=== PATIENT | male | born 1945 | race Caucasian/White ===

== ENCOUNTER 2019-06-10 11:15 | Outpatient (RCR) | payer MEDICARE, OTHER, SELFPAY ==
--- NOTE | 2018-09-08 15:13 | PT.OIE ---
Current Diagnoses Squamous cell carcinoma of skin, unspecified (09/08/18) Stiffness of right shoulder, not elsewhere classified (09/08/18) Abnormal posture (09/08/18) Weakness (09/08/18) Past Medical History (Last Updated 07/03/18 @ 22:09 by Nneka Maria) Anxiety (Chronic) Depression (Chronic ~2017) Hearing loss (Chronic) Knee pain (Chronic) Osteoarthritis (Chronic ~2002) Seasonal allergies (Chronic ~2007) Vision disorder (Chronic) Chicken pox (Resolved) Fractures (Resolved) Measles (Resolved) Mumps (Resolved) Past Surgical History (Last Updated 07/03/18 @ 22:08 by Nneka Maria) Status post knee surgery (~2002) Provider Visit Care Team Role Provider Type Satnam Kirk MD Primary Care Provider Physician Specialty: Internal Medicine Address: [address] [place] [address], [facility] Email: Attending Provider Specialty: Address: Phone: Fax: Email: Physical Therapy Initial Evaluation PT-OP-A Visit Information Start: 09/08/18 08:13 Freq: Status: Active Protocol: Document 09/08/18 13:40 [facility] (Rec: 09/08/18 14:34 [facility] [id number]) Out-Patient Physical Therapy Visit Information Visit Information Visit Type Initial Evaluation Visit Start Time 13:45 Visit Stop Time 14:30 Total Visit Minutes 45 PT-OP-B Current Condition Start: 09/08/18 08:13 Freq: Status: Active Protocol: Document 09/08/18 13:40 [facility] (Rec: 09/08/18 14:34 [facility] [id number]) Current Condition History of Current Condition Onset Date 05/27/18 Current Complaints R shoulder restrictions History of Current Condition Pt had R shoulder fungating SCC s/p resection & reconstruction w/parascapular flap. Pt reports he has been doing infusions and is fatigued for a week after. Pt reports he was limited in activiity d/t recovery of shoulder and notes balance and leg strength. Prior Treatments and Tests armendariz therapy for blood pooling Treatment Goals Patient/Caregiver Goals Return to golfing PT-OP-C Subjective Start: 09/08/18 08:13 Freq: Status: Active Protocol: Document 09/08/18 13:40 [facility] (Rec: 09/08/18 14:34 [facility] [id number]) Patient Questionnaires Quick Dash- Upper Extremity Quick Dash UE Score 22.72 Quick Dash UE Impairment 20 to 39% Impaired (Score 20- 39) OP-PT Pain Assessment Location R shoulder Description Aching Tightness Description- Other feels funny Frequency Intermittent Radiating Location brachium Other Pain Aggravating Factors working on computer, reaching PT-OP-J Posture/Palpation/Skin Start: 09/08/18 12:00 Freq: Status: Active Protocol: Document 09/08/18 13:40 [facility] (Rec: 09/08/18 14:34 [facility] [id number]) Posture Evaluation [facility] Postural Classification System [facility] Postural Classifications Anterior/Posterior Elbow Flexion Test 0 Palpation Assessment Location R shoulder Palpation Findings Soft Tissue Tightness Palpation Details Scar tissue limitation throughout scar ant shoulder and sup shoulder & post R trunk PT-OP-K Range of Motion Start: 09/08/18 12:00 Freq: Status: Active Protocol: Document 09/08/18 13:40 [facility] (Rec: 09/08/18 14:34 [facility] [id number]) Shoulder Goniometric Range of Motion Shoulder Right Passive Flexion 147 Abduction 123 External Rotation at 90 degrees 91 Abduction Internal Rotation 27 Left Active Testing Position Sitting Flexion 168 Extension 66 Abduction 140 External Rotation at 90 degrees 88 Abduction External Rotation at 0 degrees Abduction 91 Internal Rotation 78 Internal Rotation Behind Back (text) T7 Right Active Testing Position Sitting Flexion 125 Extension 40 Abduction 91 External Rotation at 90 degrees 78 Abduction External Rotation at 0 degrees Abduction 85 Internal Rotation 71 Internal Rotation Behind Back (text) L1 PT-OP-M Strength Start: 09/08/18 08:13 Freq: Status: Active Protocol: Document 09/08/18 13:40 [facility] (Rec: 09/08/18 14:34 [facility] [id number]) Shoulder Strength Shoulder Manual Muscle Testing Left Flexion 5 Normal Extension 5 Normal Abduction (C5) 5 Normal External Rotation 4+ Good+ Internal Rotation 5 Normal Right Flexion 4- Good- Extension 4- Good- Abduction (C5) 4+ Good+ External Rotation 4+ Good+ Internal Rotation 4+ Good+ Comments Tested seated d/t balance instability PT-OP-Q Treatments Start: 09/08/18 08:13 Freq: Status: Active Protocol: Document 09/08/18 13:40 [facility] (Rec: 09/08/18 14:34 [facility] [id number]) Therapeutic Exercises Supine Exercises ER Supine Exercise Name 90/90 tbar Reps/Minutes 10 flex Supine Exercise Name tbar Reps/Minutes 15 Standing Exercises ext Standing Exercise Name tbar Reps/Minutes 10 PT-OP-T Assessment and Plan Start: 09/08/18 08:13 Freq: Status: Active Protocol: Document 09/08/18 13:40 [facility] (Rec: 09/08/18 14:34 [facility] [id number]) Physical Therapy Assessment Rehab Potential Rehabilitation Potential Good Evaluation Complexity Number of Personal Factors/Comorbidities 3 or More Number of Body Systems Impaired 4 or More Clinical Presentation at Evaluation Evolving Impairments Impairments Activity Tolerance Balance Functional Activities Functional Mobility Gait Pain Posture ROM Soft Tissue Mobility Strength Goals ROM Senior Care Goal (LTG) Pt will have normal AROM in R Shoulder to allow typical activities LTG Duration 11/08/18 weakness Short Term Goal (STG) Pt will be indep with HEP. STG Duration 10/08/18 Senior Care Goal (LTG) Pt will be able to score 5/5 w /UE strength & 3/5 for EFT to allow inc activity tolerance LTG Duration 11/08/18 activity Short Term Goal (STG) Pt will be able to do ADLs that require reaching: watering, dishes, etc without pain. STG Duration 10/08/18 Atomizer Assembler Goal (LTG) Pt will be able to golf without any issues. LTG Duration 11/08/18 Assessment Summary Assessment Pt presents s/p R shoudler fungating SCC s/p resection & reconstruction w/parascapular flap causing limitations in ROM & strength of his shoulder . he would like inc his activity and strength and has noted dec overall dec inbalance and strength. He was encouraged to talk to MD about further referall for this. He would benefit from PT at this time to work on his shoulder functional ability, scar mobility, ROM & strength. Physical Therapy Plan Frequency and Duration Frequency of Treatment 1-2x/week Duration of Treatment 2 monhts Plan of Care Start Date 09/08/18 Plan of Care End Date 11/08/18 Therapeutic Interventions Therapeutic Interventions Aquatic Therapy Home Exercise Program Joint Mobilizations Manual Therapy Neuromuscular Re-education Patient/Caregiver Education Self-Care/Home Management Soft Tissue Mobilization Taping Therapeutic Activities Therapeutic Exercises Modalities Cold Pack/Ice Massage Hot Packs Next Visit Focus/Plan Next Note Type Treatment Note Next Visit Plan Work on progression of shoulder ROM & strength, scar tissue mobility
--- NOTE | 2018-09-08 15:13 | PT.OPPOC ---
Current Diagnoses Squamous cell carcinoma of skin, unspecified (09/08/18) Stiffness of right shoulder, not elsewhere classified (09/08/18) Abnormal posture (09/08/18) Weakness (09/08/18) Provider Visit Care Team Role Provider Type Satnam Kirk MD Primary Care Provider Physician Specialty: Internal Medicine Address: [address] [place] [address], [id number] Email: Attending Provider Specialty: Address: Phone: Fax: Email: Plan Of Care PT-OP-T Assessment and Plan Start: 09/08/18 08:13 Freq: Status: Active Protocol: Document 09/08/18 13:40 [facility] (Rec: 09/08/18 14:34 [facility] [id number]) Physical Therapy Assessment Rehab Potential Rehabilitation Potential Good Evaluation Complexity Number of Personal Factors/Comorbidities 3 or More Number of Body Systems Impaired 4 or More Clinical Presentation at Evaluation Evolving Impairments Impairments Activity Tolerance Balance Functional Activities Functional Mobility Gait Pain Posture ROM Soft Tissue Mobility Strength Goals ROM Hand Cigar Maker Goal (LTG) Pt will have normal AROM in R Shoulder to allow typical activities LTG Duration 11/08/18 weakness Short Term Goal (STG) Pt will be indep with HEP. STG Duration 10/08/18 Hand Cigar Maker Goal (LTG) Pt will be able to score 5/5 w /UE strength & 3/5 for EFT to allow inc activity tolerance LTG Duration 11/08/18 activity Short Term Goal (STG) Pt will be able to do ADLs that require reaching: watering, dishes, etc without pain. STG Duration 10/08/18 Hand Cigar Maker Goal (LTG) Pt will be able to golf without any issues. LTG Duration 11/08/18 Assessment Summary Assessment Pt presents s/p R shoudler fungating SCC s/p resection & reconstruction w/parascapular flap causing limitations in ROM & strength of his shoulder . he would like inc his activity and strength and has noted dec overall dec inbalance and strength. He was encouraged to talk to about further referall for this. He would benefit from PT at this time to work on his shoulder functional ability, scar mobility, ROM & strength. Physical Therapy Plan Frequency and Duration Frequency of Treatment 1-2x/week Duration of Treatment 2 monhts Plan of Care Start Date 09/08/18 Plan of Care End Date 11/08/18 Therapeutic Interventions Therapeutic Interventions Aquatic Therapy Home Exercise Program Joint Mobilizations Manual Therapy Neuromuscular Re-education Patient/Caregiver Education Self-Care/Home Management Soft Tissue Mobilization Taping Therapeutic Activities Therapeutic Exercises Modalities Cold Pack/Ice Massage Hot Packs Next Visit Focus/Plan Next Note Type Treatment Note Next Visit Plan Work on progression of shoulder ROM & strength, scar tissue mobility Plan of Care Dates Plan of Care Start Date 09/08/18 Plan of Care End Date 11/08/18 Please Sign and Return: I have reviewed this Plan of Care and certify that the skilled therapy services above are required to meet the patient?s needs. Physician Signature Date Printed Name and Credentials Clinical Instructor Signature Printed Name and Credentials
--- NOTE | 2018-09-10 14:29 | PT.OTN ---
Current Diagnoses Squamous cell carcinoma of skin, unspecified (09/10/18) Stiffness of right shoulder, not elsewhere classified (09/10/18) Abnormal posture (09/10/18) Weakness (09/10/18) Physical Therapy Treatment Note PT-OP-A Visit Information Start: 09/08/18 08:13 Freq: Status: Active Protocol: Document 09/10/18 13:47 [facility] (Rec: 09/10/18 14:29 [facility] [id number]) Out-Patient Physical Therapy Visit Information Visit Information Visit Type Treatment Note Visit Start Time 13:47 Visit Stop Time 15:12 Total Visit Minutes 40 Visit Number 2 Number of COMMUNITY HEALTH REPRESENTATIVE Visits 0 PT-OP-B Current Condition Start: 09/08/18 08:13 Freq: Status: Active Protocol: Document 09/08/18 13:40 [facility] (Rec: 09/08/18 14:34 [facility] [id number]) Current Condition History of Current Condition Onset Date 05/27/18 Current Complaints R shoulder restrictions History of Current Condition Pt had R shoulder fungating SCC s/p resection & reconstruction w/parascapular flap. Pt reports he has been doing infusions and is fatigued for a week after. Pt reports he was limited in activiity d/t recovery of shoulder and notes balance and leg strength. Prior Treatments and Tests armendariz therapy for blood pooling Treatment Goals Patient/Caregiver Goals Return to golfing PT-OP-C Subjective Start: 09/08/18 08:13 Freq: Status: Active Protocol: Document 09/10/18 13:47 [facility] (Rec: 09/10/18 14:29 [facility] [id number]) OP-PT Subjective Patient Comments Patient Comments Pt reports a little soreness with the exercises. PT-OP-J Posture/Palpation/Skin Start: 09/08/18 12:00 Freq: Status: Active Protocol: Document 09/08/18 13:40 [facility] (Rec: 09/08/18 14:34 [facility] [id number]) Posture Evaluation [facility] Postural Classification System [facility] Postural Classifications Anterior/Posterior Elbow Flexion Test 0 Palpation Assessment Location R shoulder Palpation Findings Soft Tissue Tightness Palpation Details Scar tissue limitation throughout scar ant shoulder and sup shoulder & post R trunk PT-OP-K Range of Motion Start: 09/08/18 12:00 Freq: Status: Active Protocol: Document 09/08/18 13:40 [facility] (Rec: 09/08/18 14:34 [facility] [id number]) Shoulder Goniometric Range of Motion Shoulder Right Passive Flexion 147 Abduction 123 External Rotation at 90 degrees 91 Abduction Internal Rotation 27 Left Active Testing Position Sitting Flexion 168 Extension 66 Abduction 140 External Rotation at 90 degrees 88 Abduction External Rotation at 0 degrees Abduction 91 Internal Rotation 78 Internal Rotation Behind Back (text) T7 Right Active Testing Position Sitting Flexion 125 Extension 40 Abduction 91 External Rotation at 90 degrees 78 Abduction External Rotation at 0 degrees Abduction 85 Internal Rotation 71 Internal Rotation Behind Back (text) L1 PT-OP-M Strength Start: 09/08/18 08:13 Freq: Status: Active Protocol: Document 09/08/18 13:40 [facility] (Rec: 09/08/18 14:34 [facility] [id number]) Shoulder Strength Shoulder Manual Muscle Testing Left Flexion 5 Normal Extension 5 Normal Abduction (C5) 5 Normal External Rotation 4+ Good+ Internal Rotation 5 Normal Right Flexion 4- Good- Extension 4- Good- Abduction (C5) 4+ Good+ External Rotation 4+ Good+ Internal Rotation 4+ Good+ Comments Tested seated d/t balance instability PT-OP-Q Treatments Start: 09/08/18 08:13 Freq: Status: Active Protocol: Document 09/10/18 13:47 [facility] (Rec: 09/10/18 14:29 [facility] [id number]) Cardio Equipment Upper Body Ergometer (UBE) Duration (Minutes) 6 Seat Position 15 Height 4.5 Other fwd/back Therapeutic Exercises Supine Exercises ER Supine Exercise Name 90/90 tbar Reps/Minutes 20 flex Supine Exercise Name tbar Reps/Minutes 15 Standing Exercises ER Standing Exercise Name B ER Side bilateral Equipment Used lvl 1 Reps/Minutes 10x2 row Standing Exercise Name row Side bilateral Reps/Minutes 2x10 abd Standing Exercise Name tbar Reps/Minutes 12 IR Standing Exercise Name tbar Reps/Minutes 12 ext Standing Exercise Name tbar Reps/Minutes 10 Manual Therapy Treatment Soft Tissue Mobilization scar tissue Body Location ant & post Mobilization Type Myofascial Release Intensity/Depth Superficial Comments MFR & plunger PT-OP-T Assessment and Plan Start: 09/08/18 08:13 Freq: Status: Active Protocol: Document 09/10/18 13:47 [facility] (Rec: 09/10/18 14:29 [facility] [id number]) Physical Therapy Assessment Goals ROM Production Cook Goal (LTG) Pt will have normal AROM in R Shoulder to allow typical activities LTG Duration 11/08/18 weakness Short Term Goal (STG) Pt will be indep with HEP. STG Duration 10/08/18 Production Cook Goal (LTG) Pt will be able to score 5/5 w /UE strength & 3/5 for EFT to allow inc activity tolerance LTG Duration 11/08/18 activity Short Term Goal (STG) Pt will be able to do ADLs that require reaching: watering, dishes, etc without pain. STG Duration 10/08/18 Mcfp Goal (LTG) Pt will be able to golf without any issues. LTG Duration 11/08/18 Assessment Summary Assessment Pt was able to perform HEP with min cueing and is improving in ROM already with 2 days spent with working on it. Able to tolerate start of strength training. Physical Therapy Plan Frequency and Duration Frequency of Treatment 1-2x/week Duration of Treatment 2 monhts Plan of Care Start Date 09/08/18 Plan of Care End Date 11/08/18 Next Visit Focus/Plan Next Note Type Treatment Note Next Visit Plan advance strengthening
--- NOTE | 2018-09-15 17:32 | PT.OTN ---
Current Diagnoses Squamous cell carcinoma of skin, unspecified (09/15/18) Stiffness of right shoulder, not elsewhere classified (09/15/18) Abnormal posture (09/15/18) Weakness (09/15/18) Physical Therapy Treatment Note PT-OP-A Visit Information Start: 09/08/18 08:13 Freq: Status: Active Protocol: Document 09/15/18 16:51 [facility] (Rec: 09/15/18 17:32 [facility] [id number]) Out-Patient Physical Therapy Visit Information Visit Information Visit Type Treatment Note Visit Start Time 16:48 Visit Stop Time 17:28 Total Visit Minutes 40 Visit Number 06/01 Number of CAREER TRANSITION SPECIALIST Visits 0 PT-OP-B Current Condition Start: 09/08/18 08:13 Freq: Status: Active Protocol: Document 09/08/18 13:40 [facility] (Rec: 09/08/18 14:34 [facility] [id number]) Current Condition History of Current Condition Onset Date 05/27/18 Current Complaints R shoulder restrictions History of Current Condition Pt had R shoulder fungating SCC s/p resection & reconstruction w/parascapular flap. Pt reports he has been doing infusions and is fatigued for a week after. Pt reports he was limited in activiity d/t recovery of shoulder and notes balance and leg strength. Prior Treatments and Tests armendariz therapy for blood pooling Treatment Goals Patient/Caregiver Goals Return to golfing PT-OP-C Subjective Start: 09/08/18 08:13 Freq: Status: Active Protocol: Document 09/15/18 16:51 [facility] (Rec: 09/15/18 17:32 [facility] [id number]) OP-PT Subjective Patient Comments Patient Comments Pt reports some mm soreness with exercises. PT-OP-J Posture/Palpation/Skin Start: 09/08/18 12:00 Freq: Status: Active Protocol: Document 09/08/18 13:40 [facility] (Rec: 09/08/18 14:34 [facility] [id number]) Posture Evaluation [facility] Postural Classification System [facility] Postural Classifications Anterior/Posterior Elbow Flexion Test 0 Palpation Assessment Location R shoulder Palpation Findings Soft Tissue Tightness Palpation Details Scar tissue limitation throughout scar ant shoulder and sup shoulder & post R trunk PT-OP-K Range of Motion Start: 09/08/18 12:00 Freq: Status: Active Protocol: Document 09/08/18 13:40 [facility] (Rec: 09/08/18 14:34 [facility] [id number]) Shoulder Goniometric Range of Motion Shoulder Right Passive Flexion 147 Abduction 123 External Rotation at 90 degrees 91 Abduction Internal Rotation 27 Left Active Testing Position Sitting Flexion 168 Extension 66 Abduction 140 External Rotation at 90 degrees 88 Abduction External Rotation at 0 degrees Abduction 91 Internal Rotation 78 Internal Rotation Behind Back (text) T7 Right Active Testing Position Sitting Flexion 125 Extension 40 Abduction 91 External Rotation at 90 degrees 78 Abduction External Rotation at 0 degrees Abduction 85 Internal Rotation 71 Internal Rotation Behind Back (text) L1 PT-OP-M Strength Start: 09/08/18 08:13 Freq: Status: Active Protocol: Document 09/08/18 13:40 [facility] (Rec: 09/08/18 14:34 [facility] [id number]) Shoulder Strength Shoulder Manual Muscle Testing Left Flexion 5 Normal Extension 5 Normal Abduction (C5) 5 Normal External Rotation 4+ Good+ Internal Rotation 5 Normal Right Flexion 4- Good- Extension 4- Good- Abduction (C5) 4+ Good+ External Rotation 4+ Good+ Internal Rotation 4+ Good+ Comments Tested seated d/t balance instability PT-OP-Q Treatments Start: 09/08/18 08:13 Freq: Status: Active Protocol: Document 09/15/18 16:51 [facility] (Rec: 09/15/18 17:32 [facility] [id number]) Cardio Equipment Upper Body Ergometer (UBE) Duration (Minutes) 6 Seat Position 15 Height 4.5 Other fwd/back Therapeutic Exercises Standing Exercises rotation Standing Exercise Name IR Side right Equipment Used L1 Reps/Minutes 2x10 ER Standing Exercise Name B ER Side bilateral Equipment Used lvl 1 Reps/Minutes 10x2 row Standing Exercise Name row Side bilateral Equipment Used L2 Reps/Minutes 2x10 abd Standing Exercise Name tbar Reps/Minutes 12 IR Standing Exercise Name towel Reps/Minutes 12 ext Standing Exercise Name resisted Side bilateral Equipment Used L1 Reps/Minutes 2x10 Manual Therapy Treatment Soft Tissue Mobilization scar tissue Body Location ant & post Mobilization Type Myofascial Release Intensity/Depth Superficial Comments MFR & plunger Joint Mobilizations GH Joint R Direction inf & distraction PT-OP-T Assessment and Plan Start: 09/08/18 08:13 Freq: Status: Active Protocol: Document 09/15/18 16:51 [facility] (Rec: 09/15/18 17:32 [facility] [id number]) Physical Therapy Assessment Goals ROM Chcf Goal (LTG) Pt will have normal AROM in R Shoulder to allow typical activities LTG Duration 11/08/18 weakness Short Term Goal (STG) Pt will be indep with HEP. STG Duration 10/08/18 Chcf Goal (LTG) Pt will be able to score 5/5 w /UE strength & 3/5 for EFT to allow inc activity tolerance LTG Duration 11/08/18 activity Short Term Goal (STG) Pt will be able to do ADLs that require reaching: watering, dishes, etc without pain. STG Duration 10/08/18 Orthotic Practitioner Goal (LTG) Pt will be able to golf without any issues. LTG Duration 11/08/18 Assessment Summary Assessment Pt requied only min cueing w/ HEP exercises. He does have mild LOB with transitions between activities. Exercises improving. Physical Therapy Plan Frequency and Duration Frequency of Treatment 1-2x/week Duration of Treatment 2 monhts Plan of Care Start Date 09/08/18 Plan of Care End Date 11/08/18 Next Visit Focus/Plan Next Note Type Treatment Note Next Visit Plan advance strengthening as tolerated
--- NOTE | 2018-09-18 11:16 | PT.OTN ---
Current Diagnoses Squamous cell carcinoma of skin, unspecified (09/18/18) Stiffness of right shoulder, not elsewhere classified (09/18/18) Abnormal posture (09/18/18) Weakness (09/18/18) Physical Therapy Treatment Note PT-OP-A Visit Information Start: 09/08/18 08:13 Freq: Status: Active Protocol: Document 09/18/18 10:37 [facility] (Rec: 09/18/18 11:15 [facility] [id number]) Out-Patient Physical Therapy Visit Information Visit Information Visit Type Treatment Note Visit Start Time 10:35 Visit Stop Time 11:15 Total Visit Minutes 40 Visit Number 4 Number of SALES LEDGER CLERK Visits 0 PT-OP-B Current Condition Start: 09/08/18 08:13 Freq: Status: Active Protocol: Document 09/08/18 13:40 [facility] (Rec: 09/08/18 14:34 [facility] [id number]) Current Condition History of Current Condition Onset Date 05/27/18 Current Complaints R shoulder restrictions History of Current Condition Pt had R shoulder fungating SCC s/p resection & reconstruction w/parascapular flap. Pt reports he has been doing infusions and is fatigued for a week after. Pt reports he was limited in activiity d/t recovery of shoulder and notes balance and leg strength. Prior Treatments and Tests armendariz therapy for blood pooling Treatment Goals Patient/Caregiver Goals Return to golfing PT-OP-C Subjective Start: 09/08/18 08:13 Freq: Status: Active Protocol: Document 09/18/18 10:37 [facility] (Rec: 09/18/18 11:15 [facility] [id number]) OP-PT Subjective Patient Comments Patient Comments Pt reports his CAT scan showed good results. will write a referal for balance PT soon. Reports he golfed and did okay with it. Some pain in shoulder. PT-OP-J Posture/Palpation/Skin Start: 09/08/18 12:00 Freq: Status: Active Protocol: Document 09/08/18 13:40 [facility] (Rec: 09/08/18 14:34 [facility] [id number]) Posture Evaluation Kelsey Postural Classification System Kelsey Postural Classifications Anterior/Posterior Elbow Flexion Test 0 Palpation Assessment Location R shoulder Palpation Findings Soft Tissue Tightness Palpation Details Scar tissue limitation throughout scar ant shoulder and sup shoulder & post R trunk PT-OP-K Range of Motion Start: 09/08/18 12:00 Freq: Status: Active Protocol: Document 09/08/18 13:40 [facility] (Rec: 09/08/18 14:34 [facility] [id number]) Shoulder Goniometric Range of Motion Shoulder Right Passive Flexion 147 Abduction 123 External Rotation at 90 degrees 91 Abduction Internal Rotation 27 Left Active Testing Position Sitting Flexion 168 Extension 66 Abduction 140 External Rotation at 90 degrees 88 Abduction External Rotation at 0 degrees Abduction 91 Internal Rotation 78 Internal Rotation Behind Back (text) T7 Right Active Testing Position Sitting Flexion 125 Extension 40 Abduction 91 External Rotation at 90 degrees 78 Abduction External Rotation at 0 degrees Abduction 85 Internal Rotation 71 Internal Rotation Behind Back (text) L1 PT-OP-M Strength Start: 09/08/18 08:13 Freq: Status: Active Protocol: Document 09/08/18 13:40 [facility] (Rec: 09/08/18 14:34 [facility] [id number]) Shoulder Strength Shoulder Manual Muscle Testing Left Flexion 5 Normal Extension 5 Normal Abduction (C5) 5 Normal External Rotation 4+ Good+ Internal Rotation 5 Normal Right Flexion 4- Good- Extension 4- Good- Abduction (C5) 4+ Good+ External Rotation 4+ Good+ Internal Rotation 4+ Good+ Comments Tested seated d/t balance instability PT-OP-Q Treatments Start: 09/08/18 08:13 Freq: Status: Active Protocol: Document 09/18/18 10:37 [facility] (Rec: 09/18/18 11:15 [facility] [id number]) Cardio Equipment Upper Body Ergometer (UBE) Duration (Minutes) 6 Seat Position 15 Height 5.5 Other fwd/back Therapeutic Exercises Sitting Exercises pully Sitting Exercise Name flex, abd, IR behind back Reps/Minutes 15 ea Standing Exercises flex Standing Exercise Name w/ Habd retract Side bilateral Equipment Used L1 Reps/Minutes 15 rotation Standing Exercise Name IR Side right Equipment Used L2 Reps/Minutes 2x10 ER Standing Exercise Name B ER Side bilateral Equipment Used lvl 2 Reps/Minutes 10x2 row Standing Exercise Name row Side bilateral Equipment Used L3 Reps/Minutes 2x10 abd Standing Exercise Name resisted Side right Equipment Used L1 Reps/Minutes 12 ext Standing Exercise Name resisted Side bilateral Equipment Used L3 Reps/Minutes 2x10 Manual Therapy Treatment Soft Tissue Mobilization Teres Body Location major & minor Mobilization Type Rolling Strumming scar tissue Body Location post Mobilization Type Myofascial Release Rolling Intensity/Depth Moderate PT-OP-R Modalities Start: 09/18/18 11:15 Freq: Status: Active Protocol: Document 09/18/18 10:37 [facility] (Rec: 09/18/18 11:16 [facility] [id number]) Hot Pack/Cold Pack Treatment Hot Pack Location post shoulder Patient Position Sidelying Treatment Duration (minutes) 15 PT-OP-T Assessment and Plan Start: 09/08/18 08:13 Freq: Status: Active Protocol: Document 09/18/18 10:37 [facility] (Rec: 09/18/18 11:15 [facility] [id number]) Physical Therapy Assessment Goals ROM Sheet Metal Supervisor Goal (LTG) Pt will have normal AROM in R Shoulder to allow typical activities LTG Duration 11/08/18 weakness Short Term Goal (STG) Pt will be indep with HEP. STG Duration 10/08/18 Residential Goal (LTG) Pt will be able to score 5/5 w /UE strength & 3/5 for EFT to allow inc activity tolerance LTG Duration 11/08/18 activity Short Term Goal (STG) Pt will be able to do ADLs that require reaching: watering, dishes, etc without pain. STG Duration 10/08/18 Residential Goal (LTG) Pt will be able to golf without any issues. LTG Duration 11/08/18 Assessment Summary Assessment Pt able to tolerate inc resistance today without any inc in pain. Cueing required for form & posture. Physical Therapy Plan Frequency and Duration Frequency of Treatment 1-2x/week Duration of Treatment 2 monhts Plan of Care Start Date 09/08/18 Plan of Care End Date 11/08/18 Therapeutic Interventions Therapeutic Interventions Aquatic Therapy Home Exercise Program Joint Mobilizations Manual Therapy Neuromuscular Re-education Patient/Caregiver Education Self-Care/Home Management Soft Tissue Mobilization Taping Therapeutic Activities Therapeutic Exercises Modalities Cold Pack/Ice Massage Hot Packs Next Visit Focus/Plan Next Note Type Treatment Note Next Visit Plan advance strengthening as tolerated
--- NOTE | 2018-09-23 17:47 | PT.OTN ---
Current Diagnoses Squamous cell carcinoma of skin, unspecified (09/23/18) Stiffness of right shoulder, not elsewhere classified (09/23/18) Abnormal posture (09/23/18) Weakness (09/23/18) Physical Therapy Treatment Note PT-OP-A Visit Information Start: 09/08/18 08:13 Freq: Status: Active Protocol: Document 09/23/18 16:51 [facility] (Rec: 09/23/18 17:47 [facility] [id number]) Out-Patient Physical Therapy Visit Information Visit Information Visit Type Treatment Note Visit Start Time 16:50 Visit Stop Time 17:30 Total Visit Minutes 40 Visit Number 08/01 Number of MINT WAFER DEPOSITOR Visits 0 PT-OP-B Current Condition Start: 09/08/18 08:13 Freq: Status: Active Protocol: Document 09/08/18 13:40 [facility] (Rec: 09/08/18 14:34 [facility] [id number]) Current Condition History of Current Condition Onset Date 05/27/18 Current Complaints R shoulder restrictions History of Current Condition Pt had R shoulder fungating SCC s/p resection & reconstruction w/parascapular flap. Pt reports he has been doing infusions and is fatigued for a week after. Pt reports he was limited in activiity d/t recovery of shoulder and notes balance and leg strength. Prior Treatments and Tests armendariz therapy for blood pooling Treatment Goals Patient/Caregiver Goals Return to golfing PT-OP-C Subjective Start: 09/08/18 08:13 Freq: Status: Active Protocol: Document 09/23/18 16:51 [facility] (Rec: 09/23/18 17:47 [facility] [id number]) OP-PT Subjective Patient Comments Patient Comments Pt reports he laid on his back and worked on his sink for a long time without a lot of shoulder. PT-OP-J Posture/Palpation/Skin Start: 09/08/18 12:00 Freq: Status: Active Protocol: Document 09/08/18 13:40 [facility] (Rec: 09/08/18 14:34 [facility] [id number]) Posture Evaluation Kelsey Postural Classification System Kelsey Postural Classifications Anterior/Posterior Elbow Flexion Test 0 Palpation Assessment Location R shoulder Palpation Findings Soft Tissue Tightness Palpation Details Scar tissue limitation throughout scar ant shoulder and sup shoulder & post R trunk PT-OP-K Range of Motion Start: 09/08/18 12:00 Freq: Status: Active Protocol: Document 09/08/18 13:40 [facility] (Rec: 09/08/18 14:34 [facility] [id number]) Shoulder Goniometric Range of Motion Shoulder Right Passive Flexion 147 Abduction 123 External Rotation at 90 degrees 91 Abduction Internal Rotation 27 Left Active Testing Position Sitting Flexion 168 Extension 66 Abduction 140 External Rotation at 90 degrees 88 Abduction External Rotation at 0 degrees Abduction 91 Internal Rotation 78 Internal Rotation Behind Back (text) T7 Right Active Testing Position Sitting Flexion 125 Extension 40 Abduction 91 External Rotation at 90 degrees 78 Abduction External Rotation at 0 degrees Abduction 85 Internal Rotation 71 Internal Rotation Behind Back (text) L1 PT-OP-M Strength Start: 09/08/18 08:13 Freq: Status: Active Protocol: Document 09/08/18 13:40 [facility] (Rec: 09/08/18 14:34 [facility] [id number]) Shoulder Strength Shoulder Manual Muscle Testing Left Flexion 5 Normal Extension 5 Normal Abduction (C5) 5 Normal External Rotation 4+ Good+ Internal Rotation 5 Normal Right Flexion 4- Good- Extension 4- Good- Abduction (C5) 4+ Good+ External Rotation 4+ Good+ Internal Rotation 4+ Good+ Comments Tested seated d/t balance instability PT-OP-Q Treatments Start: 09/08/18 08:13 Freq: Status: Active Protocol: Document 09/23/18 16:51 [facility] (Rec: 09/23/18 17:47 [facility] [id number]) Cardio Equipment Upper Body Ergometer (UBE) Duration (Minutes) 6 Seat Position 15 Height 5.5 Other fwd/back Gym Equipment Cable Column (Body Solid) Lat Pull Down Resistance 2,3 Reps/Time 2x15 Therapeutic Exercises Prone Exercises 90/90 ER Side bilateral Reps/Minutes 2x10 ext Side bilateral Equipment Used 2# Reps/Minutes 2x10 scaption Side bilateral Reps/Minutes 2x10 Habd Side bilateral Equipment Used 2# Reps/Minutes 2x10 Sitting Exercises pully Sitting Exercise Name flex, abd, IR behind back Reps/Minutes 15 ea Manual Therapy Treatment Soft Tissue Mobilization scar tissue Body Location post & ant Mobilization Type Myofascial Release Rolling Intensity/Depth Moderate PT-OP-R Modalities Start: 09/18/18 11:15 Freq: Status: Active Protocol: Document 09/23/18 16:51 [facility] (Rec: 09/23/18 17:47 [facility] [id number]) Hot Pack/Cold Pack Treatment Hot Pack Location post shoulder Patient Position Sidelying Treatment Duration (minutes) 15 PT-OP-T Assessment and Plan Start: 09/08/18 08:13 Freq: Status: Active Protocol: Document 09/23/18 16:51 [facility] (Rec: 09/23/18 17:47 [facility] [id number]) Physical Therapy Assessment Goals ROM Functional Tester Typewriters Goal (LTG) Pt will have normal AROM in R Shoulder to allow typical activities LTG Duration 11/08/18 weakness Short Term Goal (STG) Pt will be indep with HEP. STG Duration 10/08/18 Functional Tester Typewriters Goal (LTG) Pt will be able to score 5/5 w /UE strength & 3/5 for EFT to allow inc activity tolerance LTG Duration 11/08/18 activity Short Term Goal (STG) Pt will be able to do ADLs that require reaching: watering, dishes, etc without pain. STG Duration 10/08/18 Functional Tester Typewriters Goal (LTG) Pt will be able to golf without any issues. LTG Duration 11/08/18 Assessment Summary Assessment Pt cont to tolerate inc resistance and improve with his ROM and scar tissue mobility. He is improving with functional gains and ability to do ADLs Physical Therapy Plan Frequency and Duration Frequency of Treatment 1-2x/week Duration of Treatment 2 monhts Plan of Care Start Date 09/08/18 Plan of Care End Date 11/08/18 Next Visit Focus/Plan Next Note Type Treatment Note Next Visit Plan advance strengthening as tolerated
--- NOTE | 2018-09-29 18:09 | PT.OTN ---
Current Diagnoses Squamous cell carcinoma of skin, unspecified (09/29/18) Stiffness of right shoulder, not elsewhere classified (09/29/18) Abnormal posture (09/29/18) Weakness (09/29/18) Physical Therapy Treatment Note PT-OP-A Visit Information Start: 09/08/18 08:13 Freq: Status: Active Protocol: Document 09/29/18 17:48 [facility] (Rec: 09/29/18 18:08 [facility] [id number]) Out-Patient Physical Therapy Visit Information Visit Information Visit Type Treatment Note Visit Start Time 16:50 Visit Stop Time 17:47 Total Visit Minutes 57 Visit Number 09/01 Number of MANAGER OPERATIONS RESEARCH Visits 0 PT-OP-B Current Condition Start: 09/08/18 08:13 Freq: Status: Active Protocol: Document 09/08/18 13:40 [facility] (Rec: 09/08/18 14:34 [facility] [id number]) Current Condition History of Current Condition Onset Date 05/27/18 Current Complaints R shoulder restrictions History of Current Condition Pt had R shoulder fungating SCC s/p resection & reconstruction w/parascapular flap. Pt reports he has been doing infusions and is fatigued for a week after. Pt reports he was limited in activiity d/t recovery of shoulder and notes balance and leg strength. Prior Treatments and Tests armendariz therapy for blood pooling Treatment Goals Patient/Caregiver Goals Return to golfing PT-OP-C Subjective Start: 09/08/18 08:13 Freq: Status: Active Protocol: Document 09/29/18 17:48 [facility] (Rec: 09/29/18 18:08 [facility] [id number]) OP-PT Subjective Patient Comments Patient Comments Pt reports he was able to golf without problems, although he did feel fatigued afterward. PT-OP-J Posture/Palpation/Skin Start: 09/08/18 12:00 Freq: Status: Active Protocol: Document 09/08/18 13:40 [facility] (Rec: 09/08/18 14:34 [facility] [id number]) Posture Evaluation Kelsey Postural Classification System Kelsey Postural Classifications Anterior/Posterior Elbow Flexion Test 0 Palpation Assessment Location R shoulder Palpation Findings Soft Tissue Tightness Palpation Details Scar tissue limitation throughout scar ant shoulder and sup shoulder & post R trunk PT-OP-K Range of Motion Start: 09/08/18 12:00 Freq: Status: Active Protocol: Document 09/08/18 13:40 [facility] (Rec: 09/08/18 14:34 [facility] [id number]) Shoulder Goniometric Range of Motion Shoulder Right Passive Flexion 147 Abduction 123 External Rotation at 90 degrees 91 Abduction Internal Rotation 27 Left Active Testing Position Sitting Flexion 168 Extension 66 Abduction 140 External Rotation at 90 degrees 88 Abduction External Rotation at 0 degrees Abduction 91 Internal Rotation 78 Internal Rotation Behind Back (text) T7 Right Active Testing Position Sitting Flexion 125 Extension 40 Abduction 91 External Rotation at 90 degrees 78 Abduction External Rotation at 0 degrees Abduction 85 Internal Rotation 71 Internal Rotation Behind Back (text) L1 PT-OP-M Strength Start: 09/08/18 08:13 Freq: Status: Active Protocol: Document 09/08/18 13:40 [facility] (Rec: 09/08/18 14:34 [facility] [id number]) Shoulder Strength Shoulder Manual Muscle Testing Left Flexion 5 Normal Extension 5 Normal Abduction (C5) 5 Normal External Rotation 4+ Good+ Internal Rotation 5 Normal Right Flexion 4- Good- Extension 4- Good- Abduction (C5) 4+ Good+ External Rotation 4+ Good+ Internal Rotation 4+ Good+ Comments Tested seated d/t balance instability PT-OP-Q Treatments Start: 09/08/18 08:13 Freq: Status: Active Protocol: Document 09/29/18 17:48 [facility] (Rec: 09/29/18 18:08 [facility] [email or web address]) Cardio Equipment Upper Body Ergometer (UBE) Duration (Minutes) 6 Seat Position 15 Height 6.5 Other fwd/back Therapeutic Exercises Prone Exercises 90/90 ER Side right Reps/Minutes 3x20 ext Side right Equipment Used 3# Reps/Minutes 2x20 scaption Side right Equipment Used 1# Reps/Minutes 2x20 Sidelying Exercises ER Side right Equipment Used 3# Reps/Minutes 2x10 Standing Exercises ER Standing Exercise Name R ER doorway stretch Side right Comments added to HEP Manual Therapy Treatment Soft Tissue Mobilization Pectorals Body Location major & minor Mobilization Type Myofascial Release Rolling Intensity/Depth Moderate Body Position Sitting scar tissue Body Location sup & ant Mobilization Type Myofascial Release Rolling Intensity/Depth Moderate PT-OP-R Modalities Start: 09/18/18 11:15 Freq: Status: Active Protocol: Document 09/29/18 17:48 [facility] (Rec: 09/29/18 18:08 [facility] [id number]) Hot Pack/Cold Pack Treatment Hot Pack Location ant & post shoulder Patient Position Sidelying Treatment Duration (minutes) 15 PT-OP-T Assessment and Plan Start: 09/08/18 08:13 Freq: Status: Active Protocol: Document 09/29/18 17:48 [facility] (Rec: 09/29/18 18:08 [facility] [id number]) Physical Therapy Assessment Goals ROM [employer] Business Analyst Goal (LTG) Pt will have normal AROM in R Shoulder to allow typical activities LTG Duration 11/08/18 weakness Short Term Goal (STG) Pt will be indep with HEP. STG Duration 10/08/18 [employer] Business Analyst Goal (LTG) Pt will be able to score 5/5 w /UE strength & 3/5 for EFT to allow inc activity tolerance LTG Duration 11/08/18 activity Short Term Goal (STG) Pt will be able to do ADLs that require reaching: watering, dishes, etc without pain. STG Duration 10/08/18 [employer] Business Analyst Goal (LTG) Pt will be able to golf without any issues. LTG Duration 11/08/18 Assessment Summary Assessment Pt's compliance with HEP continues to inc ROM and strength, allowing for ability to perform more functional and recreational activties. Pt was able to tolerate inc weight and repetitions with ther ex today. Physical Therapy Plan Frequency and Duration Frequency of Treatment 1-2x/week Duration of Treatment 2 monhts Plan of Care Start Date 09/08/18 Plan of Care End Date 11/08/18 Next Visit Focus/Plan Next Note Type Treatment Note Next Visit Plan assess PROM into flex, abd. joint mobs to inc ROM if necessary. Standing exercises.
--- NOTE | 2018-10-01 18:56 | PT.OTRE ---
Current Diagnoses Squamous cell carcinoma of skin, unspecified (10/01/18) Stiffness of right shoulder, not elsewhere classified (10/01/18) Abnormal posture (10/01/18) Weakness (10/01/18) Past Medical History (Last Updated 07/03/18 @ 22:09 by Nneka Maria) Anxiety (Chronic) Depression (Chronic ~2017) Hearing loss (Chronic) Knee pain (Chronic) Osteoarthritis (Chronic ~2002) Seasonal allergies (Chronic ~2007) Vision disorder (Chronic) Chicken pox (Resolved) Fractures (Resolved) Measles (Resolved) Mumps (Resolved) Surgical History (Last Updated 07/03/18 @ 22:08 by Nneka Maria) Status post knee surgery (~2002) Provider Visit Care Team Role Provider Type Satnam Kirk MD Primary Care Provider Physician Specialty: Internal Medicine Address: [address] [place] [address] Email: Attending Provider Specialty: Address: Phone: Fax: Email: Physical Therapy Re-Evaluation PT-OP-A Visit Information Start: 09/08/18 08:13 Freq: Status: Active Protocol: Document 10/01/18 16:45 AR (Rec: 10/01/18 18:34 AR [email or web address]) Out-Patient Physical Therapy Visit Information Visit Information Visit Type Initial Evaluation Visit Note balance evaluation Visit Start Time 16:45 Visit Stop Time 17:55 Total Visit Minutes 70 Evaluation Information Evaluation Date 10/01/18 PT-OP-B Current Condition Start: 09/08/18 08:13 Freq: Status: Active Protocol: Document 10/01/18 16:45 AR (Rec: 10/01/18 18:34 AR [email or web address]) Current Condition History of Current Condition Onset Date 09/22/2017 Current Complaints imbalance with walking and ADLs History of Current Condition Pt noticed decline in balance about a year ago and believed it was mostly d/t pain in his L knee. Since cancer dx in March, pt has noticed a further decline in balance d/t weakness and fatigue from spending so much time in the hospital and cancer treatments . Prior Treatments and Tests none Treatment Goals Patient/Caregiver Goals Be able to walk independently w/o imbalance (at home, grocery store, golf course). Prior Functional Status Baseline Function- ADL's Independent Baseline Function- Mobility Independent Baseline Function- Gait Pt notes he used walk quite a bit before balance declined. Personal Factors Other Personal Factors That May Effect cancer treatment, fatigue Therapy/Recovery PT-OP-C Subjective Start: 09/08/18 08:13 Freq: Status: Active Protocol: Document 10/01/18 16:45 AR (Rec: 10/01/18 18:34 AR [email or web address]) OP-PT Subjective Patient Comments Patient Comments Pt notes that he seems to lose balance due to fatigue. He holds onto the shopping cart at the grocery store and always carries a golf club as a safety net for stability. He denies any falls. Patient Questionnaires ABC- Activity Specific Balance Confidence Scale ABC Score 72% ABC Functional Impairment 60 to <80% Impaired (Score 21- 40) PT-OP-D Balance Start: 09/08/18 08:13 Freq: Status: Active Protocol: Document 10/01/18 16:45 AR (Rec: 10/01/18 18:34 AR [email or web address]) Veras Balance Assessment Evaluation Sitting to Standing Ability Independent w/out Hands Unsupported Stance Safely- 2 minutes Sitting Unsupported, Feet on Floor Safely- 2 minutes Standing to Sitting Ability Assist, Control w/Hands Transfer Ability Safely, Hand Use Unsupported Stance- Eyes Closed Supervision, 10 seconds Unsupported Stance- Eyes Open Assist to attain, 15 secs Reaching Forward Standing Supervision Needed Pick- Up Object From Floor Supervision Look Behind Shoulder - Standing Supervision w/Turning Turning 360 Degrees Supervision/Verbal Cues Unsupported Stance, Alternating Feet on 4 Steps w/Supervision Stair Unsupported Tandem Stance Small Step- 30 seconds Unilateral Leg Stance Unable,assist to not fall Total Score Veras Total Score (out of 56 points) 32 [place]as Impairment Rating 40 to 59% Impaired (Score 23- 33) PT-OP-E Functional Tests Start: 09/08/18 08:13 Freq: Status: Active Protocol: Document 10/01/18 16:45 AR (Rec: 10/01/18 18:34 AR [email or web address]) Functional Tests Dynamic Gait Index (DGI) Score 9 DGI Impairment Rating 60 to <80% Impaired (Score 5-9 ) PT-OP-J Posture/Palpation/Skin Start: 09/08/18 12:00 Freq: Status: Active Protocol: Document 09/08/18 13:40 [facility] (Rec: 09/08/18 14:34 [facility] [id number]) Posture Evaluation [facility] Postural Classification System [facility] Postural Classifications Anterior/Posterior Elbow Flexion Test 0 Palpation Assessment Location R shoulder Palpation Findings Soft Tissue Tightness Palpation Details Scar tissue limitation throughout scar ant shoulder and sup shoulder & post R trunk PT-OP-K Range of Motion Start: 09/08/18 12:00 Freq: Status: Active Protocol: Document 09/08/18 13:40 [facility] (Rec: 09/08/18 14:34 [facility] [id number]) Shoulder Goniometric Range of Motion Shoulder Measured in Degrees Right Passive Flexion 147 Abduction 123 External Rotation at 90 degrees 91 Abduction Internal Rotation 27 Left Active Testing Position Sitting Flexion 168 Extension 66 Abduction 140 External Rotation at 90 degrees 88 Abduction External Rotation at 0 degrees Abduction 91 Internal Rotation 78 Internal Rotation Behind Back (text) T7 Right Active Testing Position Sitting Flexion 125 Extension 40 Abduction 91 External Rotation at 90 degrees 78 Abduction External Rotation at 0 degrees Abduction 85 Internal Rotation 71 Internal Rotation Behind Back (text) L1 PT-OP-M Strength Start: 09/08/18 08:13 Freq: Status: Active Protocol: Document 10/01/18 16:45 [facility] (Rec: 10/01/18 17:33 [facility] [id number]) Hip Strength Hip Manual Muscle Testing Right Flexion (L2) 4- Good- Extension (S1) 3 Fair Abduction 3+ Fair+ External Rotation 4- Good- Internal Rotation 4- Good- Left Flexion (L2) 4- Good- Extension (S1) 3 Fair Abduction 3+ Fair+ External Rotation 3+ Fair+ Internal Rotation 4- Good- Knee Strength Knee Manual Muscle Testing Right Flexion (S2) 4- Good- Extension (L3) 4+ Good+ Left Flexion (S2) 4- Good- Extension (L3) 5 Normal Ankle/Foot Strength Ankle and Foot Manual Muscle Testing Right Dorsiflexion (L4) 4+ Good+ Plantarflexion (S1) 3+ Fair+ Left Dorsiflexion (L4) 4 Good Plantarflexion (S1) 3+ Fair+ Comments seated tested for PF B PT-OP-Q Treatments Start: 09/08/18 08:13 Freq: Status: Active Protocol: Document 10/01/18 16:45 AR (Rec: 10/01/18 18:34 AR [email or web address]) Cardio Equipment Upper Body Ergometer (UBE) Duration (Minutes) 6 Seat Position 15 Height 6.5 Other fwd/back PT-OP-R Modalities Start: 09/18/18 11:15 Freq: Status: Active Protocol: Document 10/01/18 16:45 AR (Rec: 10/01/18 18:34 AR [email or web address]) Hot Pack/Cold Pack Treatment Hot Pack Location ant & post shoulder Patient Position Sidelying Treatment Duration (minutes) 15 PT-OP-T Assessment and Plan Start: 09/08/18 08:13 Freq: Status: Active Protocol: Document 10/01/18 16:45 AR (Rec: 10/01/18 18:34 AR [email or web address]) Physical Therapy Assessment Goals Gait Short Term Goal (STG) Pt will be able to amb with horizontal head turns w/o loss of balance for 50 feet. STG Duration 11/16/2018 [employer] Operator Goal (LTG) Pt will be able to amb in grocery store w/o use of shopping cart for support. LTG Duration 12/02/2018 Balance Short Term Goal (STG) Pt will be able to turn and look over R and L shoulders without loss of balance, use of external support or supervision. STG Duration 11/01/2018 [employer] Operator Goal (LTG) Pt will inc Veras Balance score to 45/56 in order to dec fall risk and be able to maintain balance on uneven surfaces of golf course w/o use of club. LTG Duration 12/02/2018 weakness Short Term Goal (STG) Pt will be indep with HEP. STG Duration 10/08/18 [employer] Machine Operator Goal (LTG) Pt will be able to score 5/5 w /UE strength & 3/5 for EFT to allow inc activity tolerance LTG Duration 11/08/18 activity Short Term Goal (STG) Pt will be able to do ADLs that require reaching: watering, dishes, etc without pain. STG Duration 10/08/18 [employer] Feeding Machine Operator Goal (LTG) Pt will be able to golf without any issues. LTG Duration 11/08/18 Assessment Summary Assessment Pt is high fall risk and becomes more unstable when fatigued. Training on strengthing vestibular system should improve balance, as pt had LOB with horizontal head turns. Pt may also benefit from dual task gait and balance training to help strengthen automaticity of tasks. Physical Therapy Plan Frequency and Duration Frequency of Treatment 1-2x/week Duration of Treatment 2 months Plan of Care Start Date 10/01/18 Plan of Care End Date 12/02/18 Therapeutic Interventions Therapeutic Interventions Balance Training Gait Training Home Exercise Program Joint Mobilizations Manual Therapy Neuromuscular Re-education Patient/Caregiver Education Self-Care/Home Management Soft Tissue Mobilization Taping Therapeutic Activities Therapeutic Exercises Modalities Cold Pack/Ice Massage Hot Packs Next Visit Focus/Plan Next Note Type Treatment Note Next Visit Plan test mCTSIB and reactive balance (push & release). integrate reactive balance treatments for fall prevention . Dual task gait and balance training.
--- NOTE | 2018-10-06 18:58 | PT.OTN ---
Current Diagnoses Squamous cell carcinoma of skin, unspecified (10/06/18) Stiffness of right shoulder, not elsewhere classified (10/06/18) Abnormal posture (10/06/18) Weakness (10/06/18) Physical Therapy Treatment Note PT-OP-A Visit Information Start: 09/08/18 08:13 Freq: Status: Active Protocol: Document 10/06/18 17:48 AR (Rec: 10/06/18 18:07 AR [email or web address]) Out-Patient Physical Therapy Visit Information Visit Information Visit Type Treatment Note Visit Note 8 Visit Start Time 16:45 Visit Stop Time 17:45 Total Visit Minutes 60 Visit Number 2/ Number of MANAGER VIDEO GAMES Visits 0 PT-OP-B Current Condition Start: 09/08/18 08:13 Freq: Status: Active Protocol: Document 10/01/18 16:45 AR (Rec: 10/01/18 18:34 AR [email or web address]) Current Condition History of Current Condition Onset Date 09/22/2017 Current Complaints imbalance with walking and ADLs History of Current Condition Pt noticed decline in balance about a year ago and believed it was mostly d/t pain in his L knee. Since cancer dx in March, pt has noticed a further decline in balance d/t weakness and fatigue from spending so much time in the hospital and cancer treatments . Prior Treatments and Tests none Treatment Goals Patient/Caregiver Goals Be able to walk independently w/o imbalance (at home, grocery store, golf course). Prior Functional Status Baseline Function- ADL's Independent Baseline Function- Mobility Independent Baseline Function- Gait Pt notes he used walk quite a bit before balance declined. Personal Factors Other Personal Factors That May Effect cancer treatment, fatigue Therapy/Recovery PT-OP-C Subjective Start: 09/08/18 08:13 Freq: Status: Active Protocol: Document 10/06/18 17:48 AR (Rec: 10/06/18 18:07 AR [email or web address]) OP-PT Subjective Patient Comments Patient Comments Pt reports feeling very fatigued today. He is seeing MD in [place] tomorrow and plans on mentioning his scab to them. He also reports that his scar is feeling more a part of him and less strange feeling. PT-OP-D Balance Start: 09/08/18 08:13 Freq: Status: Active Protocol: Document 10/01/18 16:45 AR (Rec: 10/01/18 18:34 AR [email or web address]) Veras Balance Assessment Evaluation Sitting to Standing Ability Independent w/out Hands Unsupported Stance Safely- 2 minutes Sitting Unsupported, Feet on Floor Safely- 2 minutes Standing to Sitting Ability Assist, Control w/Hands Transfer Ability Safely, Hand Use Unsupported Stance- Eyes Closed Supervision, 10 seconds Unsupported Stance- Eyes Open Assist to attain, 15 secs Reaching Forward Standing Supervision Needed Pick- Up Object From Floor Supervision Look Behind Shoulder - Standing Supervision w/Turning Turning 360 Degrees Supervision/Verbal Cues Unsupported Stance, Alternating Feet on 4 Steps w/Supervision Stair Unsupported Tandem Stance Small Step- 30 seconds Unilateral Leg Stance Unable,assist to not fall Total Score Veras Total Score (out of 56 points) 32 [place] Impairment Rating 40 to 59% Impaired (Score 23- 33) PT-OP-E Functional Tests Start: 09/08/18 08:13 Freq: Status: Active Protocol: Document 10/01/18 16:45 AR (Rec: 10/01/18 18:34 AR [email or web address]) Functional Tests Dynamic Gait Index (DGI) Score 9 DGI Impairment Rating 60 to <80% Impaired (Score 5-9 ) PT-OP-J Posture/Palpation/Skin Start: 09/08/18 12:00 Freq: Status: Active Protocol: Document 09/08/18 13:40 [facility] (Rec: 09/08/18 14:34 [facility] [id number]) Posture Evaluation [facility] Postural Classification System [facility] Postural Classifications Anterior/Posterior Elbow Flexion Test 0 Palpation Assessment Location R shoulder Palpation Findings Soft Tissue Tightness Palpation Details Scar tissue limitation throughout scar ant shoulder and sup shoulder & post R trunk PT-OP-K Range of Motion Start: 09/08/18 12:00 Freq: Status: Active Protocol: Document 09/08/18 13:40 [facility] (Rec: 09/08/18 14:34 [facility] [id number]) Shoulder Goniometric Range of Motion Shoulder Right Passive Flexion 147 Abduction 123 External Rotation at 90 degrees 91 Abduction Internal Rotation 27 Left Active Testing Position Sitting Flexion 168 Extension 66 Abduction 140 External Rotation at 90 degrees 88 Abduction External Rotation at 0 degrees Abduction 91 Internal Rotation 78 Internal Rotation Behind Back (text) T7 Right Active Testing Position Sitting Flexion 125 Extension 40 Abduction 91 External Rotation at 90 degrees 78 Abduction External Rotation at 0 degrees Abduction 85 Internal Rotation 71 Internal Rotation Behind Back (text) L1 PT-OP-M Strength Start: 09/08/18 08:13 Freq: Status: Active Protocol: Document 10/01/18 16:45 [facility] (Rec: 10/01/18 17:33 [facility] [id number]) Hip Strength Hip Manual Muscle Testing Right Flexion (L2) 4- Good- Extension (S1) 3 Fair Abduction 3+ Fair+ External Rotation 4- Good- Internal Rotation 4- Good- Left Flexion (L2) 4- Good- Extension (S1) 3 Fair Abduction 3+ Fair+ External Rotation 3+ Fair+ Internal Rotation 4- Good- Knee Strength Knee Manual Muscle Testing Right Flexion (S2) 4- Good- Extension (L3) 4+ Good+ Left Flexion (S2) 4- Good- Extension (L3) 5 Normal Ankle/Foot Strength Ankle and Foot Manual Muscle Testing Right Dorsiflexion (L4) 4+ Good+ Plantarflexion (S1) 3+ Fair+ Left Dorsiflexion (L4) 4 Good Plantarflexion (S1) 3+ Fair+ Comments seated tested for PF B PT-OP-Q Treatments Start: 09/08/18 08:13 Freq: Status: Active Protocol: Document 10/06/18 17:48 AR (Rec: 10/06/18 18:07 AR [email or web address]) Therapeutic Exercises Prone Exercises ext Side right Equipment Used 2# Reps/Minutes 2x10 scaption Side right Equipment Used 1# Reps/Minutes 2x10 Habd Side right Equipment Used 2# Reps/Minutes 2x10 Manual Therapy Treatment Soft Tissue Mobilization scar tissue Body Location posterior Mobilization Type Myofascial Release Rolling Intensity/Depth Moderate Body Position Sidelying Neuro Re-Education Treatment Balance Activities Shuttle Board Details WBOS, NBOS, stagger stance Surface blue clips Reps/Duration 3x30 sec Comments Pt cued on upright posture. Pt grabbed for support multiple times. Head turns during stagger stance fairly challenging for pt SLS Details SLS Surface level Equipment // bars Reps/Duration 4x each side, 10 sec holds Comments pt unable to maintain balance c/o support of at least one finger at // bars. Pt cued on upright posture and contralateral hip drop Hurdles Details step overs Surface level Equipment 6 hurdles Reps/Duration 6 Comments step to. CGA. Pt balance improved during 3rd trial, but declined as pt fatigued. Pt was unable to clear L foot over kim c/o circumduction PT-OP-R Modalities Start: 09/18/18 11:15 Freq: Status: Active Protocol: Document 10/01/18 16:45 AR (Rec: 10/01/18 18:34 AR [email or web address]) Hot Pack/Cold Pack Treatment Hot Pack Location ant & post shoulder Patient Position Sidelying Treatment Duration (minutes) 15 PT-OP-T Assessment and Plan Start: 09/08/18 08:13 Freq: Status: Active Protocol: Document 10/06/18 17:48 AR (Rec: 10/06/18 18:07 AR [email or web address]) Physical Therapy Assessment Goals Gait Short Term Goal (STG) Pt will be able to amb with horizontal head turns w/o loss of balance for 50 feet. STG Duration 11/16/2018 Restaurant Associate Goal (LTG) Pt will be able to amb in grocery store w/o use of shopping cart for support. LTG Duration 12/02/2018 Balance Short Term Goal (STG) Pt will be able to turn and look over R and L shoulders without loss of balance, use of external support or supervision. STG Duration 11/01/2018 Restaurant Associate Goal (LTG) Pt will inc Veras Balance score to 45/56 in order to dec fall risk and be able to maintain balance on uneven surfaces of golf course w/o use of club. LTG Duration 12/02/2018 ROM Correction Goal (LTG) Pt will have normal AROM in R Shoulder to allow typical activities LTG Duration 11/08/18 weakness Short Term Goal (STG) Pt will be indep with HEP. STG Duration 10/08/18 Correction Goal (LTG) Pt will be able to score 5/5 w /UE strength & 3/5 for EFT to allow inc activity tolerance LTG Duration 11/08/18 activity Short Term Goal (STG) Pt will be able to do ADLs that require reaching: watering, dishes, etc without pain. STG Duration 10/08/18 Restaurant Associate Goal (LTG) Pt will be able to golf without any issues. LTG Duration 11/08/18 Assessment Summary Assessment Pt fatigue continues to affect balance and decline in stability was noted during kim exercise. Session was split between balance and shoulder treatment today, d/t fatigue. Pt balance did improve with repetitions, until fatigue set in. Physical Therapy Plan Frequency and Duration Frequency of Treatment 1-2x/week Duration of Treatment 2 months Plan of Care Start Date 10/01/18 Plan of Care End Date 12/02/18 Next Visit Focus/Plan Next Note Type Treatment Note Next Visit Plan work on reactive balance during shuttle board, seated balance on ball c head turns
--- NOTE | 2018-10-08 17:43 | PT.OTN ---
Current Diagnoses Squamous cell carcinoma of skin, unspecified (10/08/18) Stiffness of right shoulder, not elsewhere classified (10/08/18) Abnormal posture (10/08/18) Weakness (10/08/18) Physical Therapy Treatment Note PT-OP-A Visit Information Start: 09/08/18 08:13 Freq: Status: Active Protocol: Document 10/08/18 16:33 AR (Rec: 10/08/18 16:47 AR [email or web address]) Out-Patient Physical Therapy Visit Information Visit Information Visit Type Treatment Note Visit Note 9 Visit Start Time 15:15 Visit Stop Time 16:10 Total Visit Minutes 55 Visit Number 06/01 PT-OP-B Current Condition Start: 09/08/18 08:13 Freq: Status: Active Protocol: Document 10/01/18 16:45 AR (Rec: 10/01/18 18:34 AR [email or web address]) Current Condition History of Current Condition Onset Date 09/22/2017 Current Complaints imbalance with walking and ADLs History of Current Condition Pt noticed decline in balance about a year ago and believed it was mostly d/t pain in his L knee. Since cancer dx in March, pt has noticed a further decline in balance d/t weakness and fatigue from spending so much time in the hospital and cancer treatments . Prior Treatments and Tests none Treatment Goals Patient/Caregiver Goals Be able to walk independently w/o imbalance (at home, grocery store, golf course). Prior Functional Status Baseline Function- ADL's Independent Baseline Function- Mobility Independent Baseline Function- Gait Pt notes he used walk quite a bit before balance declined. Personal Factors Other Personal Factors That May Effect cancer treatment, fatigue Therapy/Recovery PT-OP-C Subjective Start: 09/08/18 08:13 Freq: Status: Active Protocol: Document 10/08/18 16:33 AR (Rec: 10/08/18 16:47 AR [email or web address]) OP-PT Subjective Patient Comments Patient Comments Pt reports he was fatigued after trip into [place] for cancer treatments yesterday. His plastic surgeon is happy with the mobility of his scar. Pt reports his balance is better when he is moving, rather than standing still. He also noted that he tends to wear out the lateral side of all his shoes. PT-OP-D Balance Start: 09/08/18 08:13 Freq: Status: Active Protocol: Document 10/01/18 16:45 AR (Rec: 10/01/18 18:34 AR [email or web address]) Veras Balance Assessment Evaluation Sitting to Standing Ability Independent w/out Hands Unsupported Stance Safely- 2 minutes Sitting Unsupported, Feet on Floor Safely- 2 minutes Standing to Sitting Ability Assist, Control w/Hands Transfer Ability Safely, Hand Use Unsupported Stance- Eyes Closed Supervision, 10 seconds Unsupported Stance- Eyes Open Assist to attain, 15 secs Reaching Forward Standing Supervision Needed Pick- Up Object From Floor Supervision Look Behind Shoulder - Standing Supervision w/Turning Turning 360 Degrees Supervision/Verbal Cues Unsupported Stance, Alternating Feet on 4 Steps w/Supervision Stair Unsupported Tandem Stance Small Step- 30 seconds Unilateral Leg Stance Unable,assist to not fall Total Score Veras Total Score (out of 56 points) 32 [place]as Impairment Rating 40 to 59% Impaired (Score 23- 33) PT-OP-E Functional Tests Start: 09/08/18 08:13 Freq: Status: Active Protocol: Document 10/01/18 16:45 AR (Rec: 10/01/18 18:34 AR [email or web address]) Functional Tests Dynamic Gait Index (DGI) Score 9 DGI Impairment Rating 60 to <80% Impaired (Score 5-9 ) PT-OP-J Posture/Palpation/Skin Start: 09/08/18 12:00 Freq: Status: Active Protocol: Document 09/08/18 13:40 [facility] (Rec: 09/08/18 14:34 [facility] [id number]) Posture Evaluation Kelsey Postural Classification System Kelsey Postural Classifications Anterior/Posterior Elbow Flexion Test 0 Palpation Assessment Location R shoulder Palpation Findings Soft Tissue Tightness Palpation Details Scar tissue limitation throughout scar ant shoulder and sup shoulder & post R trunk PT-OP-K Range of Motion Start: 09/08/18 12:00 Freq: Status: Active Protocol: Document 09/08/18 13:40 [facility] (Rec: 09/08/18 14:34 [facility] [id number]) Shoulder Goniometric Range of Motion Shoulder Right Passive Flexion 147 Abduction 123 External Rotation at 90 degrees 91 Abduction Internal Rotation 27 Left Active Testing Position Sitting Flexion 168 Extension 66 Abduction 140 External Rotation at 90 degrees 88 Abduction External Rotation at 0 degrees Abduction 91 Internal Rotation 78 Internal Rotation Behind Back (text) T7 Right Active Testing Position Sitting Flexion 125 Extension 40 Abduction 91 External Rotation at 90 degrees 78 Abduction External Rotation at 0 degrees Abduction 85 Internal Rotation 71 Internal Rotation Behind Back (text) L1 PT-OP-M Strength Start: 09/08/18 08:13 Freq: Status: Active Protocol: Document 10/01/18 16:45 [facility] (Rec: 10/01/18 17:33 [facility] [id number]) Hip Strength Hip Manual Muscle Testing Right Flexion (L2) 4- Good- Extension (S1) 3 Fair Abduction 3+ Fair+ External Rotation 4- Good- Internal Rotation 4- Good- Left Flexion (L2) 4- Good- Extension (S1) 3 Fair Abduction 3+ Fair+ External Rotation 3+ Fair+ Internal Rotation 4- Good- Knee Strength Knee Manual Muscle Testing Right Flexion (S2) 4- Good- Extension (L3) 4+ Good+ Left Flexion (S2) 4- Good- Extension (L3) 5 Normal Ankle/Foot Strength Ankle and Foot Manual Muscle Testing Right Dorsiflexion (L4) 4+ Good+ Plantarflexion (S1) 3+ Fair+ Left Dorsiflexion (L4) 4 Good Plantarflexion (S1) 3+ Fair+ Comments seated tested for PF B PT-OP-Q Treatments Start: 09/08/18 08:13 Freq: Status: Active Protocol: Document 10/08/18 16:33 AR (Rec: 10/08/18 16:47 AR [email or web address]) Therapeutic Exercises Prone Exercises 90/90 ER Side right Resistance none Reps/Minutes 15 ext Side right Equipment Used 3# Reps/Minutes 2x10 scaption Side right Equipment Used 1# Reps/Minutes 2x10 Habd Side right Equipment Used 3# Reps/Minutes 2x10 Manual Therapy Treatment Soft Tissue Mobilization UT Body Location upper traps, lev scap Mobilization Type Rolling Sustained Pressure Intensity/Depth Moderate Body Position Supine scar tissue Body Location upper posterior, ant & sup Mobilization Type Myofascial Release Rolling Intensity/Depth Moderate Body Position Sitting Neuro Re-Education Treatment Balance Activities foam pad Details WBOS, BLE Surface abernathy foam pad Reps/Duration 2 min Comments EC, head turns. pt was very challenged by EC. Seated on tball Details seated c head turns, eyes closed Surface red ball Reps/Duration 20 head turns, EC [id number] Comments not very challenging for pt. was able to maintain balance but did bounce as a compensatory strategy Shuttle Board Details WBOS, stagger stance Surface blue clips Reps/Duration 3x30 sec Comments EO, EC, head turns, reactive balance. Pt cued on upright posture. Pt maintained balance w WBOS w/o grabbing for bars 30+ sec. Reactive balance not challenging. EC very challenging for pt PT-OP-R Modalities Start: 09/18/18 11:15 Freq: Status: Active Protocol: Document 10/08/18 16:33 AR (Rec: 10/08/18 17:00 AR [email or web address]) Hot Pack/Cold Pack Treatment Hot Pack Patient Position Sidelying Treatment Duration (minutes) 15 PT-OP-T Assessment and Plan Start: 09/08/18 08:13 Freq: Status: Active Protocol: Document 10/08/18 16:33 AR (Rec: 10/08/18 16:47 AR [email or web address]) Physical Therapy Assessment Goals Gait Short Term Goal (STG) Pt will be able to amb with horizontal head turns w/o loss of balance for 50 feet. STG Duration 11/16/2018 [employer] Goal (LTG) Pt will be able to amb in grocery store w/o use of shopping cart for support. LTG Duration 12/02/2018 Balance Short Term Goal (STG) Pt will be able to turn and look over R and L shoulders without loss of balance, use of external support or supervision. STG Duration 11/01/2018 Mcc Goal (LTG) Pt will inc Veras Balance score to 45/56 in order to dec fall risk and be able to maintain balance on uneven surfaces of golf course w/o use of club. LTG Duration 12/02/2018 ROM [employer] Goal (LTG) Pt will have normal AROM in R Shoulder to allow typical activities LTG Duration 11/08/18 weakness Short Term Goal (STG) Pt will be indep with HEP. STG Duration 10/08/18 Strategic [employer] Associate Goal (LTG) Pt will be able to score 5/5 w /UE strength & 3/5 for EFT to allow inc activity tolerance LTG Duration 11/08/18 activity Short Term Goal (STG) Pt will be able to do ADLs that require reaching: watering, dishes, etc without pain. STG Duration 10/08/18 Mcc Goal (LTG) Pt will be able to golf without any issues. LTG Duration 11/08/18 Assessment Summary Assessment Pt balance has improved since last visit but static stance with eyes closed on an compliant surface is still challenging. Pt is overly reliant on visual system to maintain balance and future treatment to focus on challenging vestibular and proprieceptive systems. Furture treatment without shoes to inc propriceptive input. Physical Therapy Plan Frequency and Duration Frequency of Treatment 1-2x/week Duration of Treatment 2 months Plan of Care Start Date 10/01/18 Plan of Care End Date 12/02/18 Next Visit Focus/Plan Next Note Type Treatment Note Next Visit Plan balance training with shoes off. dynamic balance training
--- NOTE | 2018-10-14 17:06 | PT.OTN ---
Current Diagnoses Squamous cell carcinoma of skin, unspecified (10/14/18) Stiffness of right shoulder, not elsewhere classified (10/14/18) Abnormal posture (10/14/18) Weakness (10/14/18) Physical Therapy Treatment Note PT-OP-A Visit Information Start: 09/08/18 08:13 Freq: Status: Active Protocol: Document 10/14/18 16:17 AR (Rec: 10/14/18 16:32 AR [email or web address]) Out-Patient Physical Therapy Visit Information Visit Information Visit Type Treatment Note Visit Start Time 13:45 Visit Stop Time 14:45 Total Visit Minutes 60 Visit Number 4/ Number of [employer] Visits 0 PT-OP-B Current Condition Start: 09/08/18 08:13 Freq: Status: Active Protocol: Document 10/01/18 16:45 AR (Rec: 10/01/18 18:34 AR [email or web address]) Current Condition History of Current Condition Onset Date 09/22/2017 Current Complaints imbalance with walking and ADLs History of Current Condition Pt noticed decline in balance about a year ago and believed it was mostly d/t pain in his L knee. Since cancer dx in March, pt has noticed a further decline in balance d/t weakness and fatigue from spending so much time in the hospital and cancer treatments . Prior Treatments and Tests none Treatment Goals Patient/Caregiver Goals Be able to walk independently w/o imbalance (at home, grocery store, golf course). Prior Functional Status Baseline Function- ADL's Independent Baseline Function- Mobility Independent Baseline Function- Gait Pt notes he used walk quite a bit before balance declined. Personal Factors Other Personal Factors That May Effect cancer treatment, fatigue Therapy/Recovery PT-OP-C Subjective Start: 09/08/18 08:13 Freq: Status: Active Protocol: Document 10/14/18 16:17 AR (Rec: 10/14/18 16:32 AR [email or web address]) OP-PT Subjective Patient Comments Patient Comments Pt reports he slept a lot last night and felt very well rested. He feels that his energy level and fatigue strongly impact his balance. He noted his balance seems to be better with ADLs. PT-OP-D Balance Start: 09/08/18 08:13 Freq: Status: Active Protocol: Document 10/01/18 16:45 AR (Rec: 10/01/18 18:34 AR [email or web address]) Veras Balance Assessment Evaluation Sitting to Standing Ability Independent w/out Hands Unsupported Stance Safely- 2 minutes Sitting Unsupported, Feet on Floor Safely- 2 minutes Standing to Sitting Ability Assist, Control w/Hands Transfer Ability Safely, Hand Use Unsupported Stance- Eyes Closed Supervision, 10 seconds Unsupported Stance- Eyes Open Assist to attain, 15 secs Reaching Forward Standing Supervision Needed Pick- Up Object From Floor Supervision Look Behind Shoulder - Standing Supervision w/Turning Turning 360 Degrees Supervision/Verbal Cues Unsupported Stance, Alternating Feet on 4 Steps w/Supervision Stair Unsupported Tandem Stance Small Step- 30 seconds Unilateral Leg Stance Unable,assist to not fall Total Score Veras Total Score (out of 56 points) 32 [place] Impairment Rating 40 to 59% Impaired (Score 23- 33) PT-OP-E Functional Tests Start: 09/08/18 08:13 Freq: Status: Active Protocol: Document 10/01/18 16:45 AR (Rec: 10/01/18 18:34 AR [email or web address]) Functional Tests Dynamic Gait Index (DGI) Score 9 DGI Impairment Rating 60 to <80% Impaired (Score 5-9 ) PT-OP-J Posture/Palpation/Skin Start: 09/08/18 12:00 Freq: Status: Active Protocol: Document 09/08/18 13:40 [facility] (Rec: 09/08/18 14:34 [facility] [id number]) Posture Evaluation [facility] Postural Classification System Kelsey Postural Classifications Anterior/Posterior Elbow Flexion Test 0 Palpation Assessment Location R shoulder Palpation Findings Soft Tissue Tightness Palpation Details Scar tissue limitation throughout scar ant shoulder and sup shoulder & post R trunk PT-OP-K Range of Motion Start: 09/08/18 12:00 Freq: Status: Active Protocol: Document 09/08/18 13:40 [facility] (Rec: 09/08/18 14:34 [facility] [id number]) Shoulder Goniometric Range of Motion Shoulder Right Passive Flexion 147 Abduction 123 External Rotation at 90 degrees 91 Abduction Internal Rotation 27 Left Active Testing Position Sitting Flexion 168 Extension 66 Abduction 140 External Rotation at 90 degrees 88 Abduction External Rotation at 0 degrees Abduction 91 Internal Rotation 78 Internal Rotation Behind Back (text) T7 Right Active Testing Position Sitting Flexion 125 Extension 40 Abduction 91 External Rotation at 90 degrees 78 Abduction External Rotation at 0 degrees Abduction 85 Internal Rotation 71 Internal Rotation Behind Back (text) L1 PT-OP-M Strength Start: 09/08/18 08:13 Freq: Status: Active Protocol: Document 10/01/18 16:45 [facility] (Rec: 10/01/18 17:33 [facility] [id number]) Hip Strength Hip Manual Muscle Testing Right Flexion (L2) 4- Good- Extension (S1) 3 Fair Abduction 3+ Fair+ External Rotation 4- Good- Internal Rotation 4- Good- Left Flexion (L2) 4- Good- Extension (S1) 3 Fair Abduction 3+ Fair+ External Rotation 3+ Fair+ Internal Rotation 4- Good- Knee Strength Knee Manual Muscle Testing Right Flexion (S2) 4- Good- Extension (L3) 4+ Good+ Left Flexion (S2) 4- Good- Extension (L3) 5 Normal Ankle/Foot Strength Ankle and Foot Manual Muscle Testing Right Dorsiflexion (L4) 4+ Good+ Plantarflexion (S1) 3+ Fair+ Left Dorsiflexion (L4) 4 Good Plantarflexion (S1) 3+ Fair+ Comments seated tested for PF B PT-OP-Q Treatments Start: 09/08/18 08:13 Freq: Status: Active Protocol: Document 10/14/18 16:17 AR (Rec: 10/14/18 16:32 AR [email or web address]) Therapeutic Exercises Prone Exercises 90/90 ER Side right Resistance 1# Reps/Minutes 15 ext Side right Equipment Used 3# Reps/Minutes 2x10 scaption Side right Equipment Used none Reps/Minutes 2x10 Habd Side right Equipment Used 3# Reps/Minutes 2x10 Gait Training Gait Activity Golf walking Description walking on uneven surface Device Used gait belt Level of Assistance CGA Surface compliant, 2 large blue pads Distance/Duration 70 feet Treatment Focus avoid loss of balance Comments walk to waste picker golf ball from chair. head turns added. pt's balance most challenged during turning Walking c Head Turns Description vertical and horizontal Device Used gait belt Level of Assistance CGA Surface level Distance/Duration 330 feet Treatment Focus avoid loss of balance Comments pt cued which direction to look (R,L,up, down) during amb . only one manjor LOB that required pt to grab for railing Manual Therapy Treatment Soft Tissue Mobilization scar tissue Body Location posterior Mobilization Type Myofascial Release Rolling Intensity/Depth Moderate Body Position Sidelying PT-OP-R Modalities Start: 09/18/18 11:15 Freq: Status: Active Protocol: Document 10/14/18 16:17 AR (Rec: 10/14/18 16:33 AR [email or web address]) Hot Pack/Cold Pack Treatment Hot Pack Location ant & post shoulder Patient Position Sidelying Treatment Duration (minutes) 15 PT-OP-T Assessment and Plan Start: 09/08/18 08:13 Freq: Status: Active Protocol: Document 10/14/18 16:17 AR (Rec: 10/14/18 16:32 AR [email or web address]) Physical Therapy Assessment Goals Gait Short Term Goal (STG) Pt will be able to amb with horizontal head turns w/o loss of balance for 50 feet. STG Duration 11/16/2018 [employer] Goal (LTG) Pt will be able to amb in grocery store w/o use of shopping cart for support. LTG Duration 12/02/2018 Balance Short Term Goal (STG) Pt will be able to turn and look over R and L shoulders without loss of balance, use of external support or supervision. STG Duration 11/01/2018 [employer] Goal (LTG) Pt will inc Veras Balance score to 45/56 in order to dec fall risk and be able to maintain balance on uneven surfaces of golf course w/o use of club. LTG Duration 12/02/2018 ROM [employer] Goal (LTG) Pt will have normal AROM in R Shoulder to allow typical activities LTG Duration 11/08/18 weakness Short Term Goal (STG) Pt will be indep with HEP. STG Duration 10/08/18 [employer] Goal (LTG) Pt will be able to score 5/5 w /UE strength & 3/5 for EFT to allow inc activity tolerance LTG Duration 11/08/18 activity Short Term Goal (STG) Pt will be able to do ADLs that require reaching: watering, dishes, etc without pain. STG Duration 10/08/18 Snf Goal (LTG) Pt will be able to golf without any issues. LTG Duration 11/08/18 Assessment Summary Assessment Pt's balance is strongly affected by his fatigue level and pt was able to tolerate more balance and gait training today. Gait with head turns has improved but pt still lost balance when attempting to follow external commands for head turns. Future tx to focus on dual task gait and balance training to help increase automaticity of activities. Physical Therapy Plan Frequency and Duration Frequency of Treatment 1-2x/week Duration of Treatment 2 months Plan of Care Start Date 10/01/18 Plan of Care End Date 12/02/18 Next Visit Focus/Plan Next Note Type Treatment Note Next Visit Plan incorporate dual task balance and gait trng
--- NOTE | 2018-10-16 17:57 | PT.OTN ---
Current Diagnoses Squamous cell carcinoma of skin, unspecified (10/16/18) Stiffness of right shoulder, not elsewhere classified (10/16/18) Abnormal posture (10/16/18) Weakness (10/16/18) Physical Therapy Treatment Note PT-OP-A Visit Information Start: 09/08/18 08:13 Freq: Status: Active Protocol: Document 10/16/18 14:44 AR (Rec: 10/16/18 15:13 AR [id number]) Out-Patient Physical Therapy Visit Information Visit Information Visit Type Treatment Note Visit Start Time 13:45 Visit Stop Time 14:40 Total Visit Minutes 55 Visit Number 5/ Number of HIGH HEEL BUILDER Visits 0 PT-OP-B Current Condition Start: 09/08/18 08:13 Freq: Status: Active Protocol: Document 10/01/18 16:45 AR (Rec: 10/01/18 18:34 AR [id number]) Current Condition History of Current Condition Onset Date 09/22/2017 Current Complaints imbalance with walking and ADLs History of Current Condition Pt noticed decline in balance about a year ago and believed it was mostly d/t pain in his L knee. Since cancer dx in March, pt has noticed a further decline in balance d/t weakness and fatigue from spending so much time in the hospital and cancer treatments . Prior Treatments and Tests none Treatment Goals Patient/Caregiver Goals Be able to walk independently w/o imbalance (at home, grocery store, golf course). Prior Functional Status Baseline Function- ADL's Independent Baseline Function- Mobility Independent Baseline Function- Gait Pt notes he used walk quite a bit before balance declined. Personal Factors Other Personal Factors That May Effect cancer treatment, fatigue Therapy/Recovery PT-OP-C Subjective Start: 09/08/18 08:13 Freq: Status: Active Protocol: Document 10/16/18 14:44 AR (Rec: 10/16/18 15:13 AR [id number]) OP-PT Subjective Patient Comments Patient Comments Pt went golfing 9 holes yesterday and felt very fatigued and sore in his legs. He noticed that his balance was challenged during standing and swinging. He also reported a stinging and skin stetching sensation below his shoulder after golfing. PT-OP-D Balance Start: 09/08/18 08:13 Freq: Status: Active Protocol: Document 10/01/18 16:45 AR (Rec: 10/01/18 18:34 AR [email or web address]) Veras Balance Assessment Evaluation Sitting to Standing Ability Independent w/out Hands Unsupported Stance Safely- 2 minutes Sitting Unsupported, Feet on Floor Safely- 2 minutes Standing to Sitting Ability Assist, Control w/Hands Transfer Ability Safely, Hand Use Unsupported Stance- Eyes Closed Supervision, 10 seconds Unsupported Stance- Eyes Open Assist to attain, 15 secs Reaching Forward Standing Supervision Needed Pick- Up Object From Floor Supervision Look Behind Shoulder - Standing Supervision w/Turning Turning 360 Degrees Supervision/Verbal Cues Unsupported Stance, Alternating Feet on 4 Steps w/Supervision Stair Unsupported Tandem Stance Small Step- 30 seconds Unilateral Leg Stance Unable,assist to not fall Total Score Veras Total Score (out of 56 points) 32 Veras Impairment Rating 40 to 59% Impaired (Score 23- 33) PT-OP-E Functional Tests Start: 09/08/18 08:13 Freq: Status: Active Protocol: Document 10/01/18 16:45 AR (Rec: 10/01/18 18:34 AR [email or web address]) Functional Tests Dynamic Gait Index (DGI) Score 9 DGI Impairment Rating 60 to <80% Impaired (Score 5-9 ) PT-OP-J Posture/Palpation/Skin Start: 09/08/18 12:00 Freq: Status: Active Protocol: Document 09/08/18 13:40 [facility] (Rec: 09/08/18 14:34 [facility] [id number]) Posture Evaluation Kelsey Postural Classification System Kelsey Postural Classifications Anterior/Posterior Elbow Flexion Test 0 Palpation Assessment Location R shoulder Palpation Findings Soft Tissue Tightness Palpation Details Scar tissue limitation throughout scar ant shoulder and sup shoulder & post R trunk PT-OP-K Range of Motion Start: 09/08/18 12:00 Freq: Status: Active Protocol: Document 09/08/18 13:40 [facility] (Rec: 09/08/18 14:34 [facility] [id number]) Shoulder Goniometric Range of Motion Shoulder Right Passive Flexion 147 Abduction 123 External Rotation at 90 degrees 91 Abduction Internal Rotation 27 Left Active Testing Position Sitting Flexion 168 Extension 66 Abduction 140 External Rotation at 90 degrees 88 Abduction External Rotation at 0 degrees Abduction 91 Internal Rotation 78 Internal Rotation Behind Back (text) T7 Right Active Testing Position Sitting Flexion 125 Extension 40 Abduction 91 External Rotation at 90 degrees 78 Abduction External Rotation at 0 degrees Abduction 85 Internal Rotation 71 Internal Rotation Behind Back (text) L1 PT-OP-M Strength Start: 09/08/18 08:13 Freq: Status: Active Protocol: Document 10/01/18 16:45 LR (Rec: 10/01/18 17:33 [facility] [id number]) Hip Strength Hip Manual Muscle Testing Right Flexion (L2) 4- Good- Extension (S1) 3 Fair Abduction 3+ Fair+ External Rotation 4- Good- Internal Rotation 4- Good- Left Flexion (L2) 4- Good- Extension (S1) 3 Fair Abduction 3+ Fair+ External Rotation 3+ Fair+ Internal Rotation 4- Good- Knee Strength Knee Manual Muscle Testing Right Flexion (S2) 4- Good- Extension (L3) 4+ Good+ Left Flexion (S2) 4- Good- Extension (L3) 5 Normal Ankle/Foot Strength Ankle and Foot Manual Muscle Testing Right Dorsiflexion (L4) 4+ Good+ Plantarflexion (S1) 3+ Fair+ Left Dorsiflexion (L4) 4 Good Plantarflexion (S1) 3+ Fair+ Comments seated tested for PF B PT-OP-Q Treatments Start: 09/08/18 08:13 Freq: Status: Active Protocol: Document 10/16/18 14:44 AR (Rec: 10/16/18 15:13 AR [id number]) Therapeutic Exercises Prone Exercises 90/90 ER Side right Resistance 2# Reps/Minutes 15 ext Side right Equipment Used 15 Reps/Minutes 2x10 scaption Side right Equipment Used 1# Reps/Minutes 15 Comments about to correct posture after one correction Habd Side right Equipment Used 3# Reps/Minutes 15 Standing Exercises Lat stretch Standing Exercise Name lat stretch Side right Reps/Minutes 3x30 sec holds Comments replicated skin stretch felt during golf swing Gait Training Gait Activity Dual task Description naming states and colors during amb Level of Assistance CGA Surface level Distance/Duration 330 feet Treatment Focus automaticity Comments gait deviations still present but unchanged by dual task. cognitive tasks were not slowed during amb Manual Therapy Treatment Soft Tissue Mobilization scar tissue Body Location posterior Mobilization Type Cross-Friction Myofascial Release Rolling Intensity/Depth Moderate Body Position Sidelying Neuro Re-Education Treatment Balance Activities golf swings Details practice swings on unstable surface & twists w/o pole on stable surface Surface red mat, folded in half Equipment pole Reps/Duration 3x20 Comments cueing for pelvic rotation and follow through. PT-OP-R Modalities Start: 09/18/18 11:15 Freq: Status: Active Protocol: Document 10/16/18 14:44 AR (Rec: 10/16/18 15:13 AR [id number]) Hot Pack/Cold Pack Treatment Hot Pack Location ant & post shoulder Patient Position Sidelying Treatment Duration (minutes) 10 Comments shortened d/t patient needing to leave early PT-OP-T Assessment and Plan Start: 09/08/18 08:13 Freq: Status: Active Protocol: Document 10/16/18 14:44 AR (Rec: 10/16/18 15:13 AR [id number]) Physical Therapy Assessment Goals Gait Short Term Goal (STG) Pt will be able to amb with horizontal head turns w/o loss of balance for 50 feet. STG Duration 11/16/2018 Mcc Goal (LTG) Pt will be able to amb in grocery store w/o use of shopping cart for support. LTG Duration 12/02/2018 Balance Short Term Goal (STG) Pt will be able to turn and look over R and L shoulders without loss of balance, use of external support or supervision. STG Duration 11/01/2018 Mcc Goal (LTG) Pt will inc Veras Balance score to 45/56 in order to dec fall risk and be able to maintain balance on uneven surfaces of golf course w/o use of club. LTG Duration 12/02/2018 ROM Mcc Goal (LTG) Pt will have normal AROM in R Shoulder to allow typical activities LTG Duration 11/08/18 weakness Short Term Goal (STG) Pt will be indep with HEP. STG Duration 10/08/18 Workers Compensation Claims Analyst Goal (LTG) Pt will be able to score 5/5 w /UE strength & 3/5 for EFT to allow inc activity tolerance LTG Duration 11/08/18 activity Short Term Goal (STG) Pt will be able to do ADLs that require reaching: watering, dishes, etc without pain. STG Duration 10/08/18 Workers Compensation Claims Analyst Goal (LTG) Pt will be able to golf without any issues. LTG Duration 11/08/18 Assessment Summary Assessment Neither gait nor cognition were dec during dual task training. Pt still presents with more difficulties in static balance tasks. Pt lacks trunk rotation during golf swing d/t fear of instability and loss of balance. Scar mobility is progressing well with manual therapy. Restrictions were noted at inferior aspect of posterior scar and could be contributing to stinging skin stretch sensation during golf swing. These areas were addressed manually and with latissimus dorsi stretch today. Physical Therapy Plan Frequency and Duration Frequency of Treatment 1-2x/week Duration of Treatment 2 months Plan of Care Start Date 10/01/18 Plan of Care End Date 12/02/18 Next Visit Focus/Plan Next Note Type Treatment Note Next Visit Plan dual task with static balance. progress golf swing
--- NOTE | 2018-10-20 18:58 | PT.OTN ---
Current Diagnoses Squamous cell carcinoma of skin, unspecified (10/20/18) Stiffness of right shoulder, not elsewhere classified (10/20/18) Abnormal posture (10/20/18) Weakness (10/20/18) Physical Therapy Treatment Note PT-OP-A Visit Information Start: 09/08/18 08:13 Freq: Status: Active Protocol: Document 10/20/18 17:35 AR (Rec: 10/20/18 17:57 AR [email or web address]) Out-Patient Physical Therapy Visit Information Visit Information Visit Type Treatment Note Visit Start Time 15:20 Visit Stop Time 16:15 Total Visit Minutes 55 Visit Number 09/01 Number of SOLID WASTE TECHNICIAN Visits 0 PT-OP-B Current Condition Start: 09/08/18 08:13 Freq: Status: Active Protocol: Document 10/01/18 16:45 AR (Rec: 10/01/18 18:34 AR [id number]) Current Condition History of Current Condition Onset Date 09/22/2017 Current Complaints imbalance with walking and ADLs History of Current Condition Pt noticed decline in balance about a year ago and believed it was mostly d/t pain in his L knee. Since cancer dx in March, pt has noticed a further decline in balance d/t weakness and fatigue from spending so much time in the hospital and cancer treatments . Prior Treatments and Tests none Treatment Goals Patient/Caregiver Goals Be able to walk independently w/o imbalance (at home, grocery store, golf course). Prior Functional Status Baseline Function- ADL's Independent Baseline Function- Mobility Independent Baseline Function- Gait Pt notes he used walk quite a bit before balance declined. Personal Factors Other Personal Factors That May Effect cancer treatment, fatigue Therapy/Recovery PT-OP-C Subjective Start: 09/08/18 08:13 Freq: Status: Active Protocol: Document 10/20/18 17:35 AR (Rec: 10/20/18 17:57 AR [email or web address]) OP-PT Subjective Patient Comments Patient Comments Pt reports feeling fatigued today. He mentioned a sharp pinch in his shoulder when he rolls over in bed and a catch when moving his arm into abduction. Pt reports that he feels he has improved in his balance and realizes it may take time to get back to baseline. PT-OP-D Balance Start: 09/08/18 08:13 Freq: Status: Active Protocol: Document 10/01/18 16:45 AR (Rec: 10/01/18 18:34 AR [email or web address]) Veras Balance Assessment Evaluation Sitting to Standing Ability Independent w/out Hands Unsupported Stance Safely- 2 minutes Sitting Unsupported, Feet on Floor Safely- 2 minutes Standing to Sitting Ability Assist, Control w/Hands Transfer Ability Safely, Hand Use Unsupported Stance- Eyes Closed Supervision, 10 seconds Unsupported Stance- Eyes Open Assist to attain, 15 secs Reaching Forward Standing Supervision Needed Pick- Up Object From Floor Supervision Look Behind Shoulder - Standing Supervision w/Turning Turning 360 Degrees Supervision/Verbal Cues Unsupported Stance, Alternating Feet on 4 Steps w/Supervision Stair Unsupported Tandem Stance Small Step- 30 seconds Unilateral Leg Stance Unable,assist to not fall Total Score Veras Total Score (out of 56 points) 32 Veras Impairment Rating 40 to 59% Impaired (Score 23- 33) PT-OP-E Functional Tests Start: 09/08/18 08:13 Freq: Status: Active Protocol: Document 10/01/18 16:45 AR (Rec: 10/01/18 18:34 AR [id number]) Functional Tests Dynamic Gait Index (DGI) Score 9 DGI Impairment Rating 60 to <80% Impaired (Score 5-9 ) PT-OP-J Posture/Palpation/Skin Start: 09/08/18 12:00 Freq: Status: Active Protocol: Document 09/08/18 13:40 [facility] (Rec: 09/08/18 14:34 [facility] [id number]) Posture Evaluation Kelsey Postural Classification System Kelsey Postural Classifications Anterior/Posterior Elbow Flexion Test 0 Palpation Assessment Location R shoulder Palpation Findings Soft Tissue Tightness Palpation Details Scar tissue limitation throughout scar ant shoulder and sup shoulder & post R trunk PT-OP-K Range of Motion Start: 09/08/18 12:00 Freq: Status: Active Protocol: Document 09/08/18 13:40 [facility] (Rec: 09/08/18 14:34 [facility] [id number]) Shoulder Goniometric Range of Motion Shoulder Right Passive Flexion 147 Abduction 123 External Rotation at 90 degrees 91 Abduction Internal Rotation 27 Left Active Testing Position Sitting Flexion 168 Extension 66 Abduction 140 External Rotation at 90 degrees 88 Abduction External Rotation at 0 degrees Abduction 91 Internal Rotation 78 Internal Rotation Behind Back (text) T7 Right Active Testing Position Sitting Flexion 125 Extension 40 Abduction 91 External Rotation at 90 degrees 78 Abduction External Rotation at 0 degrees Abduction 85 Internal Rotation 71 Internal Rotation Behind Back (text) L1 PT-OP-M Strength Start: 09/08/18 08:13 Freq: Status: Active Protocol: Document 10/01/18 16:45 LR (Rec: 10/01/18 17:33 LR [id number]) Hip Strength Hip Manual Muscle Testing Right Flexion (L2) 4- Good- Extension (S1) 3 Fair Abduction 3+ Fair+ External Rotation 4- Good- Internal Rotation 4- Good- Left Flexion (L2) 4- Good- Extension (S1) 3 Fair Abduction 3+ Fair+ External Rotation 3+ Fair+ Internal Rotation 4- Good- Knee Strength Knee Manual Muscle Testing Right Flexion (S2) 4- Good- Extension (L3) 4+ Good+ Left Flexion (S2) 4- Good- Extension (L3) 5 Normal Ankle/Foot Strength Ankle and Foot Manual Muscle Testing Right Dorsiflexion (L4) 4+ Good+ Plantarflexion (S1) 3+ Fair+ Left Dorsiflexion (L4) 4 Good Plantarflexion (S1) 3+ Fair+ Comments seated tested for PF B PT-OP-Q Treatments Start: 09/08/18 08:13 Freq: Status: Active Protocol: Document 10/20/18 17:35 AR (Rec: 10/20/18 17:57 AR [email or web address]) Therapeutic Exercises Standing Exercises trunk rotation Standing Exercise Name trunk rotation in standing Resistance none Equipment Used level ground Reps/Minutes 2x20 reps Comments to mimic gold swing Pec stretch Standing Exercise Name pec stretch, 90/90 Side right Reps/Minutes 2x30 sec holds Comments added to HEP Lat stretch Standing Exercise Name lat stretch Side right Reps/Minutes 3x30 sec holds Comments added to HEP Manual Therapy Treatment Soft Tissue Mobilization Pectorals Body Location pectorals Mobilization Type Myofascial Release Strumming Intensity/Depth Moderate Body Position Supine Teres Body Location teres Mobilization Type Myofascial Release Strumming Intensity/Depth Moderate Body Position Prone Comments prone in semi-sleeper stretch position Joint Mobilizations AC Joint AC Direction distraction Grade III Body Position Supine Comments painful arc noted at end range prior to mobilization GH Joint GH Direction inferior Grade III Body Position Supine Comments catch sensation less strong after mobilization Neuro Re-Education Treatment Balance Activities Tiffany Disc Details R LE on tiffany disc Equipment yellow tiffany disc Reps/Duration 2 min Comments pt needed to hold on to railing for stability. was able to maintain balance w/o holding on for 10 seconds red mat Details double leg static stance on red mat folded in half Surface red mat Reps/Duration 4 min Comments head turns, trunk rotation SLS Details SLS to mimic golf swing through Surface level ground Reps/Duration 5 reps Comments pt unable to maintain balance with R heel lifted PT-OP-R Modalities Start: 09/18/18 11:15 Freq: Status: Active Protocol: Document 10/20/18 17:35 AR (Rec: 10/20/18 17:57 AR [id number]) Hot Pack/Cold Pack Treatment Hot Pack Location ant & post shoulder Patient Position Sidelying Treatment Duration (minutes) 15 PT-OP-T Assessment and Plan Start: 09/08/18 08:13 Freq: Status: Active Protocol: Document 10/20/18 17:35 AR (Rec: 10/20/18 17:57 AR [email or web address]) Physical Therapy Assessment Goals Gait Short Term Goal (STG) Pt will be able to amb with horizontal head turns w/o loss of balance for 50 feet. STG Duration 11/16/2018 General Maintenance Technician Goal (LTG) Pt will be able to amb in grocery store w/o use of shopping cart for support. LTG Duration 12/02/2018 Balance Short Term Goal (STG) Pt will be able to turn and look over R and L shoulders without loss of balance, use of external support or supervision. STG Duration 11/01/2018 General Maintenance Technician Goal (LTG) Pt will inc Veras Balance score to 45/56 in order to dec fall risk and be able to maintain balance on uneven surfaces of golf course w/o use of club. LTG Duration 12/02/2018 ROM General Maintenance Technician Goal (LTG) Pt will have normal AROM in R Shoulder to allow typical activities LTG Duration 11/08/18 weakness Short Term Goal (STG) Pt will be indep with HEP. STG Duration 10/08/18 General Maintenance Technician Goal (LTG) Pt will be able to score 5/5 w /UE strength & 3/5 for EFT to allow inc activity tolerance LTG Duration 11/08/18 activity Short Term Goal (STG) Pt will be able to do ADLs that require reaching: watering, dishes, etc without pain. STG Duration 10/08/18 General Maintenance Technician Goal (LTG) Pt will be able to golf without any issues. LTG Duration 11/08/18 Assessment Summary Assessment Pt's trunk rotation has improved significantly since last session and pt was able to maintain balance on level surface with rotations. Pt still has difficulty maintaining balance on one leg and toes of R foot for golf swing through. Pt responded well to manual therapy and reported dec pain with abd after joint mobs. Pectoral restrictions may also contribute to pain with should movements and pt was instructed on adding a pec stretch to HEP. Physical Therapy Plan Frequency and Duration Frequency of Treatment 1-2x/week Duration of Treatment 2 months Plan of Care Start Date 10/01/18 Plan of Care End Date 12/02/18 Next Visit Focus/Plan Next Note Type Treatment Note Next Visit Plan progress SLS/golf swing through stance, dual task with static balance
--- NOTE | 2018-10-22 18:45 | PT.OTN ---
Current Diagnoses Squamous cell carcinoma of skin, unspecified (10/22/18) Stiffness of right shoulder, not elsewhere classified (10/22/18) Abnormal posture (10/22/18) Weakness (10/22/18) Physical Therapy Treatment Note PT-OP-A Visit Information Start: 09/08/18 08:13 Freq: Status: Active Protocol: Document 10/22/18 17:38 AR (Rec: 10/22/18 17:50 AR [email or web address]) Out-Patient Physical Therapy Visit Information Visit Information Visit Type Treatment Note Visit Start Time 15:19 Visit Stop Time 16:15 Total Visit Minutes 56 Visit Number 7 Number of [employer] Visits 0 PT-OP-B Current Condition Start: 09/08/18 08:13 Freq: Status: Active Protocol: Document 10/01/18 16:45 AR (Rec: 10/01/18 18:34 AR [email or web address]) Current Condition History of Current Condition Onset Date 09/22/2017 Current Complaints imbalance with walking and ADLs History of Current Condition Pt noticed decline in balance about a year ago and believed it was mostly d/t pain in his L knee. Since cancer dx in March, pt has noticed a further decline in balance d/t weakness and fatigue from spending so much time in the hospital and cancer treatments . Prior Treatments and Tests none Treatment Goals Patient/Caregiver Goals Be able to walk independently w/o imbalance (at home, grocery store, golf course). Prior Functional Status Baseline Function- ADL's Independent Baseline Function- Mobility Independent Baseline Function- Gait Pt notes he used walk quite a bit before balance declined. Personal Factors Other Personal Factors That May Effect cancer treatment, fatigue Therapy/Recovery PT-OP-C Subjective Start: 09/08/18 08:13 Freq: Status: Active Protocol: Document 10/22/18 17:38 AR (Rec: 10/22/18 17:50 AR [email or web address]) OP-PT Subjective Patient Comments Patient Comments Pt reports his balance seems to be getting better and that his shoulder is feeling great. He only notices pain in the shoulder when he lays directly on it. Pt feels there is still plenty we can improve upon in therapy in terms of balance and he noted soreness in lateral calf/peroneal area during balance exercises. PT-OP-D Balance Start: 09/08/18 08:13 Freq: Status: Active Protocol: Document 10/01/18 16:45 AR (Rec: 10/01/18 18:34 AR [email or web address]) Veras Balance Assessment Evaluation Sitting to Standing Ability Independent w/out Hands Unsupported Stance Safely- 2 minutes Sitting Unsupported, Feet on Floor Safely- 2 minutes Standing to Sitting Ability Assist, Control w/Hands Transfer Ability Safely, Hand Use Unsupported Stance- Eyes Closed Supervision, 10 seconds Unsupported Stance- Eyes Open Assist to attain, 15 secs Reaching Forward Standing Supervision Needed Pick- Up Object From Floor Supervision Look Behind Shoulder - Standing Supervision w/Turning Turning 360 Degrees Supervision/Verbal Cues Unsupported Stance, Alternating Feet on 4 Steps w/Supervision Stair Unsupported Tandem Stance Small Step- 30 seconds Unilateral Leg Stance Unable,assist to not fall Total Score Veras Total Score (out of 56 points) 32 Veras Impairment Rating 40 to 59% Impaired (Score 23- 33) PT-OP-E Functional Tests Start: 09/08/18 08:13 Freq: Status: Active Protocol: Document 10/01/18 16:45 AR (Rec: 10/01/18 18:34 AR [email or web address]) Functional Tests Dynamic Gait Index (DGI) Score 9 DGI Impairment Rating 60 to <80% Impaired (Score 5-9 ) PT-OP-J Posture/Palpation/Skin Start: 09/08/18 12:00 Freq: Status: Active Protocol: Document 09/08/18 13:40 [facility] (Rec: 09/08/18 14:34 [facility] [id number]) Posture Evaluation Kelsey Postural Classification System Kelsey Postural Classifications Anterior/Posterior Elbow Flexion Test 0 Palpation Assessment Location R shoulder Palpation Findings Soft Tissue Tightness Palpation Details Scar tissue limitation throughout scar ant shoulder and sup shoulder & post R trunk PT-OP-K Range of Motion Start: 09/08/18 12:00 Freq: Status: Active Protocol: Document 09/08/18 13:40 [facility] (Rec: 09/08/18 14:34 [facility] [id number]) Shoulder Goniometric Range of Motion Shoulder Right Passive Flexion 147 Abduction 123 External Rotation at 90 degrees 91 Abduction Internal Rotation 27 Left Active Testing Position Sitting Flexion 168 Extension 66 Abduction 140 External Rotation at 90 degrees 88 Abduction External Rotation at 0 degrees Abduction 91 Internal Rotation 78 Internal Rotation Behind Back (text) T7 Right Active Testing Position Sitting Flexion 125 Extension 40 Abduction 91 External Rotation at 90 degrees 78 Abduction External Rotation at 0 degrees Abduction 85 Internal Rotation 71 Internal Rotation Behind Back (text) L1 PT-OP-M Strength Start: 09/08/18 08:13 Freq: Status: Active Protocol: Document 10/01/18 16:45 [facility] (Rec: 10/01/18 17:33 [facility] [id number]) Hip Strength Hip Manual Muscle Testing Right Flexion (L2) 4- Good- Extension (S1) 3 Fair Abduction 3+ Fair+ External Rotation 4- Good- Internal Rotation 4- Good- Left Flexion (L2) 4- Good- Extension (S1) 3 Fair Abduction 3+ Fair+ External Rotation 3+ Fair+ Internal Rotation 4- Good- Knee Strength Knee Manual Muscle Testing Right Flexion (S2) 4- Good- Extension (L3) 4+ Good+ Left Flexion (S2) 4- Good- Extension (L3) 5 Normal Ankle/Foot Strength Ankle and Foot Manual Muscle Testing Right Dorsiflexion (L4) 4+ Good+ Plantarflexion (S1) 3+ Fair+ Left Dorsiflexion (L4) 4 Good Plantarflexion (S1) 3+ Fair+ Comments seated tested for PF B PT-OP-Q Treatments Start: 09/08/18 08:13 Freq: Status: Active Protocol: Document 10/22/18 17:38 AR (Rec: 10/22/18 17:50 AR [email or web address]) Therapeutic Exercises Sidelying Exercises Clamshells Sidelying Exercise Name clamshells Side left Resistance none Reps/Minutes 2x15 reps Standing Exercises marches Standing Exercise Name marches Side bilateral Equipment Used railing Reps/Minutes 20 each side Comments cueing for hip flex and DF hurdles Standing Exercise Name fwd & lateral walking Side bilateral Equipment Used 6 hurdles Reps/Minutes 2 reps each direction Comments lateral stepping very challenging Manual Therapy Treatment Soft Tissue Mobilization scar tissue Body Location posterior & superior Mobilization Type Cross-Friction Myofascial Release Rolling Intensity/Depth Moderate Body Position Sidelying Neuro Re-Education Treatment Balance Activities Shuttle Board Details WBOS, stagger stance Surface blue clips Reps/Duration 3x30 sec Comments EO, EC, head turns. Pt cued on upright posture. Pt maintained balance w WBOS, EO w/o grabbing for bars 1 min. PT-OP-R Modalities Start: 09/18/18 11:15 Freq: Status: Active Protocol: Document 10/22/18 17:38 AR (Rec: 10/22/18 17:50 AR [email or web address]) Hot Pack/Cold Pack Treatment Hot Pack Location ant & post shoulder Patient Position Sidelying Treatment Duration (minutes) 15 PT-OP-T Assessment and Plan Start: 09/08/18 08:13 Freq: Status: Active Protocol: Document 10/22/18 17:38 AR (Rec: 10/22/18 17:50 AR [email or web address]) Physical Therapy Assessment Goals Gait Short Term Goal (STG) Pt will be able to amb with horizontal head turns w/o loss of balance for 50 feet. STG Duration 11/16/2018 [facility] Goal (LTG) Pt will be able to amb in grocery store w/o use of shopping cart for support. LTG Duration 12/02/2018 Balance Short Term Goal (STG) Pt will be able to turn and look over R and L shoulders without loss of balance, use of external support or supervision. STG Duration 11/01/2018 [facility] Goal (LTG) Pt will inc Veras Balance score to 45/56 in order to dec fall risk and be able to maintain balance on uneven surfaces of golf course w/o use of club. LTG Duration 12/02/2018 ROM [facility] Goal (LTG) Pt will have normal AROM in R Shoulder to allow typical activities LTG Duration 11/08/18 weakness Short Term Goal (STG) Pt will be indep with HEP. STG Duration 10/08/18 [facility] Goal (LTG) Pt will be able to score 5/5 w /UE strength & 3/5 for EFT to allow inc activity tolerance LTG Duration 11/08/18 activity Short Term Goal (STG) Pt will be able to do ADLs that require reaching: watering, dishes, etc without pain. 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 LTG Duration 11/08/18 Assessment Summary Assessment Pt's balance on unstable surfaces has improved but pt is stil challenged by EC and head turns. [place] was noted during gait and challenging static balance activities so L hip strengthening was added to HEP . Physical Therapy Plan Frequency and Duration Frequency of Treatment 1-2x/week Duration of Treatment 2 months Plan of Care Start Date 10/01/18 Plan of Care End Date 12/02/18 Next Visit Focus/Plan Next Note Type Treatment Note Next Visit Plan progress eyes closed balance activities. add functional LE strengthening (squats, step ups) to address weakness
--- NOTE | 2018-10-27 18:50 | PT.OTN ---
Current Diagnoses Squamous cell carcinoma of skin, unspecified (10/27/18) Stiffness of right shoulder, not elsewhere classified (10/27/18) Abnormal posture (10/27/18) Weakness (10/27/18) Physical Therapy Treatment Note PT-OP-A Visit Information Start: 09/08/18 08:13 Freq: Status: Active Protocol: Document 10/27/18 17:35 AR (Rec: 10/27/18 17:55 AR [email or web address]) Out-Patient Physical Therapy Visit Information Visit Information Visit Type Treatment Note Visit Start Time 15:20 Visit Stop Time 16:15 Total Visit Minutes 55 Visit Number 8/ Number of OIL [employer]URNER Visits 0 PT-OP-B Current Condition Start: 09/08/18 08:13 Freq: Status: Active Protocol: Document 10/01/18 16:45 AR (Rec: 10/01/18 18:34 AR [email or web address]) Current Condition History of Current Condition Onset Date 09/22/2017 Current Complaints imbalance with walking and ADLs History of Current Condition Pt noticed decline in balance about a year ago and believed it was mostly d/t pain in his L knee. Since cancer dx in March, pt has noticed a further decline in balance d/t weakness and fatigue from spending so much time in the hospital and cancer treatments . Prior Treatments and Tests none Treatment Goals Patient/Caregiver Goals Be able to walk independently w/o imbalance (at home, grocery store, golf course). Prior Functional Status Baseline Function- ADL's Independent Baseline Function- Mobility Independent Baseline Function- Gait Pt notes he used walk quite a bit before balance declined. Personal Factors Other Personal Factors That May Effect cancer treatment, fatigue Therapy/Recovery PT-OP-C Subjective Start: 09/08/18 08:13 Freq: Status: Active Protocol: Document 10/27/18 17:35 AR (Rec: 10/27/18 17:55 AR [email or web address]) OP-PT Subjective Patient Comments Patient Comments Pt reports his shoulder is doing well and he only feels tighness when he is reaching to [facility]. He believes therapy is helping him, but would like to do more balance work and incoporate it into his home exercise program. He reports being compliant with HEP thus far (shoulder exercises and clamshells). PT-OP-D Balance Start: 09/08/18 08:13 Freq: Status: Active Protocol: Document 10/01/18 16:45 AR (Rec: 10/01/18 18:34 AR [email or web address]) Veras Balance Assessment Evaluation Sitting to Standing Ability Independent w/out Hands Unsupported Stance Safely- 2 minutes Sitting Unsupported, Feet on Floor Safely- 2 minutes Standing to Sitting Ability Assist, Control w/Hands Transfer Ability Safely, Hand Use Unsupported Stance- Eyes Closed Supervision, 10 seconds Unsupported Stance- Eyes Open Assist to attain, 15 secs Reaching Forward Standing Supervision Needed Pick- Up Object From Floor Supervision Look Behind Shoulder - Standing Supervision w/Turning Turning 360 Degrees Supervision/Verbal Cues Unsupported Stance, Alternating Feet on 4 Steps w/Supervision Stair Unsupported Tandem Stance Small Step- 30 seconds Unilateral Leg Stance Unable,assist to not fall Total Score Veras Total Score (out of 56 points) 32 [place]as Impairment Rating 40 to 59% Impaired (Score 23- 33) PT-OP-E Functional Tests Start: 09/08/18 08:13 Freq: Status: Active Protocol: Document 10/01/18 16:45 AR (Rec: 10/01/18 18:34 AR [email or web address]) Functional Tests Dynamic Gait Index (DGI) Score 9 DGI Impairment Rating 60 to <80% Impaired (Score 5-9 ) PT-OP-J Posture/Palpation/Skin Start: 09/08/18 12:00 Freq: Status: Active Protocol: Document 09/08/18 13:40 [facility] (Rec: 09/08/18 14:34 [facility] [id number]) Posture Evaluation Kelsey Postural Classification System Kelsey Postural Classifications Anterior/Posterior Elbow Flexion Test 0 Palpation Assessment Location R shoulder Palpation Findings Soft Tissue Tightness Palpation Details Scar tissue limitation throughout scar ant shoulder and sup shoulder & post R trunk PT-OP-K Range of Motion Start: 09/08/18 12:00 Freq: Status: Active Protocol: Document 09/08/18 13:40 [facility] (Rec: 09/08/18 14:34 [facility] [id number]) Shoulder Goniometric Range of Motion Shoulder Right Passive Flexion 147 Abduction 123 External Rotation at 90 degrees 91 Abduction Internal Rotation 27 Left Active Testing Position Sitting Flexion 168 Extension 66 Abduction 140 External Rotation at 90 degrees 88 Abduction External Rotation at 0 degrees Abduction 91 Internal Rotation 78 Internal Rotation Behind Back (text) T7 Right Active Testing Position Sitting Flexion 125 Extension 40 Abduction 91 External Rotation at 90 degrees 78 Abduction External Rotation at 0 degrees Abduction 85 Internal Rotation 71 Internal Rotation Behind Back (text) L1 PT-OP-M Strength Start: 09/08/18 08:13 Freq: Status: Active Protocol: Document 10/01/18 16:45 [facility] (Rec: 10/01/18 17:33 [facility] [id number]) Hip Strength Hip Manual Muscle Testing Right Flexion (L2) 4- Good- Extension (S1) 3 Fair Abduction 3+ Fair+ External Rotation 4- Good- Internal Rotation 4- Good- Left Flexion (L2) 4- Good- Extension (S1) 3 Fair Abduction 3+ Fair+ External Rotation 3+ Fair+ Internal Rotation 4- Good- Knee Strength Knee Manual Muscle Testing Right Flexion (S2) 4- Good- Extension (L3) 4+ Good+ Left Flexion (S2) 4- Good- Extension (L3) 5 Normal Ankle/Foot Strength Ankle and Foot Manual Muscle Testing Right Dorsiflexion (L4) 4+ Good+ Plantarflexion (S1) 3+ Fair+ Left Dorsiflexion (L4) 4 Good Plantarflexion (S1) 3+ Fair+ Comments seated tested for PF B PT-OP-Q Treatments Start: 09/08/18 08:13 Freq: Status: Active Protocol: Document 10/27/18 17:35 AR (Rec: 10/27/18 17:55 AR [email or web address]) Therapeutic Exercises Sitting Exercises ankle eversion Sitting Exercise Name ankle eversion Side left Resistance level 2 Equipment Used theraband Reps/Minutes 2x15 reps Comments pt unable to perform with proper form d/t dec ROM Standing Exercises Pec stretch Standing Exercise Name pec stretch, 90/90 Side right Reps/Minutes 2x30 sec holds Comments added to HEP Therapeutic Activity Therapeutic Activity Sit to stand Name STS Reps/Minutes 30 reps Comments elevated table. added to HEP ( pt educated to do exercise w chair or on bed) Steps Name step ups & downs (fwd and bkwd ) Reps/Minutes 6 inch step, railing Comments 3x10 reps. pt lost balance multiple times but was able to regain w railing Gait Training Gait Activity SPC Description amb w SPC Device Used SPC Level of Assistance Indep Surface level Distance/Duration 75 feet Treatment Focus correct pattern and use of AD Comments pt encouraged to use on his upcoming cruise, as he will be walking long distances Neuro Re-Education Treatment Balance Activities tandem stance Details tandem stance Surface level Equipment counter/table Reps/Duration 3x30 sec Comments added to HEP. pt told to use counter top at home for balance Shuttle Board Details WBOS, NBOS, stagger stance Surface blue clips Reps/Duration 3x30 sec Comments EO, EC, head turns. Pt cued on upright posture. pt reported exercise was less challenging today PT-OP-R Modalities Start: 09/18/18 11:15 Freq: Status: Active Protocol: Document 10/27/18 17:35 AR (Rec: 10/27/18 17:55 AR [email or web address]) Hot Pack/Cold Pack Treatment Hot Pack Location ant & post shoulder Patient Position Sidelying Treatment Duration (minutes) 15 PT-OP-T Assessment and Plan Start: 09/08/18 08:13 Freq: Status: Active Protocol: Document 10/27/18 17:35 AR (Rec: 10/27/18 17:55 AR [email or web address]) Physical Therapy Assessment Goals Gait Short Term Goal (STG) Pt will be able to amb with horizontal head turns w/o loss of balance for 50 feet. STG Duration 11/16/2018 Strategic Partnership Specialist Goal (LTG) Pt will be able to amb in grocery store w/o use of shopping cart for support. LTG Duration 12/02/2018 Balance Short Term Goal (STG) Pt will be able to turn and look over R and L shoulders without loss of balance, use of external support or supervision. STG Duration 11/01/2018 Retirement Goal (LTG) Pt will inc Veras Balance score to 45/56 in order to dec fall risk and be able to maintain balance on uneven surfaces of golf course w/o use of club. LTG Duration 12/02/2018 ROM Retirement Goal (LTG) Pt will have normal AROM in R Shoulder to allow typical activities LTG Duration 11/08/18 weakness Short Term Goal (STG) Pt will be indep with HEP. STG Duration 10/08/18 Strategic Partnership Specialist Goal (LTG) Pt will be able to score 5/5 w /UE strength & 3/5 for EFT to allow inc activity tolerance LTG Duration 11/08/18 activity Short Term Goal (STG) Pt will be able to do ADLs that require reaching: watering, dishes, etc without pain. STG Duration 10/08/18 [employer] Partnership Specialist Goal (LTG) Pt will be able to golf without any issues. LTG Duration 11/08/18 Assessment Summary Assessment Functional strength training was used to address LE weakness that may be impacting balance. Pt had significant difficulty keeping balance during step ups. Pt was encouraged to walk up and down stairs at home at least once per day when he is not feeling too fatigued d/t infusions. Balance exercises were added to HEP and pt was instructed to perform them only when he did not feel too fatigued and in a safe environment. Physical Therapy Plan Frequency and Duration Frequency of Treatment 1-2x/week Duration of Treatment 2 months Plan of Care Start Date 10/01/18 Plan of Care End Date 12/02/18 Next Visit Focus/Plan Next Note Type Treatment Note Next Visit Plan review SPC gait. progress standing hip strengthening and balance exercises. cont to practice stairs/step ups
--- NOTE | 2018-10-29 17:25 | PT.OTN ---
Current Diagnoses Squamous cell carcinoma of skin, unspecified (10/29/18) Stiffness of right shoulder, not elsewhere classified (10/29/18) Abnormal posture (10/29/18) Weakness (10/29/18) Physical Therapy Treatment Note PT-OP-A Visit Information Start: 09/08/18 08:13 Freq: Status: Active Protocol: Document 10/29/18 15:23 [facility] (Rec: 10/29/18 17:25 [facility] [id number]) Out-Patient Physical Therapy Visit Information Visit Information Visit Type Treatment Note Visit Start Time 15:17 Visit Stop Time 15:11 Total Visit Minutes 54 Visit Number 9/ Number of MATTRESS WEAVER Visits 0 PT-OP-B Current Condition Start: 09/08/18 08:13 Freq: Status: Active Protocol: Document 10/01/18 16:45 [facility] (Rec: 10/01/18 18:34 [facility] [email or web address]) Current Condition History of Current Condition Onset Date 09/22/2017 Current Complaints imbalance with walking and ADLs History of Current Condition Pt noticed decline in balance about a year ago and believed it was mostly d/t pain in his L knee. Since cancer dx in March, pt has noticed a further decline in balance d/t weakness and fatigue from spending so much time in the hospital and cancer treatments . Prior Treatments and Tests none Treatment Goals Patient/Caregiver Goals Be able to walk independently w/o imbalance (at home, grocery store, golf course). Prior Functional Status Baseline Function- ADL's Independent Baseline Function- Mobility Independent Baseline Function- Gait Pt notes he used walk quite a bit before balance declined. Personal Factors Other Personal Factors That May Effect cancer treatment, fatigue Therapy/Recovery PT-OP-C Subjective Start: 09/08/18 08:13 Freq: Status: Active Protocol: Document 10/29/18 15:23 [facility] (Rec: 10/29/18 17:25 [facility] [id number]) OP-PT Subjective Patient Comments Patient Comments Pt reports fatigue from his infusion PT-OP-D Balance Start: 09/08/18 08:13 Freq: Status: Active Protocol: Document 10/01/18 16:45 [facility] (Rec: 10/01/18 18:34 AR [email or web address]) [place] Balance Assessment Evaluation Sitting to Standing Ability Independent w/out Hands Unsupported Stance Safely- 2 minutes Sitting Unsupported, Feet on Floor Safely- 2 minutes Standing to Sitting Ability Assist, Control w/Hands Transfer Ability Safely, Hand Use Unsupported Stance- Eyes Closed Supervision, 10 seconds Unsupported Stance- Eyes Open Assist to attain, 15 secs Reaching Forward Standing Supervision Needed Pick- Up Object From Floor Supervision Look Behind Shoulder - Standing Supervision w/Turning Turning 360 Degrees Supervision/Verbal Cues Unsupported Stance, Alternating Feet on 4 Steps w/Supervision Stair Unsupported Tandem Stance Small Step- 30 seconds Unilateral Leg Stance Unable,assist to not fall Total Score Veras Total Score (out of 56 points) 32 [place] Impairment Rating 40 to 59% Impaired (Score 23- 33) PT-OP-E Functional Tests Start: 09/08/18 08:13 Freq: Status: Active Protocol: Document 10/01/18 16:45 [facility] (Rec: 10/01/18 18:34 AR [email or web address]) Functional Tests Dynamic Gait Index (DGI) Score 9 DGI Impairment Rating 60 to <80% Impaired (Score 5-9 ) PT-OP-J Posture/Palpation/Skin Start: 09/08/18 12:00 Freq: Status: Active Protocol: Document 09/08/18 13:40 [facility] (Rec: 09/08/18 14:34 [facility] [id number]) Posture Evaluation Kelsey Postural Classification System Kelsey Postural Classifications Anterior/Posterior Elbow Flexion Test 0 Palpation Assessment Location R shoulder Palpation Findings Soft Tissue Tightness Palpation Details Scar tissue limitation throughout scar ant shoulder and sup shoulder & post R trunk PT-OP-K Range of Motion Start: 09/08/18 12:00 Freq: Status: Active Protocol: Document 09/08/18 13:40 [facility] (Rec: 09/08/18 14:34 [facility] [id number]) Shoulder Goniometric Range of Motion Shoulder Right Passive Flexion 147 Abduction 123 External Rotation at 90 degrees 91 Abduction Internal Rotation 27 Left Active Testing Position Sitting Flexion 168 Extension 66 Abduction 140 External Rotation at 90 degrees 88 Abduction External Rotation at 0 degrees Abduction 91 Internal Rotation 78 Internal Rotation Behind Back (text) T7 Right Active Testing Position Sitting Flexion 125 Extension 40 Abduction 91 External Rotation at 90 degrees 78 Abduction External Rotation at 0 degrees Abduction 85 Internal Rotation 71 Internal Rotation Behind Back (text) L1 PT-OP-M Strength Start: 09/08/18 08:13 Freq: Status: Active Protocol: Document 10/01/18 16:45 [facility] (Rec: 10/01/18 17:33 [facility] [id number]) Hip Strength Hip Manual Muscle Testing Right Flexion (L2) 4- Good- Extension (S1) 3 Fair Abduction 3+ Fair+ External Rotation 4- Good- Internal Rotation 4- Good- Left Flexion (L2) 4- Good- Extension (S1) 3 Fair Abduction 3+ Fair+ External Rotation 3+ Fair+ Internal Rotation 4- Good- Knee Strength Knee Manual Muscle Testing Right Flexion (S2) 4- Good- Extension (L3) 4+ Good+ Left Flexion (S2) 4- Good- Extension (L3) 5 Normal Ankle/Foot Strength Ankle and Foot Manual Muscle Testing Right Dorsiflexion (L4) 4+ Good+ Plantarflexion (S1) 3+ Fair+ Left Dorsiflexion (L4) 4 Good Plantarflexion (S1) 3+ Fair+ Comments seated tested for PF B PT-OP-Q Treatments Start: 09/08/18 08:13 Freq: Status: Active Protocol: Document 10/29/18 15:23 [facility] (Rec: 10/29/18 17:25 [facility] [id number]) Gym Equipment Shuttle Balance red clips Details fwd & side:WBOS; fwd:nbos blue clips Details fwd:WBOS &NBOS Comments w/head turns Therapeutic Exercises Supine Exercises bridge Supine Exercise Name w/arms in air Side bilateral Reps/Minutes 15 flex Supine Exercise Name isometric hip flex Side bilateral Reps/Minutes 30 sec ea Comments individually Sidelying Exercises abd Sidelying Exercise Name hip Side bilateral Reps/Minutes 20 Clamshells Sidelying Exercise Name clamshells Side bilateral Resistance none Reps/Minutes 2x15 reps Neuro Re-Education Treatment Balance Activities step ups Details without rail 5 in step SLS Details toe taps onto stairs Hurdles Details over reciprocally Reps/Duration 8 laps no rail PT-OP-R Modalities Start: 09/18/18 11:15 Freq: Status: Active Protocol: Document 10/29/18 15:23 [facility] (Rec: 10/29/18 17:25 [facility] [id number]) Hot Pack/Cold Pack Treatment Hot Pack Location ant & post shoulder Patient Position Sidelying Treatment Duration (minutes) 15 PT-OP-T Assessment and Plan Start: 09/08/18 08:13 Freq: Status: Active Protocol: Document 10/29/18 15:23 [facility] (Rec: 10/29/18 17:25 [facility] [id number]) Physical Therapy Assessment Goals Gait Short Term Goal (STG) Pt will be able to amb with horizontal head turns w/o loss of balance for 50 feet. STG Duration 11/16/2018 Neon Sign Mechanic Goal (LTG) Pt will be able to amb in grocery store w/o use of shopping cart for support. LTG Duration 12/02/2018 Balance Short Term Goal (STG) Pt will be able to turn and look over R and L shoulders without loss of balance, use of external support or supervision. STG Duration 11/01/2018 Custodial Goal (LTG) Pt will inc [place] Balance score to 45/56 in order to dec fall risk and be able to maintain balance on uneven surfaces of golf course w/o use of club. LTG Duration 12/02/2018 ROM Neon Sign Mechanic Goal (LTG) Pt will have normal AROM in R Shoulder to allow typical activities LTG Duration 11/08/18 weakness Short Term Goal (STG) Pt will be indep with HEP. STG Duration 10/08/18 Custodial Goal (LTG) Pt will be able to score 5/5 w /UE strength & 3/5 for EFT to allow inc activity tolerance LTG Duration 11/08/18 activity Short Term Goal (STG) Pt will be able to do ADLs that require reaching: watering, dishes, etc without pain. STG Duration 10/08/18 Neon Sign Mechanic Goal (LTG) Pt will be able to golf without any issues. LTG Duration 11/08/18 Assessment Summary Assessment Pt improved with tolerance to balance exercises and was able to do red clips instead of blue clips. He did exercises with cueing for maintaining neutral positioning during exercises. Physical Therapy Plan Frequency and Duration Frequency of Treatment 1-2x/week Duration of Treatment 2 months Plan of Care Start Date 10/01/18 Plan of Care End Date 12/02/18 Next Visit Focus/Plan Next Note Type Treatment Note Next Visit Plan Advance balance activties and standing hip strengthening
--- NOTE | 2018-11-10 18:09 | PT.OTN ---
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 Since cancer dx in March, pt has noticed a further decline in balance d/t weakness and fatigue from spending so much time in the hospital and cancer treatments . Prior Treatments and Tests none Treatment Goals Patient/Caregiver Goals Be able to walk independently w/o imbalance (at home, grocery store, golf course). Prior Functional Status Baseline Function- ADL's Independent Baseline Function- Mobility Independent Baseline Function- Gait Pt notes he used walk quite a bit before balance declined. Personal Factors Other Personal Factors That May Effect cancer treatment, fatigue Therapy/Recovery PT-OP-C Subjective Start: 09/08/18 08:13 Freq: Status: Active Protocol: Document 11/10/18 15:15 [facility] (Rec: 11/10/18 16:44 [facility] [email or web address]) OP-PT Subjective Patient Comments Patient Comments Pt was fatigued from walking a lot during his cruise. He forgot to bring his cane but did not have any falls on his trip. His shoulder is feeling great and he is able to complete all ADLs without pain . PT-OP-D Balance Start: 09/08/18 08:13 Freq: Status: Active Protocol: Document 10/01/18 16:45 [facility] (Rec: 10/01/18 18:34 AR [email or web address]) [place] Balance Assessment Evaluation Sitting to Standing Ability Independent w/out Hands Unsupported Stance Safely- 2 minutes Sitting Unsupported, Feet on Floor Safely- 2 minutes Standing to Sitting Ability Assist, Control w/Hands Transfer Ability Safely, Hand Use Unsupported Stance- Eyes Closed Supervision, 10 seconds Unsupported Stance- Eyes Open Assist to attain, 15 secs Reaching Forward Standing Supervision Needed Pick- Up Object From Floor Supervision Look Behind Shoulder - Standing Supervision w/Turning Turning 360 Degrees Supervision/Verbal Cues Unsupported Stance, Alternating Feet on 4 Steps w/Supervision Stair Unsupported Tandem Stance Small Step- 30 seconds Unilateral Leg Stance Unable,assist to not fall Total Score Veras Total Score (out of 56 points) 32 [place] Impairment Rating 40 to 59% Impaired (Score 23- 33) PT-OP-E Functional Tests Start: 09/08/18 08:13 Freq: Status: Active Protocol: Document 10/01/18 16:45 [facility] (Rec: 10/01/18 18:34 AR [email or web address]) Functional Tests Dynamic Gait Index (DGI) Score 9 DGI Impairment Rating 60 to <80% Impaired (Score 5-9 ) PT-OP-J Posture/Palpation/Skin Start: 09/08/18 12:00 Freq: Status: Active Protocol: Document 11/10/18 15:15 [facility] (Rec: 11/10/18 15:30 [facility] [id number]) Posture Evaluation [facility] Postural Classification System Elbow Flexion Test 2 PT-OP-K Range of Motion Start: 09/08/18 12:00 Freq: Status: Active Protocol: Document 09/08/18 13:40 [facility] (Rec: 09/08/18 14:34 [facility] [id number]) Shoulder Goniometric Range of Motion Shoulder Right Passive Flexion 147 Abduction 123 External Rotation at 90 degrees 91 Abduction Internal Rotation 27 Left Active Testing Position Sitting Flexion 168 Extension 66 Abduction 140 External Rotation at 90 degrees 88 Abduction External Rotation at 0 degrees Abduction 91 Internal Rotation 78 Internal Rotation Behind Back (text) T7 Right Active Testing Position Sitting Flexion 125 Extension 40 Abduction 91 External Rotation at 90 degrees 78 Abduction External Rotation at 0 degrees Abduction 85 Internal Rotation 71 Internal Rotation Behind Back (text) L1 PT-OP-M Strength Start: 09/08/18 08:13 Freq: Status: Active Protocol: Document 11/10/18 15:15 [facility] (Rec: 11/10/18 15:29 [facility] [id number]) Shoulder Strength Shoulder Manual Muscle Testing Right Flexion 5 Normal Extension 5 Normal Abduction (C5) 5 Normal External Rotation 5 Normal Internal Rotation 5 Normal PT-OP-Q Treatments Start: 09/08/18 08:13 Freq: Status: Active Protocol: Document 11/10/18 15:15 [facility] (Rec: 11/10/18 16:44 AR [email or web address]) Therapeutic Exercises Standing Exercises hip ext Standing Exercise Name hip ext Side bilateral Reps/Minutes 2x10 reps Comments cueing for pelvic stability hip abd Standing Exercise Name hip abd Side bilateral Reps/Minutes 2x10 reps Comments cueing for pelvic stability Manual Therapy Treatment Soft Tissue Mobilization scar tissue Body Location anterior scar Mobilization Type Cross-Friction Myofascial Release Intensity/Depth Moderate Body Position Supine Neuro Re-Education Treatment Balance Activities tandem stance Details tandem stance, EC Surface level Equipment railing Reps/Duration 4x30 sec Comments pt able to maintain balance w EO for 30+ sec. pt grabbed for railing with EC after about 10 sec Shuttle Board Details WBOS, NBOS, stagger stance Surface blue clips Reps/Duration 3x30 sec Comments EO, EC, looking over shoulder Pt cued on upright posture. mroe challenged by looking over L shoulder PT-OP-R Modalities Start: 09/18/18 11:15 Freq: Status: Active Protocol: Document 11/10/18 15:15 [facility] (Rec: 11/10/18 16:44 AR [email or web address]) Hot Pack/Cold Pack Treatment Hot Pack Location ant & post shoulder Patient Position Sidelying Treatment Duration (minutes) 15 PT-OP-T Assessment and Plan Start: 09/08/18 08:13 Freq: Status: Active Protocol: Document 11/10/18 15:15 [facility] (Rec: 11/10/18 16:44 AR [email or web address]) Physical Therapy Assessment Goals Gait Short Term Goal (STG) Pt will be able to amb with horizontal head turns w/o loss of balance for 50 feet. 11/10/18 - goal met, but pt still requires SBA. STG Duration 11/16/2018 Aba Therapist Goal (LTG) Pt will be able to amb in grocery store w/o use of shopping cart for support. 11/10/18- progressing. able to maintain balance w/o cart short periods of time LTG Duration 12/02/2018 Balance Short Term Goal (STG) Pt will be able to turn and look over R and L shoulders without loss of balance, use of external support or supervision. 11/10/18- progressing, min LOB with turn L STG Duration 11/01/2018 Prison Goal (LTG) Pt will inc Veras Balance score to 45/56 in order to dec fall risk and be able to maintain balance on uneven surfaces of golf course w/o use of club. 11/10/18 - did not test today LTG Duration 12/02/2018 ROM Prison Goal (LTG) Pt will have normal AROM in R Shoulder to allow typical activities. 11/10/18 - not measured, but pt reports no limitations in ADLs LTG Duration 11/08/18 weakness Short Term Goal (STG) Pt will be indep with HEP. STG Duration goal met Prison Goal (LTG) Pt will be able to score 5/5 w /UE strength & 3/5 for EFT to allow inc activity tolerance 11/10/18 - progressin. 5/5 MMTs , 2/5 EFT LTG Duration 11/08/18 activity Short Term Goal (STG) Pt will be able to do ADLs that require reaching: watering, dishes, etc without pain. 11/10/18 - no pain, but challenges balance STG Duration goal met Aba Therapist Goal (LTG) Pt will be able to golf without any issues. 11/10/18 - not tested today LTG Duration 11/08/18 Assessment Summary Assessment Pt has progressed with all goals regarding his shoulder but his balance is still limited. Pt's LE weakness most likely contributes to balance impairments and treatment incoporated standing LE strengthening exercises today. Pt's fatigue also seems to strongly effect balance, but pt was able to tolerate balance training today even with inc fatigue. Physical Therapy Plan Frequency and Duration Frequency of Treatment 1-2x/week Duration of Treatment 2 months Plan of Care Start Date 10/01/18 Plan of Care End Date 12/02/18 Next Visit Focus/Plan Next Note Type Treatment Note Next Visit Plan advance balance training. progress dual task gait training. progress standing hip and LE exercises
--- NOTE | 2018-11-12 17:17 | PT.OTN ---
Current Diagnoses Squamous cell carcinoma of skin, unspecified (11/12/18) Stiffness of right shoulder, not elsewhere classified (11/12/18) Abnormal posture (11/12/18) Weakness (11/12/18) Physical Therapy Treatment Note PT-OP-A Visit Information Start: 09/08/18 08:13 Freq: Status: Active Protocol: Document 11/12/18 16:51 AR (Rec: 11/12/18 17:14 AR [id number]) Out-Patient Physical Therapy Visit Information Visit Information Visit Type Treatment Note Visit Start Time 15:18 Visit Stop Time 16:15 Total Visit Minutes 57 Visit Number 04/03 Number of [employer] CONSULTANT Visits 0 PT-OP-B Current Condition Start: 09/08/18 08:13 Freq: Status: Active Protocol: Document 10/01/18 16:45 AR (Rec: 10/01/18 18:34 AR [email or web address]) Current Condition History of Current Condition Onset Date 09/22/2017 Current Complaints imbalance with walking and ADLs History of Current Condition Pt noticed decline in balance about a year ago and believed it was mostly d/t pain in his L knee. Since cancer dx in March, pt has noticed a further decline in balance d/t weakness and fatigue from spending so much time in the hospital and cancer treatments . Prior Treatments and Tests none Treatment Goals Patient/Caregiver Goals Be able to walk independently w/o imbalance (at home, grocery store, golf course). Prior Functional Status Baseline Function- ADL's Independent Baseline Function- Mobility Independent Baseline Function- Gait Pt notes he used walk quite a bit before balance declined. Personal Factors Other Personal Factors That May Effect cancer treatment, fatigue Therapy/Recovery PT-OP-C Subjective Start: 09/08/18 08:13 Freq: Status: Active Protocol: Document 11/12/18 16:51 AR (Rec: 11/12/18 17:14 AR [id number]) OP-PT Subjective Patient Comments Patient Comments Pt was fatigued today from walking around town this morning. He reports that his shoulder has been tight recently, mostly when he sleeps on it all night. PT-OP-D Balance Start: 09/08/18 08:13 Freq: Status: Active Protocol: Document 10/01/18 16:45 AR (Rec: 10/01/18 18:34 AR [email or web address]) Veras Balance Assessment Evaluation Sitting to Standing Ability Independent w/out Hands Unsupported Stance Safely- 2 minutes Sitting Unsupported, Feet on Floor Safely- 2 minutes Standing to Sitting Ability Assist, Control w/Hands Transfer Ability Safely, Hand Use Unsupported Stance- Eyes Closed Supervision, 10 seconds Unsupported Stance- Eyes Open Assist to attain, 15 secs Reaching Forward Standing Supervision Needed Pick- Up Object From Floor Supervision Look Behind Shoulder - Standing Supervision w/Turning Turning 360 Degrees Supervision/Verbal Cues Unsupported Stance, Alternating Feet on 4 Steps w/Supervision Stair Unsupported Tandem Stance Small Step- 30 seconds Unilateral Leg Stance Unable,assist to not fall Total Score Veras Total Score (out of 56 points) 32 Veras Impairment Rating 40 to 59% Impaired (Score 23- 33) PT-OP-E Functional Tests Start: 09/08/18 08:13 Freq: Status: Active Protocol: Document 10/01/18 16:45 AR (Rec: 10/01/18 18:34 AR [email or web address]) Functional Tests Dynamic Gait Index (DGI) Score 9 DGI Impairment Rating 60 to <80% Impaired (Score 5-9 ) PT-OP-J Posture/Palpation/Skin Start: 09/08/18 12:00 Freq: Status: Active Protocol: Document 11/10/18 15:15 [facility] (Rec: 11/10/18 15:30 [facility] [id number]) Posture Evaluation Kelsey Postural Classification System Elbow Flexion Test 2 PT-OP-K Range of Motion Start: 09/08/18 12:00 Freq: Status: Active Protocol: Document 09/08/18 13:40 LR (Rec: 09/08/18 14:34 [facility] [id number]) Shoulder Goniometric Range of Motion Shoulder Right Passive Flexion 147 Abduction 123 External Rotation at 90 degrees 91 Abduction Internal Rotation 27 Left Active Testing Position Sitting Flexion 168 Extension 66 Abduction 140 External Rotation at 90 degrees 88 Abduction External Rotation at 0 degrees Abduction 91 Internal Rotation 78 Internal Rotation Behind Back (text) T7 Right Active Testing Position Sitting Flexion 125 Extension 40 Abduction 91 External Rotation at 90 degrees 78 Abduction External Rotation at 0 degrees Abduction 85 Internal Rotation 71 Internal Rotation Behind Back (text) L1 PT-OP-M Strength Start: 09/08/18 08:13 Freq: Status: Active Protocol: Document 11/10/18 15:15 [facility] (Rec: 11/10/18 15:29 LR [id number]) Shoulder Strength Shoulder Manual Muscle Testing Right Flexion 5 Normal Extension 5 Normal Abduction (C5) 5 Normal External Rotation 5 Normal Internal Rotation 5 Normal PT-OP-Q Treatments Start: 09/08/18 08:13 Freq: Status: Active Protocol: Document 11/12/18 16:51 AR (Rec: 11/12/18 17:14 AR [id number]) Therapeutic Exercises Sidelying Exercises abd Sidelying Exercise Name hip Side left Reps/Minutes 20 reps Comments pt had difficulty maintaining neutral hip Clamshells Sidelying Exercise Name clamshells Side left Resistance none Reps/Minutes 15 reps Comments reviewed from HEP, added sidelying hip abd Gait Training Gait Activity Dual task Description counting backward by 3s, naming words beginning w L-O Device Used none Level of Assistance CGA Surface level Distance/Duration [id number] Treatment Focus automaticity of amb, eccentric control of L foot Comments pt rests on lateral side of foot in stance and walks with L foot inverted. heavy cueing for heel strike and more neutral positioning when WB on L Manual Therapy Treatment Soft Tissue Mobilization Latissimus Dorsi Body Location R latissimus dorsi Mobilization Type Rolling Strumming Intensity/Depth Moderate Body Position Sidelying scar tissue Body Location posterior scar Mobilization Type Cross-Friction Myofascial Release Intensity/Depth Moderate Body Position Sidelying Neuro Re-Education Treatment Balance Activities red mat Details static stance Surface red mat, doubled up Reps/Duration 4 min golf swings Details standing on mat, trunk rotation Surface red mat, doubled up Reps/Duration 20 swings Comments pt lost balance 2-3 times but was able to regain with stepping strategy. was able to acheive upper trunk rotation PT-OP-R Modalities Start: 09/18/18 11:15 Freq: Status: Active Protocol: Document 11/12/18 16:51 AR (Rec: 11/12/18 17:14 AR [id number]) Hot Pack/Cold Pack Treatment Hot Pack Location ant & post shoulder Patient Position Sidelying Treatment Duration (minutes) 15 PT-OP-T Assessment and Plan Start: 09/08/18 08:13 Freq: Status: Active Protocol: Document 11/12/18 16:51 AR (Rec: 11/12/18 17:14 AR [id number]) Physical Therapy Assessment Goals Gait Short Term Goal (STG) Pt will be able to amb with horizontal head turns w/o loss of balance for 50 feet. 11/10/18 - goal met, but pt still requires SBA. STG Duration 11/16/2018 Longterm Goal (LTG) Pt will be able to amb in grocery store w/o use of shopping cart for support. 11/10/18- progressing. able to maintain balance w/o cart short periods of time LTG Duration 12/02/2018 Balance Short Term Goal (STG) Pt will be able to turn and look over R and L shoulders without loss of balance, use of external support or supervision. 11/10/18- progressing, min LOB with turn L STG Duration 11/01/2018 Longterm Goal (LTG) Pt will inc Veras Balance score to 45/56 in order to dec fall risk and be able to maintain balance on uneven surfaces of golf course w/o use of club. 11/10/18 - did not test today LTG Duration 12/02/2018 ROM Longterm Goal (LTG) Pt will have normal AROM in R Shoulder to allow typical activities. 11/10/18 - not measured, but pt reports no limitations in ADLs LTG Duration 11/08/18 weakness Short Term Goal (STG) Pt will be indep with HEP. STG Duration goal met Longterm Goal (LTG) Pt will be able to score 5/5 w /UE strength & 3/5 for EFT to allow inc activity tolerance 11/10/18 - progressin. 5/5 MMTs , 2/5 EFT LTG Duration 11/08/18 activity Short Term Goal (STG) Pt will be able to do ADLs that require reaching: watering, dishes, etc without pain. 11/10/18 - no pain, but challenges balance STG Duration goal met Longterm Goal (LTG) Pt will be able to golf without any issues. 11/10/18 - not tested today LTG Duration 11/08/18 Assessment Summary Assessment Pt was able to demonstrate more trunk and shoulder motion with golf swing today w/o major LOB. Pt still presents with compensated L trendeleberg gait and glut med strengthening was progressed to target this. Physical Therapy Plan Frequency and Duration Frequency of Treatment 1-2x/week Duration of Treatment 2 months Plan of Care Start Date 10/01/18 Plan of Care End Date 12/02/18 Next Visit Focus/Plan Next Note Type Treatment Note Next Visit Plan wt acceptance, gait in mirror. inc standing hip strengthening (resistance band , reps). STS form
--- NOTE | 2018-11-17 19:03 | PT.OTN ---
Current Diagnoses Squamous cell carcinoma of skin, unspecified (11/17/18) Stiffness of right shoulder, not elsewhere classified (11/17/18) Abnormal posture (11/17/18) Weakness (11/17/18) Physical Therapy Treatment Note PT-OP-A Visit Information Start: 09/08/18 08:13 Freq: Status: Active Protocol: Document 11/17/18 17:57 AR (Rec: 11/17/18 18:10 AR [email or web address]) Out-Patient Physical Therapy Visit Information Visit Information Visit Type Treatment Note Visit Start Time 15:18 Visit Stop Time 16:15 Total Visit Minutes 57 Visit Number 2/ Number of ENTERTAINER OR VARIETY ARTIST Visits 0 PT-OP-B Current Condition Start: 09/08/18 08:13 Freq: Status: Active Protocol: Document 10/01/18 16:45 AR (Rec: 10/01/18 18:34 AR [email or web address]) Current Condition History of Current Condition Onset Date 09/22/2017 Current Complaints imbalance with walking and ADLs History of Current Condition Pt noticed decline in balance about a year ago and believed it was mostly d/t pain in his L knee. Since cancer dx in March, pt has noticed a further decline in balance d/t weakness and fatigue from spending so much time in the hospital and cancer treatments . Prior Treatments and Tests none Treatment Goals Patient/Caregiver Goals Be able to walk independently w/o imbalance (at home, grocery store, golf course). Prior Functional Status Baseline Function- ADL's Independent Baseline Function- Mobility Independent Baseline Function- Gait Pt notes he used walk quite a bit before balance declined. Personal Factors Other Personal Factors That May Effect cancer treatment, fatigue Therapy/Recovery PT-OP-C Subjective Start: 09/08/18 08:13 Freq: Status: Active Protocol: Document 11/17/18 17:57 AR (Rec: 11/17/18 18:10 AR [email or web address]) OP-PT Subjective Patient Comments Patient Comments Pt was sore from walking a lot over the weekend. He went to a concert and had to park about 1 mile away from the venue. PT-OP-D Balance Start: 09/08/18 08:13 Freq: Status: Active Protocol: Document 10/01/18 16:45 AR (Rec: 10/01/18 18:34 AR [email or web address]) Veras Balance Assessment Evaluation Sitting to Standing Ability Independent w/out Hands Unsupported Stance Safely- 2 minutes Sitting Unsupported, Feet on Floor Safely- 2 minutes Standing to Sitting Ability Assist, Control w/Hands Transfer Ability Safely, Hand Use Unsupported Stance- Eyes Closed Supervision, 10 seconds Unsupported Stance- Eyes Open Assist to attain, 15 secs Reaching Forward Standing Supervision Needed Pick- Up Object From Floor Supervision Look Behind Shoulder - Standing Supervision w/Turning Turning 360 Degrees Supervision/Verbal Cues Unsupported Stance, Alternating Feet on 4 Steps w/Supervision Stair Unsupported Tandem Stance Small Step- 30 seconds Unilateral Leg Stance Unable,assist to not fall Total Score Veras Total Score (out of 56 points) 32 [place] Impairment Rating 40 to 59% Impaired (Score 23- 33) PT-OP-E Functional Tests Start: 09/08/18 08:13 Freq: Status: Active Protocol: Document 10/01/18 16:45 AR (Rec: 10/01/18 18:34 AR [email or web address]) Functional Tests Dynamic Gait Index (DGI) Score 9 DGI Impairment Rating 60 to <80% Impaired (Score 5-9 ) PT-OP-J Posture/Palpation/Skin Start: 09/08/18 12:00 Freq: Status: Active Protocol: Document 11/10/18 15:15 [facility] (Rec: 11/10/18 15:30 [facility] [id number]) Posture Evaluation Kelsey Postural Classification System Elbow Flexion Test 2 PT-OP-K Range of Motion Start: 09/08/18 12:00 Freq: Status: Active Protocol: Document 09/08/18 13:40 LR (Rec: 09/08/18 14:34 [facility] [id number]) Shoulder Goniometric Range of Motion Shoulder Right Passive Flexion 147 Abduction 123 External Rotation at 90 degrees 91 Abduction Internal Rotation 27 Left Active Testing Position Sitting Flexion 168 Extension 66 Abduction 140 External Rotation at 90 degrees 88 Abduction External Rotation at 0 degrees Abduction 91 Internal Rotation 78 Internal Rotation Behind Back (text) T7 Right Active Testing Position Sitting Flexion 125 Extension 40 Abduction 91 External Rotation at 90 degrees 78 Abduction External Rotation at 0 degrees Abduction 85 Internal Rotation 71 Internal Rotation Behind Back (text) L1 PT-OP-M Strength Start: 09/08/18 08:13 Freq: Status: Active Protocol: Document 11/10/18 15:15 [facility] (Rec: 11/10/18 15:29 [facility] [id number]) Shoulder Strength Shoulder Manual Muscle Testing Right Flexion 5 Normal Extension 5 Normal Abduction (C5) 5 Normal External Rotation 5 Normal Internal Rotation 5 Normal PT-OP-Q Treatments Start: 09/08/18 08:13 Freq: Status: Active Protocol: Document 11/17/18 17:57 AR (Rec: 11/17/18 18:10 AR [email or web address]) Therapeutic Exercises Supine Exercises bridge Supine Exercise Name bridge Side bilateral Reps/Minutes 15 Comments added to HEP. cueing for glute activation Standing Exercises TKE Standing Exercise Name for glute activation Side right Resistance L1 Equipment Used theraband Reps/Minutes 5 reps Comments pt unable to perform correctly , exercises stopped hip flex Standing Exercise Name hip flex Side bilateral Resistance 2# Equipment Used ankle weights Reps/Minutes 2x10 reps Comments cueing for upright posture hip ext Standing Exercise Name hip ext Side bilateral Resistance 2# Equipment Used ankle weights Reps/Minutes 2x10 reps Comments cueing for pelvic stability hip abd Standing Exercise Name hip abd Side bilateral Resistance 2# Equipment Used ankle weights Reps/Minutes 2x10 reps Comments cueing for pelvic stability Therapeutic Activity Therapeutic Activity weight acceptance Name wt acceptance Reps/Minutes 8 min Comments cueing for pelvic stability without rotation or lateral movements. Manual Therapy Treatment Joint Mobilizations GH Joint GH Direction inferior Grade III Body Position Supine Comments pt reported no pain and inc ROM after mobilization PT-OP-R Modalities Start: 09/18/18 11:15 Freq: Status: Active Protocol: Document 11/17/18 17:57 AR (Rec: 11/17/18 18:10 AR [email or web address]) Hot Pack/Cold Pack Treatment Hot Pack Location ant & post shoulder Patient Position Sidelying Treatment Duration (minutes) 15 PT-OP-T Assessment and Plan Start: 09/08/18 08:13 Freq: Status: Active Protocol: Document 11/17/18 17:57 AR (Rec: 11/17/18 18:10 AR [email or web address]) Physical Therapy Assessment Goals Gait Short Term Goal (STG) Pt will be able to amb with horizontal head turns w/o loss of balance for 50 feet. 11/10/18 - goal met, but pt still requires SBA. STG Duration 11/16/2018 Dairy Nutrition Specialist Goal (LTG) Pt will be able to amb in grocery store w/o use of shopping cart for support. 11/10/18- progressing. able to maintain balance w/o cart short periods of time LTG Duration 12/02/2018 Balance Short Term Goal (STG) Pt will be able to turn and look over R and L shoulders without loss of balance, use of external support or supervision. 11/10/18- progressing, min LOB with turn L STG Duration 11/01/2018 Dairy Nutrition Specialist Goal (LTG) Pt will inc Veras Balance score to 45/56 in order to dec fall risk and be able to maintain balance on uneven surfaces of golf course w/o use of club. 11/10/18 - did not test today LTG Duration 12/02/2018 ROM [facility] Goal (LTG) Pt will have normal AROM in R Shoulder to allow typical activities. 11/10/18 - not measured, but pt reports no limitations in ADLs LTG Duration 11/08/18 weakness Short Term Goal (STG) Pt will be indep with HEP. STG Duration goal met Dairy Nutrition Specialist Goal (LTG) Pt will be able to score 5/5 w /UE strength & 3/5 for EFT to allow inc activity tolerance 11/10/18 - progressin. 5/5 MMTs , 2/5 EFT LTG Duration 11/08/18 activity Short Term Goal (STG) Pt will be able to do ADLs that require reaching: watering, dishes, etc without pain. 11/10/18 - no pain, but challenges balance STG Duration goal met [facility] Goal (LTG) Pt will be able to golf without any issues. 11/10/18 - not tested today LTG Duration 11/08/18 Assessment Summary Assessment Pt presents with dec LE strength which may be impacting balance. Treatment today focused on LE strength training to help improve balance. Pt also has dec stability in single leg stance , so weight acceptance was used to help improve stability necessary for gait. Physical Therapy Plan Frequency and Duration Frequency of Treatment 1-2x/week Duration of Treatment 2 months Plan of Care Start Date 10/01/18 Plan of Care End Date 12/02/18 Next Visit Focus/Plan Next Note Type Treatment Note Next Visit Plan gait in mirror. inc standing hip strengthening (inc ankle weights). add marching with ankle weights. STS form. cont balance on unstable surfaces [ End ]
--- NOTE | 2018-11-19 18:38 | PT.OTN ---
Current Diagnoses Squamous cell carcinoma of skin, unspecified (11/19/18) Stiffness of right shoulder, not elsewhere classified (11/19/18) Abnormal posture (11/19/18) Weakness (11/19/18) Physical Therapy Treatment Note PT-OP-A Visit Information Start: 09/08/18 08:13 Freq: Status: Active Protocol: Document 11/19/18 16:59 AR (Rec: 11/19/18 17:15 AR [id number]) Out-Patient Physical Therapy Visit Information Visit Information Visit Type Treatment Note Visit Start Time 15:22 Visit Stop Time 16:15 Total Visit Minutes 53 Visit Number 3/ Number of ADMINISTRATIVE DIRECTOR Visits 0 PT-OP-B Current Condition Start: 09/08/18 08:13 Freq: Status: Active Protocol: Document 10/01/18 16:45 AR (Rec: 10/01/18 18:34 AR [id number]) Current Condition History of Current Condition Onset Date 09/22/2017 Current Complaints imbalance with walking and ADLs History of Current Condition Pt noticed decline in balance about a year ago and believed it was mostly d/t pain in his L knee. Since cancer dx in March, pt has noticed a further decline in balance d/t weakness and fatigue from spending so much time in the hospital and cancer treatments . Prior Treatments and Tests none Treatment Goals Patient/Caregiver Goals Be able to walk independently w/o imbalance (at home, grocery store, golf course). Prior Functional Status Baseline Function- ADL's Independent Baseline Function- Mobility Independent Baseline Function- Gait Pt notes he used walk quite a bit before balance declined. Personal Factors Other Personal Factors That May Effect cancer treatment, fatigue Therapy/Recovery PT-OP-C Subjective Start: 09/08/18 08:13 Freq: Status: Active Protocol: Document 11/19/18 16:59 AR (Rec: 11/19/18 17:15 AR [id number]) OP-PT Subjective Patient Comments Patient Comments Pt was fatigued after infusion yesterday. His shoulder still feels tight toward the end ranges, but mobilizations last visit helped. PT-OP-D Balance Start: 09/08/18 08:13 Freq: Status: Active Protocol: Document 10/01/18 16:45 AR (Rec: 10/01/18 18:34 AR [id number]) Veras Balance Assessment Evaluation Sitting to Standing Ability Independent w/out Hands Unsupported Stance Safely- 2 minutes Sitting Unsupported, Feet on Floor Safely- 2 minutes Standing to Sitting Ability Assist, Control w/Hands Transfer Ability Safely, Hand Use Unsupported Stance- Eyes Closed Supervision, 10 seconds Unsupported Stance- Eyes Open Assist to attain, 15 secs Reaching Forward Standing Supervision Needed Pick- Up Object From Floor Supervision Look Behind Shoulder - Standing Supervision w/Turning Turning 360 Degrees Supervision/Verbal Cues Unsupported Stance, Alternating Feet on 4 Steps w/Supervision Stair Unsupported Tandem Stance Small Step- 30 seconds Unilateral Leg Stance Unable,assist to not fall Total Score Veras Total Score (out of 56 points) 32 Veras Impairment Rating 40 to 59% Impaired (Score 23- 33) PT-OP-E Functional Tests Start: 09/08/18 08:13 Freq: Status: Active Protocol: Document 10/01/18 16:45 AR (Rec: 10/01/18 18:34 AR [id number]) Functional Tests Dynamic Gait Index (DGI) Score 9 DGI Impairment Rating 60 to <80% Impaired (Score 5-9 ) PT-OP-J Posture/Palpation/Skin Start: 09/08/18 12:00 Freq: Status: Active Protocol: Document 11/10/18 15:15 [facility] (Rec: 11/10/18 15:30 [facility] [id number]) Posture Evaluation [facility] Postural Classification System Elbow Flexion Test 2 PT-OP-K Range of Motion Start: 09/08/18 12:00 Freq: Status: Active Protocol: Document 09/08/18 13:40 LR (Rec: 09/08/18 14:34 [facility] [id number]) Shoulder Goniometric Range of Motion Shoulder Right Passive Flexion 147 Abduction 123 External Rotation at 90 degrees 91 Abduction Internal Rotation 27 Left Active Testing Position Sitting Flexion 168 Extension 66 Abduction 140 External Rotation at 90 degrees 88 Abduction External Rotation at 0 degrees Abduction 91 Internal Rotation 78 Internal Rotation Behind Back (text) T7 Right Active Testing Position Sitting Flexion 125 Extension 40 Abduction 91 External Rotation at 90 degrees 78 Abduction External Rotation at 0 degrees Abduction 85 Internal Rotation 71 Internal Rotation Behind Back (text) L1 PT-OP-M Strength Start: 09/08/18 08:13 Freq: Status: Active Protocol: Document 11/10/18 15:15 [facility] (Rec: 11/10/18 15:29 [facility] [id number]) Shoulder Strength Shoulder Manual Muscle Testing Right Flexion 5 Normal Extension 5 Normal Abduction (C5) 5 Normal External Rotation 5 Normal Internal Rotation 5 Normal PT-OP-Q Treatments Start: 09/08/18 08:13 Freq: Status: Active Protocol: Document 11/19/18 16:59 AR (Rec: 11/19/18 17:15 AR [id number]) Therapeutic Exercises Standing Exercises hip ext Standing Exercise Name hip ext Side bilateral Resistance 3# Equipment Used ankle weights Reps/Minutes 15 reps Comments cueing for pelvic stability hip abd Standing Exercise Name hip abd Side bilateral Resistance 3# Equipment Used ankle weights Reps/Minutes 15 reps Comments cueing for pelvic stability marches Standing Exercise Name standing marches Side bilateral Resistance 3# Equipment Used ankle weights Reps/Minutes 15 reps Gait Training Gait Activity Gait in front of mirror Description at mirror Device Used none Level of Assistance SBA Surface level Distance/Duration 6x10ft Treatment Focus dec trendelenberg gait Comments pt has become more aware of pelvic instability. was able to correct slightly Manual Therapy Treatment Soft Tissue Mobilization Pectorals Body Location pectorals Mobilization Type Myofascial Release,Strumming Intensity/Depth Moderate Body Position Supine Joint Mobilizations GH Joint GH Direction inferior Grade III Body Position Supine Comments pt reported no pain and inc ROM after mobilization Neuro Re-Education Treatment Balance Activities static stance Details level & towel under lateral aspect of L foot Surface towel & level Equipment balloon volley Reps/Duration 7 min Comments pt was very challenged by towel aligning foot into neutral position. pt required heavy guarding by PT and chair behind him stagger stance Details stagger stance Surface on blue therapads Equipment railing Reps/Duration 6 min Comments pt cued to bring L foot into neutral position. pt cont to roll into eversion PT-OP-R Modalities Start: 09/18/18 11:15 Freq: Status: Active Protocol: Document 11/19/18 16:59 AR (Rec: 11/19/18 17:15 AR [id number]) Hot Pack/Cold Pack Treatment Hot Pack Location ant & post shoulder Patient Position Sidelying Treatment Duration (minutes) 15 PT-OP-T Assessment and Plan Start: 09/08/18 08:13 Freq: Status: Active Protocol: Document 11/19/18 16:59 AR (Rec: 11/19/18 17:15 AR [id number]) Physical Therapy Assessment Goals Gait Short Term Goal (STG) Pt will be able to amb with horizontal head turns w/o loss of balance for 50 feet. 11/10/18 - goal met, but pt still requires SBA. STG Duration 11/16/2018 Customer Liaison Goal (LTG) Pt will be able to amb in grocery store w/o use of shopping cart for support. 11/10/18- progressing. able to maintain balance w/o cart short periods of time LTG Duration 12/02/2018 Balance Short Term Goal (STG) Pt will be able to turn and look over R and L shoulders without loss of balance, use of external support or supervision. 11/10/18- progressing, min LOB with turn L STG Duration 11/01/2018 Customer Liaison Goal (LTG) Pt will inc Veras Balance score to 45/56 in order to dec fall risk and be able to maintain balance on uneven surfaces of golf course w/o use of club. 11/10/18 - did not test today LTG Duration 12/02/2018 ROM Retirement Goal (LTG) Pt will have normal AROM in R Shoulder to allow typical activities. 11/10/18 - not measured, but pt reports no limitations in ADLs LTG Duration 11/08/18 weakness Short Term Goal (STG) Pt will be indep with HEP. STG Duration goal met Customer Liaison Goal (LTG) Pt will be able to score 5/5 w /UE strength & 3/5 for EFT to allow inc activity tolerance 11/10/18 - progressin. 5/5 MMTs , 2/5 EFT LTG Duration 11/08/18 activity Short Term Goal (STG) Pt will be able to do ADLs that require reaching: watering, dishes, etc without pain. 11/10/18 - no pain, but challenges balance STG Duration goal met Retirement Goal (LTG) Pt will be able to golf without any issues. 11/10/18 - not tested today LTG Duration 11/08/18 Assessment Summary Assessment Pt's pelvic stability has improved but pt still presents with inc lateral trunk lean and trendelenberg gait. Pt's LE weakness seems to contribute to gait abnormalities as well as poor balance. Pt had a lot of difficulty maintaining static stance, kathy with foot posture correction. Physical Therapy Plan Frequency and Duration Frequency of Treatment 1-2x/week Duration of Treatment 2 months Plan of Care Start Date 10/01/18 Plan of Care End Date 12/02/18 Next Visit Focus/Plan Next Note Type Treatment Note Next Visit Plan cont gait in mirror. static balance with UE movements. STS form
--- NOTE | 2018-12-03 16:43 | PT.OTN ---
Current Diagnoses Squamous cell carcinoma of skin, unspecified (12/03/18) Stiffness of right shoulder, not elsewhere classified (12/03/18) Abnormal posture (12/03/18) Weakness (12/03/18) Physical Therapy Treatment Note PT-OP-A Visit Information Start: 09/08/18 08:13 Freq: Status: Active Protocol: Document 12/03/18 10:30 AR (Rec: 12/03/18 12:16 AR [id number]) Out-Patient Physical Therapy Visit Information Visit Information Visit Type Treatment Note Visit Start Time 10:30 Visit Stop Time 11:30 Total Visit Minutes 60 Visit Number 4/ Number of OFFICE ASSISTANT Visits 0 PT-OP-B Current Condition Start: 09/08/18 08:13 Freq: Status: Active Protocol: Document 10/01/18 16:45 AR (Rec: 10/01/18 18:34 AR [email or web address]) Current Condition History of Current Condition Onset Date 09/22/2017 Current Complaints imbalance with walking and ADLs History of Current Condition Pt noticed decline in balance about a year ago and believed it was mostly d/t pain in his L knee. Since cancer dx in March, pt has noticed a further decline in balance d/t weakness and fatigue from spending so much time in the hospital and cancer treatments . Prior Treatments and Tests none Treatment Goals Patient/Caregiver Goals Be able to walk independently w/o imbalance (at home, grocery store, golf course). Prior Functional Status Baseline Function- ADL's Independent Baseline Function- Mobility Independent Baseline Function- Gait Pt notes he used walk quite a bit before balance declined. Personal Factors Other Personal Factors That May Effect cancer treatment, fatigue Therapy/Recovery PT-OP-C Subjective Start: 09/08/18 08:13 Freq: Status: Active Protocol: Document 12/03/18 10:30 AR (Rec: 12/03/18 12:16 AR [id number]) OP-PT Subjective Patient Comments Patient Comments Pt feels well today. He has noticed improvements in balance. He did feel shoulder pain with golf swing recently, near inferior portion of scar . PT-OP-D Balance Start: 09/08/18 08:13 Freq: Status: Active Protocol: Document 12/03/18 10:30 AR (Rec: 12/03/18 16:28 AR [id number]) Balance Tests Veras Balance Test Veras Balance Test Score 49/56 Veras Impairment Rating 1 to 19% Impaired (Score 45-55 ) PT-OP-E Functional Tests Start: 09/08/18 08:13 Freq: Status: Active Protocol: Document 10/01/18 16:45 AR (Rec: 10/01/18 18:34 AR [email or web address]) Functional Tests Dynamic Gait Index (DGI) Score 9 DGI Impairment Rating 60 to <80% Impaired (Score 5-9 ) PT-OP-J Posture/Palpation/Skin Start: 09/08/18 12:00 Freq: Status: Active Protocol: Document 11/10/18 15:15 LR (Rec: 11/10/18 15:30 [facility] [id number]) Posture Evaluation [facility] Postural Classification System Elbow Flexion Test 2 PT-OP-K Range of Motion Start: 09/08/18 12:00 Freq: Status: Active Protocol: Document 09/08/18 13:40 [facility] (Rec: 09/08/18 14:34 [facility] [id number]) Shoulder Goniometric Range of Motion Shoulder Right Passive Flexion 147 Abduction 123 External Rotation at 90 degrees 91 Abduction Internal Rotation 27 Left Active Testing Position Sitting Flexion 168 Extension 66 Abduction 140 External Rotation at 90 degrees 88 Abduction External Rotation at 0 degrees Abduction 91 Internal Rotation 78 Internal Rotation Behind Back (text) T7 Right Active Testing Position Sitting Flexion 125 Extension 40 Abduction 91 External Rotation at 90 degrees 78 Abduction External Rotation at 0 degrees Abduction 85 Internal Rotation 71 Internal Rotation Behind Back (text) L1 PT-OP-M Strength Start: 09/08/18 08:13 Freq: Status: Active Protocol: Document 11/10/18 15:15 LR (Rec: 11/10/18 15:29 LR [id number]) Shoulder Strength Shoulder Manual Muscle Testing Right Flexion 5 Normal Extension 5 Normal Abduction (C5) 5 Normal External Rotation 5 Normal Internal Rotation 5 Normal PT-OP-Q Treatments Start: 09/08/18 08:13 Freq: Status: Active Protocol: Document 12/03/18 10:30 AR (Rec: 12/03/18 12:16 AR [id number]) Therapeutic Exercises Sitting Exercises shoulder AROM Sitting Exercise Name shoulder AROM assessed Comments WNL, equal to LUE. pt reported feeling tight anteriorly with IR Manual Therapy Treatment Soft Tissue Mobilization scar tissue Body Location inf Mobilization Type Cross-Friction,Myofascial Release Body Position Sitting Joint Mobilizations ribs Joint rib 10 Direction PA Grade III Body Position Sitting Comments pt reported sharp pain in scar as well as along rib 10. sharp pain gone after mobilizations Neuro Re-Education Treatment Balance Activities walking w head turns Details horizontal head turns Surface level Equipment gait belt Reps/Duration 2x50 feet Veras Details Veras balance test to assess fall risk PT-OP-R Modalities Start: 09/18/18 11:15 Freq: Status: Active Protocol: Document 12/03/18 10:30 AR (Rec: 12/03/18 12:17 AR [id number]) Hot Pack/Cold Pack Treatment Hot Pack Location ant & post shoulder, inf scar Patient Position Sidelying Treatment Duration (minutes) 15 Comments lumbar and cervical hot pack used PT-OP-T Assessment and Plan Start: 09/08/18 08:13 Freq: Status: Active Protocol: Document 12/03/18 10:30 AR (Rec: 12/03/18 12:16 AR [id number]) Physical Therapy Assessment Goals Gait Short Term Goal (STG) Pt will be able to amb with horizontal head turns w/o loss of balance for 50 feet. 11/10/18 - goal met, but pt still requires SBA. 12/03/18- goal met, but pt still requires SBA. STG Duration 01/02/2019 Corporate Intern Goal (LTG) Pt will be able to amb in grocery store w/o use of shopping cart for support. 11/10/18- progressing. able to maintain balance w/o cart short periods of time. 12/03/18- pt has been able to walk longer distances w/o holding on. walking ~1 mi on cruise ship w/o support and no LOB LTG Duration goal met Balance Short Term Goal (STG) Pt will be able to turn and look over R and L shoulders without loss of balance, use of external support or supervision. 11/10/18- progressing, min LOB with turn L 12/03/18- progressing, min LOB with turn L. was able to perform with no LOB after few repetitions STG Duration 01/02/2019 Assisted Goal (LTG) Pt will inc Veras Balance score to 45/56 in order to dec fall risk and be able to maintain balance on uneven surfaces of golf course w/o use of club. 11/10/18 - did not test today 12/03/18- goal met. 49/56 LTG Duration goal met ROM Corporate Intern Goal (LTG) Pt will have normal AROM in R Shoulder to allow typical activities. 11/10/18 - not measured, but pt reports no limitations in ADLs 12/03/18- goal met. ROM equal to L shoulder. tight feeling in anterior shoulder with IR LTG Duration goal met weakness Short Term Goal (STG) Pt will be indep with HEP. STG Duration goal met Corporate Intern Goal (LTG) Pt will be able to score 5/5 w /UE strength & 3/5 for EFT to allow inc activity tolerance 11/10/18 - progressin. 5/5 MMTs , 2/5 EFT 12/03/18- not tested today LTG Duration 02/01/2019 activity Short Term Goal (STG) Pt will be able to do ADLs that require reaching: watering, dishes, etc without pain. 11/10/18 - no pain, but challenges balance STG Duration goal met Corporate Intern Goal (LTG) Pt will be able to golf without any issues. 11/10/18 - not tested today 12/03/18- minimal shoulder pain with larger swings. no balance problems with golfing LTG Duration 02/01/2019 Assessment Summary Assessment Pt's balance has improved and his Veras score indicates he is no longer at high risk for falls (49/56). Pt has been able to perform ADLs and most activities with minimal shoulder pain and loss of balance. Pt's L knee was bothering him today and seemed to be contributing to imbalance. Pt was encouraged to seek a referral for it. Pt still had difficulty with single leg stance. Physical Therapy Plan Frequency and Duration Frequency of Treatment 1-2x/week Duration of Treatment 2 months Plan of Care Start Date 12/03/18 Plan of Care End Date 02/02/19 Therapeutic Interventions Therapeutic Interventions Aquatic Therapy,Balance Training,Coordination Training ,Gait Training,Home Exercise Program,Joint Mobilizations, Manual Therapy,Neuromuscular Re-education,Patient/Caregiver Education,Self-Care/Home Management,Soft Tissue Mobilization,Taping, Therapeutic Activities, Therapeutic Exercises Modalities Cold Pack/Ice Massage,Hot Packs Next Visit Focus/Plan Next Note Type Treatment Note Next Visit Plan cont gait in mirror. static balance with UE movements. STS form. kim step over. golf swings. step ups/tap
--- NOTE | 2018-12-03 18:27 | PT.OTN ---
Current Diagnoses Squamous cell carcinoma of skin, unspecified (12/03/18) Stiffness of right shoulder, not elsewhere classified (12/03/18) Abnormal posture (12/03/18) Weakness (12/03/18) Physical Therapy Treatment Note PT-OP-A Visit Information Start: 09/08/18 08:13 Freq: Status: Active Protocol: Document 12/03/18 10:30 AR (Rec: 12/03/18 12:16 AR [id number]) Out-Patient Physical Therapy Visit Information Visit Information Visit Type Treatment Note Visit Start Time 10:30 Visit Stop Time 11:30 Total Visit Minutes 60 Visit Number 4/ Number of SPORTS ANCHOR Visits 0 PT-OP-B Current Condition Start: 09/08/18 08:13 Freq: Status: Active Protocol: Document 10/01/18 16:45 AR (Rec: 10/01/18 18:34 AR [id number]) Current Condition History of Current Condition Onset Date 09/22/2017 Current Complaints imbalance with walking and ADLs History of Current Condition Pt noticed decline in balance about a year ago and believed it was mostly d/t pain in his L knee. Since cancer dx in March, pt has noticed a further decline in balance d/t weakness and fatigue from spending so much time in the hospital and cancer treatments . Prior Treatments and Tests none Treatment Goals Patient/Caregiver Goals Be able to walk independently w/o imbalance (at home, grocery store, golf course). Prior Functional Status Baseline Function- ADL's Independent Baseline Function- Mobility Independent Baseline Function- Gait Pt notes he used walk quite a bit before balance declined. Personal Factors Other Personal Factors That May Effect cancer treatment, fatigue Therapy/Recovery PT-OP-C Subjective Start: 09/08/18 08:13 Freq: Status: Active Protocol: Document 12/03/18 10:30 AR (Rec: 12/03/18 12:16 AR [id number]) OP-PT Subjective Patient Comments Patient Comments Pt feels well today. He has noticed improvements in balance. He did feel shoulder pain with golf swing recently, near inferior portion of scar . PT-OP-D Balance Start: 09/08/18 08:13 Freq: Status: Active Protocol: Document 12/03/18 10:30 AR (Rec: 12/03/18 16:28 AR [id number]) Balance Tests Veras Balance Test Veras Balance Test Score 49/56 Veras Impairment Rating 1 to 19% Impaired (Score 45-55 ) PT-OP-E Functional Tests Start: 09/08/18 08:13 Freq: Status: Active Protocol: Document 10/01/18 16:45 AR (Rec: 10/01/18 18:34 AR [id number]) Functional Tests Dynamic Gait Index (DGI) Score 9 DGI Impairment Rating 60 to <80% Impaired (Score 5-9 ) PT-OP-J Posture/Palpation/Skin Start: 09/08/18 12:00 Freq: Status: Active Protocol: Document 11/10/18 15:15 LR (Rec: 11/10/18 15:30 [facility] [id number]) Posture Evaluation [facility] Postural Classification System Elbow Flexion Test 2 PT-OP-K Range of Motion Start: 09/08/18 12:00 Freq: Status: Active Protocol: Document 09/08/18 13:40 [facility] (Rec: 09/08/18 14:34 [facility] [id number]) Shoulder Goniometric Range of Motion Shoulder Right Passive Flexion 147 Abduction 123 External Rotation at 90 degrees 91 Abduction Internal Rotation 27 Left Active Testing Position Sitting Flexion 168 Extension 66 Abduction 140 External Rotation at 90 degrees 88 Abduction External Rotation at 0 degrees Abduction 91 Internal Rotation 78 Internal Rotation Behind Back (text) T7 Right Active Testing Position Sitting Flexion 125 Extension 40 Abduction 91 External Rotation at 90 degrees 78 Abduction External Rotation at 0 degrees Abduction 85 Internal Rotation 71 Internal Rotation Behind Back (text) L1 PT-OP-M Strength Start: 09/08/18 08:13 Freq: Status: Active Protocol: Document 11/10/18 15:15 LR (Rec: 11/10/18 15:29 LR [id number]) Shoulder Strength Shoulder Manual Muscle Testing Right Flexion 5 Normal Extension 5 Normal Abduction (C5) 5 Normal External Rotation 5 Normal Internal Rotation 5 Normal PT-OP-Q Treatments Start: 09/08/18 08:13 Freq: Status: Active Protocol: Document 12/03/18 10:30 AR (Rec: 12/03/18 12:16 AR [id number]) Therapeutic Exercises Sitting Exercises shoulder AROM Sitting Exercise Name shoulder AROM assessed Comments WNL, equal to LUE. pt reported feeling tight anteriorly with IR Manual Therapy Treatment Soft Tissue Mobilization scar tissue Body Location inf Mobilization Type Cross-Friction,Myofascial Release Body Position Sitting Joint Mobilizations ribs Joint rib 10 Direction PA Grade III Body Position Sitting Comments pt reported sharp pain in scar as well as along rib 10. sharp pain gone after mobilizations Neuro Re-Education Treatment Balance Activities walking w head turns Details horizontal head turns Surface level Equipment gait belt Reps/Duration 2x50 feet Veras Details Veras balance test to assess fall risk PT-OP-R Modalities Start: 09/18/18 11:15 Freq: Status: Active Protocol: Document 12/03/18 10:30 AR (Rec: 12/03/18 12:17 AR [id number]) Hot Pack/Cold Pack Treatment Hot Pack Location ant & post shoulder, inf scar Patient Position Sidelying Treatment Duration (minutes) 15 Comments lumbar and cervical hot pack used PT-OP-T Assessment and Plan Start: 09/08/18 08:13 Freq: Status: Active Protocol: Document 12/03/18 10:30 AR (Rec: 12/03/18 12:16 AR [id number]) Physical Therapy Assessment Goals Gait Short Term Goal (STG) Pt will be able to amb with horizontal head turns w/o loss of balance for 50 feet. 11/10/18 - goal met, but pt still requires SBA. 12/03/18- goal met, but pt still requires SBA. STG Duration 01/02/2019 Reactor Service Operator Goal (LTG) Pt will be able to amb in grocery store w/o use of shopping cart for support. 11/10/18- progressing. able to maintain balance w/o cart short periods of time. 12/03/18- pt has been able to walk longer distances w/o holding on. walking ~1 mi on cruise ship w/o support and no LOB LTG Duration goal met Balance Short Term Goal (STG) Pt will be able to turn and look over R and L shoulders without loss of balance, use of external support or supervision. 11/10/18- progressing, min LOB with turn L 12/03/18- progressing, min LOB with turn L. was able to perform with no LOB after few repetitions STG Duration 01/02/2019 Group Home Goal (LTG) Pt will inc Veras Balance score to 45/56 in order to dec fall risk and be able to maintain balance on uneven surfaces of golf course w/o use of club. 11/10/18 - did not test today 12/03/18- goal met. 49/56 LTG Duration goal met ROM Reactor Service Operator Goal (LTG) Pt will have normal AROM in R Shoulder to allow typical activities. 11/10/18 - not measured, but pt reports no limitations in ADLs 12/03/18- goal met. ROM equal to L shoulder. tight feeling in anterior shoulder with IR LTG Duration goal met weakness Short Term Goal (STG) Pt will be indep with HEP. STG Duration goal met Reactor Service Operator Goal (LTG) Pt will be able to score 5/5 w /UE strength & 3/5 for EFT to allow inc activity tolerance 11/10/18 - progressin. 5/5 MMTs , 2/5 EFT 12/03/18- not tested today LTG Duration 02/01/2019 activity Short Term Goal (STG) Pt will be able to do ADLs that require reaching: watering, dishes, etc without pain. 11/10/18 - no pain, but challenges balance STG Duration goal met Reactor Service Operator Goal (LTG) Pt will be able to golf without any issues. 11/10/18 - not tested today 12/03/18- minimal shoulder pain with larger swings. no balance problems with golfing LTG Duration 02/01/2019 Assessment Summary Assessment Pt's balance has improved and his Veras score indicates he is no longer at high risk for falls (49/56). Pt has been able to perform ADLs and most activities with minimal shoulder pain and loss of balance. Pt's L knee was bothering him today and seemed to be contributing to imbalance. Pt was encouraged to seek a referral for it. Pt still had difficulty with single leg stance. Physical Therapy Plan Frequency and Duration Frequency of Treatment 1-2x/week Duration of Treatment 2 months Plan of Care Start Date 12/03/18 Plan of Care End Date 02/02/19 Therapeutic Interventions Therapeutic Interventions Aquatic Therapy,Balance Training,Coordination Training ,Gait Training,Home Exercise Program,Joint Mobilizations, Manual Therapy,Neuromuscular Re-education,Patient/Caregiver Education,Self-Care/Home Management,Soft Tissue Mobilization,Taping, Therapeutic Activities, Therapeutic Exercises Modalities Cold Pack/Ice Massage,Hot Packs Next Visit Focus/Plan Next Note Type Treatment Note Next Visit Plan cont gait in mirror. static balance with UE movements. STS form. kim step over. golf swings. step ups/tap
--- NOTE | 2018-12-15 18:48 | PT.OTN ---
Current Diagnoses Squamous cell carcinoma of skin, unspecified (12/15/18) Stiffness of right shoulder, not elsewhere classified (12/15/18) Abnormal posture (12/15/18) Weakness (12/15/18) Physical Therapy Treatment Note PT-OP-A Visit Information Start: 09/08/18 08:13 Freq: Status: Active Protocol: Document 12/15/18 18:21 [facility] (Rec: 12/15/18 18:48 [facility] [id number]) Out-Patient Physical Therapy Visit Information Visit Information Visit Type Treatment Note Visit Start Time 17:35 Visit Stop Time 18:27 Total Visit Minutes 53 Visit Number 2/ Number of WHEELCHAIR VAN DRIVER Visits 0 PT-OP-B Current Condition Start: 09/08/18 08:13 Freq: Status: Active Protocol: Document 10/01/18 16:45 AR (Rec: 10/01/18 18:34 AR [id number]) Current Condition History of Current Condition Onset Date 09/22/2017 Current Complaints imbalance with walking and ADLs History of Current Condition Pt noticed decline in balance about a year ago and believed it was mostly d/t pain in his L knee. Since cancer dx in March, pt has noticed a further decline in balance d/t weakness and fatigue from spending so much time in the hospital and cancer treatments . Prior Treatments and Tests none Treatment Goals Patient/Caregiver Goals Be able to walk independently w/o imbalance (at home, grocery store, golf course). Prior Functional Status Baseline Function- ADL's Independent Baseline Function- Mobility Independent Baseline Function- Gait Pt notes he used walk quite a bit before balance declined. 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 Reports he noticed a pull in his post scar at the beginning of golfing last time. PT-OP-D Balance Start: 09/08/18 08:13 Freq: Status: Active Protocol: Document 12/03/18 10:30 AR (Rec: 12/03/18 16:28 AR [id number]) Balance Tests Veras Balance Test Veras Balance Test Score 49/56 Veras Impairment Rating 1 to 19% Impaired (Score 45-55 ) PT-OP-E Functional Tests Start: 09/08/18 08:13 Freq: Status: Active Protocol: Document 10/01/18 16:45 AR (Rec: 10/01/18 18:34 AR [email or web address]) Functional Tests Dynamic Gait Index (DGI) Score 9 DGI Impairment Rating 60 to <80% Impaired (Score 5-9 ) PT-OP-J Posture/Palpation/Skin Start: 09/08/18 12:00 Freq: Status: Active Protocol: Document 11/10/18 15:15 [facility] (Rec: 11/10/18 15:30 [facility] [id number]) Posture Evaluation [facility] Postural Classification System Elbow Flexion Test 2 PT-OP-K Range of Motion Start: 09/08/18 12:00 Freq: Status: Active Protocol: Document 09/08/18 13:40 LR (Rec: 09/08/18 14:34 [facility] [id number]) Shoulder Goniometric Range of Motion Shoulder Right Passive Flexion 147 Abduction 123 External Rotation at 90 degrees 91 Abduction Internal Rotation 27 Left Active Testing Position Sitting Flexion 168 Extension 66 Abduction 140 External Rotation at 90 degrees 88 Abduction External Rotation at 0 degrees Abduction 91 Internal Rotation 78 Internal Rotation Behind Back (text) T7 Right Active Testing Position Sitting Flexion 125 Extension 40 Abduction 91 External Rotation at 90 degrees 78 Abduction External Rotation at 0 degrees Abduction 85 Internal Rotation 71 Internal Rotation Behind Back (text) L1 PT-OP-M Strength Start: 09/08/18 08:13 Freq: Status: Active Protocol: Document 11/10/18 15:15 [facility] (Rec: 11/10/18 15:29 [facility] [id number]) Shoulder Strength Shoulder Manual Muscle Testing Right Flexion 5 Normal Extension 5 Normal Abduction (C5) 5 Normal External Rotation 5 Normal Internal Rotation 5 Normal PT-OP-Q Treatments Start: 09/08/18 08:13 Freq: Status: Active Protocol: Document 12/15/18 18:21 [facility] (Rec: 12/15/18 18:48 [facility] [id number]) Gym Equipment Shuttle Balance red clips Comments fwd: WBOS, NBOS & staggered stance; side: WBOS w/1 hand hold Neuro Re-Education Treatment Balance Activities static stance Details NBOS on blue dynadisc stagger stance Details stagger stance Surface on blue therapads Equipment railing Comments while hitting balloon step ups Details onto bosu & balancing on bosu Reps/Duration 5 ea then 2 min PT-OP-R Modalities Start: 09/18/18 11:15 Freq: Status: Active Protocol: Document 12/15/18 18:21 [facility] (Rec: 12/15/18 18:48 [facility] [email or web address]) Hot Pack/Cold Pack Treatment Hot Pack Location ant & post shoulder, inf scar Patient Position Sidelying Treatment Duration (minutes) 15 Comments lumbar hot pack used PT-OP-T Assessment and Plan Start: 09/08/18 08:13 Freq: Status: Active Protocol: Document 12/15/18 18:21 [facility] (Rec: 12/15/18 18:48 [facility] [id number]) Physical Therapy Assessment Goals Gait Short Term Goal (STG) Pt will be able to amb with horizontal head turns w/o loss of balance for 50 feet. 11/10/18 - goal met, but pt still requires SBA. 12/03/18- goal met, but pt still requires SBA. STG Duration 01/02/2019 Custodial Goal (LTG) Pt will be able to amb in grocery store w/o use of shopping cart for support. 11/10/18- progressing. able to maintain balance w/o cart short periods of time. 12/03/18- pt has been able to walk longer distances w/o holding on. walking ~1 mi on cruise ship w/o support and no LOB LTG Duration goal met Balance Short Term Goal (STG) Pt will be able to turn and look over R and L shoulders without loss of balance, use of external support or supervision. 11/10/18- progressing, min LOB with turn L 12/03/18- progressing, min LOB with turn L. was able to perform with no LOB after few repetitions STG Duration 01/02/2019 Custodial Goal (LTG) Pt will inc Veras Balance score to 45/56 in order to dec fall risk and be able to maintain balance on uneven surfaces of golf course w/o use of club. 11/10/18 - did not test today 12/03/18- goal met. 49/56 LTG Duration goal met ROM Powerhouse Electrician Apprentice Goal (LTG) Pt will have normal AROM in R Shoulder to allow typical activities. 11/10/18 - not measured, but pt reports no limitations in ADLs 12/03/18- goal met. ROM equal to L shoulder. tight feeling in anterior shoulder with IR LTG Duration goal met weakness Short Term Goal (STG) Pt will be indep with HEP. STG Duration goal met Custodial Goal (LTG) Pt will be able to score 5/5 w /UE strength & 3/5 for EFT to allow inc activity tolerance 11/10/18 - progressin. 5/5 MMTs , 2/5 EFT 12/03/18- not tested today LTG Duration 02/01/2019 activity Short Term Goal (STG) Pt will be able to do ADLs that require reaching: watering, dishes, etc without pain. 11/10/18 - no pain, but challenges balance STG Duration goal met Custodial Goal (LTG) Pt will be able to golf without any issues. 11/10/18 - not tested today 12/03/18- minimal shoulder pain with larger swings. no balance problems with golfing LTG Duration 02/01/2019 Assessment Summary Assessment Pt cont to improve with ability to do balance tasks with inc difficulty. He was able to hit balloon while standing on tpads today, but did give him an inc challenge. Pt did have some fascial restrictions at inf pole of scar. Physical Therapy Plan Frequency and Duration Frequency of Treatment 1-2x/week Duration of Treatment 2 months Plan of Care Start Date 12/03/18 Plan of Care End Date 02/02/19 Next Visit Focus/Plan Next Note Type Treatment Note Next Visit Plan cont to work on standing balance and LE strength
--- NOTE | 2018-12-17 16:49 | PT.OTN ---
Current Diagnoses Squamous cell carcinoma of skin, unspecified (12/17/18) Stiffness of right shoulder, not elsewhere classified (12/17/18) Abnormal posture (12/17/18) Weakness (12/17/18) Physical Therapy Treatment Note PT-OP-A Visit Information Start: 09/08/18 08:13 Freq: Status: Active Protocol: Document 12/17/18 16:10 [facility] (Rec: 12/17/18 16:47 [facility] [id number]) Out-Patient Physical Therapy Visit Information Visit Information Visit Type Treatment Note Visit Start Time 16:03 Visit Stop Time 16:59 Total Visit Minutes 54 Visit Number 3/ Number of COMMERCIAL PRODUCER Visits 0 PT-OP-B Current Condition Start: 09/08/18 08:13 Freq: Status: Active Protocol: Document 10/01/18 16:45 AR (Rec: 10/01/18 18:34 AR [email or web address]) Current Condition History of Current Condition Onset Date 09/22/2017 Current Complaints imbalance with walking and ADLs History of Current Condition Pt noticed decline in balance about a year ago and believed it was mostly d/t pain in his L knee. Since cancer dx in March, pt has noticed a further decline in balance d/t weakness and fatigue from spending so much time in the hospital and cancer treatments . Prior Treatments and Tests none Treatment Goals Patient/Caregiver Goals Be able to walk independently w/o imbalance (at home, grocery store, golf course). Prior Functional Status Baseline Function- ADL's Independent Baseline Function- Mobility Independent Baseline Function- Gait Pt notes he used walk quite a bit before balance declined. Personal Factors Other Personal Factors That May Effect cancer treatment, fatigue Therapy/Recovery PT-OP-C Subjective Start: 09/08/18 08:13 Freq: Status: Active Protocol: Document 12/17/18 16:10 [facility] (Rec: 12/17/18 16:47 [facility] [id number]) OP-PT Subjective Patient Comments Patient Comments Pt reports he just finished golfing PT-OP-D Balance Start: 09/08/18 08:13 Freq: Status: Active Protocol: Document 12/03/18 10:30 AR (Rec: 12/03/18 16:28 AR [id number]) Balance Tests Veras Balance Test Veras Balance Test Score 49/56 Veras Impairment Rating 1 to 19% Impaired (Score 45-55 ) PT-OP-E Functional Tests Start: 09/08/18 08:13 Freq: Status: Active Protocol: Document 10/01/18 16:45 AR (Rec: 10/01/18 18:34 AR [email or web address]) Functional Tests Dynamic Gait Index (DGI) Score 9 DGI Impairment Rating 60 to <80% Impaired (Score 5-9 ) PT-OP-J Posture/Palpation/Skin Start: 09/08/18 12:00 Freq: Status: Active Protocol: Document 11/10/18 15:15 LR (Rec: 11/10/18 15:30 [facility] [id number]) Posture Evaluation [facility] Postural Classification System Elbow Flexion Test 2 PT-OP-K Range of Motion Start: 09/08/18 12:00 Freq: Status: Active Protocol: Document 09/08/18 13:40 LR (Rec: 09/08/18 14:34 [facility] [id number]) Shoulder Goniometric Range of Motion Shoulder Right Passive Flexion 147 Abduction 123 External Rotation at 90 degrees 91 Abduction Internal Rotation 27 Left Active Testing Position Sitting Flexion 168 Extension 66 Abduction 140 External Rotation at 90 degrees 88 Abduction External Rotation at 0 degrees Abduction 91 Internal Rotation 78 Internal Rotation Behind Back (text) T7 Right Active Testing Position Sitting Flexion 125 Extension 40 Abduction 91 External Rotation at 90 degrees 78 Abduction External Rotation at 0 degrees Abduction 85 Internal Rotation 71 Internal Rotation Behind Back (text) L1 PT-OP-M Strength Start: 09/08/18 08:13 Freq: Status: Active Protocol: Document 11/10/18 15:15 [facility] (Rec: 11/10/18 15:29 [facility] [id number]) Shoulder Strength Shoulder Manual Muscle Testing Right Flexion 5 Normal Extension 5 Normal Abduction (C5) 5 Normal External Rotation 5 Normal Internal Rotation 5 Normal PT-OP-Q Treatments Start: 09/08/18 08:13 Freq: Status: Active Protocol: Document 12/17/18 16:10 LR (Rec: 12/17/18 16:47 [facility] [id number]) Gym Equipment Shuttle Recovery Bilateral Squats Resistance 100# Shuttle Recovery Platform Unstable Reps/Time 3x10 Shuttle Balance red clips Comments fwd: WBOS, NBOS & staggered stance; side: WBOS w/1 hand hold Therapeutic Exercises Standing Exercises hip abd Standing Exercise Name sidestepping Side bilateral Resistance yellow Reps/Minutes 2x20ft flex Standing Exercise Name fwd/back walking Side bilateral Resistance yellow Reps/Minutes 2x20ft Manual Therapy Treatment Soft Tissue Mobilization scar tissue Body Location sup Mobilization Type Cross-Friction,Myofascial Release Body Position Sidelying Neuro Re-Education Treatment Balance Activities step ups Details onto bosu & balancing on bosu Reps/Duration 5 ea PT-OP-R Modalities Start: 09/18/18 11:15 Freq: Status: Active Protocol: Document 12/17/18 16:10 [facility] (Rec: 12/17/18 16:47 [facility] [id number]) Hot Pack/Cold Pack Treatment Hot Pack Location ant & post shoulder, inf scar Patient Position Sidelying Treatment Duration (minutes) 15 Comments lumbar hot pack used PT-OP-T Assessment and Plan Start: 09/08/18 08:13 Freq: Status: Active Protocol: Document 12/17/18 16:10 [facility] (Rec: 12/17/18 16:47 [facility] [id number]) Physical Therapy Assessment Goals Gait Short Term Goal (STG) Pt will be able to amb with horizontal head turns w/o loss of balance for 50 feet. 11/10/18 - goal met, but pt still requires SBA. 12/03/18- goal met, but pt still requires SBA. STG Duration 01/02/2019 Longterm Goal (LTG) Pt will be able to amb in grocery store w/o use of shopping cart for support. 11/10/18- progressing. able to maintain balance w/o cart short periods of time. 12/03/18- pt has been able to walk longer distances w/o holding on. walking ~1 mi on cruise ship w/o support and no LOB LTG Duration goal met Balance Short Term Goal (STG) Pt will be able to turn and look over R and L shoulders without loss of balance, use of external support or supervision. 11/10/18- progressing, min LOB with turn L 12/03/18- progressing, min LOB with turn L. was able to perform with no LOB after few repetitions STG Duration 01/02/2019 Longterm Goal (LTG) Pt will inc Veras Balance score to 45/56 in order to dec fall risk and be able to maintain balance on uneven surfaces of golf course w/o use of club. 11/10/18 - did not test today 12/03/18- goal met. 49/56 LTG Duration goal met ROM Casting Sorter Goal (LTG) Pt will have normal AROM in R Shoulder to allow typical activities. 11/10/18 - not measured, but pt reports no limitations in ADLs 12/03/18- goal met. ROM equal to L shoulder. tight feeling in anterior shoulder with IR LTG Duration goal met weakness Short Term Goal (STG) Pt will be indep with HEP. STG Duration goal met Longterm Goal (LTG) Pt will be able to score 5/5 w /UE strength & 3/5 for EFT to allow inc activity tolerance 11/10/18 - progressin. 5/5 MMTs , 2/5 EFT 12/03/18- not tested today LTG Duration 02/01/2019 activity Short Term Goal (STG) Pt will be able to do ADLs that require reaching: watering, dishes, etc without pain. 11/10/18 - no pain, but challenges balance STG Duration goal met Casting Sorter Goal (LTG) Pt will be able to golf without any issues. 11/10/18 - not tested today 12/03/18- minimal shoulder pain with larger swings. no balance problems with golfing LTG Duration 02/01/2019 Assessment Summary Assessment Pt did better with balance board today. He was challeneged by LE strengthening exercises with dec endurance with side stepping and fwd/back stepping . Physical Therapy Plan Frequency and Duration Frequency of Treatment 1-2x/week Duration of Treatment 2 months Plan of Care Start Date 12/03/18 Plan of Care End Date 02/02/19 Next Visit Focus/Plan Next Note Type Treatment Note Next Visit Plan cont to work on standing balance and LE strength
--- NOTE | 2018-12-22 16:53 | PT.OTN ---
Current Diagnoses Squamous cell carcinoma of skin, unspecified (12/17/18) Stiffness of right shoulder, not elsewhere classified (12/17/18) Abnormal posture (12/17/18) Weakness (12/17/18) Physical Therapy Treatment Note PT-OP-A Visit Information Start: 09/08/18 08:13 Freq: Status: Active Protocol: Document 12/22/18 16:00 [facility] (Rec: 12/22/18 16:53 [facility] [id number]) Out-Patient Physical Therapy Visit Information Visit Information Visit Type Treatment Note Visit Start Time 16:03 Visit Stop Time 16:58 Total Visit Minutes 53 Visit Number 4/ Number of NEWS COPY EDITOR Visits 0 PT-OP-B Current Condition Start: 09/08/18 08:13 Freq: Status: Active Protocol: Document 10/01/18 16:45 AR (Rec: 10/01/18 18:34 AR [id number]) Current Condition History of Current Condition Onset Date 09/22/2017 Current Complaints imbalance with walking and ADLs History of Current Condition Pt noticed decline in balance about a year ago and believed it was mostly d/t pain in his L knee. Since cancer dx in March, pt has noticed a further decline in balance d/t weakness and fatigue from spending so much time in the hospital and cancer treatments . Prior Treatments and Tests none Treatment Goals Patient/Caregiver Goals Be able to walk independently w/o imbalance (at home, grocery store, golf course). Prior Functional Status Baseline Function- ADL's Independent Baseline Function- Mobility Independent Baseline Function- Gait Pt notes he used walk quite a bit before balance declined. Personal Factors Other Personal Factors That May Effect cancer treatment, fatigue Therapy/Recovery PT-OP-C Subjective Start: 09/08/18 08:13 Freq: Status: Active Protocol: Document 12/22/18 16:00 [facility] (Rec: 12/22/18 16:53 [facility] [id number]) OP-PT Subjective Patient Comments Patient Comments Pt reports being a little fatigued today PT-OP-D Balance Start: 09/08/18 08:13 Freq: Status: Active Protocol: Document 12/03/18 10:30 AR (Rec: 12/03/18 16:28 AR [id number]) Balance Tests Veras Balance Test Veras Balance Test Score 49/56 Veras Impairment Rating 1 to 19% Impaired (Score 45-55 ) PT-OP-E Functional Tests Start: 09/08/18 08:13 Freq: Status: Active Protocol: Document 10/01/18 16:45 AR (Rec: 10/01/18 18:34 AR [id number]) Functional Tests Dynamic Gait Index (DGI) Score 9 DGI Impairment Rating 60 to <80% Impaired (Score 5-9 ) PT-OP-J Posture/Palpation/Skin Start: 09/08/18 12:00 Freq: Status: Active Protocol: Document 11/10/18 15:15 LR (Rec: 11/10/18 15:30 [facility] [id number]) Posture Evaluation [facility] Postural Classification System Elbow Flexion Test 2 PT-OP-K Range of Motion Start: 09/08/18 12:00 Freq: Status: Active Protocol: Document 09/08/18 13:40 LR (Rec: 09/08/18 14:34 [facility] [id number]) Shoulder Goniometric Range of Motion Shoulder Right Passive Flexion 147 Abduction 123 External Rotation at 90 degrees 91 Abduction Internal Rotation 27 Left Active Testing Position Sitting Flexion 168 Extension 66 Abduction 140 External Rotation at 90 degrees 88 Abduction External Rotation at 0 degrees Abduction 91 Internal Rotation 78 Internal Rotation Behind Back (text) T7 Right Active Testing Position Sitting Flexion 125 Extension 40 Abduction 91 External Rotation at 90 degrees 78 Abduction External Rotation at 0 degrees Abduction 85 Internal Rotation 71 Internal Rotation Behind Back (text) L1 PT-OP-M Strength Start: 09/08/18 08:13 Freq: Status: Active Protocol: Document 11/10/18 15:15 [facility] (Rec: 11/10/18 15:29 [facility] [id number]) Shoulder Strength Shoulder Manual Muscle Testing Right Flexion 5 Normal Extension 5 Normal Abduction (C5) 5 Normal External Rotation 5 Normal Internal Rotation 5 Normal PT-OP-Q Treatments Start: 09/08/18 08:13 Freq: Status: Active Protocol: Document 12/22/18 16:00 LR (Rec: 12/22/18 16:53 [facility] [id number]) Gym Equipment Shuttle Balance red clips Comments fwd: WBOS, NBOS & staggered stance; side: WBOS w/1 hand hold then staggered stance B Therapeutic Ball seated Exercise Details marches & kicks Ball Size/Color silver Body Position seated Reps/Duration 15 ea B Therapeutic Exercises Standing Exercises hip abd Standing Exercise Name sidestepping Side bilateral Resistance yellow Reps/Minutes 20ft Manual Therapy Treatment Soft Tissue Mobilization scar tissue Body Location sup Mobilization Type Cross-Friction,Myofascial Release Body Position Sidelying Neuro Re-Education Treatment Balance Activities static stance Details NBOS, WBOS & staggered stance B while bouncing a ball step ups Details onto bosu & balancing on bosu Reps/Duration 8 ea PT-OP-R Modalities Start: 09/18/18 11:15 Freq: Status: Active Protocol: Document 12/22/18 16:00 [facility] (Rec: 12/22/18 16:53 [facility] [id number]) Hot Pack/Cold Pack Treatment Hot Pack Location ant & post shoulder, inf scar Patient Position Sidelying Treatment Duration (minutes) 15 Comments lumbar hot pack used PT-OP-T Assessment and Plan Start: 09/08/18 08:13 Freq: Status: Active Protocol: Document 12/22/18 16:00 [facility] (Rec: 12/22/18 16:53 [facility] [id number]) Physical Therapy Assessment Goals Gait Short Term Goal (STG) Pt will be able to amb with horizontal head turns w/o loss of balance for 50 feet. 11/10/18 - goal met, but pt still requires SBA. 12/03/18- goal met, but pt still requires SBA. STG Duration 01/02/2019 Delphi Developer Goal (LTG) Pt will be able to amb in grocery store w/o use of shopping cart for support. 11/10/18- progressing. able to maintain balance w/o cart short periods of time. 12/03/18- pt has been able to walk longer distances w/o holding on. walking ~1 mi on cruise ship w/o support and no LOB LTG Duration goal met Balance Short Term Goal (STG) Pt will be able to turn and look over R and L shoulders without loss of balance, use of external support or supervision. 11/10/18- progressing, min LOB with turn L 12/03/18- progressing, min LOB with turn L. was able to perform with no LOB after few repetitions STG Duration 01/02/2019 Delphi Developer Goal (LTG) Pt will inc Veras Balance score to 45/56 in order to dec fall risk and be able to maintain balance on uneven surfaces of golf course w/o use of club. 11/10/18 - did not test today 12/03/18- goal met. 49/56 LTG Duration goal met ROM Delphi Developer Goal (LTG) Pt will have normal AROM in R Shoulder to allow typical activities. 11/10/18 - not measured, but pt reports no limitations in ADLs 12/03/18- goal met. ROM equal to L shoulder. tight feeling in anterior shoulder with IR LTG Duration goal met weakness Short Term Goal (STG) Pt will be indep with HEP. STG Duration goal met Delphi Developer Goal (LTG) Pt will be able to score 5/5 w /UE strength & 3/5 for EFT to allow inc activity tolerance 11/10/18 - progressin. 5/5 MMTs , 2/5 EFT 12/03/18- not tested today LTG Duration 02/01/2019 activity Short Term Goal (STG) Pt will be able to do ADLs that require reaching: watering, dishes, etc without pain. 11/10/18 - no pain, but challenges balance STG Duration goal met Shelter Goal (LTG) Pt will be able to golf without any issues. 11/10/18 - not tested today 12/03/18- minimal shoulder pain with larger swings. no balance problems with golfing LTG Duration 02/01/2019 Assessment Summary Assessment Pt fatigued with exercises today but did demonstrated improved ability in standing to maintain balance with doing outside activities and with ability to side step against resistance. Physical Therapy Plan Frequency and Duration Frequency of Treatment 1-2x/week Duration of Treatment 2 months Plan of Care Start Date 12/03/18 Plan of Care End Date 02/02/19 Next Visit Focus/Plan Next Note Type Treatment Note Next Visit Plan cont to work on standing balance and LE strength
--- NOTE | 2018-12-24 16:44 | PT.OTN ---
Current Diagnoses Squamous cell carcinoma of skin, unspecified (12/24/18) Stiffness of right shoulder, not elsewhere classified (12/24/18) Abnormal posture (12/24/18) Weakness (12/24/18) Physical Therapy Treatment Note PT-OP-A Visit Information Start: 09/08/18 08:13 Freq: Status: Active Protocol: Document 12/24/18 16:02 [facility] (Rec: 12/24/18 16:44 [facility] [id number]) Out-Patient Physical Therapy Visit Information Visit Information Visit Type Treatment Note Visit Start Time 16:05 Visit Stop Time 16:58 Total Visit Minutes 53 Visit Number 08/01 Number of SPINNING FRAME FIXER Visits 0 PT-OP-B Current Condition Start: 09/08/18 08:13 Freq: Status: Active Protocol: Document 10/01/18 16:45 AR (Rec: 10/01/18 18:34 AR [id number]) Current Condition History of Current Condition Onset Date 09/22/2017 Current Complaints imbalance with walking and ADLs History of Current Condition Pt noticed decline in balance about a year ago and believed it was mostly d/t pain in his L knee. Since cancer dx in March, pt has noticed a further decline in balance d/t weakness and fatigue from spending so much time in the hospital and cancer treatments . Prior Treatments and Tests none Treatment Goals Patient/Caregiver Goals Be able to walk independently w/o imbalance (at home, grocery store, golf course). Prior Functional Status Baseline Function- ADL's Independent Baseline Function- Mobility Independent Baseline Function- Gait Pt notes he used walk quite a bit before balance declined. Personal Factors Other Personal Factors That May Effect cancer treatment, fatigue Therapy/Recovery PT-OP-C Subjective Start: 09/08/18 08:13 Freq: Status: Active Protocol: Document 12/24/18 16:02 [facility] (Rec: 12/24/18 16:44 [facility] [id number]) OP-PT Subjective Patient Comments Patient Comments Pt reports he is tried from all the stairs he climbed yesterday and golfing today. PT-OP-D Balance Start: 09/08/18 08:13 Freq: Status: Active Protocol: Document 12/03/18 10:30 AR (Rec: 12/03/18 16:28 AR [id number]) Balance Tests Veras Balance Test Veras Balance Test Score 49/56 Veras Impairment Rating 1 to 19% Impaired (Score 45-55 ) PT-OP-E Functional Tests Start: 09/08/18 08:13 Freq: Status: Active Protocol: Document 10/01/18 16:45 AR (Rec: 10/01/18 18:34 AR [id number]) Functional Tests Dynamic Gait Index (DGI) Score 9 DGI Impairment Rating 60 to <80% Impaired (Score 5-9 ) PT-OP-J Posture/Palpation/Skin Start: 09/08/18 12:00 Freq: Status: Active Protocol: Document 11/10/18 15:15 [facility] (Rec: 11/10/18 15:30 [facility] [id number]) Posture Evaluation [facility] Postural Classification System Elbow Flexion Test 2 PT-OP-K Range of Motion Start: 09/08/18 12:00 Freq: Status: Active Protocol: Document 09/08/18 13:40 LR (Rec: 09/08/18 14:34 [facility] [id number]) Shoulder Goniometric Range of Motion Shoulder Right Passive Flexion 147 Abduction 123 External Rotation at 90 degrees 91 Abduction Internal Rotation 27 Left Active Testing Position Sitting Flexion 168 Extension 66 Abduction 140 External Rotation at 90 degrees 88 Abduction External Rotation at 0 degrees Abduction 91 Internal Rotation 78 Internal Rotation Behind Back (text) T7 Right Active Testing Position Sitting Flexion 125 Extension 40 Abduction 91 External Rotation at 90 degrees 78 Abduction External Rotation at 0 degrees Abduction 85 Internal Rotation 71 Internal Rotation Behind Back (text) L1 PT-OP-M Strength Start: 09/08/18 08:13 Freq: Status: Active Protocol: Document 11/10/18 15:15 [facility] (Rec: 11/10/18 15:29 [facility] [id number]) Shoulder Strength Shoulder Manual Muscle Testing Right Flexion 5 Normal Extension 5 Normal Abduction (C5) 5 Normal External Rotation 5 Normal Internal Rotation 5 Normal PT-OP-Q Treatments Start: 09/08/18 08:13 Freq: Status: Active Protocol: Document 12/24/18 16:02 [facility] (Rec: 12/24/18 16:44 [facility] [id number]) Gym Equipment Shuttle Recovery Bilateral Squats Resistance 100# Shuttle Recovery Platform Unstable Reps/Time 2x15 Shuttle Balance red clips Comments fwd: WBOS, NBOS & staggered stance; side: WBOS Therapeutic Ball seated Exercise Details marches & kicks Ball Size/Color silver Body Position seated Reps/Duration 30ea B Manual Therapy Treatment Soft Tissue Mobilization scar tissue Body Location sup Mobilization Type Cross-Friction,Myofascial Release Body Position Sidelying PT-OP-R Modalities Start: 09/18/18 11:15 Freq: Status: Active Protocol: Document 12/24/18 16:02 [facility] (Rec: 12/24/18 16:44 [facility] [id number]) Hot Pack/Cold Pack Treatment Hot Pack Location ant & post shoulder, inf scar Patient Position Sidelying Treatment Duration (minutes) 15 Comments lumbar hot pack used PT-OP-T Assessment and Plan Start: 09/08/18 08:13 Freq: Status: Active Protocol: Document 12/24/18 16:02 [facility] (Rec: 12/24/18 16:44 [facility] [id number]) Physical Therapy Assessment Goals Gait Short Term Goal (STG) Pt will be able to amb with horizontal head turns w/o loss of balance for 50 feet. 11/10/18 - goal met, but pt still requires SBA. 12/03/18- goal met, but pt still requires SBA. STG Duration 01/02/2019 Padding Machine Operator Goal (LTG) Pt will be able to amb in grocery store w/o use of shopping cart for support. 11/10/18- progressing. able to maintain balance w/o cart short periods of time. 12/03/18- pt has been able to walk longer distances w/o holding on. walking ~1 mi on cruise ship w/o support and no LOB LTG Duration goal met Balance Short Term Goal (STG) Pt will be able to turn and look over R and L shoulders without loss of balance, use of external support or supervision. 11/10/18- progressing, min LOB with turn L 12/03/18- progressing, min LOB with turn L. was able to perform with no LOB after few repetitions STG Duration 01/02/2019 Padding Machine Operator Goal (LTG) Pt will inc Veras Balance score to 45/56 in order to dec fall risk and be able to maintain balance on uneven surfaces of golf course w/o use of club. 11/10/18 - did not test today 12/03/18- goal met. 49/56 LTG Duration goal met ROM Senior Care Goal (LTG) Pt will have normal AROM in R Shoulder to allow typical activities. 11/10/18 - not measured, but pt reports no limitations in ADLs 12/03/18- goal met. ROM equal to L shoulder. tight feeling in anterior shoulder with IR LTG Duration goal met weakness Short Term Goal (STG) Pt will be indep with HEP. STG Duration goal met Padding Machine Operator Goal (LTG) Pt will be able to score 5/5 w /UE strength & 3/5 for EFT to allow inc activity tolerance 11/10/18 - progressin. 5/5 MMTs , 2/5 EFT 12/03/18- not tested today LTG Duration 02/01/2019 activity Short Term Goal (STG) Pt will be able to do ADLs that require reaching: watering, dishes, etc without pain. 11/10/18 - no pain, but challenges balance STG Duration goal met Padding Machine Operator Goal (LTG) Pt will be able to golf without any issues. 11/10/18 - not tested today 12/03/18- minimal shoulder pain with larger swings. no balance problems with golfing LTG Duration 02/01/2019 Assessment Summary Assessment Despite pt fatigue, pt did well with balance board and used less UE suppor ttoday. He was able to tolerate inc reps with exercises today. Physical Therapy Plan Frequency and Duration Frequency of Treatment 1-2x/week Duration of Treatment 2 months Plan of Care Start Date 12/03/18 Plan of Care End Date 02/02/19 Next Visit Focus/Plan Next Note Type Treatment Note Next Visit Plan cont to work on standing balance and LE strength
--- NOTE | 2018-12-31 14:51 | PT.OTN ---
Current Diagnoses Squamous cell carcinoma of skin, unspecified (12/31/18) Stiffness of right shoulder, not elsewhere classified (12/31/18) Abnormal posture (12/31/18) Weakness (12/31/18) Physical Therapy Treatment Note PT-OP-A Visit Information Start: 09/08/18 08:13 Freq: Status: Active Protocol: Document 12/31/18 14:02 [facility] (Rec: 12/31/18 14:50 [facility] [id number]) Out-Patient Physical Therapy Visit Information Visit Information Visit Type Treatment Note Visit Start Time 13:50 Visit Stop Time 14:45 Total Visit Minutes 55 Visit Number 09/01 Number of FOXING CLOSER Visits 0 PT-OP-B Current Condition Start: 09/08/18 08:13 Freq: Status: Active Protocol: Document 10/01/18 16:45 AR (Rec: 10/01/18 18:34 AR [id number]) Current Condition History of Current Condition Onset Date 09/22/2017 Current Complaints imbalance with walking and ADLs History of Current Condition Pt noticed decline in balance about a year ago and believed it was mostly d/t pain in his L knee. Since cancer dx in March, pt has noticed a further decline in balance d/t weakness and fatigue from spending so much time in the hospital and cancer treatments . Prior Treatments and Tests none Treatment Goals Patient/Caregiver Goals Be able to walk independently w/o imbalance (at home, grocery store, golf course). Prior Functional Status Baseline Function- ADL's Independent Baseline Function- Mobility Independent Baseline Function- Gait Pt notes he used walk quite a bit before balance declined. Personal Factors Other Personal Factors That May Effect cancer treatment, fatigue Therapy/Recovery PT-OP-C Subjective Start: 09/08/18 08:13 Freq: Status: Active Protocol: Document 12/31/18 14:02 [facility] (Rec: 12/31/18 14:50 [facility] [id number]) OP-PT Subjective Patient Comments Patient Comments Pt reports being fatigued after infusion yesterday PT-OP-D Balance Start: 09/08/18 08:13 Freq: Status: Active Protocol: Document 12/03/18 10:30 AR (Rec: 12/03/18 16:28 AR [id number]) Balance Tests Veras Balance Test Veras Balance Test Score 49/56 Veras Impairment Rating 1 to 19% Impaired (Score 45-55 ) PT-OP-E Functional Tests Start: 09/08/18 08:13 Freq: Status: Active Protocol: Document 10/01/18 16:45 AR (Rec: 10/01/18 18:34 AR [id number]) Functional Tests Dynamic Gait Index (DGI) Score 9 DGI Impairment Rating 60 to <80% Impaired (Score 5-9 ) PT-OP-J Posture/Palpation/Skin Start: 09/08/18 12:00 Freq: Status: Active Protocol: Document 11/10/18 15:15 [facility] (Rec: 11/10/18 15:30 [facility] [id number]) Posture Evaluation [facility] Postural Classification System Elbow Flexion Test 2 PT-OP-K Range of Motion Start: 09/08/18 12:00 Freq: Status: Active Protocol: Document 09/08/18 13:40 [facility] (Rec: 09/08/18 14:34 [facility] [id number]) Shoulder Goniometric Range of Motion Shoulder Right Passive Flexion 147 Abduction 123 External Rotation at 90 degrees 91 Abduction Internal Rotation 27 Left Active Testing Position Sitting Flexion 168 Extension 66 Abduction 140 External Rotation at 90 degrees 88 Abduction External Rotation at 0 degrees Abduction 91 Internal Rotation 78 Internal Rotation Behind Back (text) T7 Right Active Testing Position Sitting Flexion 125 Extension 40 Abduction 91 External Rotation at 90 degrees 78 Abduction External Rotation at 0 degrees Abduction 85 Internal Rotation 71 Internal Rotation Behind Back (text) L1 PT-OP-M Strength Start: 09/08/18 08:13 Freq: Status: Active Protocol: Document 11/10/18 15:15 [facility] (Rec: 11/10/18 15:29 [facility] [id number]) Shoulder Strength Shoulder Manual Muscle Testing Right Flexion 5 Normal Extension 5 Normal Abduction (C5) 5 Normal External Rotation 5 Normal Internal Rotation 5 Normal PT-OP-Q Treatments Start: 09/08/18 08:13 Freq: Status: Active Protocol: Document 12/31/18 14:02 [facility] (Rec: 12/31/18 14:50 [facility] [id number]) Gym Equipment Shuttle Balance red clips Comments fwd: WBOS, NBOS & staggered stance; side: WBOS & NBOS Therapeutic Ball seated Exercise Details marches & kicks Ball Size/Color silver Body Position seated Reps/Duration 30ea B Therapeutic Exercises Standing Exercises hip flex Standing Exercise Name fwd resisted walked Side bilateral Equipment Used red Reps/Minutes 20ftx2 hip ext Standing Exercise Name backwards resisted walking Side bilateral Equipment Used red Reps/Minutes 20ft x2 hip abd Standing Exercise Name sidestepping Side bilateral Resistance red Reps/Minutes 20ftx2 Manual Therapy Treatment Soft Tissue Mobilization scar tissue Body Location sup Mobilization Type Cross-Friction,Myofascial Release Body Position Sidelying Comments w/reaching fwd Neuro Re-Education Treatment Balance Activities walking w head turns Details vertical, hortizontal & diagonal Reps/Duration 4x50ft PT-OP-R Modalities Start: 09/18/18 11:15 Freq: Status: Active Protocol: Document 12/31/18 14:02 [facility] (Rec: 12/31/18 14:50 [facility] [id number]) Hot Pack/Cold Pack Treatment Hot Pack Location ant & post shoulder, inf scar Patient Position Sidelying Treatment Duration (minutes) 15 Comments lumbar hot pack used PT-OP-T Assessment and Plan Start: 09/08/18 08:13 Freq: Status: Active Protocol: Document 12/31/18 14:02 [facility] (Rec: 12/31/18 14:50 [facility] [id number]) Physical Therapy Assessment Goals Gait Short Term Goal (STG) Pt will be able to amb with horizontal head turns w/o loss of balance for 50 feet. 11/10/18 - goal met, but pt still requires SBA. 12/03/18- goal met, but pt still requires SBA. STG Duration 01/02/2019 Usp Goal (LTG) Pt will be able to amb in grocery store w/o use of shopping cart for support. 11/10/18- progressing. able to maintain balance w/o cart short periods of time. 12/03/18- pt has been able to walk longer distances w/o holding on. walking ~1 mi on cruise ship w/o support and no LOB LTG Duration goal met Balance Short Term Goal (STG) Pt will be able to turn and look over R and L shoulders without loss of balance, use of external support or supervision. 11/10/18- progressing, min LOB with turn L 12/03/18- progressing, min LOB with turn L. was able to perform with no LOB after few repetitions STG Duration 01/02/2019 Sugar Refiner Goal (LTG) Pt will inc Veras Balance score to 45/56 in order to dec fall risk and be able to maintain balance on uneven surfaces of golf course w/o use of club. 11/10/18 - did not test today 12/03/18- goal met. 49/56 LTG Duration goal met ROM Sugar Refiner Goal (LTG) Pt will have normal AROM in R Shoulder to allow typical activities. 11/10/18 - not measured, but pt reports no limitations in ADLs 12/03/18- goal met. ROM equal to L shoulder. tight feeling in anterior shoulder with IR LTG Duration goal met weakness Short Term Goal (STG) Pt will be indep with HEP. STG Duration goal met Sugar Refiner Goal (LTG) Pt will be able to score 5/5 w /UE strength & 3/5 for EFT to allow inc activity tolerance 11/10/18 - progressin. 5/5 MMTs , 2/5 EFT 12/03/18- not tested today LTG Duration 02/01/2019 activity Short Term Goal (STG) Pt will be able to do ADLs that require reaching: watering, dishes, etc without pain. 11/10/18 - no pain, but challenges balance STG Duration goal met Sugar Refiner Goal (LTG) Pt will be able to golf without any issues. 11/10/18 - not tested today 12/03/18- minimal shoulder pain with larger swings. no balance problems with golfing LTG Duration 02/01/2019 Assessment Summary Assessment Pt cont to improve with balance with min deviations with head turns in hallway. He is improving with unstable surfaces and with strengthening tolerance of hips. Physical Therapy Plan Frequency and Duration Frequency of Treatment 1-2x/week Duration of Treatment 2 months Plan of Care Start Date 12/03/18 Plan of Care End Date 02/02/19 Next Visit Focus/Plan Next Note Type Treatment Note Next Visit Plan cont to work on standing balance and LE strength
--- NOTE | 2019-01-05 15:38 | PT.OTN ---
Current Diagnoses Squamous cell carcinoma of skin, unspecified (01/05/19) Stiffness of right shoulder, not elsewhere classified (01/05/19) Abnormal posture (01/05/19) Weakness (01/05/19) Physical Therapy Treatment Note PT-OP-A Visit Information Start: 09/08/18 08:13 Freq: Status: Active Protocol: Document 01/05/19 14:35 [facility] (Rec: 01/05/19 15:04 [facility] [id number]) Out-Patient Physical Therapy Visit Information Visit Information Visit Start Time 13:00 Visit Stop Time 13:47 Total Visit Minutes 47 Visit Number 10/01 Number of ADMINISTRATION PROFESSIONAL Visits 0 PT-OP-B Current Condition Start: 09/08/18 08:13 Freq: Status: Active Protocol: Document 10/01/18 16:45 AR (Rec: 10/01/18 18:34 AR [id number]) Current Condition History of Current Condition Onset Date 09/22/2017 Current Complaints imbalance with walking and ADLs History of Current Condition Pt noticed decline in balance about a year ago and believed it was mostly d/t pain in his L knee. Since cancer dx in March, pt has noticed a further decline in balance d/t weakness and fatigue from spending so much time in the hospital and cancer treatments . Prior Treatments and Tests none Treatment Goals Patient/Caregiver Goals Be able to walk independently w/o imbalance (at home, grocery store, golf course). Prior Functional Status Baseline Function- ADL's Independent Baseline Function- Mobility Independent Baseline Function- Gait Pt notes he used walk quite a bit before balance declined. Personal Factors Other Personal Factors That May Effect cancer treatment, fatigue Therapy/Recovery PT-OP-C Subjective Start: 09/08/18 08:13 Freq: Status: Active Protocol: Document 01/05/19 14:35 [facility] (Rec: 01/05/19 15:04 [facility] [id number]) OP-PT Subjective Patient Comments Patient Comments Pt reports that he feels he has more energy today and was able to participate in session PT-OP-D Balance Start: 09/08/18 08:13 Freq: Status: Active Protocol: Document 12/03/18 10:30 AR (Rec: 12/03/18 16:28 AR [id number]) Balance Tests Veras Balance Test Veras Balance Test Score 49/56 Veras Impairment Rating 1 to 19% Impaired (Score 45-55 ) PT-OP-E Functional Tests Start: 09/08/18 08:13 Freq: Status: Active Protocol: Document 10/01/18 16:45 AR (Rec: 10/01/18 18:34 AR [id number]) Functional Tests Dynamic Gait Index (DGI) Score 9 DGI Impairment Rating 60 to <80% Impaired (Score 5-9 ) PT-OP-J Posture/Palpation/Skin Start: 09/08/18 12:00 Freq: Status: Active Protocol: Document 11/10/18 15:15 LR (Rec: 11/10/18 15:30 [facility] [id number]) Posture Evaluation [facility] Postural Classification System Elbow Flexion Test 2 PT-OP-K Range of Motion Start: 09/08/18 12:00 Freq: Status: Active Protocol: Document 09/08/18 13:40 LR (Rec: 09/08/18 14:34 [facility] [id number]) Shoulder Goniometric Range of Motion Shoulder Right Passive Flexion 147 Abduction 123 External Rotation at 90 degrees 91 Abduction Internal Rotation 27 Left Active Testing Position Sitting Flexion 168 Extension 66 Abduction 140 External Rotation at 90 degrees 88 Abduction External Rotation at 0 degrees Abduction 91 Internal Rotation 78 Internal Rotation Behind Back (text) T7 Right Active Testing Position Sitting Flexion 125 Extension 40 Abduction 91 External Rotation at 90 degrees 78 Abduction External Rotation at 0 degrees Abduction 85 Internal Rotation 71 Internal Rotation Behind Back (text) L1 PT-OP-M Strength Start: 09/08/18 08:13 Freq: Status: Active Protocol: Document 11/10/18 15:15 [facility] (Rec: 11/10/18 15:29 [facility] [id number]) Shoulder Strength Shoulder Manual Muscle Testing Right Flexion 5 Normal Extension 5 Normal Abduction (C5) 5 Normal External Rotation 5 Normal Internal Rotation 5 Normal PT-OP-Q Treatments Start: 09/08/18 08:13 Freq: Status: Active Protocol: Document 01/05/19 14:35 [facility] (Rec: 01/05/19 15:04 [facility] [id number]) Therapeutic Exercises Supine Exercises bridge Supine Exercise Name Bridging Reps/Minutes 15 reps Comments verbal cues for breathing to avoid valsalva during exercise flex Supine Exercise Name isometric knee and hip flexion against hand Side bilateral Resistance isometric against hand Reps/Minutes 4X15 second holds each side Sidelying Exercises abd Sidelying Exercise Name straight leg abduction Side bilateral Reps/Minutes 10 reps Comments TC and VC for proper hip alignment Standing Exercises Pec stretch Standing Exercise Name 90/90 ER & elbows straight at sides Side bilateral Equipment Used wall corner Reps/Minutes [id number] holds Lat stretch Side bilateral Equipment Used wall corner Reps/Minutes 2x30 second holds ER Standing Exercise Name resisted shoulder ER Side bilateral Resistance blue theraband Reps/Minutes 2x15 Comments pt cued to keep elbows in towards body row Standing Exercise Name resisted rows Side bilateral Resistance blue theraband Equipment Used doorway Reps/Minutes 2x15 Comments pt cued to keep elbows tucked into side and to focus on squeezing scapulas Neuro Re-Education Treatment Balance Activities stagger stance Details Stagger stance Surface blue foam pads Reps/Duration 2X on each side for max time Comments stagger stance on blue foam pads for compliant surface. 2 trials performed on each leg position. Pt able to maintain balance for approx 30 seconds to 1 minutes on each side. step ups Details step ups onto bosu ball Surface bosu ball Reps/Duration 10 reps each side Comments pt intructed to use only one hand as needed to steady self tandem stance Reps/Duration 2XMax time can maintain balance Comments 2 trials on each side for max time. Pt was able to hold position for a max time of approx 1 minute of each side. Seated on tball Details Marches and knee ext Surface t ball Reps/Duration 15 each side Comments pt instructed to only use one hand as need to steady self Self-Care/Home Management Treatment Education Other Education edu re: exercises to cont and exercises to stop. PT-OP-R Modalities Start: 09/18/18 11:15 Freq: Status: Active Protocol: Document 12/31/18 14:02 [facility] (Rec: 12/31/18 14:50 [facility] [id number]) Hot Pack/Cold Pack Treatment Hot Pack Location ant & post shoulder, inf scar Patient Position Sidelying Treatment Duration (minutes) 15 Comments lumbar hot pack used PT-OP-T Assessment and Plan Start: 09/08/18 08:13 Freq: Status: Active Protocol: Document 01/05/19 14:35 [facility] (Rec: 01/05/19 15:04 [facility] [id number]) Physical Therapy Assessment Assessment Summary Assessment Pt continues to demonstrate improved balance with increased ability to maintain balance in tandem stand and compliant surfaces and improved strength. Pt did well with adjustments to home program to give him a couple stretcehs & strengthening exercises for shoulder and 3 strengthening exercises for LEs. Physical Therapy Plan Frequency and Duration Frequency of Treatment 1-2x/week Duration of Treatment 2 months Plan of Care Start Date 12/03/18 Plan of Care End Date 02/02/19 Therapeutic Interventions Therapeutic Interventions Aquatic Therapy,Balance Training,Gait Training,Home Exercise Program,Manual Therapy,Neuromuscular Re- education,Soft Tissue Mobilization,Therapeutic Activities,Therapeutic Exercises Modalities Cold Pack/Ice Massage,Hot Packs Next Visit Focus/Plan Next Note Type Treatment Note Next Visit Plan Continue to work on standing balance and LE strength
--- NOTE | 2019-01-19 18:33 | PT.OTN ---
Current Diagnoses Squamous cell carcinoma of skin, unspecified (01/19/19) Stiffness of right shoulder, not elsewhere classified (01/19/19) Abnormal posture (01/19/19) Weakness (01/19/19) Physical Therapy Treatment Note PT-OP-A Visit Information Start: 09/08/18 08:13 Freq: Status: Active Protocol: Document 01/19/19 13:46 MT (Rec: 01/19/19 14:46 MT [id number]) Out-Patient Physical Therapy Visit Information Visit Information Visit Type Treatment Note Visit Start Time 13:46 Visit Stop Time 14:30 Total Visit Minutes 44 Visit Number 11/01 Number of [employer] Visits 0 PT-OP-B Current Condition Start: 09/08/18 08:13 Freq: Status: Active Protocol: Document 10/01/18 16:45 AR (Rec: 10/01/18 18:34 AR [email or web address]) Current Condition History of Current Condition Onset Date 09/22/2017 Current Complaints imbalance with walking and ADLs History of Current Condition Pt noticed decline in balance about a year ago and believed it was mostly d/t pain in his L knee. Since cancer dx in March, pt has noticed a further decline in balance d/t weakness and fatigue from spending so much time in the hospital and cancer treatments . Prior Treatments and Tests none Treatment Goals Patient/Caregiver Goals Be able to walk independently w/o imbalance (at home, grocery store, golf course). Prior Functional Status Baseline Function- ADL's Independent Baseline Function- Mobility Independent Baseline Function- Gait Pt notes he used walk quite a bit before balance declined. Personal Factors Other Personal Factors That May Effect cancer treatment, fatigue Therapy/Recovery PT-OP-C Subjective Start: 09/08/18 08:13 Freq: Status: Active Protocol: Document 01/19/19 13:46 MT (Rec: 01/19/19 14:46 MT [id number]) OP-PT Subjective Patient Comments Patient Comments Pt reported that he has been compliant with his HEP. He reported that he has felt generally tired today. He gets his stitches out of his neck/shoulder region today PT-OP-D Balance Start: 09/08/18 08:13 Freq: Status: Active Protocol: Document 12/03/18 10:30 AR (Rec: 12/03/18 16:28 AR [id number]) Balance Tests Veras Balance Test Veras Balance Test Score 49/56 Veras Impairment Rating 1 to 19% Impaired (Score 45-55 ) PT-OP-E Functional Tests Start: 09/08/18 08:13 Freq: Status: Active Protocol: Document 10/01/18 16:45 AR (Rec: 10/01/18 18:34 AR [email or web address]) Functional Tests Dynamic Gait Index (DGI) Score 9 DGI Impairment Rating 60 to <80% Impaired (Score 5-9 ) PT-OP-J Posture/Palpation/Skin Start: 09/08/18 12:00 Freq: Status: Active Protocol: Document 11/10/18 15:15 [facility] (Rec: 11/10/18 15:30 [facility] [id number]) Posture Evaluation [facility] Postural Classification System Elbow Flexion Test 2 PT-OP-K Range of Motion Start: 09/08/18 12:00 Freq: Status: Active Protocol: Document 09/08/18 13:40 [facility] (Rec: 09/08/18 14:34 [facility] [id number]) Shoulder Goniometric Range of Motion Shoulder Right Passive Flexion 147 Abduction 123 External Rotation at 90 degrees 91 Abduction Internal Rotation 27 Left Active Testing Position Sitting Flexion 168 Extension 66 Abduction 140 External Rotation at 90 degrees 88 Abduction External Rotation at 0 degrees Abduction 91 Internal Rotation 78 Internal Rotation Behind Back (text) T7 Right Active Testing Position Sitting Flexion 125 Extension 40 Abduction 91 External Rotation at 90 degrees 78 Abduction External Rotation at 0 degrees Abduction 85 Internal Rotation 71 Internal Rotation Behind Back (text) L1 PT-OP-M Strength Start: 09/08/18 08:13 Freq: Status: Active Protocol: Document 11/10/18 15:15 LR (Rec: 11/10/18 15:29 LR [id number]) Shoulder Strength Shoulder Manual Muscle Testing Right Flexion 5 Normal Extension 5 Normal Abduction (C5) 5 Normal External Rotation 5 Normal Internal Rotation 5 Normal PT-OP-Q Treatments Start: 09/08/18 08:13 Freq: Status: Active Protocol: Document 01/19/19 13:46 MT (Rec: 01/19/19 14:46 MT [id number]) Gym Equipment Shuttle Balance red clips Details fwd/bck, WBOS Reps/Duration 10 weight shifts + 1 minute of attempting to balance Comments pt was more challenged with this activity than he had been in the past Therapeutic Ball seated Exercise Details yayos Ball Size/Color silver Body Position seated Reps/Duration 30ea B Therapeutic Exercises Standing Exercises squats Standing Exercise Name stand<>sit Side bilateral Reps/Minutes 10 Comments sitting in chair with VC for leading w/ hips + maintaining upright posture hip ext Standing Exercise Name standing hip ext Side bilateral Resistance L1 Reps/Minutes 15 Comments VC to avoid trunk lean hip abd Standing Exercise Name sidestepping Side bilateral Resistance L1 Reps/Minutes 20ftx2 abd Standing Exercise Name standing hip abd Side bilateral Resistance L1 Reps/Minutes 15 Comments VC for avoiding trunk lean Neuro Re-Education Treatment Balance Activities step ups Details step ups onto bosu ball Surface bosu ball Reps/Duration 10 reps each side Comments pt intructed to use only one hand as needed to steady self tandem stance Reps/Duration 4XMax time can maintain balance Comments 2 trials on each side for max time. Pt was able to hold position for a max time of approx 20-30 seconds on each side. Pt exhibited higher difficulty with this task than previous sessions. PT-OP-R Modalities Start: 09/18/18 11:15 Freq: Status: Active Protocol: Document 12/31/18 14:02 [facility] (Rec: 12/31/18 14:50 [facility] [id number]) Hot Pack/Cold Pack Treatment Hot Pack Location ant & post shoulder, inf scar Patient Position Sidelying Treatment Duration (minutes) 15 Comments lumbar hot pack used PT-OP-T Assessment and Plan Start: 09/08/18 08:13 Freq: Status: Active Protocol: Document 01/19/19 13:46 MT (Rec: 01/19/19 14:46 MT [id number]) Physical Therapy Assessment Goals Gait Short Term Goal (STG) Pt will be able to amb with horizontal head turns w/o loss of balance for 50 feet. 11/10/18 - goal met, but pt still requires SBA. 12/03/18- goal met, but pt still requires SBA. STG Duration 01/02/2019 Digital Commentator Goal (LTG) Pt will be able to amb in grocery store w/o use of shopping cart for support. 11/10/18- progressing. able to maintain balance w/o cart short periods of time. 12/03/18- pt has been able to walk longer distances w/o holding on. walking ~1 mi [place] cruise [place] w/o support and no LOB LTG Duration goal met Balance Short Term Goal (STG) Pt will be able to turn and look over R and L shoulders without loss of balance, use of external support or supervision. 11/10/18- progressing, min LOB with turn L 12/03/18- progressing, min LOB with turn L. was able to perform with no LOB after few repetitions STG Duration 01/02/2019 Senior Living Goal (LTG) Pt will inc Veras Balance score to 45/56 in order to dec fall risk and be able to maintain balance on uneven surfaces of golf course w/o use of club. 11/10/18 - did not test today 12/03/18- goal met. 49/56 LTG Duration goal met ROM Senior Living Goal (LTG) Pt will have normal AROM in R Shoulder to allow typical activities. 11/10/18 - not measured, but pt reports no limitations in ADLs 12/03/18- goal met. ROM equal to L shoulder. tight feeling in anterior shoulder with IR LTG Duration goal met weakness Short Term Goal (STG) Pt will be indep with HEP. STG Duration goal met Senior Living Goal (LTG) Pt will be able to score 5/5 w /UE strength & 3/5 for EFT to allow inc activity tolerance 11/10/18 - progressin. 5/5 MMTs , 2/5 EFT 12/03/18- not tested today LTG Duration 02/01/2019 activity Short Term Goal (STG) Pt will be able to do ADLs that require reaching: watering, dishes, etc without pain. 11/10/18 - no pain, but challenges balance STG Duration goal met Digital Commentator Goal (LTG) Pt will be able to golf without any issues. 11/10/18 - not tested today 12/03/18- minimal shoulder pain with larger swings. no balance problems with golfing LTG Duration 02/01/2019 Assessment Summary Assessment Pt demonstrated increased challenge with the same balance activities. He attribiutes it to not having PT last week. He had mnore difficulty with maintaining balance and fatigued more easily from standing and balance activities. Physical Therapy Plan Next Visit Focus/Plan Next Note Type Treatment Note Next Visit Plan Continue to work on standing balance and LE strength
--- NOTE | 2019-01-26 19:16 | PT.OTN ---
Current Diagnoses Squamous cell carcinoma of skin, unspecified (01/26/19) Stiffness of right shoulder, not elsewhere classified (01/26/19) Abnormal posture (01/26/19) Weakness (01/26/19) Physical Therapy Treatment Note PT-OP-A Visit Information Start: 09/08/18 08:13 Freq: Status: Active Protocol: Document 01/26/19 13:48 MT (Rec: 01/26/19 15:29 MT [id number]) Out-Patient Physical Therapy Visit Information Visit Information Visit Type Treatment Note Visit Start Time 13:48 Visit Stop Time 14:45 Total Visit Minutes 57 Visit Number 12/02 Number of PROGRAM PARAPROFESSIONAL Visits 0 PT-OP-B Current Condition Start: 09/08/18 08:13 Freq: Status: Active Protocol: Document 10/01/18 16:45 AR (Rec: 10/01/18 18:34 AR [id number]) Current Condition History of Current Condition Onset Date 09/22/2017 Current Complaints imbalance with walking and ADLs History of Current Condition Pt noticed decline in balance about a year ago and believed it was mostly d/t pain in his L knee. Since cancer dx in March, pt has noticed a further decline in balance d/t weakness and fatigue from spending so much time in the hospital and cancer treatments . Prior Treatments and Tests none Treatment Goals Patient/Caregiver Goals Be able to walk independently w/o imbalance (at home, grocery store, golf course). Prior Functional Status Baseline Function- ADL's Independent Baseline Function- Mobility Independent Baseline Function- Gait Pt notes he used walk quite a bit before balance declined. Personal Factors Other Personal Factors That May Effect cancer treatment, fatigue Therapy/Recovery PT-OP-C Subjective Start: 09/08/18 08:13 Freq: Status: Active Protocol: Document 01/26/19 13:48 MT (Rec: 01/26/19 15:29 MT [id number]) OP-PT Subjective Patient Comments Patient Comments Pt reported that he had an insfusion on saturday of last week which has made him feel extremely tired and he has not been able to do much activity or his exercises since then. PT-OP-D Balance Start: 09/08/18 08:13 Freq: Status: Active Protocol: Document 12/03/18 10:30 AR (Rec: 12/03/18 16:28 AR [id number]) Balance Tests Veras Balance Test Veras Balance Test Score 49/56 Veras Impairment Rating 1 to 19% Impaired (Score 45-55 ) PT-OP-E Functional Tests Start: 09/08/18 08:13 Freq: Status: Active Protocol: Document 10/01/18 16:45 AR (Rec: 10/01/18 18:34 AR [email or web address]) Functional Tests Dynamic Gait Index (DGI) Score 9 DGI Impairment Rating 60 to <80% Impaired (Score 5-9 ) PT-OP-J Posture/Palpation/Skin Start: 09/08/18 12:00 Freq: Status: Active Protocol: Document 11/10/18 15:15 [facility] (Rec: 11/10/18 15:30 [facility] [id number]) Posture Evaluation Kelsey Postural Classification System Elbow Flexion Test 2 PT-OP-K Range of Motion Start: 09/08/18 12:00 Freq: Status: Active Protocol: Document 09/08/18 13:40 LRH (Rec: 09/08/18 14:34 LR [id number]) Shoulder Goniometric Range of Motion Shoulder Right Passive Flexion 147 Abduction 123 External Rotation at 90 degrees 91 Abduction Internal Rotation 27 Left Active Testing Position Sitting Flexion 168 Extension 66 Abduction 140 External Rotation at 90 degrees 88 Abduction External Rotation at 0 degrees Abduction 91 Internal Rotation 78 Internal Rotation Behind Back (text) T7 Right Active Testing Position Sitting Flexion 125 Extension 40 Abduction 91 External Rotation at 90 degrees 78 Abduction External Rotation at 0 degrees Abduction 85 Internal Rotation 71 Internal Rotation Behind Back (text) L1 PT-OP-M Strength Start: 09/08/18 08:13 Freq: Status: Active Protocol: Document 11/10/18 15:15 LR (Rec: 11/10/18 15:29 LR [id number]) Shoulder Strength Shoulder Manual Muscle Testing Right Flexion 5 Normal Extension 5 Normal Abduction (C5) 5 Normal External Rotation 5 Normal Internal Rotation 5 Normal PT-OP-Q Treatments Start: 09/08/18 08:13 Freq: Status: Active Protocol: Document 01/26/19 13:48 MT (Rec: 01/26/19 15:29 MT [id number]) Gym Equipment Shuttle Balance red clips Details fwd/bck, WBOS Reps/Duration 10 weight shifts + 1 minute of attempting to balance Comments pt was unsteady in the beginning, but was able to acclimate and increase his stability. He demonstrated decreased ability to tilt the balance board using ankle strategy. Therapeutic Exercises Standing Exercises tibialis anterior Standing Exercise Name TA and calf stretch Side left Reps/Minutes [id number] Comments added to HEP to stretch calf and TA TKE Standing Exercise Name TKE Side bilateral Resistance L2 Reps/Minutes 15 each leg hip ext Standing Exercise Name standing hip ext Side bilateral Resistance L1 Reps/Minutes 15 Comments VC to avoid trunk lean hip abd Standing Exercise Name sidestepping with squat Side bilateral Resistance L1 Reps/Minutes 20ftx2 per side Comments squat began to aggravte pt's knees, so was only done for 1 length of 20 ft abd Standing Exercise Name standing hip abd Side bilateral Resistance L1 Reps/Minutes 15 Comments VC for avoiding trunk lean Neuro Re-Education Treatment Balance Activities static stance Details static balance Surface blue side bosu Reps/Duration 3 min total Comments pt required frequent use of HR step ups Details step ups onto bosu ball Surface bosu ball Reps/Duration 20 reps each side Comments pt instructed to use only one hand as needed to steady self. He performed better when cued to push through stepping leg before lifting other leg in order to decrease reliance on UE to pull self up PT-OP-R Modalities Start: 09/18/18 11:15 Freq: Status: Active Protocol: Document 01/26/19 13:48 MT (Rec: 01/26/19 15:30 MT [id number]) Hot Pack/Cold Pack Treatment Hot Pack Location ant & post shoulder, inf scar Patient Position Sidelying Treatment Duration (minutes) 15 Comments lumbar hot pack used PT-OP-T Assessment and Plan Start: 09/08/18 08:13 Freq: Status: Active Protocol: Document 01/26/19 13:48 MT (Rec: 01/26/19 15:29 MT [id number]) Physical Therapy Assessment Goals Gait Short Term Goal (STG) Pt will be able to amb with horizontal head turns w/o loss of balance for 50 feet. 11/10/18 - goal met, but pt still requires SBA. 12/03/18- goal met, but pt still requires SBA. STG Duration 01/02/2019 Correctional Medicine Physician Goal (LTG) Pt will be able to amb in grocery store w/o use of shopping cart for support. 11/10/18- progressing. able to maintain balance w/o cart short periods of time. 12/03/18- pt has been able to walk longer distances w/o holding on. walking ~1 mi on cruise [place] w/o support and no LOB LTG Duration goal met Balance Short Term Goal (STG) Pt will be able to turn and look over R and L shoulders without loss of balance, use of external support or supervision. 11/10/18- progressing, min LOB with turn L 12/03/18- progressing, min LOB with turn L. was able to perform with no LOB after few repetitions STG Duration 01/02/2019 Correctional Medicine Physician Goal (LTG) Pt will inc Veras Balance score to 45/56 in order to dec fall risk and be able to maintain balance on uneven surfaces of golf course w/o use of club. 11/10/18 - did not test today 12/03/18- goal met. 49/56 LTG Duration goal met ROM Correctional Medicine Physician Goal (LTG) Pt will have normal AROM in R Shoulder to allow typical activities. 11/10/18 - not measured, but pt reports no limitations in ADLs 12/03/18- goal met. ROM equal to L shoulder. tight feeling in anterior shoulder with IR LTG Duration goal met weakness Short Term Goal (STG) Pt will be indep with HEP. STG Duration goal met Correctional Medicine Physician Goal (LTG) Pt will be able to score 5/5 w /UE strength & 3/5 for EFT to allow inc activity tolerance 11/10/18 - progressin. 5/5 MMTs , 2/5 EFT 12/03/18- not tested today LTG Duration 02/01/2019 activity Short Term Goal (STG) Pt will be able to do ADLs that require reaching: watering, dishes, etc without pain. 11/10/18 - no pain, but challenges balance STG Duration goal met Correctional Medicine Physician Goal (LTG) Pt will be able to golf without any issues. 11/10/18 - not tested today 12/03/18- minimal shoulder pain with larger swings. no balance problems with golfing LTG Duration 02/01/2019 Assessment Summary Assessment Pt demonstrated decreased balance with balance activities initially, but was able to quickly acclimate. During balance activities and exercises he demonstrated decreased use of ankle strategy and decreased ankle mobility. He attributed it to pain in his left TA, so he was given stretches for his TA and calf. during step up activity, pt demonstrated decreased push through and required cueing. Once he was able to push off of his leg, he was able to maintain better balance on the bosu ball Physical Therapy Plan Frequency and Duration Frequency of Treatment 1-2x/week Duration of Treatment 2 months Plan of Care Start Date 12/03/18 Plan of Care End Date 02/02/19 Next Visit Focus/Plan Next Note Type Progress Note Next Visit Plan continue working on standing balance, ankle strength and mobility and incorporating chago hernandez with balance quad strengthening for push off
--- NOTE | 2019-02-02 18:58 | PT.OTN ---
Current Diagnoses Squamous cell carcinoma of skin, unspecified (02/02/19) Stiffness of right shoulder, not elsewhere classified (02/02/19) Abnormal posture (02/02/19) Weakness (02/02/19) Physical Therapy Treatment Note PT-OP-A Visit Information Start: 09/08/18 08:13 Freq: Status: Active Protocol: Document 02/02/19 14:35 MT (Rec: 02/02/19 16:32 MT [email or web address]) Out-Patient Physical Therapy Visit Information Visit Information Visit Type Progress Note Visit Note 29 total visits Visit Start Time 14:35 Visit Stop Time 15:30 Total Visit Minutes 55 Visit Number 04/03 Number of WATCH ADJUSTER Visits 0 PT-OP-B Current Condition Start: 09/08/18 08:13 Freq: Status: Active Protocol: Document 10/01/18 16:45 AR (Rec: 10/01/18 18:34 AR [email or web address]) Current Condition History of Current Condition Onset Date 09/22/2017 Current Complaints imbalance with walking and ADLs History of Current Condition Pt noticed decline in balance about a year ago and believed it was mostly d/t pain in his L knee. Since cancer dx in March, pt has noticed a further decline in balance d/t weakness and fatigue from spending so much time in the hospital and cancer treatments . Prior Treatments and Tests none Treatment Goals Patient/Caregiver Goals Be able to walk independently w/o imbalance (at home, grocery store, golf course). Prior Functional Status Baseline Function- ADL's Independent Baseline Function- Mobility Independent Baseline Function- Gait Pt notes he used walk quite a bit before balance declined. Personal Factors Other Personal Factors That May Effect cancer treatment, fatigue Therapy/Recovery PT-OP-C Subjective Start: 09/08/18 08:13 Freq: Status: Active Protocol: Document 02/02/19 14:35 MT (Rec: 02/02/19 16:32 MT [email or web address]) OP-PT Subjective Patient Comments Patient Comments Pt reported that he was able to play golf over the weekend. He felt stiff and a little off balacne for the beginning holes and the 18th hole, but said the other holes were fine . He asked to get a list of 3 -4 exercises that he can do before moving in the morning to help him decrease his morning stiffness. PT-OP-D Balance Start: 09/08/18 08:13 Freq: Status: Active Protocol: Document 12/03/18 10:30 AR (Rec: 12/03/18 16:28 AR [id number]) Balance Tests Veras Balance Test Veras Balance Test Score 49/56 Veras Impairment Rating 1 to 19% Impaired (Score 45-55 ) PT-OP-E Functional Tests Start: 09/08/18 08:13 Freq: Status: Active Protocol: Document 02/02/19 14:35 MT (Rec: 02/02/19 16:32 MT [email or web address]) Functional Tests Dynamic Gait Index (DGI) Score 17/24 DGI Impairment Rating 20 to <40% Impaired (Score 15- 19) PT-OP-J Posture/Palpation/Skin Start: 09/08/18 12:00 Freq: Status: Active Protocol: Document 11/10/18 15:15 LRH (Rec: 11/10/18 15:30 LR [id number]) Posture Evaluation Kelsey Postural Classification System Elbow Flexion Test 2 PT-OP-K Range of Motion Start: 09/08/18 12:00 Freq: Status: Active Protocol: Document 09/08/18 13:40 LRH (Rec: 09/08/18 14:34 LR [id number]) Shoulder Goniometric Range of Motion Shoulder Right Passive Flexion 147 Abduction 123 External Rotation at 90 degrees 91 Abduction Internal Rotation 27 Left Active Testing Position Sitting Flexion 168 Extension 66 Abduction 140 External Rotation at 90 degrees 88 Abduction External Rotation at 0 degrees Abduction 91 Internal Rotation 78 Internal Rotation Behind Back (text) T7 Right Active Testing Position Sitting Flexion 125 Extension 40 Abduction 91 External Rotation at 90 degrees 78 Abduction External Rotation at 0 degrees Abduction 85 Internal Rotation 71 Internal Rotation Behind Back (text) L1 PT-OP-M Strength Start: 09/08/18 08:13 Freq: Status: Active Protocol: Document 11/10/18 15:15 LRH (Rec: 11/10/18 15:29 LR [id number]) Shoulder Strength Shoulder Manual Muscle Testing Right Flexion 5 Normal Extension 5 Normal Abduction (C5) 5 Normal External Rotation 5 Normal Internal Rotation 5 Normal PT-OP-Q Treatments Start: 09/08/18 08:13 Freq: Status: Active Protocol: Document 02/02/19 14:35 MT (Rec: 02/02/19 16:32 MT [email or web address]) Gym Equipment Shuttle Balance red clips Details fwd/bck, side/side, WBOS Reps/Duration 10 weight shifts + 2 minute of attempting to balance Comments Pt struggles to have adequate ankle PF to tilt board forward . Pt highly challenged with balance in side to side direction and required 2 finger handhold. Therapeutic Exercises Sitting Exercises Ankle strength Sitting Exercise Name seated PF heel raises Side bilateral Reps/Minutes 20 Standing Exercises ankle strength Standing Exercise Name standing heel raises Side bilateral Comments attempted, but was too difficult for pt Neuro Re-Education Treatment Balance Activities DGI Details dual tasking with gait and navigating obstacles Surface firm Equipment cones, boxes Reps/Duration 20ft each situation rocker board Details ankle PF and DF on rocker board Comments pt struggled with ROM with PF Self-Care/Home Management Treatment Education Patient Education Home Exercise Program Other Education pt educated in exercises to incoprporate in morning before getting out of bed to reduce stiffness. Pt educated in ankle pumps, seated heel raises, and seated knee extension PT-OP-R Modalities Start: 09/18/18 11:15 Freq: Status: Active Protocol: Document 02/02/19 14:35 MT (Rec: 02/02/19 16:32 MT [email or web address]) Hot Pack/Cold Pack Treatment Hot Pack Location ant & post shoulder, inf scar Patient Position Sidelying Treatment Duration (minutes) 15 Comments lumbar hot pack used PT-OP-T Assessment and Plan Start: 09/08/18 08:13 Freq: Status: Active Protocol: Document 02/02/19 14:35 MT (Rec: 02/02/19 16:32 MT [email or web address]) Physical Therapy Assessment Rehab Potential Rehabilitation Potential Good Impairments Impairments Activity Tolerance,Balance, Coordination,Functional Activities,Functional Mobility ,Gait,Pain,Posture,ROM, Strength Goals Gait Short Term Goal (STG) Pt will be able to amb with horizontal head turns w/o loss of balance for 50 feet. 11/10/18 - goal met, but pt still requires SBA. 12/03/18- goal met, but pt still requires SBA. 02/02/19 - goal met, but pt requires SBA STG Duration 03/04/2019 Balance Short Term Goal (STG) Pt will be able to turn and look over R and L shoulders without loss of balance, use of external support or supervision. 11/10/18- progressing, min LOB with turn L 12/03/18- progressing, min LOB with turn L. was able to perform with no LOB after few repetitions 02/02/19 - pt demonstrated LOB during turn to the right on first try. Remaining of the 3 attempts in each direction were performed without LOB STG Duration 03/04/2019 Half-Way Goal (LTG) Pt will increase his DGI score to 20/24 in order to improve his balance and safety during gait and decrease risk of falls. LTG Duration 04/04/19 weakness Short Term Goal (STG) Pt will be indep with HEP. STG Duration goal met Reamer Hand Goal (LTG) Pt will be able to score 5/5 w /UE strength & 3/5 for EFT to allow inc activity tolerance 11/10/18 - progressin. 5/5 MMTs , 2/5 EFT 12/03/18- not tested today 02/02/19 - pt scored a 1/5 LTG Duration 04/04/2019 activity Reamer Hand Goal (LTG) Pt will be able to golf without any issues. 11/10/18 - not tested today 12/03/18- minimal shoulder pain with larger swings. no balance problems with golfing 02/02/19 - pt reports that there is minimal problems with balance during the first hole when he is stiff and the last hole when he is fatigued. LTG Duration 04/04/2019 Progress Towards Goals Progress Towards Goals Progressing Toward Goals Assessment Summary Assessment Assessed pt's goals and progress towards them. Performed DGI on pt to assess pt's dynamic balance with gait . Pt has made progress towards his goals. He continues to require skilled PT to improve his dynamic balance as evidenced by the DGI. Pt presents with severe weakness in his ankle plantarflexors and was given strengthening exercises to incorporate into his HEp that will help to strengthen his PF . Physical Therapy Plan Frequency and Duration Frequency of Treatment 1-2x/week Duration of Treatment 2 months Plan of Care Start Date 02/02/19 Plan of Care End Date 04/04/19 Therapeutic Interventions Therapeutic Interventions Aquatic Therapy,Balance Training,Coordination Training ,Gait Training,Home Exercise Program,Joint Mobilizations, Manual Therapy,Neuromuscular Re-education,Patient/Caregiver Education,Self-Care/Home Management,Sensory Integration ,Soft Tissue Mobilization, Taping,Therapeutic Activities, Therapeutic Exercises Modalities Cold Pack/Ice Massage,Electric Stimulation,Hot Packs, Ultrasound Next Visit Focus/Plan Next Note Type Treatment Note Next Visit Plan continue to work on dynamic balance, work on ankle mobility and plantar flexor strengthening, quad and glut strengthening.
--- NOTE | 2019-02-02 19:01 | PT.OPPOC ---
Current Diagnoses Squamous cell carcinoma of skin, unspecified (02/02/19) Stiffness of right shoulder, not elsewhere classified (02/02/19) Abnormal posture (02/02/19) Weakness (02/02/19) Visit Care Team Role Provider Type Satnam Kirk MD Primary Care Provider Physician Specialty: Internal Medicine Address: [address] [place] [address], [id number] Email: [email or web address] Attending Provider Specialty: Address: Phone: Fax: Email: Plan Of Care PT-OP-T Assessment and Plan Start: 09/08/18 08:13 Freq: Status: Active Protocol: Document 02/02/19 14:35 MT (Rec: 02/02/19 16:32 MT [email or web address]) Physical Therapy Assessment Rehab Potential Rehabilitation Potential Good Impairments Impairments Activity Tolerance,Balance, Coordination,Functional Activities,Functional Mobility ,Gait,Pain,Posture,ROM, Strength Goals Gait Short Term Goal (STG) Pt will be able to amb with horizontal head turns w/o loss of balance for 50 feet. 11/10/18 - goal met, but pt still requires SBA. 12/03/18- goal met, but pt still requires SBA. 02/02/19 - goal met, but pt requires SBA STG Duration 03/04/2019 Balance Short Term Goal (STG) Pt will be able to turn and look over R and L shoulders without loss of balance, use of external support or supervision. 11/10/18- progressing, min LOB with turn L 12/03/18- progressing, min LOB with turn L. was able to perform with no LOB after few repetitions 02/02/19 - pt demonstrated LOB during turn to the right on first try. Remaining of the 3 attempts in each direction were performed without LOB STG Duration 03/04/2019 Platform Worker Goal (LTG) Pt will increase his DGI score to 20/24 in order to improve his balance and safety during gait and decrease risk of falls. LTG Duration 04/04/19 weakness Short Term Goal (STG) Pt will be indep with HEP. STG Duration goal met Correction Goal (LTG) Pt will be able to score 5/5 w /UE strength & 3/5 for EFT to allow inc activity tolerance 11/10/18 - progressin. 5/5 MMTs , 2/5 EFT 12/03/18- not tested today 02/02/19 - pt scored a 1/5 LTG Duration 04/04/2019 activity Platform Worker Goal (LTG) Pt will be able to golf without any issues. 11/10/18 - not tested today 12/03/18- minimal shoulder pain with larger swings. no balance problems with golfing 02/02/19 - pt reports that there is minimal problems with balance during the first hole when he is stiff and the last hole when he is fatigued. LTG Duration 04/04/2019 Progress Towards Goals Progress Towards Goals Progressing Toward Goals Assessment Summary Assessment Assessed pt's goals and progress towards them. Performed DGI on pt to assess pt's dynamic balance with gait . Pt has made progress towards his goals. He continues to require skilled PT to improve his dynamic balance as evidenced by the DGI. Pt presents with severe weakness in his ankle plantarflexors and was given strengthening exercises to incorporate into his HEp that will help to strengthen his PF . Physical Therapy Plan Frequency and Duration Frequency of Treatment 1-2x/week Duration of Treatment 2 months Plan of Care Start Date 02/02/19 Plan of Care End Date 04/04/19 Therapeutic Interventions Therapeutic Interventions Aquatic Therapy,Balance Training,Coordination Training ,Gait Training,Home Exercise Program,Joint Mobilizations, Manual Therapy,Neuromuscular Re-education,Patient/Caregiver Education,Self-Care/Home Management,Sensory Integration ,Soft Tissue Mobilization, Taping,Therapeutic Activities, Therapeutic Exercises Modalities Cold Pack/Ice Massage,Electric Stimulation,Hot Packs, Ultrasound Next Visit Focus/Plan Next Note Type Treatment Note Next Visit Plan continue to work on dynamic balance, work on ankle mobility and plantar flexor strengthening, quad and glut strengthening. Plan of Care Dates Plan of Care Start Date 02/02/19 Plan of Care End Date 04/04/19
--- NOTE | 2019-02-11 18:51 | PT.OTN ---
Current Diagnoses Squamous cell carcinoma of skin, unspecified (02/11/19) Stiffness of right shoulder, not elsewhere classified (02/11/19) Abnormal posture (02/11/19) Weakness (02/11/19) Physical Therapy Treatment Note PT-OP-A Visit Information Start: 09/08/18 08:13 Freq: Status: Active Protocol: Document 02/11/19 13:03 MT (Rec: 02/11/19 15:40 MT [id number]) Out-Patient Physical Therapy Visit Information Visit Information Visit Type Treatment Note Visit Start Time 13:03 Visit Stop Time 13:42 Total Visit Minutes 39 Visit Number 2/ Number of FOUNDRY PROCESS ENGINEER Visits 0 PT-OP-B Current Condition Start: 09/08/18 08:13 Freq: Status: Active Protocol: Document 10/01/18 16:45 AR (Rec: 10/01/18 18:34 AR [email or web address]) Current Condition History of Current Condition Onset Date 09/22/2017 Current Complaints imbalance with walking and ADLs History of Current Condition Pt noticed decline in balance about a year ago and believed it was mostly d/t pain in his L knee. Since cancer dx in March, pt has noticed a further decline in balance d/t weakness and fatigue from spending so much time in the hospital and cancer treatments . Prior Treatments and Tests none Treatment Goals Patient/Caregiver Goals Be able to walk independently w/o imbalance (at home, grocery store, golf course). Prior Functional Status Baseline Function- ADL's Independent Baseline Function- Mobility Independent Baseline Function- Gait Pt notes he used walk quite a bit before balance declined. Personal Factors Other Personal Factors That May Effect cancer treatment, fatigue Therapy/Recovery PT-OP-C Subjective Start: 09/08/18 08:13 Freq: Status: Active Protocol: Document 02/11/19 13:03 MT (Rec: 02/11/19 15:40 MT [id number]) OP-PT Subjective Patient Comments Patient Comments Pt reported that he had infusion on Saturday and was very exhausted from that. He has been doing the exercises in bed to increase mobility in his joints in the morning and those have been helping a lot . PT-OP-D Balance Start: 09/08/18 08:13 Freq: Status: Active Protocol: Document 12/03/18 10:30 AR (Rec: 12/03/18 16:28 AR [id number]) Balance Tests Veras Balance Test Veras Balance Test Score 49/56 Veras Impairment Rating 1 to 19% Impaired (Score 45-55 ) PT-OP-E Functional Tests Start: 09/08/18 08:13 Freq: Status: Active Protocol: Document 02/02/19 14:35 MT (Rec: 02/02/19 16:32 MT [email or web address]) Functional Tests Dynamic Gait Index (DGI) Score 17/24 DGI Impairment Rating 20 to <40% Impaired (Score 15- 19) PT-OP-J Posture/Palpation/Skin Start: 09/08/18 12:00 Freq: Status: Active Protocol: Document 11/10/18 15:15 LR (Rec: 11/10/18 15:30 [facility] [id number]) Posture Evaluation [facility] Postural Classification System Elbow Flexion Test 2 PT-OP-K Range of Motion Start: 09/08/18 12:00 Freq: Status: Active Protocol: Document 09/08/18 13:40 [facility] (Rec: 09/08/18 14:34 [facility] [id number]) Shoulder Goniometric Range of Motion Shoulder Right Passive Flexion 147 Abduction 123 External Rotation at 90 degrees 91 Abduction Internal Rotation 27 Left Active Testing Position Sitting Flexion 168 Extension 66 Abduction 140 External Rotation at 90 degrees 88 Abduction External Rotation at 0 degrees Abduction 91 Internal Rotation 78 Internal Rotation Behind Back (text) T7 Right Active Testing Position Sitting Flexion 125 Extension 40 Abduction 91 External Rotation at 90 degrees 78 Abduction External Rotation at 0 degrees Abduction 85 Internal Rotation 71 Internal Rotation Behind Back (text) L1 PT-OP-M Strength Start: 09/08/18 08:13 Freq: Status: Active Protocol: Document 11/10/18 15:15 LR (Rec: 11/10/18 15:29 [facility] [id number]) Shoulder Strength Shoulder Manual Muscle Testing Right Flexion 5 Normal Extension 5 Normal Abduction (C5) 5 Normal External Rotation 5 Normal Internal Rotation 5 Normal PT-OP-Q Treatments Start: 09/08/18 08:13 Freq: Status: Active Protocol: Document 02/11/19 13:03 MT (Rec: 02/11/19 15:40 MT [id number]) Gym Equipment Shuttle Balance red clips Details fwd/bck, side/side, WBOS Reps/Duration 10 weight shifts + 2 minute of attempting to balance Comments Pt struggles to have adequate ankle PF to tilt board forward . Pt challenged with balance in side to side direction and required 2 finger handhold. Therapeutic Ball seated Exercise Details marches and kicks Ball Size/Color silver Body Position Sitting Reps/Duration 15 each leg Therapeutic Exercises Sitting Exercises JAZMYNE Sitting Exercise Name single leg JAZMYNE PF Side bilateral Equipment Used JAZMYNE Reps/Minutes 20 each side and direction Ankle strength Sitting Exercise Name seated PF heel raises Side bilateral Reps/Minutes 20 Neuro Re-Education Treatment Balance Activities tandem stance Details tandem stance Surface firm Reps/Duration 1 minute holds each PT-OP-R Modalities Start: 09/18/18 11:15 Freq: Status: Active Protocol: Document 02/02/19 14:35 MT (Rec: 02/02/19 16:32 MT [email or web address]) Hot Pack/Cold Pack Treatment Hot Pack Location ant & post shoulder, inf scar Patient Position Sidelying Treatment Duration (minutes) 15 Comments lumbar hot pack used PT-OP-T Assessment and Plan Start: 09/08/18 08:13 Freq: Status: Active Protocol: Document 02/11/19 13:03 MT (Rec: 02/11/19 15:40 MT [id number]) Physical Therapy Assessment Goals Gait Short Term Goal (STG) Pt will be able to amb with horizontal head turns w/o loss of balance for 50 feet. 11/10/18 - goal met, but pt still requires SBA. 12/03/18- goal met, but pt still requires SBA. 02/02/19 - goal met, but pt requires SBA STG Duration 03/04/2019 Balance Short Term Goal (STG) Pt will be able to turn and look over R and L shoulders without loss of balance, use of external support or supervision. 11/10/18- progressing, min LOB with turn L 12/03/18- progressing, min LOB with turn L. was able to perform with no LOB after few repetitions 02/02/19 - pt demonstrated LOB during turn to the right on first try. Remaining of the 3 attempts in each direction were performed without LOB STG Duration 03/04/2019 Parachute Harness Rigger Goal (LTG) Pt will increase his DGI score to 20/24 in order to improve his balance and safety during gait and decrease risk of falls. LTG Duration 04/04/19 weakness Short Term Goal (STG) Pt will be indep with HEP. STG Duration goal met Parachute Harness Rigger Goal (LTG) Pt will be able to score 5/5 w /UE strength & 3/5 for EFT to allow inc activity tolerance 11/10/18 - progressin. 5/5 MMTs , 2/5 EFT 12/03/18- not tested today 02/02/19 - pt scored a 1/5 LTG Duration 04/04/2019 activity Residential Goal (LTG) Pt will be able to golf without any issues. 11/10/18 - not tested today 12/03/18- minimal shoulder pain with larger swings. no balance problems with golfing 02/02/19 - pt reports that there is minimal problems with balance during the first hole when he is stiff and the last hole when he is fatigued. LTG Duration 04/04/2019 Assessment Summary Assessment Pt was tired today after his infusion this week, so exercises were performed primarily in sitting position and with frequent breaks for pt. Pt continues to have severe weakness for PF, whihc affects his balance and balance strategies. He was able to balance with much less LOB events on the balance board with NBOS. He continues to be challenged by side/side balance and tandem stance. Physical Therapy Plan Frequency and Duration Frequency of Treatment 1-2x/week Duration of Treatment 2 months Plan of Care Start Date 02/02/19 Plan of Care End Date 04/04/19 Next Visit Focus/Plan Next Note Type Treatment Note Next Visit Plan continue to work on dynamic balance, work on ankle mobility and plantar flexor strengthening, quad and glut strengthening.
--- NOTE | 2019-02-17 18:07 | PT.OTN ---
Current Diagnoses Squamous cell carcinoma of skin, unspecified (02/17/19) Stiffness of right shoulder, not elsewhere classified (02/17/19) Abnormal posture (02/17/19) Weakness (02/17/19) Physical Therapy Treatment Note PT-OP-A Visit Information Start: 09/08/18 08:13 Freq: Status: Active Protocol: Document 02/17/19 13:45 MT (Rec: 02/17/19 17:41 MT [email or web address]) Out-Patient Physical Therapy Visit Information Visit Information Visit Type Treatment Note Visit Start Time 13:45 Visit Stop Time 14:25 Total Visit Minutes 40 Visit Number 3/ Number of INDUSTRIAL SAFETY AND HEALTH SPECIALIST Visits 0 PT-OP-B Current Condition Start: 09/08/18 08:13 Freq: Status: Active Protocol: Document 10/01/18 16:45 AR (Rec: 10/01/18 18:34 AR [email or web address]) Current Condition History of Current Condition Onset Date 09/22/2017 Current Complaints imbalance with walking and ADLs History of Current Condition Pt noticed decline in balance about a year ago and believed it was mostly d/t pain in his L knee. Since cancer dx in March, pt has noticed a further decline in balance d/t weakness and fatigue from spending so much time in the hospital and cancer treatments . Prior Treatments and Tests none Treatment Goals Patient/Caregiver Goals Be able to walk independently w/o imbalance (at home, grocery store, golf course). Prior Functional Status Baseline Function- ADL's Independent Baseline Function- Mobility Independent Baseline Function- Gait Pt notes he used walk quite a bit before balance declined. Personal Factors Other Personal Factors That May Effect cancer treatment, fatigue Therapy/Recovery PT-OP-C Subjective Start: 09/08/18 08:13 Freq: Status: Active Protocol: Document 02/17/19 13:45 MT (Rec: 02/17/19 17:41 MT [email or web address]) OP-PT Subjective Patient Comments Patient Comments Pt reported that he feels much less tired today than he did last week. He has been working on tryign to do his ankle motions and exercises whenever he thinks about it. PT-OP-D Balance Start: 09/08/18 08:13 Freq: Status: Active Protocol: Document 12/03/18 10:30 AR (Rec: 12/03/18 16:28 AR [id number]) Balance Tests Veras Balance Test Veras Balance Test Score 49/56 Veras Impairment Rating 1 to 19% Impaired (Score 45-55 ) PT-OP-E Functional Tests Start: 09/08/18 08:13 Freq: Status: Active Protocol: Document 02/02/19 14:35 MT (Rec: 02/02/19 16:32 MT [email or web address]) Functional Tests Dynamic Gait Index (DGI) Score 17/24 DGI Impairment Rating 20 to <40% Impaired (Score 15- 19) PT-OP-J Posture/Palpation/Skin Start: 09/08/18 12:00 Freq: Status: Active Protocol: Document 11/10/18 15:15 LR (Rec: 11/10/18 15:30 [facility] [id number]) Posture Evaluation [facility] Postural Classification System Elbow Flexion Test 2 PT-OP-K Range of Motion Start: 09/08/18 12:00 Freq: Status: Active Protocol: Document 09/08/18 13:40 [facility] (Rec: 09/08/18 14:34 [facility] [id number]) Shoulder Goniometric Range of Motion Shoulder Right Passive Flexion 147 Abduction 123 External Rotation at 90 degrees 91 Abduction Internal Rotation 27 Left Active Testing Position Sitting Flexion 168 Extension 66 Abduction 140 External Rotation at 90 degrees 88 Abduction External Rotation at 0 degrees Abduction 91 Internal Rotation 78 Internal Rotation Behind Back (text) T7 Right Active Testing Position Sitting Flexion 125 Extension 40 Abduction 91 External Rotation at 90 degrees 78 Abduction External Rotation at 0 degrees Abduction 85 Internal Rotation 71 Internal Rotation Behind Back (text) L1 PT-OP-M Strength Start: 09/08/18 08:13 Freq: Status: Active Protocol: Document 11/10/18 15:15 LR (Rec: 11/10/18 15:29 [facility] [id number]) Shoulder Strength Shoulder Manual Muscle Testing Right Flexion 5 Normal Extension 5 Normal Abduction (C5) 5 Normal External Rotation 5 Normal Internal Rotation 5 Normal PT-OP-Q Treatments Start: 09/08/18 08:13 Freq: Status: Active Protocol: Document 02/17/19 13:45 MT (Rec: 02/17/19 17:41 MT [email or web address]) Gym Equipment Shuttle Balance red clips Details fwd/bck, side/side, WBOS Reps/Duration 10 weight shifts + 2 minute of attempting to balance Comments Pt struggles to have adequate ankle PF to tilt board forward . Pt challenged with balance in side to side direction and required 2 finger handhold. Therapeutic Ball seated Exercise Details marches and kicks Ball Size/Color silver Body Position Sitting Reps/Duration 15 each leg Therapeutic Exercises Sitting Exercises JAZMYNE Sitting Exercise Name single leg JAZMYNE PF Side bilateral Equipment Used JAZMYNE Reps/Minutes 20 each side and direction Ankle strength Sitting Exercise Name seated PF heel raises Side bilateral Reps/Minutes 20 Standing Exercises ankle strength Standing Exercise Name standing heel raises Side bilateral Comments pt able to lift a little, but still too difficult Neuro Re-Education Treatment Balance Activities stagger stance Surface blue and black therapad step ups Surface bosu Reps/Duration 10 per side tandem stance Details tandem stance Surface firm Reps/Duration 1 minute holds each PT-OP-R Modalities Start: 09/18/18 11:15 Freq: Status: Active Protocol: Document 02/02/19 14:35 MT (Rec: 02/02/19 16:32 MT [email or web address]) Hot Pack/Cold Pack Treatment Hot Pack Location ant & post shoulder, inf scar Patient Position Sidelying Treatment Duration (minutes) 15 Comments lumbar hot pack used PT-OP-T Assessment and Plan Start: 09/08/18 08:13 Freq: Status: Active Protocol: Document 02/17/19 13:45 MT (Rec: 02/17/19 17:41 MT [email or web address]) Physical Therapy Assessment Goals Gait Short Term Goal (STG) Pt will be able to amb with horizontal head turns w/o loss of balance for 50 feet. 11/10/18 - goal met, but pt still requires SBA. 12/03/18- goal met, but pt still requires SBA. 02/02/19 - goal met, but pt requires SBA STG Duration 03/04/2019 Balance Short Term Goal (STG) Pt will be able to turn and look over R and L shoulders without loss of balance, use of external support or supervision. 11/10/18- progressing, min LOB with turn L 12/03/18- progressing, min LOB with turn L. was able to perform with no LOB after few repetitions 02/02/19 - pt demonstrated LOB during turn to the right on first try. Remaining of the 3 attempts in each direction were performed without LOB STG Duration 03/04/2019 Motor Rebuilder Goal (LTG) Pt will increase his DGI score to 20/24 in order to improve his balance and safety during gait and decrease risk of falls. LTG Duration 04/04/19 weakness Short Term Goal (STG) Pt will be indep with HEP. STG Duration goal met Motor Rebuilder Goal (LTG) Pt will be able to score 5/5 w /UE strength & 3/5 for EFT to allow inc activity tolerance 11/10/18 - progressin. 5/5 MMTs , 2/5 EFT 12/03/18- not tested today 02/02/19 - pt scored a 1/5 LTG Duration 04/04/2019 activity Motor Rebuilder Goal (LTG) Pt will be able to golf without any issues. 11/10/18 - not tested today 12/03/18- minimal shoulder pain with larger swings. no balance problems with golfing 02/02/19 - pt reports that there is minimal problems with balance during the first hole when he is stiff and the last hole when he is fatigued. LTG Duration 04/04/2019 Assessment Summary Assessment Pt was able to tolerate more standing today. He was able to perform balance activities with emphasis on NBOS with less LOB events and more self- correction of postural deviations with standing balance. Pt is improving with his ability to perform PF strengthening exercises. Physical Therapy Plan Frequency and Duration Frequency of Treatment 1-2x/week Duration of Treatment 2 months Plan of Care Start Date 02/02/19 Plan of Care End Date 04/04/19 Next Visit Focus/Plan Next Note Type Treatment Note Next Visit Plan continue to work on dynamic balance, work on ankle mobility and plantar flexor strengthening, quad and glut strengthening.
--- NOTE | 2019-02-26 14:39 | PT.OTN ---
Current Diagnoses Squamous cell carcinoma of skin, unspecified (02/26/19) Stiffness of right shoulder, not elsewhere classified (02/26/19) Abnormal posture (02/26/19) Weakness (02/26/19) Physical Therapy Treatment Note PT-OP-A Visit Information Start: 09/08/18 08:13 Freq: Status: Active Protocol: Document 02/26/19 13:47 [facility] (Rec: 02/26/19 14:39 [facility] [id number]) Out-Patient Physical Therapy Visit Information Visit Information Visit Type Treatment Note Visit Start Time 13:47 Visit Stop Time 14:40 Total Visit Minutes 53 Visit Number 4 Number of POT BUILDER Visits 0 PT-OP-B Current Condition Start: 09/08/18 08:13 Freq: Status: Active Protocol: Document 10/01/18 16:45 AR (Rec: 10/01/18 18:34 AR [email or web address]) Current Condition History of Current Condition Onset Date 09/22/2017 Current Complaints imbalance with walking and ADLs History of Current Condition Pt noticed decline in balance about a year ago and believed it was mostly d/t pain in his L knee. Since cancer dx in March, pt has noticed a further decline in balance d/t weakness and fatigue from spending so much time in the hospital and cancer treatments . Prior Treatments and Tests none Treatment Goals Patient/Caregiver Goals Be able to walk independently w/o imbalance (at home, grocery store, golf course). Prior Functional Status Baseline Function- ADL's Independent Baseline Function- Mobility Independent Baseline Function- Gait Pt notes he used walk quite a bit before balance declined. Personal Factors Other Personal Factors That May Effect cancer treatment, fatigue Therapy/Recovery PT-OP-C Subjective Start: 09/08/18 08:13 Freq: Status: Active Protocol: Document 02/26/19 13:47 [facility] (Rec: 02/26/19 14:39 [facility] [id number]) OP-PT Subjective Patient Comments Patient Comments Pt report sshouldres feel stiff from not doing much. PT-OP-D Balance Start: 09/08/18 08:13 Freq: Status: Active Protocol: Document 12/03/18 10:30 AR (Rec: 12/03/18 16:28 AR [id number]) Balance Tests Veras Balance Test Veras Balance Test Score 49/56 Veras Impairment Rating 1 to 19% Impaired (Score 45-55 ) PT-OP-E Functional Tests Start: 09/08/18 08:13 Freq: Status: Active Protocol: Document 02/02/19 14:35 MT (Rec: 02/02/19 16:32 MT [email or web address]) Functional Tests Dynamic Gait Index (DGI) Score DGI Impairment Rating 20 to <40% Impaired (Score 15- 19) PT-OP-J Posture/Palpation/Skin Start: 09/08/18 12:00 Freq: Status: Active Protocol: Document 11/10/18 15:15 [facility] (Rec: 11/10/18 15:30 [facility] [id number]) Posture Evaluation [facility] Postural Classification System Elbow Flexion Test 2 PT-OP-K Range of Motion Start: 09/08/18 12:00 Freq: Status: Active Protocol: Document 09/08/18 13:40 [facility] (Rec: 09/08/18 14:34 [facility] [id number]) Shoulder Goniometric Range of Motion Shoulder Right Passive Flexion 147 Abduction 123 External Rotation at 90 degrees 91 Abduction Internal Rotation 27 Left Active Testing Position Sitting Flexion 168 Extension 66 Abduction 140 External Rotation at 90 degrees 88 Abduction External Rotation at 0 degrees Abduction 91 Internal Rotation 78 Internal Rotation Behind Back (text) T7 Right Active Testing Position Sitting Flexion 125 Extension 40 Abduction 91 External Rotation at 90 degrees 78 Abduction External Rotation at 0 degrees Abduction 85 Internal Rotation 71 Internal Rotation Behind Back (text) L1 PT-OP-M Strength Start: 09/08/18 08:13 Freq: Status: Active Protocol: Document 11/10/18 15:15 [facility] (Rec: 11/10/18 15:29 [facility] [id number]) Shoulder Strength Shoulder Manual Muscle Testing Right Flexion 5 Normal Extension 5 Normal Abduction (C5) 5 Normal External Rotation 5 Normal Internal Rotation 5 Normal PT-OP-Q Treatments Start: 09/08/18 08:13 Freq: Status: Active Protocol: Document 02/26/19 13:47 [facility] (Rec: 02/26/19 14:39 [facility] [id number]) Therapeutic Exercises Sitting Exercises JAZMYNE Sitting Exercise Name B leg JAZMYNE PF Side bilateral Equipment Used JAZMYNE Reps/Minutes 20 each side and direction Ankle strength Sitting Exercise Name PF & DF Side bilateral Reps/Minutes 30 ea Standing Exercises sit<>stand Reps/Minutes 6 ankle strength Standing Exercise Name JAZMYNE PF Side bilateral Equipment Used rail Reps/Minutes 20 TKE Side bilateral Equipment Used L2 Reps/Minutes 30 Neuro Re-Education Treatment Balance Activities rocker board Details ankle PF and DF on rocker board Comments pt struggled with ROM with PF walking w head turns Details vertical, hortizontal & diagonal Reps/Duration 4x50ft static stance Comments 1. blue tpads staggered stance with head turns 2. NBOS with EC PT-OP-R Modalities Start: 09/18/18 11:15 Freq: Status: Active Protocol: Document 02/26/19 13:47 [facility] (Rec: 02/26/19 14:39 [facility] [id number]) Hot Pack/Cold Pack Treatment Hot Pack Location ant & post shoulder, inf scar Patient Position Sidelying Treatment Duration (minutes) 15 Comments lumbar hot pack used PT-OP-T Assessment and Plan Start: 09/08/18 08:13 Freq: Status: Active Protocol: Document 02/26/19 13:47 [facility] (Rec: 02/26/19 14:39 [facility] [id number]) Physical Therapy Assessment Goals Gait Short Term Goal (STG) Pt will be able to amb with horizontal head turns w/o loss of balance for 50 feet. 11/10/18 - goal met, but pt still requires SBA. 12/03/18- goal met, but pt still requires SBA. 02/02/19 - goal met, but pt requires SBA STG Duration 03/04/2019 Balance Short Term Goal (STG) Pt will be able to turn and look over R and L shoulders without loss of balance, use of external support or supervision. 11/10/18- progressing, min LOB with turn L 12/03/18- progressing, min LOB with turn L. was able to perform with no LOB after few repetitions 02/02/19 - pt demonstrated LOB during turn to the right on first try. Remaining of the 3 attempts in each direction were performed without LOB STG Duration 03/04/2019 Residential Goal (LTG) Pt will increase his DGI score to 20/24 in order to improve his balance and safety during gait and decrease risk of falls. LTG Duration 04/04/19 weakness Short Term Goal (STG) Pt will be indep with HEP. STG Duration goal met Brass Sorter Goal (LTG) Pt will be able to score 5/5 w /UE strength & 3/5 for EFT to allow inc activity tolerance 11/10/18 - progressin. 5/5 MMTs , 2/5 EFT 12/03/18- not tested today 02/02/19 - pt scored a 1/5 LTG Duration 04/04/2019 activity Residential Goal (LTG) Pt will be able to golf without any issues. 11/10/18 - not tested today 12/03/18- minimal shoulder pain with larger swings. no balance problems with golfing 02/02/19 - pt reports that there is minimal problems with balance during the first hole when he is stiff and the last hole when he is fatigued. LTG Duration 04/04/2019 Assessment Summary Assessment Pt did better today with PF in seated position but still had difficulty in standing. He did well with balance tasks today and was encouraged by his performance. Physical Therapy Plan Frequency and Duration Frequency of Treatment 1-2x/week Duration of Treatment 2 months Plan of Care Start Date 02/02/19 Plan of Care End Date 04/04/19 Next Visit Focus/Plan Next Note Type Treatment Note Next Visit Plan continue to work on dynamic balance, work on ankle mobility and plantar flexor strengthening, quad and glut strengthening.
--- NOTE | 2019-03-02 18:33 | PT.OTN ---
Current Diagnoses Squamous cell carcinoma of skin, unspecified (03/02/19) Stiffness of right shoulder, not elsewhere classified (03/02/19) Abnormal posture (03/02/19) Weakness (03/02/19) Physical Therapy Treatment Note PT-OP-A Visit Information Start: 09/08/18 08:13 Freq: Status: Active Protocol: Document 03/02/19 14:33 MT (Rec: 03/02/19 16:01 MT [id number]) Out-Patient Physical Therapy Visit Information Visit Information Visit Type Treatment Note Visit Start Time 14:33 Visit Stop Time 15:30 Total Visit Minutes 57 Visit Number 5/ Number of ENGRAVER PICTURE Visits 0 PT-OP-B Current Condition Start: 09/08/18 08:13 Freq: Status: Active Protocol: Document 10/01/18 16:45 AR (Rec: 10/01/18 18:34 AR [id number]) Current Condition History of Current Condition Onset Date 09/22/2017 Current Complaints imbalance with walking and ADLs History of Current Condition Pt noticed decline in balance about a year ago and believed it was mostly d/t pain in his L knee. Since cancer dx in March, pt has noticed a further decline in balance d/t weakness and fatigue from spending so much time in the hospital and cancer treatments . Prior Treatments and Tests none Treatment Goals Patient/Caregiver Goals Be able to walk independently w/o imbalance (at home, grocery store, golf course). Prior Functional Status Baseline Function- ADL's Independent Baseline Function- Mobility Independent Baseline Function- Gait Pt notes he used walk quite a bit before balance declined. Personal Factors Other Personal Factors That May Effect cancer treatment, fatigue Therapy/Recovery PT-OP-C Subjective Start: 09/08/18 08:13 Freq: Status: Active Protocol: Document 03/02/19 14:33 MT (Rec: 03/02/19 16:01 MT [id number]) OP-PT Subjective Patient Comments Patient Comments Pt remarked that his shoulder was stiff today after having to drive to [place] and back. He remarked that the exercises for the morning routine help to reduce his general stiffness in the morning PT-OP-D Balance Start: 09/08/18 08:13 Freq: Status: Active Protocol: Document 12/03/18 10:30 AR (Rec: 12/03/18 16:28 AR [id number]) Balance Tests Veras Balance Test Veras Balance Test Score 49/56 Veras Impairment Rating 1 to 19% Impaired (Score 45-55 ) PT-OP-E Functional Tests Start: 09/08/18 08:13 Freq: Status: Active Protocol: Document 02/02/19 14:35 MT (Rec: 02/02/19 16:32 MT [email or web address]) Functional Tests Dynamic Gait Index (DGI) Score 17/24 DGI Impairment Rating 20 to <40% Impaired (Score 15- 19) PT-OP-J Posture/Palpation/Skin Start: 09/08/18 12:00 Freq: Status: Active Protocol: Document 11/10/18 15:15 [facility] (Rec: 11/10/18 15:30 [facility] [id number]) Posture Evaluation [facility] Postural Classification System Elbow Flexion Test 2 PT-OP-K Range of Motion Start: 09/08/18 12:00 Freq: Status: Active Protocol: Document 09/08/18 13:40 [facility] (Rec: 09/08/18 14:34 [facility] [id number]) Shoulder Goniometric Range of Motion Shoulder Right Passive Flexion 147 Abduction 123 External Rotation at 90 degrees 91 Abduction Internal Rotation 27 Left Active Testing Position Sitting Flexion 168 Extension 66 Abduction 140 External Rotation at 90 degrees 88 Abduction External Rotation at 0 degrees Abduction 91 Internal Rotation 78 Internal Rotation Behind Back (text) T7 Right Active Testing Position Sitting Flexion 125 Extension 40 Abduction 91 External Rotation at 90 degrees 78 Abduction External Rotation at 0 degrees Abduction 85 Internal Rotation 71 Internal Rotation Behind Back (text) L1 PT-OP-M Strength Start: 09/08/18 08:13 Freq: Status: Active Protocol: Document 11/10/18 15:15 LR (Rec: 11/10/18 15:29 [facility] [id number]) Shoulder Strength Shoulder Manual Muscle Testing Right Flexion 5 Normal Extension 5 Normal Abduction (C5) 5 Normal External Rotation 5 Normal Internal Rotation 5 Normal PT-OP-Q Treatments Start: 09/08/18 08:13 Freq: Status: Active Protocol: Document 03/02/19 14:33 MT (Rec: 03/02/19 16:01 MT [id number]) Gym Equipment Shuttle Balance red clips Details fwd/bck, side/side, WBOS Reps/Duration 10 weight shifts + 2 minute of attempting to balance Comments Pt struggles to have adequate ankle PF to tilt board forward . Pt challenged with balance in side to side direction and required 2 finger handhold. Therapeutic Exercises Sitting Exercises JAZMYNE Sitting Exercise Name B leg JAZMYNE PF Side bilateral Equipment Used JAZMYNE Reps/Minutes 20 each side and direction Ankle strength Sitting Exercise Name seated PF heel raises Side bilateral Reps/Minutes 20 Standing Exercises Pec stretch Standing Exercise Name doorway stretch Lat stretch Standing Exercise Name doorway Manual Therapy Treatment Joint Mobilizations ankle Joint calcaneal distraction Body Position II Neuro Re-Education Treatment Balance Activities stagger stance Surface yellow dynadisc and black therapad PT-OP-R Modalities Start: 09/18/18 11:15 Freq: Status: Active Protocol: Document 03/02/19 14:33 MT (Rec: 03/02/19 18:18 MT [id number]) Hot Pack/Cold Pack Treatment Hot Pack Location ant & post shoulder, inf scar Patient Position Sidelying Treatment Duration (minutes) 15 Comments lumbar hot pack used PT-OP-T Assessment and Plan Start: 09/08/18 08:13 Freq: Status: Active Protocol: Document 03/02/19 14:33 MT (Rec: 03/02/19 16:01 MT [id number]) Physical Therapy Assessment Goals Gait Short Term Goal (STG) Pt will be able to amb with horizontal head turns w/o loss of balance for 50 feet. 11/10/18 - goal met, but pt still requires SBA. 12/03/18- goal met, but pt still requires SBA. 02/02/19 - goal met, but pt requires SBA STG Duration 03/04/2019 Balance Short Term Goal (STG) Pt will be able to turn and look over R and L shoulders without loss of balance, use of external support or supervision. 11/10/18- progressing, min LOB with turn L 12/03/18- progressing, min LOB with turn L. was able to perform with no LOB after few repetitions 02/02/19 - pt demonstrated LOB during turn to the right on first try. Remaining of the 3 attempts in each direction were performed without LOB STG Duration 03/04/2019 Skilled Nursing Goal (LTG) Pt will increase his DGI score to 20/24 in order to improve his balance and safety during gait and decrease risk of falls. LTG Duration 04/04/19 weakness Short Term Goal (STG) Pt will be indep with HEP. STG Duration goal met Concierge Receptionist Goal (LTG) Pt will be able to score 5/5 w /UE strength & 3/5 for EFT to allow inc activity tolerance 11/10/18 - progressin. 5/5 MMTs , 2/5 EFT 12/03/18- not tested today 02/02/19 - pt scored a 1/5 LTG Duration 04/04/2019 activity Skilled Nursing Goal (LTG) Pt will be able to golf without any issues. 11/10/18 - not tested today 12/03/18- minimal shoulder pain with larger swings. no balance problems with golfing 02/02/19 - pt reports that there is minimal problems with balance during the first hole when he is stiff and the last hole when he is fatigued. LTG Duration 04/04/2019 Assessment Summary Assessment Pt continues to have difficulty with strength and ROM of B ankles for PF, which prevents him from using ankle strategy during balance exercises on uneven surfaces. Pt had increased AROM of ankle PF following calcaneal distraction of R ankle. Reviewed shoulder stretches for pt due to complaints of shoulder tightness Physical Therapy Plan Frequency and Duration Frequency of Treatment 1-2x/week Duration of Treatment 2 months Plan of Care Start Date 02/02/19 Plan of Care End Date 04/04/19 Next Visit Focus/Plan Next Note Type Treatment Note Next Visit Plan joint mobs on B ankles, assess [id number] to last session, continue to work on dynamic balance, work on ankle mobility and plantar flexor strengthening, quad and glut strengthening.
--- NOTE | 2019-03-09 18:41 | PT.OTN ---
Current Diagnoses Squamous cell carcinoma of skin, unspecified (03/09/19) Stiffness of right shoulder, not elsewhere classified (03/09/19) Abnormal posture (03/09/19) Weakness (03/09/19) Physical Therapy Treatment Note PT-OP-A Visit Information Start: 09/08/18 08:13 Freq: Status: Active Protocol: Document 03/09/19 14:37 MT (Rec: 03/09/19 15:43 MT [id number]) Out-Patient Physical Therapy Visit Information Visit Information Visit Type Treatment Note Visit Start Time 14:37 Visit Stop Time 15:15 Total Visit Minutes 53 Visit Number 09/01 Number of ECONOMIC DEVELOPMENT MANAGER Visits 0 PT-OP-B Current Condition Start: 09/08/18 08:13 Freq: Status: Active Protocol: Document 10/01/18 16:45 AR (Rec: 10/01/18 18:34 AR [id number]) Current Condition History of Current Condition Onset Date 09/22/2017 Current Complaints imbalance with walking and ADLs History of Current Condition Pt noticed decline in balance about a year ago and believed it was mostly d/t pain in his L knee. Since cancer dx in March, pt has noticed a further decline in balance d/t weakness and fatigue from spending so much time in the hospital and cancer treatments . Prior Treatments and Tests none Treatment Goals Patient/Caregiver Goals Be able to walk independently w/o imbalance (at home, grocery store, golf course). Prior Functional Status Baseline Function- ADL's Independent Baseline Function- Mobility Independent Baseline Function- Gait Pt notes he used walk quite a bit before balance declined. Personal Factors Other Personal Factors That May Effect cancer treatment, fatigue Therapy/Recovery PT-OP-C Subjective Start: 09/08/18 08:13 Freq: Status: Active Protocol: Document 03/09/19 14:37 MT (Rec: 03/09/19 15:43 MT [id number]) OP-PT Subjective Patient Comments Patient Comments Pt reported that he is just getting over his fatigue from the last infusion session 6 days ago. He reports that his R foot felt good for up to 3 days following the joint mobilizations from last session. PT-OP-D Balance Start: 09/08/18 08:13 Freq: Status: Active Protocol: Document 12/03/18 10:30 AR (Rec: 12/03/18 16:28 AR [id number]) Balance Tests Veras Balance Test Veras Balance Test Score 49/56 Veras Impairment Rating 1 to 19% Impaired (Score 45-55 ) PT-OP-E Functional Tests Start: 09/08/18 08:13 Freq: Status: Active Protocol: Document 02/02/19 14:35 MT (Rec: 02/02/19 16:32 MT [email or web address]) Functional Tests Dynamic Gait Index (DGI) Score 17/24 DGI Impairment Rating 20 to <40% Impaired (Score 15- 19) PT-OP-J Posture/Palpation/Skin Start: 09/08/18 12:00 Freq: Status: Active Protocol: Document 11/10/18 15:15 [facility] (Rec: 11/10/18 15:30 [facility] [id number]) Posture Evaluation [facility] Postural Classification System Elbow Flexion Test 2 PT-OP-K Range of Motion Start: 09/08/18 12:00 Freq: Status: Active Protocol: Document 09/08/18 13:40 [facility] (Rec: 09/08/18 14:34 [facility] [id number]) Shoulder Goniometric Range of Motion Shoulder Right Passive Flexion 147 Abduction 123 External Rotation at 90 degrees 91 Abduction Internal Rotation 27 Left Active Testing Position Sitting Flexion 168 Extension 66 Abduction 140 External Rotation at 90 degrees 88 Abduction External Rotation at 0 degrees Abduction 91 Internal Rotation 78 Internal Rotation Behind Back (text) T7 Right Active Testing Position Sitting Flexion 125 Extension 40 Abduction 91 External Rotation at 90 degrees 78 Abduction External Rotation at 0 degrees Abduction 85 Internal Rotation 71 Internal Rotation Behind Back (text) L1 PT-OP-M Strength Start: 09/08/18 08:13 Freq: Status: Active Protocol: Document 11/10/18 15:15 LR (Rec: 11/10/18 15:29 [facility] [id number]) Shoulder Strength Shoulder Manual Muscle Testing Right Flexion 5 Normal Extension 5 Normal Abduction (C5) 5 Normal External Rotation 5 Normal Internal Rotation 5 Normal PT-OP-Q Treatments Start: 09/08/18 08:13 Freq: Status: Active Protocol: Document 03/09/19 14:37 MT (Rec: 03/09/19 15:43 MT [id number]) Gym Equipment Shuttle Balance red clips Details fwd/bck, side/side, WBOS Reps/Duration 10 weight shifts + 2 minute of attempting to balance Comments Pt struggles to have adequate ankle PF to tilt board forward . Pt challenged with balance in side to side direction and required 2 finger handhold. Therapeutic Exercises Sitting Exercises JAZMYNE Sitting Exercise Name B leg JAZMYNE PF Side bilateral Equipment Used JAZMYNE Reps/Minutes 20 each side and direction Ankle strength Sitting Exercise Name seated PF heel raises Side bilateral Reps/Minutes 20 Manual Therapy Treatment Joint Mobilizations ankle Joint B calcaneal distraction and anterior roll Grade II Body Position Supine Neuro Re-Education Treatment Balance Activities stagger stance Surface yellow and blue dynadisc step ups Details on bosu Surface blue Reps/Duration 15 each side PT-OP-R Modalities Start: 09/18/18 11:15 Freq: Status: Active Protocol: Document 03/09/19 14:37 MT (Rec: 03/09/19 15:43 MT [id number]) Hot Pack/Cold Pack Treatment Hot Pack Location ant & post shoulder, inf scar Patient Position Sidelying Treatment Duration (minutes) 15 Comments lumbar hot pack used PT-OP-T Assessment and Plan Start: 09/08/18 08:13 Freq: Status: Active Protocol: Document 03/09/19 14:37 MT (Rec: 03/09/19 15:43 MT [id number]) Physical Therapy Assessment Goals Gait Short Term Goal (STG) Pt will be able to amb with horizontal head turns w/o loss of balance for 50 feet. 11/10/18 - goal met, but pt still requires SBA. 12/03/18- goal met, but pt still requires SBA. 02/02/19 - goal met, but pt requires SBA STG Duration 03/04/2019 Balance Short Term Goal (STG) Pt will be able to turn and look over R and L shoulders without loss of balance, use of external support or supervision. 11/10/18- progressing, min LOB with turn L 12/03/18- progressing, min LOB with turn L. was able to perform with no LOB after few repetitions 02/02/19 - pt demonstrated LOB during turn to the right on first try. Remaining of the 3 attempts in each direction were performed without LOB STG Duration 03/04/2019 Longterm Goal (LTG) Pt will increase his DGI score to 20/24 in order to improve his balance and safety during gait and decrease risk of falls. LTG Duration 04/04/19 weakness Short Term Goal (STG) Pt will be indep with HEP. STG Duration goal met Longterm Goal (LTG) Pt will be able to score 5/5 w /UE strength & 3/5 for EFT to allow inc activity tolerance 11/10/18 - progressin. 5/5 MMTs , 2/5 EFT 12/03/18- not tested today 02/02/19 - pt scored a 1/5 LTG Duration 04/04/2019 activity Can Inspector Goal (LTG) Pt will be able to golf without any issues. 11/10/18 - not tested today 12/03/18- minimal shoulder pain with larger swings. no balance problems with golfing 02/02/19 - pt reports that there is minimal problems with balance during the first hole when he is stiff and the last hole when he is fatigued. LTG Duration 04/04/2019 Assessment Summary Assessment Pt had improved ability to maintain his balance on the red [employer] balance board in the side/side position. he continues to struggle with implementing ankle strategy for maintaining balance. Pt had good tolerance to last session with use of joint mobs and was able to achieve greater ROM with ankle PF following joint mobilizations with his exercises. Physical Therapy Plan Frequency and Duration Frequency of Treatment 1-2x/week Duration of Treatment 2 months Plan of Care Start Date 02/02/19 Plan of Care End Date 04/04/19 Next Visit Focus/Plan Next Note Type Treatment Note Next Visit Plan continue with joint mobilizations, continue to work on dynamic balance, work on ankle mobility and plantar flexor strengthening, quad and glut strengthening.
--- NOTE | 2019-03-17 11:19 | PT.OTN ---
Current Diagnoses Squamous cell carcinoma of skin, unspecified (03/17/19) Stiffness of right shoulder, not elsewhere classified (03/17/19) Abnormal posture (03/17/19) Weakness (03/17/19) Physical Therapy Treatment Note PT-OP-A Visit Information Start: 09/08/18 08:13 Freq: Status: Active Protocol: Document 03/17/19 10:39 [facility] (Rec: 03/17/19 11:19 [facility] [id number]) Out-Patient Physical Therapy Visit Information Visit Information Visit Type Treatment Note Visit Start Time 10:35 Visit Stop Time 11:29 Total Visit Minutes 54 Visit Number 10/01 Number of SUPPLY CHAIN GENERALIST Visits 0 PT-OP-B Current Condition Start: 09/08/18 08:13 Freq: Status: Active Protocol: Document 10/01/18 16:45 AR (Rec: 10/01/18 18:34 AR [id number]) Current Condition History of Current Condition Onset Date 09/22/2017 Current Complaints imbalance with walking and ADLs History of Current Condition Pt noticed decline in balance about a year ago and believed it was mostly d/t pain in his L knee. Since cancer dx in March, pt has noticed a further decline in balance d/t weakness and fatigue from spending so much time in the hospital and cancer treatments . Prior Treatments and Tests none Treatment Goals Patient/Caregiver Goals Be able to walk independently w/o imbalance (at home, grocery store, golf course). Prior Functional Status Baseline Function- ADL's Independent Baseline Function- Mobility Independent Baseline Function- Gait Pt notes he used walk quite a bit before balance declined. Personal Factors Other Personal Factors That May Effect cancer treatment, fatigue Therapy/Recovery PT-OP-C Subjective Start: 09/08/18 08:13 Freq: Status: Active Protocol: Document 03/17/19 10:39 [facility] (Rec: 03/17/19 11:19 [facility] [id number]) OP-PT Subjective Patient Comments Patient Comments Pt reports he has difficulty with finding something for AAROM PF/DF. PT-OP-D Balance Start: 09/08/18 08:13 Freq: Status: Active Protocol: Document 12/03/18 10:30 AR (Rec: 12/03/18 16:28 AR [id number]) Balance Tests Veras Balance Test Veras Balance Test Score 49/56 Veras Impairment Rating 1 to 19% Impaired (Score 45-55 ) PT-OP-E Functional Tests Start: 09/08/18 08:13 Freq: Status: Active Protocol: Document 02/02/19 14:35 MT (Rec: 02/02/19 16:32 MT [email or web address]) Functional Tests Dynamic Gait Index (DGI) Score DGI Impairment Rating 20 to <40% Impaired (Score 15- 19) PT-OP-J Posture/Palpation/Skin Start: 09/08/18 12:00 Freq: Status: Active Protocol: Document 11/10/18 15:15 [facility] (Rec: 11/10/18 15:30 [facility] [id number]) Posture Evaluation [facility] Postural Classification System Elbow Flexion Test 2 PT-OP-K Range of Motion Start: 09/08/18 12:00 Freq: Status: Active Protocol: Document 09/08/18 13:40 [facility] (Rec: 09/08/18 14:34 [facility] [id number]) Shoulder Goniometric Range of Motion Shoulder Right Passive Flexion 147 Abduction 123 External Rotation at 90 degrees 91 Abduction Internal Rotation 27 Left Active Testing Position Sitting Flexion 168 Extension 66 Abduction 140 External Rotation at 90 degrees 88 Abduction External Rotation at 0 degrees Abduction 91 Internal Rotation 78 Internal Rotation Behind Back (text) T7 Right Active Testing Position Sitting Flexion 125 Extension 40 Abduction 91 External Rotation at 90 degrees 78 Abduction External Rotation at 0 degrees Abduction 85 Internal Rotation 71 Internal Rotation Behind Back (text) L1 PT-OP-M Strength Start: 09/08/18 08:13 Freq: Status: Active Protocol: Document 11/10/18 15:15 [facility] (Rec: 11/10/18 15:29 [facility] [id number]) Shoulder Strength Shoulder Manual Muscle Testing Right Flexion 5 Normal Extension 5 Normal Abduction (C5) 5 Normal External Rotation 5 Normal Internal Rotation 5 Normal PT-OP-Q Treatments Start: 09/08/18 08:13 Freq: Status: Active Protocol: Document 03/17/19 10:39 [facility] (Rec: 03/17/19 11:19 [facility] [id number]) Cardio Equipment Recumbent Stepper (Sci-Fit) Duration (Minutes) 5 Resistance 2 Seat Position 14 Therapeutic Exercises Sitting Exercises Ankle strength Sitting Exercise Name long sit PF& seated eversion Side bilateral Equipment Used L1 Reps/Minutes 30 ea Manual Therapy Treatment Joint Mobilizations ankle Comments 1. B calcaneal distraciton 2. L AP talar mob Fm 3. AP distal Tibfib of fib FM Neuro Re-Education Treatment Balance Activities rocker board Details fwd/back w/manula knee blocking Comments rail PRN stagger stance Details blue tpad in back & blue dynadisc in front Comments focus on foot position PT-OP-R Modalities Start: 09/18/18 11:15 Freq: Status: Active Protocol: Document 03/17/19 10:39 [facility] (Rec: 03/17/19 11:19 [facility] [id number]) Hot Pack/Cold Pack Treatment Hot Pack Location ant & post shoulder, inf scar Patient Position Sidelying Treatment Duration (minutes) 15 Comments lumbar hot pack used PT-OP-T Assessment and Plan Start: 09/08/18 08:13 Freq: Status: Active Protocol: Document 03/17/19 10:39 [facility] (Rec: 03/17/19 11:19 [facility] [id number]) Physical Therapy Assessment Goals Gait Short Term Goal (STG) Pt will be able to amb with horizontal head turns w/o loss of balance for 50 feet. 11/10/18 - goal met, but pt still requires SBA. 12/03/18- goal met, but pt still requires SBA. 02/02/19 - goal met, but pt requires SBA STG Duration 03/04/2019 Balance Short Term Goal (STG) Pt will be able to turn and look over R and L shoulders without loss of balance, use of external support or supervision. 11/10/18- progressing, min LOB with turn L 12/03/18- progressing, min LOB with turn L. was able to perform with no LOB after few repetitions 02/02/19 - pt demonstrated LOB during turn to the right on first try. Remaining of the 3 attempts in each direction were performed without LOB STG Duration 03/04/2019 Cyber Intelligence Analyst Goal (LTG) Pt will increase his DGI score to 20/24 in order to improve his balance and safety during gait and decrease risk of falls. LTG Duration 04/04/19 weakness Short Term Goal (STG) Pt will be indep with HEP. STG Duration goal met Cyber Intelligence Analyst Goal (LTG) Pt will be able to score 5/5 w /UE strength & 3/5 for EFT to allow inc activity tolerance 11/10/18 - progressin. 5/ MMTs , 2/5 EFT 12/03/18- not tested today 02/02/19 - pt scored a 1/ LTG Duration 04/04/2019 activity Cyber Intelligence Analyst Goal (LTG) Pt will be able to golf without any issues. 11/10/18 - not tested today 12/03/18- minimal shoulder pain with larger swings. no balance problems with golfing 02/02/19 - pt reports that there is minimal problems with balance during the first hole when he is stiff and the last hole when he is fatigued. LTG Duration 04/04/2019 Assessment Summary Assessment Improved PF with mobilizations but pt is weak at end ranges. He cont to stand very lat on L foot which likely contributes difficulty to use ankle strategies during balance tasks Physical Therapy Plan Frequency and Duration Frequency of Treatment 1-2x/week Duration of Treatment 2 months Plan of Care Start Date 02/02/19 Plan of Care End Date 04/04/19 Next Visit Focus/Plan Next Note Type Treatment Note Next Visit Plan continue with joint mobilizations, continue to work on dynamic balance, work on ankle mobility and plantar flexor strengthening, quad and glut strengthening.
--- NOTE | 2019-03-23 16:02 | PT.OTN ---
Current Diagnoses Squamous cell carcinoma of skin, unspecified (03/23/19) Stiffness of right shoulder, not elsewhere classified (03/23/19) Abnormal posture (03/23/19) Weakness (03/23/19) Physical Therapy Treatment Note PT-OP-A Visit Information Start: 09/08/18 08:13 Freq: Status: Active Protocol: Document 03/23/19 15:28 [facility] (Rec: 03/23/19 16:02 [facility] [id number]) Out-Patient Physical Therapy Visit Information Visit Information Visit Type Treatment Note Visit Start Time 15:21 Visit Stop Time 16:14 Total Visit Minutes 53 Visit Number 8/ Number of MECHANICAL COMMISSIONING ENGINEER Visits 0 PT-OP-B Current Condition Start: 09/08/18 08:13 Freq: Status: Active Protocol: Document 10/01/18 16:45 [facility] (Rec: 10/01/18 18:34 AR [id number]) Current Condition History of Current Condition Onset Date 09/22/2017 Current Complaints imbalance with walking and ADLs History of Current Condition Pt noticed decline in balance about a year ago and believed it was mostly d/t pain in his L knee. Since cancer dx in March, pt has noticed a further decline in balance d/t weakness and fatigue from spending so much time in the hospital and cancer treatments . Prior Treatments and Tests none Treatment Goals Patient/Caregiver Goals Be able to walk independently w/o imbalance (at home, grocery store, golf course). Prior Functional Status Baseline Function- ADL's Independent Baseline Function- Mobility Independent Baseline Function- Gait Pt notes he used walk quite a bit before balance declined. Personal Factors Other Personal Factors That May Effect cancer treatment, fatigue Therapy/Recovery PT-OP-C Subjective Start: 09/08/18 08:13 Freq: Status: Active Protocol: Document 03/23/19 15:28 [facility] (Rec: 03/23/19 16:02 [facility] [id number]) OP-PT Subjective Patient Comments Patient Comments Pt reports he has been doing AROM ankle motion often. Sees for his knee saturday PT-OP-D Balance Start: 09/08/18 08:13 Freq: Status: Active Protocol: Document 12/03/18 10:30 AR (Rec: 12/03/18 16:28 AR [id number]) Balance Tests Veras Balance Test Veras Balance Test Score 49/56 Veras Impairment Rating 1 to 19% Impaired (Score 45-55 ) PT-OP-E Functional Tests Start: 09/08/18 08:13 Freq: Status: Active Protocol: Document 02/02/19 14:35 MT (Rec: 02/02/19 16:32 MT [id number]) Functional Tests Dynamic Gait Index (DGI) Score DGI Impairment Rating 20 to <40% Impaired (Score 15- 19) PT-OP-J Posture/Palpation/Skin Start: 09/08/18 12:00 Freq: Status: Active Protocol: Document 11/10/18 15:15 [facility] (Rec: 11/10/18 15:30 [facility] [id number]) Posture Evaluation [facility] Postural Classification System Elbow Flexion Test 2 PT-OP-K Range of Motion Start: 09/08/18 12:00 Freq: Status: Active Protocol: Document 09/08/18 13:40 [facility] (Rec: 09/08/18 14:34 [facility] [id number]) Shoulder Goniometric Range of Motion Shoulder Right Passive Flexion 147 Abduction 123 External Rotation at 90 degrees 91 Abduction Internal Rotation 27 Left Active Testing Position Sitting Flexion 168 Extension 66 Abduction 140 External Rotation at 90 degrees 88 Abduction External Rotation at 0 degrees Abduction 91 Internal Rotation 78 Internal Rotation Behind Back (text) T7 Right Active Testing Position Sitting Flexion 125 Extension 40 Abduction 91 External Rotation at 90 degrees 78 Abduction External Rotation at 0 degrees Abduction 85 Internal Rotation 71 Internal Rotation Behind Back (text) L1 PT-OP-M Strength Start: 09/08/18 08:13 Freq: Status: Active Protocol: Document 11/10/18 15:15 [facility] (Rec: 11/10/18 15:29 [facility] [id number]) Shoulder Strength Shoulder Manual Muscle Testing Right Flexion 5 Normal Extension 5 Normal Abduction (C5) 5 Normal External Rotation 5 Normal Internal Rotation 5 Normal PT-OP-Q Treatments Start: 09/08/18 08:13 Freq: Status: Active Protocol: Document 03/23/19 15:28 [facility] (Rec: 03/23/19 16:02 [facility] [id number]) Cardio Equipment Recumbent Elliptical (Nixon) Duration (Minutes) 6 Resistance 4 Therapeutic Exercises Sitting Exercises JAZMYNE Sitting Exercise Name balance board PF/DF Side bilateral Reps/Minutes 30 Manual Therapy Treatment Joint Mobilizations ankle Comments 1. L calcaneal distraciton & lat gapping FM 2. L AP& distraction talar mob Fm 3. AP distal Tibfib of fib FM Neuro Re-Education Treatment Balance Activities static stance Details on bosu balancing stagger stance Details black tpad in back & blue dynadisc in front Comments focus on foot position PT-OP-R Modalities Start: 09/18/18 11:15 Freq: Status: Active Protocol: Document 03/23/19 15:28 [facility] (Rec: 03/23/19 16:02 [facility] [id number]) Hot Pack/Cold Pack Treatment Hot Pack Location ant & post shoulder, inf scar Patient Position Sidelying Treatment Duration (minutes) 15 Comments lumbar hot pack used PT-OP-T Assessment and Plan Start: 09/08/18 08:13 Freq: Status: Active Protocol: Document 03/23/19 15:28 [facility] (Rec: 03/23/19 16:02 [facility] [id number]) Physical Therapy Assessment Goals Gait Short Term Goal (STG) Pt will be able to amb with horizontal head turns w/o loss of balance for 50 feet. 11/10/18 - goal met, but pt still requires SBA. 12/03/18- goal met, but pt still requires SBA. 02/02/19 - goal met, but pt requires SBA STG Duration 03/04/2019 Balance Short Term Goal (STG) Pt will be able to turn and look over R and L shoulders without loss of balance, use of external support or supervision. 11/10/18- progressing, min LOB with turn L 12/03/18- progressing, min LOB with turn L. was able to perform with no LOB after few repetitions 02/02/19 - pt demonstrated LOB during turn to the right on first try. Remaining of the 3 attempts in each direction were performed without LOB STG Duration 03/04/2019 Jail Goal (LTG) Pt will increase his DGI score to 20/24 in order to improve his balance and safety during gait and decrease risk of falls. LTG Duration 04/04/19 weakness Short Term Goal (STG) Pt will be indep with HEP. STG Duration goal met Jail Goal (LTG) Pt will be able to score 5/5 w /UE strength & 3/5 for EFT to allow inc activity tolerance 11/10/18 - progressin. 5/5 MMTs , 2/5 EFT 12/03/18- not tested today 02/02/19 - pt scored a 03/29 LTG Duration 04/04/2019 activity Jail Goal (LTG) Pt will be able to golf without any issues. 11/10/18 - not tested today 12/03/18- minimal shoulder pain with larger swings. no balance problems with golfing 02/02/19 - pt reports that there is minimal problems with balance during the first hole when he is stiff and the last hole when he is fatigued. LTG Duration 04/04/2019 Assessment Summary Assessment Improved ability to do ankle strategy with balance today and improved PF ovearll. After manual therapy, pt able to perform PF in sitting better. Physical Therapy Plan Frequency and Duration Frequency of Treatment 1-2x/week Duration of Treatment 2 months Plan of Care Start Date 02/02/19 Plan of Care End Date 04/04/19 Next Visit Focus/Plan Next Note Type Progress Note Next Visit Plan continue with joint mobilizations, continue to work on dynamic balance, work on ankle mobility and plantar flexor strengthening, quad and glut strengthening.
--- NOTE | 2019-03-30 19:15 | PT.OTRE ---
Current Diagnoses Squamous cell carcinoma of skin, unspecified (03/30/19) Other chronic pain (03/30/19) Pain in left knee (03/30/19) Stiffness of right shoulder, not elsewhere classified (03/30/19) Abnormal posture (03/30/19) Weakness (03/30/19) Past Medical History (Last Updated 07/03/18 @ 22:09 by Nneka Maria) Anxiety (Chronic) Chicken pox (Resolved) Depression (Chronic ~2016) Fractures (Resolved) Hearing loss (Chronic) Knee pain (Chronic) Measles (Resolved) Mumps (Resolved) Osteoarthritis (Chronic ~2002) Seasonal allergies (Chronic ~2007) Vision disorder (Chronic) Surgical History (Last Updated 07/03/18 @ 22:08 by Nneka Maria) Status post knee surgery (~2002) Visit Care Team Role Provider Type Satnam Kirk MD Primary Care Provider Physician Specialty: Internal Medicine Address: [address] [place] [address] Email: [email or web address] Attending Provider Specialty: Address: Phone: Fax: Email: Physical Therapy Re-Evaluation PT-OP-A Visit Information Start: 09/08/18 08:13 Freq: Status: Active Protocol: Document 03/30/19 15:24 [facility] (Rec: 03/30/19 16:02 [facility] [id number]) Out-Patient Physical Therapy Visit Information Visit Information Visit Type Re-Evaluation Visit Start Time 15:20 Visit Stop Time 15:58 Total Visit Minutes 38 Visit Number 04/03 Number of SUPERVISOR SHIPPING Visits 0 PT-OP-B Current Condition Start: 09/08/18 08:13 Freq: Status: Active Protocol: Document 03/30/19 15:24 [facility] (Rec: 03/30/19 16:02 [facility] [id number]) Current Condition History of Current Condition Onset Date 09/22/2017; chronic knee pain Current Complaints imbalance with walking and ADLs & L knee pain History of Current Condition 03/30 knee eval: pt reports knee feels weaker when walking and doesn't do much d/t feeling pain and weakness. pt reports knee pain has been chronic since 1979 when he first injured it. He did 12 miles of walking 3x/week for 15 years when in [place] and able to tolerate with his knee. Pt reports he injured his knee skiing and his L knee was all the way turned around and had to ski down on 1 ski. Pt reports in aobut 1999, he haqd his knee scoped and meniscus removed and it did better for a while but never got fully better. Pt reports ACL is torn per MRI a long time ago. balance eval:Pt noticed decline in balance about a year ago and believed it was mostly d/t pain in his L knee. Since cancer dx in March, pt has noticed a further decline in balance d/t weakness and fatigue from spending so much time in the hospital and cancer treatments . Prior Treatments and Tests cortizone shot & fluid release a while ago; pt reports Xray shows degeneration Treatment Goals Patient/Caregiver Goals Knee eval 03/30- Be able to balance better, be able to walk more and be able to go up /down driveway and hills, inc ease of up/down from chair from balance eval: Be able to walk independently w/o imbalance (at home, grocery store, golf course). PT-OP-C Subjective Start: 09/08/18 08:13 Freq: Status: Active Protocol: Document 03/30/19 15:24 [facility] (Rec: 03/30/19 16:02 [facility] [id number]) OP-PT Subjective Patient Comments Patient Comments complaince with exercises OP-PT Pain Assessment Location L knee Intensity 3 Scale Used Numeric (1 - 10) Description Aching,Sharp Description- Other gives out; crunchy, swollen Frequency Daily Pain Aggravating Factors Walking Other Pain Aggravating Factors twisting, getting up Pain Alleviating Factors Medication,Inactivity PT-OP-D Balance Start: 09/08/18 08:13 Freq: Status: Active Protocol: Document 12/03/18 10:30 AR (Rec: 12/03/18 16:28 AR [id number]) Balance Tests Veras Balance Test Veras Balance Test Score 49/56 Veras Impairment Rating 1 to 19% Impaired (Score 45-55 ) PT-OP-E Functional Tests Start: 09/08/18 08:13 Freq: Status: Active Protocol: Document 03/30/19 15:24 [facility] (Rec: 03/30/19 16:02 [facility] [id number]) Functional Tests 30 Second Sit to Stand Test Score 7 Comments 1 LOB requiring assist, mult uncontrolled sits Dynamic Gait Index (DGI) Score 20 Functional Gait Assessment Score 19 PT-OP-J Posture/Palpation/Skin Start: 09/08/18 12:00 Freq: Status: Active Protocol: Document 11/10/18 15:15 [facility] (Rec: 11/10/18 15:30 [facility] [id number]) Posture Evaluation [facility] Postural Classification System Elbow Flexion Test 2 PT-OP-K Range of Motion Start: 09/08/18 12:00 Freq: Status: Active Protocol: Document 03/30/19 15:24 [facility] (Rec: 03/30/19 16:02 [facility] [id number]) Knee Goniometric Range of Motion Knee Measured in Degrees Right Flexion Active (degrees) 122 Extension Active (degrees) 12 Left Flexion Active (degrees) 101 Extension Active (degrees) 18 PT-OP-M Strength Start: 09/08/18 08:13 Freq: Status: Active Protocol: Document 03/30/19 15:24 [facility] (Rec: 03/30/19 16:02 [facility] [id number]) Hip Strength Hip Manual Muscle Testing Right Flexion (L2) 5 Normal Extension (S1) 3 Fair Abduction 3+ Fair+ External Rotation 4- Good- Internal Rotation 4+ Good+ Left Flexion (L2) 4+ Good+ Extension (S1) 3 Fair Abduction 3+ Fair+ External Rotation 3 Fair Internal Rotation 3 Fair Knee Strength Knee Manual Muscle Testing Right Flexion (S2) 4- Good- Extension (L3) 5 Normal Left Flexion (S2) 4- Good- Extension (L3) 4 Good Ankle/Foot Strength Ankle and Foot Manual Muscle Testing Right Dorsiflexion (L4) 4+ Good+ Plantarflexion (S1) 3+ Fair+ Comments tested in seated PF Left Dorsiflexion (L4) 4 Good Plantarflexion (S1) 3+ Fair+ PT-OP-Q Treatments Start: 09/08/18 08:13 Freq: Status: Active Protocol: Document 03/30/19 15:24 [facility] (Rec: 03/30/19 16:02 [facility] [id number]) Cardio Equipment Recumbent Elliptical ([employer]) Duration (Minutes) 10 Resistance 4 Seat Position 13 PT-OP-R Modalities Start: 09/18/18 11:15 Freq: Status: Active Protocol: Document 03/30/19 15:24 [facility] (Rec: 03/30/19 16:02 [facility] [id number]) Hot Pack/Cold Pack Treatment Hot Pack Location ant & post shoulder, inf scar Patient Position Sidelying Treatment Duration (minutes) 15 Comments lumbar hot pack used PT-OP-T Assessment and Plan Start: 09/08/18 08:13 Freq: Status: Active Protocol: Document 03/30/19 15:24 [facility] (Rec: 03/30/19 16:02 [facility] [id number]) Physical Therapy Assessment Goals strength Short Term Goal (STG) Pt will be indep with LE HEP. STG Duration 04/30/19 [place] [facility] Goal (LTG) Pt will score 4/5 or greater BLE strength to allow greater ease with activities like walking. LTG Duration 05/29/19 FGA Impairment [place] [facility] Goal (LTG) Pt will score 23 or greater to dec fall risk LTG Duration 05/29/19 Gait Short Term Goal (STG) Pt will be able to amb with horizontal head turns w/o loss of balance for 50 feet. 11/10/18 - goal met, but pt still requires SBA. 12/03/18- goal met, but pt still requires SBA. 02/02/19 - goal met, but pt requires SBA STG Duration achieved Balance Short Term Goal (STG) Pt will be able to turn and look over R and L shoulders without loss of balance, use of external support or supervision. 11/10/18- progressing, min LOB with turn L 12/03/18- progressing, min LOB with turn L. was able to perform with no LOB after few repetitions 02/02/19 - pt demonstrated LOB during turn to the right on first try. Remaining of the 3 attempts in each direction were performed without LOB STG Duration achieved Jail Goal (LTG) Pt will increase his DGI score to 20/24 in order to improve his balance and safety during gait and decrease risk of falls. LTG Duration achieved ROM Short Term Goal (STG) Pt iwll improve ROM to 10-115 deg ROM STG Duration 04/30/19 Jail Goal (LTG) Pt will be able to go up/down stairs with 1 rail reciprocally. LTG Duration 05/29/19 weakness Short Term Goal (STG) Pt will be indep with HEP. STG Duration goal met [place] [facility] Goal (LTG) Pt will be able to score 5/5 w /UE strength & 3/5 for EFT to allow inc activity tolerance 11/10/18 - progressin. 5/5 MMTs , 2/5 EFT 12/03/18- not tested today 02/02/19 - pt scored a 1/5 LTG Duration 05/29/19 for EFT activity [place] [facility] Goal (LTG) Pt will be able to golf without any issues. 11/10/18 - not tested today 12/03/18- minimal shoulder pain with larger swings. no balance problems with golfing 02/02/19 - pt reports that there is minimal problems with balance during the first hole when he is stiff and the last hole when he is fatigued. LTG Duration achieved Assessment Summary Assessment Pt presents with chronic L knee pain from injury that occured about 40 years ago with history of menisectomy and imaging showing complete ACL tear. He has significant limitations in his mobility d/ t his L knee pain and would benefit from PT to address this. He cont to improve with his baalance and would benefit from PT to cont to improve his balance. His dec L knee ROM likely contributes to his gait deviations and his dec overall balanec and steadiness . Physical Therapy Plan Frequency and Duration Frequency of Treatment 1-2x/week Duration of Treatment 2 months Plan of Care Start Date 03/30/19 Plan of Care End Date 05/29/19 Therapeutic Interventions Therapeutic Interventions Aquatic Therapy,Balance Training,Coordination Training ,Gait Training,Home Exercise Program,Joint Mobilizations, Manual Therapy,Neuromuscular Re-education,Patient/Caregiver Education,Self-Care/Home Management,Sensory Integration ,Soft Tissue Mobilization, Taping,Therapeutic Activities, Therapeutic Exercises Modalities Cold Pack/Ice Massage,Electric Stimulation,Hot Packs, Ultrasound Next Visit Focus/Plan Next Note Type Treatment Note Next Visit Plan work on hip and knee strengthening & work on knee ROM
--- NOTE | 2019-04-16 15:37 | PT.OTN ---
Current Diagnoses Squamous cell carcinoma of skin, unspecified (04/16/19) Other chronic pain (04/16/19) Pain in left knee (04/16/19) Stiffness of right shoulder, not elsewhere classified (04/16/19) Abnormal posture (04/16/19) Weakness (04/16/19) Physical Therapy Treatment Note PT-OP-A Visit Information Start: 09/08/18 08:13 Freq: Status: Active Protocol: Document 04/16/19 13:54 [facility] (Rec: 04/16/19 15:36 [facility] [id number]) Out-Patient Physical Therapy Visit Information Visit Information Visit Type Treatment Note Visit Start Time 13:51 Visit Stop Time 14:45 Total Visit Minutes 54 Visit Number 2/ Number of SUPERVISOR ABATTOIR Visits 0 PT-OP-B Current Condition Start: 09/08/18 08:13 Freq: Status: Active Protocol: Document 03/30/19 15:24 [facility] (Rec: 03/30/19 16:02 [facility] [id number]) Current Condition History of Current Condition Onset Date 09/22/2017; chronic knee pain Current Complaints imbalance with walking and ADLs & L knee pain History of Current Condition 03/30 knee eval: pt reports knee feels weaker when walking and doesn't do much d/t feeling pain and weakness. pt reports knee pain has been chronic since 1979 when he first injured it. He did 12 miles of walking 3x/week for 15 years when in [place] and able to tolerate with his knee. Pt reports he injured his knee skiing and his L knee was all the way turned around and had to ski down on 1 ski. Pt reports in aobut 1999, he haqd his knee scoped and meniscus removed and it did better for a while but never got fully better. Pt reports ACL is torn per MRI a long time ago. balance eval:Pt noticed decline in balance about a year ago and believed it was mostly d/t pain in his L knee. Since cancer dx in March, pt has noticed a further decline in balance d/t weakness and fatigue from spending so much time in the hospital and cancer treatments . Prior Treatments and Tests cortizone shot & fluid release a while ago; pt reports Xray shows degeneration Treatment Goals Patient/Caregiver Goals Knee eval 03/30- Be able to balance better, be able to walk more and be able to go up /down driveway and hills, inc ease of up/down from chair from balance eval: Be able to walk independently w/o imbalance (at home, grocery store, golf course). PT-OP-C Subjective Start: 09/08/18 08:13 Freq: Status: Active Protocol: Document 04/16/19 13:54 [facility] (Rec: 04/16/19 15:36 [facility] [id number]) OP-PT Subjective Patient Comments Patient Comments Pt reports he still is fatigued by his meds. PT-OP-D Balance Start: 09/08/18 08:13 Freq: Status: Active Protocol: Document 12/03/18 10:30 [facility] (Rec: 12/03/18 16:28 [facility] [id number]) Balance Tests Veras Balance Test Veras Balance Test Score 49/56 Veras Impairment Rating 1 to 19% Impaired (Score 45-55 ) PT-OP-E Functional Tests Start: 09/08/18 08:13 Freq: Status: Active Protocol: Document 03/30/19 15:24 [facility] (Rec: 03/30/19 16:02 [facility] [id number]) Functional Tests 30 Second Sit to Stand Test Score 7 Comments 1 LOB requiring assist, mult uncontrolled sits Dynamic Gait Index (DGI) Score 20 Functional Gait Assessment Score 19 PT-OP-J Posture/Palpation/Skin Start: 09/08/18 12:00 Freq: Status: Active Protocol: Document 11/10/18 15:15 [facility] (Rec: 11/10/18 15:30 [facility] [id number]) Posture Evaluation Kelsey Postural Classification System Elbow Flexion Test 2 PT-OP-K Range of Motion Start: 09/08/18 12:00 Freq: Status: Active Protocol: Document 03/30/19 15:24 [facility] (Rec: 03/30/19 16:02 [facility] [id number]) Knee Goniometric Range of Motion Knee Right Flexion Active (degrees) 122 Extension Active (degrees) 12 Left Flexion Active (degrees) 101 Extension Active (degrees) 18 PT-OP-M Strength Start: 09/08/18 08:13 Freq: Status: Active Protocol: Document 03/30/19 15:24 [facility] (Rec: 03/30/19 16:02 [facility] [id number]) Hip Strength Hip Manual Muscle Testing Right Flexion (L2) 5 Normal Extension (S1) 3 Fair Abduction 3+ Fair+ External Rotation 4- Good- Internal Rotation 4+ Good+ Left Flexion (L2) 4+ Good+ Extension (S1) 3 Fair Abduction 3+ Fair+ External Rotation 3 Fair Internal Rotation 3 Fair Knee Strength Knee Manual Muscle Testing Right Flexion (S2) 4- Good- Extension (L3) 5 Normal Left Flexion (S2) 4- Good- Extension (L3) 4 Good Ankle/Foot Strength Ankle and Foot Manual Muscle Testing Right Dorsiflexion (L4) 4+ Good+ Plantarflexion (S1) 3+ Fair+ Comments tested in seated PF Left Dorsiflexion (L4) 4 Good Plantarflexion (S1) 3+ Fair+ PT-OP-Q Treatments Start: 09/08/18 08:13 Freq: Status: Active Protocol: Document 04/16/19 13:54 [facility] (Rec: 04/16/19 15:36 [facility] [id number]) Cardio Equipment Recumbent Stepper (Sci-Fit) Duration (Minutes) 6 Resistance 4 Seat Position 15 Therapeutic Exercises Standing Exercises ankle strength Standing Exercise Name on silvino PF/DF TKE Side left Resistance L2 Reps/Minutes 20 Manual Therapy Treatment Soft Tissue Mobilization HS Body Location L Mobilization Type Rolling,Strumming Intensity/Depth Moderate Body Position Supine Joint Mobilizations tibfem Joint L Direction AP FM PF Joint L Direction sup, inf, med Manual Techniques HS Type c/r stretch L Neuro Re-Education Treatment Balance Activities static stance Comments 1. bosu 2. wt shifts fwd/back Hurdles Details over reciprocally Reps/Duration 8 laps no rail PT-OP-R Modalities Start: 09/18/18 11:15 Freq: Status: Active Protocol: Document 04/16/19 13:54 [facility] (Rec: 04/16/19 15:36 [facility] [id number]) Hot Pack/Cold Pack Treatment Hot Pack Location ant & post shoulder, inf scar Patient Position Sidelying Treatment Duration (minutes) 15 Comments lumbar hot pack used PT-OP-T Assessment and Plan Start: 09/08/18 08:13 Freq: Status: Active Protocol: Document 04/16/19 13:54 [facility] (Rec: 04/16/19 15:36 [facility] [id number]) Physical Therapy Assessment Goals strength Short Term Goal (STG) Pt will be indep with LE HEP. STG Duration 04/30/19 Retirement Goal (LTG) Pt will score 4/5 or greater BLE strength to allow greater ease with activities like walking. LTG Duration 05/29/19 FGA Impairment Soft Work Cigar Machine Operator Goal (LTG) Pt will score 23 or greater to dec fall risk LTG Duration 05/29/19 Gait Short Term Goal (STG) Pt will be able to amb with horizontal head turns w/o loss of balance for 50 feet. 11/10/18 - goal met, but pt still requires SBA. 12/03/18- goal met, but pt still requires SBA. 02/02/19 - goal met, but pt requires SBA STG Duration achieved Balance Short Term Goal (STG) Pt will be able to turn and look over R and L shoulders without loss of balance, use of external support or supervision. 11/10/18- progressing, min LOB with turn L 12/03/18- progressing, min LOB with turn L. was able to perform with no LOB after few repetitions 02/02/19 - pt demonstrated LOB during turn to the right on first try. Remaining of the 3 attempts in each direction were performed without LOB STG Duration achieved Soft Work Cigar Machine Operator Goal (LTG) Pt will increase his DGI score to 20/24 in order to improve his balance and safety during gait and decrease risk of falls. LTG Duration achieved ROM Short Term Goal (STG) Pt iwll improve ROM to 10-115 deg ROM STG Duration 04/30/19 Soft Work Cigar Machine Operator Goal (LTG) Pt will be able to go up/down stairs with 1 rail reciprocally. LTG Duration 05/29/19 weakness Short Term Goal (STG) Pt will be indep with HEP. STG Duration goal met Retirement Goal (LTG) Pt will be able to score 5/5 w /UE strength & 3/5 for EFT to allow inc activity tolerance 11/10/18 - progressin. 5/5 MMTs , 2/5 EFT 12/03/18- not tested today 02/02/19 - pt scored a 1/5 LTG Duration 05/29/19 for EFT Assessment Summary Assessment Pt able to improve with ROM of knee with manual treatment. It was difficult with just wt shifting fwd/back in static position for pt. He still tends to use his knees as his strategy for balance initially . Physical Therapy Plan Frequency and Duration Frequency of Treatment 1-2x/week Duration of Treatment 2 months Plan of Care Start Date 03/30/19 Plan of Care End Date 05/29/19 Next Visit Focus/Plan Next Note Type Treatment Note Next Visit Plan work on hip and knee strengthening & work on knee ROM
--- NOTE | 2019-04-22 10:44 | PT.OTN ---
Current Diagnoses Squamous cell carcinoma of skin, unspecified (04/22/19) Other chronic pain (04/22/19) Pain in left knee (04/22/19) Stiffness of right shoulder, not elsewhere classified (04/22/19) Abnormal posture (04/22/19) Weakness (04/22/19) Physical Therapy Treatment Note PT-OP-A Visit Information Start: 09/08/18 08:13 Freq: Status: Active Protocol: Document 04/22/19 09:07 [facility] (Rec: 04/22/19 10:43 [facility] [id number]) Out-Patient Physical Therapy Visit Information Visit Information Visit Type Treatment Note Visit Start Time 09:04 Visit Stop Time 09:59 Total Visit Minutes 55 Visit Number 3/ Number of PACKING MACHINE FEEDER Visits 0 PT-OP-B Current Condition Start: 09/08/18 08:13 Freq: Status: Active Protocol: Document 03/30/19 15:24 [facility] (Rec: 03/30/19 16:02 [facility] [id number]) Current Condition History of Current Condition Onset Date 09/22/2017; chronic knee pain Current Complaints imbalance with walking and ADLs & L knee pain History of Current Condition 03/30 knee eval: pt reports knee feels weaker when walking and doesn't do much d/t feeling pain and weakness. pt reports knee pain has been chronic since 1979 when he first injured it. He did 12 miles of walking 3x/week for 15 years when in [place] and able to tolerate with his knee. Pt reports he injured his knee skiing and his L knee was all the way turned around and had to ski down on 1 ski. Pt reports in [place] 1999, he haqd his knee scoped and meniscus removed and it did better for a while but never got fully better. Pt reports ACL is torn per MRI a long time ago. balance eval:Pt noticed decline in balance about a year ago and believed it was mostly d/t pain in his L knee. Since cancer dx in March, pt has noticed a further decline in balance d/t weakness and fatigue from spending so much time in the hospital and cancer treatments . Prior Treatments and Tests cortizone shot & fluid release a while ago; pt reports Xray shows degeneration Treatment Goals Patient/Caregiver Goals Knee eval 03/30- Be able to balance better, be able to walk more and be able to go up /down driveway and hills, inc ease of up/down from chair from balance eval: Be able to walk independently w/o imbalance (at home, grocery store, golf course). PT-OP-C Subjective Start: 09/08/18 08:13 Freq: Status: Active Protocol: Document 04/22/19 09:07 [facility] (Rec: 04/22/19 10:43 [facility] [id number]) OP-PT Subjective Patient Comments Patient Comments Pt reports his knee has been pretty good. He has been using it a lot more but he has been leary of it but it hasn't had any really sharp pains in a couple weeks Patient Reported Progress Improving PT-OP-D Balance Start: 09/08/18 08:13 Freq: Status: Active Protocol: Document 12/03/18 10:30 [facility] (Rec: 12/03/18 16:28 AR [id number]) Balance Tests Veras Balance Test Veras Balance Test Score 49/56 Veras Impairment Rating 1 to 19% Impaired (Score 45-55 ) PT-OP-E Functional Tests Start: 09/08/18 08:13 Freq: Status: Active Protocol: Document 03/30/19 15:24 [facility] (Rec: 03/30/19 16:02 [facility] [id number]) Functional Tests 30 Second Sit to Stand Test Score 7 Comments 1 LOB requiring assist, mult uncontrolled sits Dynamic Gait Index (DGI) Score 20 Functional Gait Assessment Score 19 PT-OP-J Posture/Palpation/Skin Start: 09/08/18 12:00 Freq: Status: Active Protocol: Document 11/10/18 15:15 [facility] (Rec: 11/10/18 15:30 [facility] [id number]) Posture Evaluation Kelsey Postural Classification System Elbow Flexion Test 2 PT-OP-K Range of Motion Start: 09/08/18 12:00 Freq: Status: Active Protocol: Document 03/30/19 15:24 [facility] (Rec: 03/30/19 16:02 [facility] [id number]) Knee Goniometric Range of Motion Knee Right Flexion Active (degrees) 122 Extension Active (degrees) 12 Left Flexion Active (degrees) 101 Extension Active (degrees) 18 PT-OP-M Strength Start: 09/08/18 08:13 Freq: Status: Active Protocol: Document 03/30/19 15:24 [facility] (Rec: 03/30/19 16:02 [facility] [id number]) Hip Strength Hip Manual Muscle Testing Right Flexion (L2) 5 Normal Extension (S1) 3 Fair Abduction 3+ Fair+ External Rotation 4- Good- Internal Rotation 4+ Good+ Left Flexion (L2) 4+ Good+ Extension (S1) 3 Fair Abduction 3+ Fair+ External Rotation 3 Fair Internal Rotation 3 Fair Knee Strength Knee Manual Muscle Testing Right Flexion (S2) 4- Good- Extension (L3) 5 Normal Left Flexion (S2) 4- Good- Extension (L3) 4 Good Ankle/Foot Strength Ankle and Foot Manual Muscle Testing Right Dorsiflexion (L4) 4+ Good+ Plantarflexion (S1) 3+ Fair+ Comments tested in seated PF Left Dorsiflexion (L4) 4 Good Plantarflexion (S1) 3+ Fair+ PT-OP-Q Treatments Start: 09/08/18 08:13 Freq: Status: Active Protocol: Document 04/22/19 09:07 [facility] (Rec: 04/22/19 10:43 [facility] [id number]) Cardio Equipment Recumbent Stepper (Sci-Fit) Duration (Minutes) 6 Resistance 5 Seat Position 15 Gym Equipment Shuttle Recovery Bilateral Heel Raises Details small ROM that pt can utilize Resistance 25# Shuttle Recovery Platform Stable Reps/Time 15 Bilateral Squats Resistance 100# Shuttle Recovery Platform Unstable Reps/Time 2x15 Therapeutic Exercises Standing Exercises step ups Standing Exercise Name 6 in w/ rail Side bilateral Reps/Minutes 12 ankle strength Standing Exercise Name JAZMYNE calf stretch Side bilateral Reps/Minutes 30 sec TKE Side left Resistance L3 Reps/Minutes 20 Manual Therapy Treatment Soft Tissue Mobilization calves Body Location L Mobilization Type Rolling Intensity/Depth Moderate Joint Mobilizations tibfib Joint L proximal Direction AP tibfem Joint L Direction AP FM PF Joint L Direction sup, inf, med PT-OP-R Modalities Start: 09/18/18 11:15 Freq: Status: Active Protocol: Document 04/22/19 09:07 [facility] (Rec: 04/22/19 10:43 [facility] [id number]) Hot Pack/Cold Pack Treatment Hot Pack Location ant & post shoulder, inf scar Patient Position Sidelying Treatment Duration (minutes) 15 Comments lumbar hot pack used PT-OP-T Assessment and Plan Start: 09/08/18 08:13 Freq: Status: Active Protocol: Document 04/22/19 09:07 [facility] (Rec: 04/22/19 10:43 [facility] [id number]) Physical Therapy Assessment Goals strength Short Term Goal (STG) Pt will be indep with LE HEP. STG Duration 04/30/19 Assisted Goal (LTG) Pt will score 4/5 or greater BLE strength to allow greater ease with activities like walking. LTG Duration 05/29/19 FGA Impairment Software Project Lead Goal (LTG) Pt will score 23 or greater to dec fall risk LTG Duration 05/29/19 ROM Short Term Goal (STG) Pt iwll improve ROM to 10-115 deg ROM STG Duration 04/30/19 Assisted Goal (LTG) Pt will be able to go up/down stairs with 1 rail reciprocally. LTG Duration 05/29/19 weakness Short Term Goal (STG) Pt will be indep with HEP. STG Duration goal met Assisted Goal (LTG) Pt will be able to score 5/5 w /UE strength & 3/5 for EFT to allow inc activity tolerance 11/10/18 - progressin. 5/5 MMTs , 2/5 EFT 12/03/18- not tested today 02/02/19 - pt scored a 1/5 LTG Duration 05/29/19 for EFT Assessment Summary Assessment Pt did well with exercises today with challenge. He has significant tightness in L calf which likelyc ontributes to lack of L ankle ROM and calf weakness and knee ext ROM . Physical Therapy Plan Frequency and Duration Frequency of Treatment 1-2x/week Duration of Treatment 2 months Plan of Care Start Date 03/30/19 Plan of Care End Date 05/29/19 Next Visit Focus/Plan Next Note Type Treatment Note Next Visit Plan work on hip and knee strengthening & work on knee ROM
--- NOTE | 2019-04-27 13:46 | PT.OTN ---
Current Diagnoses Squamous cell carcinoma of skin, unspecified (04/27/19) Other chronic pain (04/27/19) Pain in left knee (04/27/19) Stiffness of right shoulder, not elsewhere classified (04/27/19) Abnormal posture (04/27/19) Weakness (04/27/19) Physical Therapy Treatment Note PT-OP-A Visit Information Start: 09/08/18 08:13 Freq: Status: Active Protocol: Document 04/27/19 12:56 [facility] (Rec: 04/27/19 13:46 [facility] [id number]) Out-Patient Physical Therapy Visit Information Visit Information Visit Type Treatment Note Visit Start Time 13:05 Visit Stop Time 13:58 Total Visit Minutes 53 Visit Number 4 Number of CONFIGURATION TECHNICIAN Visits 0 PT-OP-B Current Condition Start: 09/08/18 08:13 Freq: Status: Active Protocol: Document 03/30/19 15:24 [facility] (Rec: 03/30/19 16:02 [facility] [id number]) Current Condition History of Current Condition Onset Date 09/22/2017; chronic knee pain Current Complaints imbalance with walking and ADLs & L knee pain History of Current Condition 03/30 knee eval: pt reports knee feels weaker when walking and doesn't do much d/t feeling pain and weakness. pt reports knee pain has been chronic since 1979 when he first injured it. He did 12 miles of walking 3x/week for 15 years when in [place] and able to tolerate with his knee. Pt reports he injured his knee skiing and his L knee was all the way turned around and had to ski down on 1 ski. Pt reports in [place] 1999, he haqd his knee scoped and meniscus removed and it did better for a while but never got fully better. Pt reports ACL is torn per MRI a long time ago. balance eval:Pt noticed decline in balance about a year ago and believed it was mostly d/t pain in his L knee. Since cancer dx in March, pt has noticed a further decline in balance d/t weakness and fatigue from spending so much time in the hospital and cancer treatments . Prior Treatments and Tests cortizone shot & fluid release a while ago; pt reports Xray shows degeneration Treatment Goals Patient/Caregiver Goals Knee eval 03/30- Be able to balance better, be able to walk more and be able to go up /down driveway and hills, inc ease of up/down from chair from balance eval: Be able to walk independently w/o imbalance (at home, grocery store, golf course). PT-OP-C Subjective Start: 09/08/18 08:13 Freq: Status: Active Protocol: Document 04/27/19 12:56 [facility] (Rec: 04/27/19 13:46 [facility] [id number]) OP-PT Subjective Patient Comments Patient Comments Pt reports knee is overall doing well PT-OP-D Balance Start: 09/08/18 08:13 Freq: Status: Active Protocol: Document 12/03/18 10:30 [facility] (Rec: 12/03/18 16:28 [facility] [id number]) Balance Tests Veras Balance Test Veras Balance Test Score 49/56 Veras Impairment Rating 1 to 19% Impaired (Score 45-55 ) PT-OP-E Functional Tests Start: 09/08/18 08:13 Freq: Status: Active Protocol: Document 03/30/19 15:24 [facility] (Rec: 03/30/19 16:02 [facility] [id number]) Functional Tests 30 Second Sit to Stand Test Score 7 Comments 1 LOB requiring assist, mult uncontrolled sits Dynamic Gait Index (DGI) Score 20 Functional Gait Assessment Score 19 PT-OP-J Posture/Palpation/Skin Start: 09/08/18 12:00 Freq: Status: Active Protocol: Document 11/10/18 15:15 [facility] (Rec: 11/10/18 15:30 [facility] [id number]) Posture Evaluation Kelsey Postural Classification System Elbow Flexion Test 2 PT-OP-K Range of Motion Start: 09/08/18 12:00 Freq: Status: Active Protocol: Document 03/30/19 15:24 [facility] (Rec: 03/30/19 16:02 [facility] [id number]) Knee Goniometric Range of Motion Knee Right Flexion Active (degrees) 122 Extension Active (degrees) 12 Left Flexion Active (degrees) 101 Extension Active (degrees) 18 PT-OP-M Strength Start: 09/08/18 08:13 Freq: Status: Active Protocol: Document 03/30/19 15:24 [facility] (Rec: 03/30/19 16:02 [facility] [id number]) Hip Strength Hip Manual Muscle Testing Right Flexion (L2) 5 Normal Extension (S1) 3 Fair Abduction 3+ Fair+ External Rotation 4- Good- Internal Rotation 4+ Good+ Left Flexion (L2) 4+ Good+ Extension (S1) 3 Fair Abduction 3+ Fair+ External Rotation 3 Fair Internal Rotation 3 Fair Knee Strength Knee Manual Muscle Testing Right Flexion (S2) 4- Good- Extension (L3) 5 Normal Left Flexion (S2) 4- Good- Extension (L3) 4 Good Ankle/Foot Strength Ankle and Foot Manual Muscle Testing Right Dorsiflexion (L4) 4+ Good+ Plantarflexion (S1) 3+ Fair+ Comments tested in seated PF Left Dorsiflexion (L4) 4 Good Plantarflexion (S1) 3+ Fair+ PT-OP-Q Treatments Start: 09/08/18 08:13 Freq: Status: Active Protocol: Document 04/27/19 12:56 [facility] (Rec: 04/27/19 13:46 [facility] [id number]) Cardio Equipment Recumbent Stepper (Sci-Fit) Duration (Minutes) 7 Resistance 5 Seat Position 15 Therapeutic Exercises Standing Exercises walking Standing Exercise Name resisted walking fwd/back & sideways Side bilateral Equipment Used yellow tband Reps/Minutes 20ftx2 ea sit<>stand Side bilateral Equipment Used yellow tband Reps/Minutes 10 Manual Therapy Treatment Soft Tissue Mobilization calves Body Location L Mobilization Type Rolling Intensity/Depth Moderate Neuro Re-Education Treatment Balance Activities stagger stance Details blue tpads staggered stance Comments EC & head turns PT-OP-R Modalities Start: 09/18/18 11:15 Freq: Status: Active Protocol: Document 04/27/19 12:56 [facility] (Rec: 04/27/19 13:46 [facility] [id number]) Hot Pack/Cold Pack Treatment Hot Pack Location ant & post shoulder, inf scar Patient Position Sidelying Treatment Duration (minutes) 15 Comments lumbar hot pack used PT-OP-T Assessment and Plan Start: 09/08/18 08:13 Freq: Status: Active Protocol: Document 04/27/19 12:56 [facility] (Rec: 04/27/19 13:46 [facility] [id number]) Physical Therapy Assessment Goals strength Short Term Goal (STG) Pt will be indep with LE HEP. STG Duration 04/30/19 Hooker On Goal (LTG) Pt will score 4/5 or greater BLE strength to allow greater ease with activities like walking. LTG Duration 05/29/19 FGA Impairment Hooker On Goal (LTG) Pt will score 23 or greater to dec fall risk LTG Duration 05/29/19 ROM Short Term Goal (STG) Pt iwll improve ROM to 10-115 deg ROM STG Duration 04/30/19 Hooker On Goal (LTG) Pt will be able to go up/down stairs with 1 rail reciprocally. LTG Duration 05/29/19 weakness Short Term Goal (STG) Pt will be indep with HEP. STG Duration goal met Residential Goal (LTG) Pt will be able to score 5/5 w /UE strength & 3/5 for EFT to allow inc activity tolerance 11/10/18 - progressin. 5/5 MMTs , 2/5 EFT 12/03/18- not tested today 02/02/19 - pt scored a 1/5 LTG Duration 05/29/19 for EFT Assessment Summary Assessment Pt was challenged by resisted walking exercises with evidence of fatigue after. kNee ext cont to improve and is able to stand more in ext Physical Therapy Plan Frequency and Duration Frequency of Treatment 1-2x/week Duration of Treatment 2 months Plan of Care Start Date 03/30/19 Plan of Care End Date 05/29/19 Next Visit Focus/Plan Next Note Type Treatment Note Next Visit Plan work on hip and knee strengthening & work on knee ROM
--- NOTE | 2019-05-07 18:29 | PT.OTN ---
Current Diagnoses Squamous cell carcinoma of skin, unspecified (05/07/19) Other chronic pain (05/07/19) Pain in left knee (05/07/19) Stiffness of right shoulder, not elsewhere classified (05/07/19) Abnormal posture (05/07/19) Weakness (05/07/19) Physical Therapy Treatment Note PT-OP-A Visit Information Start: 09/08/18 08:13 Freq: Status: Active Protocol: Document 05/07/19 15:24 [facility] (Rec: 05/07/19 17:00 [facility] [id number]) Out-Patient Physical Therapy Visit Information Visit Information Visit Type Treatment Note Visit Start Time 15:21 Visit Stop Time 16:15 Total Visit Minutes 54 Visit Number 5/ Number of HEALTH CONCIERGE Visits 0 PT-OP-B Current Condition Start: 09/08/18 08:13 Freq: Status: Active Protocol: Document 03/30/19 15:24 [facility] (Rec: 03/30/19 16:02 [facility] [id number]) Current Condition History of Current Condition Onset Date 09/22/2017; chronic knee pain Current Complaints imbalance with walking and ADLs & L knee pain History of Current Condition 03/30 knee eval: pt reports knee feels weaker when walking and doesn't do much d/t feeling pain and weakness. pt reports knee pain has been chronic since 1979 when he first injured it. He did 12 miles of walking 3x/week for 15 years when in [place] and able to tolerate with his knee. Pt reports he injured his knee skiing and his L knee was all the way turned around and had to ski down on 1 ski. Pt reports in aobut 1999, he haqd his knee scoped and meniscus removed and it did better for a while but never got fully better. Pt reports ACL is torn per MRI a long time ago. balance eval:Pt noticed decline in balance about a year ago and believed it was mostly d/t pain in his L knee. Since cancer dx in March, pt has noticed a further decline in balance d/t weakness and fatigue from spending so much time in the hospital and cancer treatments . Prior Treatments and Tests cortizone shot & fluid release a while ago; pt reports Xray shows degeneration Treatment Goals Patient/Caregiver Goals Knee eval 03/30- Be able to balance better, be able to walk more and be able to go up /down driveway and hills, inc ease of up/down from chair from balance eval: Be able to walk independently w/o imbalance (at home, grocery store, golf course). PT-OP-C Subjective Start: 09/08/18 08:13 Freq: Status: Active Protocol: Document 05/07/19 15:24 [facility] (Rec: 05/07/19 17:00 [facility] [id number]) OP-PT Subjective Patient Comments Patient Comments He is tired today. He had his infusion Saturday. Patient Reported Progress Improving PT-OP-D Balance Start: 09/08/18 08:13 Freq: Status: Active Protocol: Document 12/03/18 10:30 AR (Rec: 12/03/18 16:28 AR [id number]) Balance Tests Veras Balance Test Veras Balance Test Score 49/56 Veras Impairment Rating 1 to 19% Impaired (Score 45-55 ) PT-OP-E Functional Tests Start: 09/08/18 08:13 Freq: Status: Active Protocol: Document 03/30/19 15:24 [facility] (Rec: 03/30/19 16:02 [facility] [id number]) Functional Tests 30 Second Sit to Stand Test Score 7 Comments 1 LOB requiring assist, mult uncontrolled sits Dynamic Gait Index (DGI) Score 20 Functional Gait Assessment Score 19 PT-OP-J Posture/Palpation/Skin Start: 09/08/18 12:00 Freq: Status: Active Protocol: Document 11/10/18 15:15 LR (Rec: 11/10/18 15:30 [facility] [id number]) Posture Evaluation Kelsey Postural Classification System Elbow Flexion Test 2 PT-OP-K Range of Motion Start: 09/08/18 12:00 Freq: Status: Active Protocol: Document 03/30/19 15:24 LR (Rec: 03/30/19 16:02 [facility] [id number]) Knee Goniometric Range of Motion Knee Right Flexion Active (degrees) 122 Extension Active (degrees) 12 Left Flexion Active (degrees) 101 Extension Active (degrees) 18 PT-OP-M Strength Start: 09/08/18 08:13 Freq: Status: Active Protocol: Document 03/30/19 15:24 LR (Rec: 03/30/19 16:02 [facility] [id number]) Hip Strength Hip Manual Muscle Testing Right Flexion (L2) 5 Normal Extension (S1) 3 Fair Abduction 3+ Fair+ External Rotation 4- Good- Internal Rotation 4+ Good+ Left Flexion (L2) 4+ Good+ Extension (S1) 3 Fair Abduction 3+ Fair+ External Rotation 3 Fair Internal Rotation 3 Fair Knee Strength Knee Manual Muscle Testing Right Flexion (S2) 4- Good- Extension (L3) 5 Normal Left Flexion (S2) 4- Good- Extension (L3) 4 Good Ankle/Foot Strength Ankle and Foot Manual Muscle Testing Right Dorsiflexion (L4) 4+ Good+ Plantarflexion (S1) 3+ Fair+ Comments tested in seated PF Left Dorsiflexion (L4) 4 Good Plantarflexion (S1) 3+ Fair+ PT-OP-Q Treatments Start: 09/08/18 08:13 Freq: Status: Active Protocol: Document 05/07/19 15:24 [facility] (Rec: 05/07/19 17:00 [facility] [id number]) Cardio Equipment Recumbent Elliptical (Couchbase) Duration (Minutes) 6 Resistance 6 Seat Position 13 Therapeutic Exercises Sitting Exercises Ankle strength Sitting Exercise Name PF Side bilateral Equipment Used L1 Reps/Minutes 30 Standing Exercises walking Standing Exercise Name side steps Side bilateral Equipment Used L1 Reps/Minutes 20ftx2 Comments focus on posture & core ankle strength Standing Exercise Name PF/DF on JAZMYNE Side bilateral Reps/Minutes 30 Comments single leg w/opposite leg on 4in step Manual Therapy Treatment Soft Tissue Mobilization calves Body Location L Mobilization Type Rolling Intensity/Depth Moderate HS Body Location L Mobilization Type Rolling Joint Mobilizations ankle Comments 1. calcaneal distraction & lat gliding 2. talar distraction & med gliding PT-OP-R Modalities Start: 09/18/18 11:15 Freq: Status: Active Protocol: Document 05/07/19 15:24 [facility] (Rec: 05/07/19 17:00 [facility] [id number]) Hot Pack/Cold Pack Treatment Hot Pack Location ant & post shoulder & L knee pain Patient Position Sidelying Treatment Duration (minutes) 15 PT-OP-T Assessment and Plan Start: 09/08/18 08:13 Freq: Status: Active Protocol: Document 05/07/19 15:24 [facility] (Rec: 05/07/19 17:00 [facility] [id number]) Physical Therapy Assessment Goals strength Short Term Goal (STG) Pt will be indep with LE HEP. STG Duration 04/30/19 Fpc Goal (LTG) Pt will score 4/5 or greater BLE strength to allow greater ease with activities like walking. LTG Duration 05/29/19 FGA Impairment Pricing Clerk Goal (LTG) Pt will score 23 or greater to dec fall risk LTG Duration 05/29/19 ROM Short Term Goal (STG) Pt iwll improve ROM to 10-115 deg ROM STG Duration 04/30/19 Pricing Clerk Goal (LTG) Pt will be able to go up/down stairs with 1 rail reciprocally. LTG Duration 05/29/19 weakness Short Term Goal (STG) Pt will be indep with HEP. STG Duration goal met Pricing Clerk Goal (LTG) Pt will be able to score 5/5 w /UE strength & 3/5 for EFT to allow inc activity tolerance 11/10/18 - progressin. 5/5 MMTs , 2/5 EFT 12/03/18- not tested today 02/02/19 - pt scored a 1/5 LTG Duration 05/29/19 for EFT Assessment Summary Assessment Pt cont to have difficulty with PF but had improved ability to supine PF w/out significant inversion after foto mobs. Cont gradual imrpovement in ability to acheive knee ext. Pt cont to have significant tightness in post chain.S ignificant fatigue noted throughout treatment. Physical Therapy Plan Frequency and Duration Frequency of Treatment 1-2x/week Duration of Treatment 2 months Plan of Care Start Date 03/30/19 Plan of Care End Date 05/29/19 Next Visit Focus/Plan Next Note Type Treatment Note Next Visit Plan work on hip and knee strengthening & work on knee ROM
--- NOTE | 2019-05-12 12:16 | PT.OTN ---
Current Diagnoses Squamous cell carcinoma of skin, unspecified (05/12/19) Other chronic pain (05/12/19) Pain in left knee (05/12/19) Stiffness of right shoulder, not elsewhere classified (05/12/19) Abnormal posture (05/12/19) Weakness (05/12/19) Physical Therapy Treatment Note PT-OP-A Visit Information Start: 09/08/18 08:13 Freq: Status: Active Protocol: Document 05/12/19 11:19 [facility] (Rec: 05/12/19 12:16 [facility] [id number]) Out-Patient Physical Therapy Visit Information Visit Information Visit Type Treatment Note Visit Start Time 11:18 Visit Stop Time 12:15 Total Visit Minutes 57 Visit Number 09/01 Number of BEHAVIORAL SPECIALIST Visits 0 PT-OP-B Current Condition Start: 09/08/18 08:13 Freq: Status: Active Protocol: Document 03/30/19 15:24 [facility] (Rec: 03/30/19 16:02 [facility] [id number]) Current Condition History of Current Condition Onset Date 09/22/2017; chronic knee pain Current Complaints imbalance with walking and ADLs & L knee pain History of Current Condition 03/30 knee eval: pt reports knee feels weaker when walking and doesn't do much d/t feeling pain and weakness. pt reports knee pain has been chronic since 1979 when he first injured it. He did 12 miles of walking 3x/week for 15 years when in [place] and able to tolerate with his knee. Pt reports he injured his knee skiing and his L knee was all the way turned around and had to ski down on 1 ski. Pt reports in aobut 1999, he haqd his knee scoped and meniscus removed and it did better for a while but never got fully better. Pt reports ACL is torn per MRI a long time ago. balance eval:Pt noticed decline in balance about a year ago and believed it was mostly d/t pain in his L knee. Since cancer dx in March, pt has noticed a further decline in balance d/t weakness and fatigue from spending so much time in the hospital and cancer treatments . Prior Treatments and Tests cortizone shot & fluid release a while ago; pt reports Xray shows degeneration Treatment Goals Patient/Caregiver Goals Knee eval 03/30- Be able to balance better, be able to walk more and be able to go up /down driveway and hills, inc ease of up/down from chair from balance eval: Be able to walk independently w/o imbalance (at home, grocery store, golf course). PT-OP-C Subjective Start: 09/08/18 08:13 Freq: Status: Active Protocol: Document 05/12/19 11:19 LR (Rec: 05/12/19 12:16 [facility] [id number]) OP-PT Subjective Patient Comments Patient Comments Pt reports he feels like his knee is less stiff Patient Reported Progress Improving PT-OP-D Balance Start: 09/08/18 08:13 Freq: Status: Active Protocol: Document 12/03/18 10:30 AR (Rec: 12/03/18 16:28 AR [id number]) Balance Tests Veras Balance Test Veras Balance Test Score 49/56 Veras Impairment Rating 1 to 19% Impaired (Score 45-55 ) PT-OP-E Functional Tests Start: 09/08/18 08:13 Freq: Status: Active Protocol: Document 03/30/19 15:24 [facility] (Rec: 03/30/19 16:02 [facility] [id number]) Functional Tests 30 Second Sit to Stand Test Score 7 Comments 1 LOB requiring assist, mult uncontrolled sits Dynamic Gait Index (DGI) Score 20 Functional Gait Assessment Score 19 PT-OP-J Posture/Palpation/Skin Start: 09/08/18 12:00 Freq: Status: Active Protocol: Document 11/10/18 15:15 [facility] (Rec: 11/10/18 15:30 [facility] [id number]) Posture Evaluation Kelsey Postural Classification System Elbow Flexion Test 2 PT-OP-K Range of Motion Start: 09/08/18 12:00 Freq: Status: Active Protocol: Document 03/30/19 15:24 [facility] (Rec: 03/30/19 16:02 [facility] [id number]) Knee Goniometric Range of Motion Knee Right Flexion Active (degrees) 122 Extension Active (degrees) 12 Left Flexion Active (degrees) 101 Extension Active (degrees) 18 PT-OP-M Strength Start: 09/08/18 08:13 Freq: Status: Active Protocol: Document 03/30/19 15:24 LR (Rec: 03/30/19 16:02 [facility] [id number]) Hip Strength Hip Manual Muscle Testing Right Flexion (L2) 5 Normal Extension (S1) 3 Fair Abduction 3+ Fair+ External Rotation 4- Good- Internal Rotation 4+ Good+ Left Flexion (L2) 4+ Good+ Extension (S1) 3 Fair Abduction 3+ Fair+ External Rotation 3 Fair Internal Rotation 3 Fair Knee Strength Knee Manual Muscle Testing Right Flexion (S2) 4- Good- Extension (L3) 5 Normal Left Flexion (S2) 4- Good- Extension (L3) 4 Good Ankle/Foot Strength Ankle and Foot Manual Muscle Testing Right Dorsiflexion (L4) 4+ Good+ Plantarflexion (S1) 3+ Fair+ Comments tested in seated PF Left Dorsiflexion (L4) 4 Good Plantarflexion (S1) 3+ Fair+ PT-OP-Q Treatments Start: 09/08/18 08:13 Freq: Status: Active Protocol: Document 05/12/19 11:19 [facility] (Rec: 05/12/19 12:16 [facility] [id number]) Cardio Equipment Recumbent Elliptical (Imagistx) Duration (Minutes) 6 Resistance 6 Seat Position 13 Therapeutic Exercises Sitting Exercises ankle motion Sitting Exercise Name PF Side bilateral Reps/Minutes 30 Comments alt Ankle strength Sitting Exercise Name PF Side bilateral Equipment Used L1 Reps/Minutes 30 Standing Exercises JAZMYNE Standing Exercise Name calf stretch Side bilateral Reps/Minutes 30 sec ankle strength Standing Exercise Name PF/DF on JAZMYNE Side bilateral Reps/Minutes 30 Comments turned backwards TKE Side bilateral Equipment Used L1 Reps/Minutes 20 Manual Therapy Treatment Soft Tissue Mobilization calves Body Location L Mobilization Type Rolling Intensity/Depth Moderate HS Body Location L Mobilization Type Rolling Neuro Re-Education Treatment Balance Activities rocker board Details 1.fwd balance 2. wt shifts fwd /back static stance Details NBOS on blue foam pad Comments w/EC & head turns stagger stance Details blue tpads staggered stance Comments EC & head turns vertical & horizontal PT-OP-R Modalities Start: 09/18/18 11:15 Freq: Status: Active Protocol: Document 05/12/19 11:19 [facility] (Rec: 05/12/19 12:16 [facility] [id number]) Hot Pack/Cold Pack Treatment Hot Pack Location ant & post shoulder & L knee pain Patient Position Sidelying Treatment Duration (minutes) 15 PT-OP-T Assessment and Plan Start: 09/08/18 08:13 Freq: Status: Active Protocol: Document 05/12/19 11:19 [facility] (Rec: 05/12/19 12:16 [facility] [id number]) Physical Therapy Assessment Goals strength Short Term Goal (STG) Pt will be indep with LE HEP. STG Duration 04/30/19 Fpc Goal (LTG) Pt will score 4/5 or greater BLE strength to allow greater ease with activities like walking. LTG Duration 05/29/19 FGA Impairment Piecer Goal (LTG) Pt will score 23 or greater to dec fall risk LTG Duration 05/29/19 ROM Short Term Goal (STG) Pt iwll improve ROM to 10-115 deg ROM STG Duration 04/30/19 Fpc Goal (LTG) Pt will be able to go up/down stairs with 1 rail reciprocally. LTG Duration 05/29/19 weakness Short Term Goal (STG) Pt will be indep with HEP. STG Duration goal met Fpc Goal (LTG) Pt will be able to score 5/5 w /UE strength & 3/5 for EFT to allow inc activity tolerance 11/10/18 - progressin. 5/5 MMTs , 2/5 EFT 12/03/18- not tested today 02/02/19 - pt scored a 1/5 LTG Duration 05/29/19 for EFT Assessment Summary Assessment Pt had more difficulty with L leg fwd ins taggered stance position on blue tpads. He is slowly progressing with his ability to do PF and use more of an ankle strategy with balance activities. Physical Therapy Plan Frequency and Duration Frequency of Treatment 1-2x/week Duration of Treatment 2 months Plan of Care Start Date 03/30/19 Plan of Care End Date 05/29/19 Next Visit Focus/Plan Next Note Type Treatment Note Next Visit Plan work on hip and knee strengthening & work on knee ROM
--- NOTE | 2019-05-20 17:50 | PT.OTN ---
Current Diagnoses Squamous cell carcinoma of skin, unspecified (05/20/19) Other chronic pain (05/20/19) Pain in left knee (05/20/19) Stiffness of right shoulder, not elsewhere classified (05/20/19) Abnormal posture (05/20/19) Weakness (05/20/19) Physical Therapy Treatment Note PT-OP-A Visit Information Start: 09/08/18 08:13 Freq: Status: Active Protocol: Document 05/20/19 15:13 SP (Rec: 05/20/19 17:48 SP [id number]) Out-Patient Physical Therapy Visit Information Visit Information Visit Type Treatment Note Visit Start Time 03:17 Visit Stop Time 04:17 Total Visit Minutes 60 Visit Number 10/01 Number of TANK CALIBRATOR Visits 0 PT-OP-B Current Condition Start: 09/08/18 08:13 Freq: Status: Active Protocol: Document 03/30/19 15:24 [facility] (Rec: 03/30/19 16:02 [facility] [id number]) Current Condition History of Current Condition Onset Date 09/22/2017; chronic knee pain Current Complaints imbalance with walking and ADLs & L knee pain History of Current Condition 03/30 knee eval: pt reports knee feels weaker when walking and doesn't do much d/t feeling pain and weakness. pt reports knee pain has been chronic since 1979 when he first injured it. He did 12 miles of walking 3x/week for 15 years when in [place] and able to tolerate with his knee. Pt reports he injured his knee skiing and his L knee was all the way turned around and had to ski down on 1 ski. Pt reports in [place] 1999, he haqd his knee scoped and meniscus removed and it did better for a while but never got fully better. Pt reports ACL is torn per MRI a long time ago. balance eval:Pt noticed decline in balance about a year ago and believed it was mostly d/t pain in his L knee. Since cancer dx in March, pt has noticed a further decline in balance d/t weakness and fatigue from spending so much time in the hospital and cancer treatments . Prior Treatments and Tests cortizone shot & fluid release a while ago; pt reports Xray shows degeneration Treatment Goals Patient/Caregiver Goals Knee eval 03/30- Be able to balance better, be able to walk more and be able to go up /down driveway and hills, inc ease of up/down from chair from balance eval: Be able to walk independently w/o imbalance (at home, grocery store, golf course). PT-OP-C Subjective Start: 09/08/18 08:13 Freq: Status: Active Protocol: Document 05/20/19 15:13 SP (Rec: 05/20/19 17:48 SP [id number]) OP-PT Subjective Patient Comments Patient Comments Pt reports he is feeling good today and that his legs hurt less than last week. He spent a couple of days walking around in [place] and says his legs felt fine. PT-OP-D Balance Start: 09/08/18 08:13 Freq: Status: Active Protocol: Document 12/03/18 10:30 AR (Rec: 12/03/18 16:28 AR [id number]) Balance Tests Veras Balance Test Veras Balance Test Score 49/56 Veras Impairment Rating 1 to 19% Impaired (Score 45-55 ) PT-OP-E Functional Tests Start: 09/08/18 08:13 Freq: Status: Active Protocol: Document 03/30/19 15:24 [facility] (Rec: 03/30/19 16:02 [facility] [id number]) Functional Tests 30 Second Sit to Stand Test Score 7 Comments 1 LOB requiring assist, mult uncontrolled sits Dynamic Gait Index (DGI) Score 20 Functional Gait Assessment Score 19 PT-OP-J Posture/Palpation/Skin Start: 09/08/18 12:00 Freq: Status: Active Protocol: Document 11/10/18 15:15 LR (Rec: 11/10/18 15:30 [facility] [id number]) Posture Evaluation Kelsey Postural Classification System Elbow Flexion Test 2 PT-OP-K Range of Motion Start: 09/08/18 12:00 Freq: Status: Active Protocol: Document 03/30/19 15:24 LR (Rec: 03/30/19 16:02 [facility] [id number]) Knee Goniometric Range of Motion Knee Right Flexion Active (degrees) 122 Extension Active (degrees) 12 Left Flexion Active (degrees) 101 Extension Active (degrees) 18 PT-OP-M Strength Start: 09/08/18 08:13 Freq: Status: Active Protocol: Document 03/30/19 15:24 LR (Rec: 03/30/19 16:02 [facility] [id number]) Hip Strength Hip Manual Muscle Testing Right Flexion (L2) 5 Normal Extension (S1) 3 Fair Abduction 3+ Fair+ External Rotation 4- Good- Internal Rotation 4+ Good+ Left Flexion (L2) 4+ Good+ Extension (S1) 3 Fair Abduction 3+ Fair+ External Rotation 3 Fair Internal Rotation 3 Fair Knee Strength Knee Manual Muscle Testing Right Flexion (S2) 4- Good- Extension (L3) 5 Normal Left Flexion (S2) 4- Good- Extension (L3) 4 Good Ankle/Foot Strength Ankle and Foot Manual Muscle Testing Right Dorsiflexion (L4) 4+ Good+ Plantarflexion (S1) 3+ Fair+ Comments tested in seated PF Left Dorsiflexion (L4) 4 Good Plantarflexion (S1) 3+ Fair+ PT-OP-Q Treatments Start: 09/08/18 08:13 Freq: Status: Active Protocol: Document 05/20/19 15:13 SP (Rec: 05/20/19 17:48 SP [id number]) Cardio Equipment Recumbent Elliptical ([employer]) Duration (Minutes) 6 Resistance 6 Seat Position 13 Therapeutic Exercises Sitting Exercises Ankle strength Sitting Exercise Name PF Side bilateral Reps/Minutes 30 Standing Exercises TKE Side bilateral Equipment Used L1 Reps/Minutes 20 marches Side bilateral Equipment Used foam pad Manual Therapy Treatment Soft Tissue Mobilization calves Body Location L Mobilization Type Rolling Intensity/Depth Moderate HS Body Location L Mobilization Type Rolling,Sustained Pressure Intensity/Depth Moderate Neuro Re-Education Treatment Balance Activities tpads Comments staggered stance with head turns rocker board Details 1.fwd balance 2. wt shifts fwd /back PT-OP-R Modalities Start: 09/18/18 11:15 Freq: Status: Active Protocol: Document 05/20/19 15:13 SP (Rec: 05/20/19 17:48 SP [id number]) Hot Pack/Cold Pack Treatment Hot Pack Location ant & post shoulder & L knee pain Patient Position Sidelying Treatment Duration (minutes) 15 PT-OP-T Assessment and Plan Start: 09/08/18 08:13 Freq: Status: Active Protocol: Document 05/20/19 15:13 SP (Rec: 05/20/19 17:48 SP [id number]) Physical Therapy Assessment Goals strength Short Term Goal (STG) Pt will be indep with LE HEP. STG Duration 04/30/19 Snf Goal (LTG) Pt will score 4/5 or greater BLE strength to allow greater ease with activities like walking. LTG Duration 05/29/19 FGA Impairment Snf Goal (LTG) Pt will score 23 or greater to dec fall risk LTG Duration 05/29/19 ROM Short Term Goal (STG) Pt iwll improve ROM to 10-115 deg ROM STG Duration 04/30/19 Snf Goal (LTG) Pt will be able to go up/down stairs with 1 rail reciprocally. LTG Duration 05/29/19 weakness Short Term Goal (STG) Pt will be indep with HEP. STG Duration goal met Java Lead Architect Goal (LTG) Pt will be able to score 5/5 w /UE strength & 3/5 for EFT to allow inc activity tolerance 11/10/18 - progressin. 5/5 MMTs , 2/5 EFT 12/03/18- not tested today 02/02/19 - pt scored a 1/5 LTG Duration 05/29/19 for EFT Assessment Summary Assessment Pt demonstrated improvement with staggered stance on tpads with head turns. Pt was able to complete marching on foam pad without UE support. He needed cueing for posture with each exercise however required less rest breaks than last visit. Physical Therapy Plan Frequency and Duration Frequency of Treatment 1-2x/week Duration of Treatment 2 months Plan of Care Start Date 03/30/19 Plan of Care End Date 05/29/19 Next Visit Focus/Plan Next Note Type Treatment Note Next Visit Plan Progress hip strengthening and work on dynamic balance
--- NOTE | 2019-05-20 17:52 | PT.OTN ---
Current Diagnoses Squamous cell carcinoma of skin, unspecified (05/20/19) Other chronic pain (05/20/19) Pain in left knee (05/20/19) Stiffness of right shoulder, not elsewhere classified (05/20/19) Abnormal posture (05/20/19) Weakness (05/20/19) Physical Therapy Treatment Note PT-OP-A Visit Information Start: 09/08/18 08:13 Freq: Status: Active Protocol: Document 05/20/19 15:13 SP (Rec: 05/20/19 17:48 SP [email or web address]) Out-Patient Physical Therapy Visit Information Visit Information Visit Type Treatment Note Visit Start Time 03:17 Visit Stop Time 04:17 Total Visit Minutes 60 Visit Number 10/01 Number of EXPLOSIVES ENGINEER Visits 0 PT-OP-B Current Condition Start: 09/08/18 08:13 Freq: Status: Active Protocol: Document 03/30/19 15:24 [facility] (Rec: 03/30/19 16:02 [facility] [id number]) Current Condition History of Current Condition Onset Date 09/22/2017; chronic knee pain Current Complaints imbalance with walking and ADLs & L knee pain History of Current Condition 03/30 knee eval: pt reports knee feels weaker when walking and doesn't do much d/t feeling pain and weakness. pt reports knee pain has been chronic since 1979 when he first injured it. He did 12 miles of walking 3x/week for 15 years when in [place] and able to tolerate with his knee. Pt reports he injured his knee skiing and his L knee was all the way turned around and had to ski down on 1 ski. Pt reports in aobut 1999, he haqd his knee scoped and meniscus removed and it did better for a while but never got fully better. Pt reports ACL is torn per MRI a long time ago. balance eval:Pt noticed decline in balance about a year ago and believed it was mostly d/t pain in his L knee. Since cancer dx in March, pt has noticed a further decline in balance d/t weakness and fatigue from spending so much time in the hospital and cancer treatments . Prior Treatments and Tests cortizone shot & fluid release a while ago; pt reports Xray shows degeneration Treatment Goals Patient/Caregiver Goals Knee eval 03/30- Be able to balance better, be able to walk more and be able to go up /down driveway and hills, inc ease of up/down from chair from balance eval: Be able to walk independently w/o imbalance (at home, grocery store, golf course). PT-OP-C Subjective Start: 09/08/18 08:13 Freq: Status: Active Protocol: Document 05/20/19 15:13 SP (Rec: 05/20/19 17:48 SP [email or web address]) OP-PT Subjective Patient Comments Patient Comments Pt reports he is feeling good today and that his legs hurt less than last week. He spent a couple of days walking around in [place] and says his legs felt fine. PT-OP-D Balance Start: 09/08/18 08:13 Freq: Status: Active Protocol: Document 12/03/18 10:30 AR (Rec: 12/03/18 16:28 AR [id number]) Balance Tests Veras Balance Test Veras Balance Test Score 49/56 Veras Impairment Rating 1 to 19% Impaired (Score 45-55 ) PT-OP-E Functional Tests Start: 09/08/18 08:13 Freq: Status: Active Protocol: Document 03/30/19 15:24 [facility] (Rec: 03/30/19 16:02 [facility] [id number]) Functional Tests 30 Second Sit to Stand Test Score 7 Comments 1 LOB requiring assist, mult uncontrolled sits Dynamic Gait Index (DGI) Score 20 Functional Gait Assessment Score 19 PT-OP-J Posture/Palpation/Skin Start: 09/08/18 12:00 Freq: Status: Active Protocol: Document 11/10/18 15:15 LR (Rec: 11/10/18 15:30 [facility] [id number]) Posture Evaluation Kelsey Postural Classification System Elbow Flexion Test 2 PT-OP-K Range of Motion Start: 09/08/18 12:00 Freq: Status: Active Protocol: Document 03/30/19 15:24 LR (Rec: 03/30/19 16:02 [facility] [id number]) Knee Goniometric Range of Motion Knee Right Flexion Active (degrees) 122 Extension Active (degrees) 12 Left Flexion Active (degrees) 101 Extension Active (degrees) 18 PT-OP-M Strength Start: 09/08/18 08:13 Freq: Status: Active Protocol: Document 03/30/19 15:24 LR (Rec: 03/30/19 16:02 [facility] [id number]) Hip Strength Hip Manual Muscle Testing Right Flexion (L2) 5 Normal Extension (S1) 3 Fair Abduction 3+ Fair+ External Rotation 4- Good- Internal Rotation 4+ Good+ Left Flexion (L2) 4+ Good+ Extension (S1) 3 Fair Abduction 3+ Fair+ External Rotation 3 Fair Internal Rotation 3 Fair Knee Strength Knee Manual Muscle Testing Right Flexion (S2) 4- Good- Extension (L3) 5 Normal Left Flexion (S2) 4- Good- Extension (L3) 4 Good Ankle/Foot Strength Ankle and Foot Manual Muscle Testing Right Dorsiflexion (L4) 4+ Good+ Plantarflexion (S1) 3+ Fair+ Comments tested in seated PF Left Dorsiflexion (L4) 4 Good Plantarflexion (S1) 3+ Fair+ PT-OP-Q Treatments Start: 09/08/18 08:13 Freq: Status: Active Protocol: Document 05/20/19 15:13 SP (Rec: 05/20/19 17:48 SP [email or web address]) Cardio Equipment Recumbent Elliptical ([employer]) Duration (Minutes) 6 Resistance 6 Seat Position 13 Therapeutic Exercises Sitting Exercises Ankle strength Sitting Exercise Name PF Side bilateral Reps/Minutes 30 Standing Exercises TKE Side bilateral Equipment Used L1 Reps/Minutes 20 marches Side bilateral Equipment Used foam pad Manual Therapy Treatment Soft Tissue Mobilization calves Body Location L Mobilization Type Rolling Intensity/Depth Moderate HS Body Location L Mobilization Type Rolling,Sustained Pressure Intensity/Depth Moderate Neuro Re-Education Treatment Balance Activities tpads Comments staggered stance with head turns rocker board Details 1.fwd balance 2. wt shifts fwd /back PT-OP-R Modalities Start: 09/18/18 11:15 Freq: Status: Active Protocol: Document 05/20/19 15:13 SP (Rec: 05/20/19 17:48 SP [email or web address]) Hot Pack/Cold Pack Treatment Hot Pack Location ant & post shoulder & L knee pain Patient Position Sidelying Treatment Duration (minutes) 15 PT-OP-T Assessment and Plan Start: 09/08/18 08:13 Freq: Status: Active Protocol: Document 05/20/19 15:13 SP (Rec: 05/20/19 17:48 SP [email or web address]) Physical Therapy Assessment Goals strength Short Term Goal (STG) Pt will be indep with LE HEP. STG Duration 04/30/19 Usp Goal (LTG) Pt will score 4/5 or greater BLE strength to allow greater ease with activities like walking. LTG Duration 05/29/19 FGA Impairment Usp Goal (LTG) Pt will score 23 or greater to dec fall risk LTG Duration 05/29/19 ROM Short Term Goal (STG) Pt iwll improve ROM to 10-115 deg ROM STG Duration 04/30/19 Usp Goal (LTG) Pt will be able to go up/down stairs with 1 rail reciprocally. LTG Duration 05/29/19 weakness Short Term Goal (STG) Pt will be indep with HEP. STG Duration goal met Drapery Hanger Goal (LTG) Pt will be able to score 5/5 w /UE strength & 3/5 for EFT to allow inc activity tolerance 11/10/18 - progressin. 5/5 MMTs , 2/5 EFT 12/03/18- not tested today 02/02/19 - pt scored a 1/5 LTG Duration 05/29/19 for EFT Assessment Summary Assessment Pt demonstrated improvement with staggered stance on tpads with head turns. Pt was able to complete marching on foam pad without UE support. He needed cueing for posture with each exercise however required less rest breaks than last visit. Physical Therapy Plan Frequency and Duration Frequency of Treatment 1-2x/week Duration of Treatment 2 months Plan of Care Start Date 03/30/19 Plan of Care End Date 05/29/19 Next Visit Focus/Plan Next Note Type Treatment Note Next Visit Plan Progress hip strengthening and work on dynamic balance
--- NOTE | 2019-05-25 19:13 | PT.OTN ---
Current Diagnoses Squamous cell carcinoma of skin, unspecified (05/25/19) Other chronic pain (05/25/19) Pain in left knee (05/25/19) Stiffness of right shoulder, not elsewhere classified (05/25/19) Abnormal posture (05/25/19) Weakness (05/25/19) Physical Therapy Treatment Note PT-OP-A Visit Information Start: 09/08/18 08:13 Freq: Status: Active Protocol: Document 05/25/19 18:39 SP (Rec: 05/25/19 18:57 SP [email or web address]) Out-Patient Physical Therapy Visit Information Visit Information Visit Type Progress Note Visit Start Time 15:19 Visit Stop Time 16:15 Total Visit Minutes 56 Visit Number 8/ Number of SHREDDED FILLER HOPPER FEEDER Visits 0 PT-OP-B Current Condition Start: 09/08/18 08:13 Freq: Status: Active Protocol: Document 03/30/19 15:24 [facility] (Rec: 03/30/19 16:02 [facility] [id number]) Current Condition History of Current Condition Onset Date 09/22/2017; chronic knee pain Current Complaints imbalance with walking and ADLs & L knee pain History of Current Condition 03/30 knee eval: pt reports knee feels weaker when walking and doesn't do much d/t feeling pain and weakness. pt reports knee pain has been chronic since 1979 when he first injured it. He did 12 miles of walking 3x/week for 15 years when in [place] and able to tolerate with his knee. Pt reports he injured his knee skiing and his L knee was all the way turned around and had to ski down on 1 ski. Pt reports in aobut 1999, he haqd his knee scoped and meniscus removed and it did better for a while but never got fully better. Pt reports ACL is torn per MRI a long time ago. balance eval:Pt noticed decline in balance about a year ago and believed it was mostly d/t pain in his L knee. Since cancer dx in March, pt has noticed a further decline in balance d/t weakness and fatigue from spending so much time in the hospital and cancer treatments . Prior Treatments and Tests cortizone shot & fluid release a while ago; pt reports Xray shows degeneration Treatment Goals Patient/Caregiver Goals Knee eval 03/30- Be able to balance better, be able to walk more and be able to go up /down driveway and hills, inc ease of up/down from chair from balance eval: Be able to walk independently w/o imbalance (at home, grocery store, golf course). PT-OP-C Subjective Start: 09/08/18 08:13 Freq: Status: Active Protocol: Document 05/25/19 18:39 SP (Rec: 05/25/19 18:57 SP [email or web address]) OP-PT Subjective Patient Comments Patient Comments Pt reports his legs feel good today. He states he has his infusion tomorrow. He thinks his left knee pain has improved over the last couple of weeks. PT-OP-D Balance Start: 09/08/18 08:13 Freq: Status: Active Protocol: Document 12/03/18 10:30 AR (Rec: 12/03/18 16:28 AR [id number]) Balance Tests Veras Balance Test Veras Balance Test Score 49/56 Veras Impairment Rating 1 to 19% Impaired (Score 45-55 ) PT-OP-E Functional Tests Start: 09/08/18 08:13 Freq: Status: Active Protocol: Document 05/25/19 18:39 SP (Rec: 05/25/19 18:57 SP [email or web address]) Functional Tests Functional Gait Assessment Score 17 Functional Gait Assessment Impairment 40 to <60% Impaired (Score 13- Rating 18) PT-OP-J Posture/Palpation/Skin Start: 09/08/18 12:00 Freq: Status: Active Protocol: Document 11/10/18 15:15 [facility] (Rec: 11/10/18 15:30 [facility] [id number]) Posture Evaluation Kelsey Postural Classification System Elbow Flexion Test 2 PT-OP-K Range of Motion Start: 09/08/18 12:00 Freq: Status: Active Protocol: Document 05/25/19 18:39 SP (Rec: 05/25/19 18:57 SP [email or web address]) Knee Goniometric Range of Motion Knee Right Patient Position Supine Flexion Active (degrees) 122 Extension Active (degrees) 9 Left Patient Position Supine Flexion Active (degrees) 110 Extension Active (degrees) 12 PT-OP-M Strength Start: 09/08/18 08:13 Freq: Status: Active Protocol: Document 05/25/19 18:39 SP (Rec: 05/25/19 18:57 SP [email or web address]) Hip Strength Hip Manual Muscle Testing Right Flexion (L2) 4 Good Extension (S1) 3+ Fair+ Abduction 3+ Fair+ External Rotation 4 Good Internal Rotation 4 Good Left Flexion (L2) 4- Good- Extension (S1) 3 Fair Abduction 3+ Fair+ External Rotation 4 Good Knee Strength Knee Manual Muscle Testing Right Flexion (S2) 4- Good- Extension (L3) 4- Good- Left Flexion (S2) 4- Good- Extension (L3) 4- Good- Ankle/Foot Strength Ankle and Foot Manual Muscle Testing Right Dorsiflexion (L4) 4 Good Left Dorsiflexion (L4) 4 Good PT-OP-Q Treatments Start: 09/08/18 08:13 Freq: Status: Active Protocol: Document 05/25/19 18:39 SP (Rec: 05/25/19 18:57 SP [email or web address]) Cardio Equipment Recumbent Stepper (Sci-Fit) Duration (Minutes) 7 Manual Therapy Treatment Soft Tissue Mobilization calves Body Location L Mobilization Type Rolling Intensity/Depth Moderate HS Body Location L Mobilization Type Rolling,Sustained Pressure Intensity/Depth Moderate Joint Mobilizations PF Joint PF Direction superior, inferior, medial Grade III Body Position Supine PT-OP-R Modalities Start: 09/18/18 11:15 Freq: Status: Active Protocol: Document 05/25/19 18:39 SP (Rec: 05/25/19 18:57 SP [email or web address]) Hot Pack/Cold Pack Treatment Hot Pack Location left shld and knee Patient Position Sidelying Treatment Duration (minutes) 15 PT-OP-T Assessment and Plan Start: 09/08/18 08:13 Freq: Status: Active Protocol: Document 05/25/19 18:39 SP (Rec: 05/25/19 18:57 SP [email or web address]) Physical Therapy Assessment Goals strength Short Term Goal (STG) Pt will be indep with LE HEP. STG Duration achieved Custodial Goal (LTG) Pt will score 4/5 or greater BLE strength to allow greater ease with activities like walking. LTG Duration 07/25/19 FGA Impairment Custodial Goal (LTG) Pt will score 23 or greater to dec fall risk LTG Duration 07/25/19 ROM Short Term Goal (STG) Pt iwll improve ROM to 10-115 deg ROM 05/24 - improving STG Duration 06/25/19 Custodial Goal (LTG) Pt will be able to go up/down stairs with 1 rail reciprocally. LTG Duration achieved weakness Short Term Goal (STG) Pt will be indep with HEP. STG Duration achieved Chief Digital Media Officer Goal (LTG) Pt will be able to score 5/5 w /UE strength & 3/5 for EFT to allow inc activity tolerance 11/10/18 - progressin. 5/5 MMTs , 2/5 EFT 12/03/18- not tested today 02/02/19 - pt scored a 1/5 LTG Duration 07/29/19 Assessment Summary Assessment Pt demonstrated improvement on FGA indicating progress on balance activities. He was able to reciprocally ascend/ descend stairs with one railing. Pt continues to lack full B knee ext and this contributes to his increased fall risk. Pt will benefit from further PT in order to improve BLE strength, increase activity tolerance, and decrease fall risk. Pt demonstrates proper form with exercises indicating compliance with HEP. Physical Therapy Plan Frequency and Duration Frequency of Treatment 1-2x/week Duration of Treatment 2 months Plan of Care Start Date 05/25/19 Plan of Care End Date 07/25/19 Therapeutic Interventions Therapeutic Interventions Aquatic Therapy,Balance Training,Coordination Training ,Gait Training,Home Exercise Program,Joint Mobilizations, Manual Therapy,Neuromuscular Re-education,Patient/Caregiver Education,Self-Care/Home Management,Sensory Integration ,Soft Tissue Mobilization, Taping,Therapeutic Activities, Therapeutic Exercises Modalities Cold Pack/Ice Massage,Electric Stimulation,Hot Packs, Ultrasound Next Visit Focus/Plan Next Note Type Treatment Note Next Visit Plan Progress hip strengthenig and work on dynamic balance
--- NOTE | 2019-05-25 19:13 | PT.OPPOC ---
Physical, Occupational & Speech Therapy At [facility] Current Diagnoses Squamous cell carcinoma of skin, unspecified (05/25/19) Other chronic pain (05/25/19) Pain in left knee (05/25/19) Stiffness of right shoulder, not elsewhere classified (05/25/19) Abnormal posture (05/25/19) Weakness (05/25/19) Visit Care Team Role Provider Type Satnam Kirk MD Primary Care Provider Physician Specialty: Internal Medicine Address: [address] [place] [address], [address], [facility] Email: [email or web address] Attending Provider Specialty: Address: Phone: Fax: Email: Plan Of Care PT-OP-T Assessment and Plan Start: 09/08/18 08:13 Freq: Status: Active Protocol: Document 05/25/19 18:39 SP (Rec: 05/25/19 18:57 SP [email or web address]) Physical Therapy Assessment Goals strength Short Term Goal (STG) Pt will be indep with LE HEP. STG Duration achieved Web Site Administrator Goal (LTG) Pt will score 4/5 or greater BLE strength to allow greater ease with activities like walking. LTG Duration 07/25/19 FGA Impairment Skilled Nursing Goal (LTG) Pt will score 23 or greater to dec fall risk LTG Duration 07/25/19 ROM Short Term Goal (STG) Pt iwll improve ROM to 10-115 deg ROM 05/24 - improving STG Duration 06/25/19 Web Site Administrator Goal (LTG) Pt will be able to go up/down stairs with 1 rail reciprocally. LTG Duration achieved weakness Short Term Goal (STG) Pt will be indep with HEP. STG Duration achieved Skilled Nursing Goal (LTG) Pt will be able to score 5/5 w /UE strength & 3/5 for EFT to allow inc activity tolerance 11/10/18 - progressin. 5/5 MMTs , 2/5 EFT 12/03/18- not tested today 02/02/19 - pt scored a 1/5 LTG Duration 07/29/19 Assessment Summary Assessment Pt demonstrated improvement on FGA indicating progress on balance activities. He was able to reciprocally ascend/ descend stairs with one railing. Pt continues to lack full B knee ext and this contributes to his increased fall risk. Pt will benefit from further PT in order to improve BLE strength, increase activity tolerance, and decrease fall risk. Pt demonstrates proper form with exercises indicating compliance with HEP. Physical Therapy Plan Frequency and Duration Frequency of Treatment 1-2x/week Duration of Treatment 2 months Plan of Care Start Date 05/25/19 Plan of Care End Date 07/25/19 Therapeutic Interventions Therapeutic Interventions Aquatic Therapy,Balance Training,Coordination Training ,Gait Training,Home Exercise Program,Joint Mobilizations, Manual Therapy,Neuromuscular Re-education,Patient/Caregiver Education,Self-Care/Home Management,Sensory Integration ,Soft Tissue Mobilization, Taping,Therapeutic Activities, Therapeutic Exercises Modalities Cold Pack/Ice Massage,Electric Stimulation,Hot Packs, Ultrasound Next Visit Focus/Plan Next Note Type Treatment Note Next Visit Plan Progress hip strengthenig and work on dynamic balance Plan of Care Dates Plan of Care Start Date 05/25/19 Plan of Care End Date 07/25/19 Electronically Signed by: Adeline Loving, PT 05/25/19 [id number] Please Sign and Return: I have reviewed this Plan of Care and certify that the skilled therapy services above are required to meet the patient?s needs. Physician Signature Date Printed Name and Credentials Clinical Instructor Signature Printed Name and Credentials
--- NOTE | 2019-06-01 19:06 | PT.OTN ---
Current Diagnoses Squamous cell carcinoma of skin, unspecified (06/01/19) Other chronic pain (06/01/19) Pain in left knee (06/01/19) Stiffness of right shoulder, not elsewhere classified (06/01/19) Abnormal posture (06/01/19) Weakness (06/01/19) Physical Therapy Treatment Note PT-OP-A Visit Information Start: 09/08/18 08:13 Freq: Status: Active Protocol: Document 06/01/19 16:40 SP (Rec: 06/01/19 18:28 SP [email or web address]) Out-Patient Physical Therapy Visit Information Visit Information Visit Type Treatment Note Visit Start Time 14:33 Visit Stop Time 15:32 Total Visit Minutes 59 Visit Number 9/10 Number of ACETYLENE CUTTER Visits 0 PT-OP-B Current Condition Start: 09/08/18 08:13 Freq: Status: Active Protocol: Document 03/30/19 15:24 [facility] (Rec: 03/30/19 16:02 [facility] [id number]) Current Condition History of Current Condition Onset Date 09/22/2017; chronic knee pain Current Complaints imbalance with walking and ADLs & L knee pain History of Current Condition 03/30 knee eval: pt reports knee feels weaker when walking and doesn't do much d/t feeling pain and weakness. pt reports knee pain has been chronic since 1979 when he first injured it. He did 12 miles of walking 3x/week for 15 years when in [place] and able to tolerate with his knee. Pt reports he injured his knee skiing and his L knee was all the way turned around and had to ski down on 1 ski. Pt reports in aobut 1999, he haqd his knee scoped and meniscus removed and it did better for a while but never got fully better. Pt reports ACL is torn per MRI a long time ago. balance eval:Pt noticed decline in balance about a year ago and believed it was mostly d/t pain in his L knee. Since cancer dx in March, pt has noticed a further decline in balance d/t weakness and fatigue from spending so much time in the hospital and cancer treatments . Prior Treatments and Tests cortizone shot & fluid release a while ago; pt reports Xray shows degeneration Treatment Goals Patient/Caregiver Goals Knee eval 03/30- Be able to balance better, be able to walk more and be able to go up /down driveway and hills, inc ease of up/down from chair from balance eval: Be able to walk independently w/o imbalance (at home, grocery store, golf course). PT-OP-C Subjective Start: 09/08/18 08:13 Freq: Status: Active Protocol: Document 06/01/19 16:40 SP (Rec: 06/01/19 18:28 SP [email or web address]) OP-PT Subjective Patient Comments Patient Comments Pt reports his energy has been low since last week when he got his infusion. He feels a little better today. Most of his pain today is in his left calf. PT-OP-D Balance Start: 09/08/18 08:13 Freq: Status: Active Protocol: Document 12/03/18 10:30 AR (Rec: 12/03/18 16:28 AR [id number]) Balance Tests Veras Balance Test Veras Balance Test Score 49/56 Veras Impairment Rating 1 to 19% Impaired (Score 45-55 ) PT-OP-E Functional Tests Start: 09/08/18 08:13 Freq: Status: Active Protocol: Document 05/25/19 18:39 SP (Rec: 05/25/19 18:57 SP [email or web address]) Functional Tests Functional Gait Assessment Score 17 Functional Gait Assessment Impairment 40 to <60% Impaired (Score 13- Rating 18) PT-OP-J Posture/Palpation/Skin Start: 09/08/18 12:00 Freq: Status: Active Protocol: Document 11/10/18 15:15 [facility] (Rec: 11/10/18 15:30 [facility] [id number]) Posture Evaluation Kelsey Postural Classification System Elbow Flexion Test 2 PT-OP-K Range of Motion Start: 09/08/18 12:00 Freq: Status: Active Protocol: Document 05/25/19 18:39 SP (Rec: 05/25/19 18:57 SP [email or web address]) Knee Goniometric Range of Motion Knee Right Patient Position Supine Flexion Active (degrees) 122 Extension Active (degrees) 9 Left Patient Position Supine Flexion Active (degrees) 110 Extension Active (degrees) 12 PT-OP-M Strength Start: 09/08/18 08:13 Freq: Status: Active Protocol: Document 05/25/19 18:39 SP (Rec: 05/25/19 18:57 SP [email or web address]) Hip Strength Hip Manual Muscle Testing Right Flexion (L2) 4 Good Extension (S1) 3+ Fair+ Abduction 3+ Fair+ External Rotation 4 Good Internal Rotation 4 Good Left Flexion (L2) 4- Good- Extension (S1) 3 Fair Abduction 3+ Fair+ External Rotation 4 Good Knee Strength Knee Manual Muscle Testing Right Flexion (S2) 4- Good- Extension (L3) 4- Good- Left Flexion (S2) 4- Good- Extension (L3) 4- Good- Ankle/Foot Strength Ankle and Foot Manual Muscle Testing Right Dorsiflexion (L4) 4 Good Left Dorsiflexion (L4) 4 Good PT-OP-Q Treatments Start: 09/08/18 08:13 Freq: Status: Active Protocol: Document 06/01/19 16:40 SP (Rec: 06/01/19 18:28 SP [email or web address]) Gym Equipment Shuttle Recovery Bilateral Squats Resistance 125lbs Reps/Time 30 Shuttle Balance blue clips Comments 1. feet apart 2. feet together 3. feet staggered all with head turns and alternating arm movements Therapeutic Exercises Supine Exercises quad set Side bilateral Reps/Minutes 30 plantarflexion Side bilateral Resistance L1 Reps/Minutes 30 Sitting Exercises Ankle strength Sitting Exercise Name PF Side bilateral Reps/Minutes 30 Standing Exercises TKE Side bilateral Equipment Used L2 Reps/Minutes 30 Manual Therapy Treatment Soft Tissue Mobilization calves Body Location L Mobilization Type Rolling,Sustained Pressure Intensity/Depth Moderate PT-OP-R Modalities Start: 09/18/18 11:15 Freq: Status: Active Protocol: Document 06/01/19 16:40 SP (Rec: 06/01/19 18:28 SP [email or web address]) Hot Pack/Cold Pack Treatment Hot Pack Location right shld left knee Patient Position Sidelying Treatment Duration (minutes) 15 PT-OP-T Assessment and Plan Start: 09/08/18 08:13 Freq: Status: Active Protocol: Document 06/01/19 16:40 SP (Rec: 06/01/19 18:28 SP [email or web address]) Physical Therapy Assessment Goals strength Short Term Goal (STG) Pt will be indep with LE HEP. STG Duration achieved [facility] Goal (LTG) Pt will score 4/5 or greater BLE strength to allow greater ease with activities like walking. LTG Duration 07/25/19 FGA Impairment Curve Cleaner Goal (LTG) Pt will score 23 or greater to dec fall risk LTG Duration 07/25/19 ROM Short Term Goal (STG) Pt iwll improve ROM to 10-115 deg ROM 05/24 - improving STG Duration 06/25/19 [facility] Goal (LTG) Pt will be able to go up/down stairs with 1 rail reciprocally. LTG Duration achieved weakness Short Term Goal (STG) Pt will be indep with HEP. STG Duration achieved [facility] Goal (LTG) Pt will be able to score 5/5 w /UE strength & 3/5 for EFT to allow inc activity tolerance 11/10/18 - progressin. 5/5 MMTs , 2/5 EFT 12/03/18- not tested today 02/02/19 - pt scored a 1/5 LTG Duration 07/29/19 Assessment Summary Assessment Pt able to complete balance activities without UE however required more rest breaks. Anticipate this is due to pt having recent infusion and energy is lower. L gastroc tightness which improved following manual. Physical Therapy Plan Frequency and Duration Frequency of Treatment 1-2x/week Duration of Treatment 2 months Plan of Care Start Date 05/25/19 Plan of Care End Date 07/25/19 Next Visit Focus/Plan Next Note Type Treatment Note Next Visit Plan Continue gastroc and quad strengthening
--- NOTE | 2019-06-10 13:35 | PT.OTN ---
Current Diagnoses Squamous cell carcinoma of skin, unspecified (06/10/19) Other chronic pain (06/10/19) Pain in left knee (06/10/19) Stiffness of right shoulder, not elsewhere classified (06/10/19) Abnormal posture (06/10/19) Weakness (06/10/19) Physical Therapy Treatment Note PT-OP-A Visit Information Start: 09/08/18 08:13 Freq: Status: Active Protocol: Document 06/10/19 12:30 SP (Rec: 06/10/19 13:02 SP [email or web address]) Out-Patient Physical Therapy Visit Information Visit Information Visit Type Treatment Note Visit Start Time 11:16 Visit Stop Time 12:15 Total Visit Minutes 59 Visit Number 01/01 Number of LION TRAINER Visits 0 PT-OP-B Current Condition Start: 09/08/18 08:13 Freq: Status: Active Protocol: Document 03/30/19 15:24 [facility] (Rec: 03/30/19 16:02 [facility] [id number]) Current Condition History of Current Condition Onset Date 09/22/2017; chronic knee pain Current Complaints imbalance with walking and ADLs & L knee pain History of Current Condition 03/30 knee eval: pt reports knee feels weaker when walking and doesn't do much d/t feeling pain and weakness. pt reports knee pain has been chronic since 1979 when he first injured it. He did 12 miles of walking 3x/week for 15 years when in [place] and able to tolerate with his knee. Pt reports he injured his knee skiing and his L knee was all the way turned around and had to ski down on 1 ski. Pt reports in aobut 1999, he haqd his knee scoped and meniscus removed and it did better for a while but never got fully better. Pt reports ACL is torn per MRI a long time ago. balance eval:Pt noticed decline in balance about a year ago and believed it was mostly d/t pain in his L knee. Since cancer dx in March, pt has noticed a further decline in balance d/t weakness and fatigue from spending so much time in the hospital and cancer treatments . Prior Treatments and Tests cortizone shot & fluid release a while ago; pt reports Xray shows degeneration Treatment Goals Patient/Caregiver Goals Knee eval 03/30- Be able to balance better, be able to walk more and be able to go up /down driveway and hills, inc ease of up/down from chair from balance eval: Be able to walk independently w/o imbalance (at home, grocery store, golf course). PT-OP-C Subjective Start: 09/08/18 08:13 Freq: Status: Active Protocol: Document 06/10/19 12:30 SP (Rec: 06/10/19 13:02 SP [email or web address]) OP-PT Subjective Patient Comments Patient Comments Pt reports his balance has been feeling better. He thinks he is not rocking backwards as much when walking. He feels more steady on his feet. PT-OP-D Balance Start: 09/08/18 08:13 Freq: Status: Active Protocol: Document 12/03/18 10:30 AR (Rec: 12/03/18 16:28 AR [id number]) Balance Tests Veras Balance Test Veras Balance Test Score 49/56 Veras Impairment Rating 1 to 19% Impaired (Score 45-55 ) PT-OP-E Functional Tests Start: 09/08/18 08:13 Freq: Status: Active Protocol: Document 05/25/19 18:39 SP (Rec: 05/25/19 18:57 SP [email or web address]) Functional Tests Functional Gait Assessment Score 17 Functional Gait Assessment Impairment 40 to <60% Impaired (Score 13- Rating 18) PT-OP-J Posture/Palpation/Skin Start: 09/08/18 12:00 Freq: Status: Active Protocol: Document 11/10/18 15:15 [facility] (Rec: 11/10/18 15:30 [facility] [id number]) Posture Evaluation Kelsey Postural Classification System Elbow Flexion Test 2 PT-OP-K Range of Motion Start: 09/08/18 12:00 Freq: Status: Active Protocol: Document 05/25/19 18:39 SP (Rec: 05/25/19 18:57 SP [email or web address]) Knee Goniometric Range of Motion Knee Right Patient Position Supine Flexion Active (degrees) 122 Extension Active (degrees) 9 Left Patient Position Supine Flexion Active (degrees) 110 Extension Active (degrees) 12 PT-OP-M Strength Start: 09/08/18 08:13 Freq: Status: Active Protocol: Document 05/25/19 18:39 SP (Rec: 05/25/19 18:57 SP [email or web address]) Hip Strength Hip Manual Muscle Testing Right Flexion (L2) 4 Good Extension (S1) 3+ Fair+ Abduction 3+ Fair+ External Rotation 4 Good Internal Rotation 4 Good Left Flexion (L2) 4- Good- Extension (S1) 3 Fair Abduction 3+ Fair+ External Rotation 4 Good Knee Strength Knee Manual Muscle Testing Right Flexion (S2) 4- Good- Extension (L3) 4- Good- Left Flexion (S2) 4- Good- Extension (L3) 4- Good- Ankle/Foot Strength Ankle and Foot Manual Muscle Testing Right Dorsiflexion (L4) 4 Good Left Dorsiflexion (L4) 4 Good PT-OP-Q Treatments Start: 09/08/18 08:13 Freq: Status: Active Protocol: Document 06/10/19 12:30 SP (Rec: 06/10/19 13:02 SP [email or web address]) Cardio Equipment Recumbent Stepper (Sci-Fit) Duration (Minutes) 7 Resistance 3 Therapeutic Exercises Supine Exercises clamshell Side bilateral Resistance L2 SLR Side bilateral Reps/Minutes 20 plantarflexion Side bilateral Resistance L1 Reps/Minutes 30 bridge Side bilateral Reps/Minutes 20 Sitting Exercises marching Side bilateral Resistance L2 Ankle strength Sitting Exercise Name PF Side bilateral Reps/Minutes 30 Standing Exercises hip ext Side bilateral Resistance L1 Reps/Minutes 20 hip abd Side bilateral Resistance L1 Reps/Minutes 20 Manual Therapy Treatment Soft Tissue Mobilization calves Body Location L Mobilization Type Rolling,Sustained Pressure Intensity/Depth Moderate Neuro Re-Education Treatment Balance Activities 1 Comments 1. feet together 2. feet staggered head turns, EC. PT-OP-R Modalities Start: 09/18/18 11:15 Freq: Status: Active Protocol: Document 06/10/19 12:30 SP (Rec: 06/10/19 13:02 SP [email or web address]) Hot Pack/Cold Pack Treatment Hot Pack Location right shld left knee Patient Position Sidelying Treatment Duration (minutes) 15 PT-OP-T Assessment and Plan Start: 09/08/18 08:13 Freq: Status: Active Protocol: Document 06/10/19 12:30 SP (Rec: 06/10/19 13:02 SP [email or web address]) Physical Therapy Assessment Goals strength Short Term Goal (STG) Pt will be indep with LE HEP. STG Duration achieved Group Home Goal (LTG) Pt will score 4/5 or greater BLE strength to allow greater ease with activities like walking. LTG Duration 07/25/19 FGA Impairment Mill Operator Goal (LTG) Pt will score 23 or greater to dec fall risk LTG Duration 07/25/19 ROM Short Term Goal (STG) Pt iwll improve ROM to 10-115 deg ROM 05/24 - improving STG Duration 06/25/19 Group Home Goal (LTG) Pt will be able to go up/down stairs with 1 rail reciprocally. LTG Duration achieved weakness Short Term Goal (STG) Pt will be indep with HEP. STG Duration achieved Group Home Goal (LTG) Pt will be able to score 5/5 w /UE strength & 3/5 for EFT to allow inc activity tolerance 11/10/18 - progressin. 5/ MMTs , 2/ EFT 12/03/18- not tested today 02/02/19 - pt scored a 1/5 LTG Duration 07/29/19 Assessment Summary Assessment Pt able to complete balance activities without UE support this visit. Less sway when doing staggered stance with eyes closed. Pt demonstrates improvement with balance. He continues to have difficulty with exercises involving plantarflexion and keep knee in extension. R ankle strength > L. Improvement in L calf tightness following manual. Focus today was on HEP due to COVID-19 precautions. Pt given many exercises to do/progress while at home. Physical Therapy Plan Frequency and Duration Frequency of Treatment 1-2x/week Duration of Treatment 2 months Plan of Care Start Date 05/25/19 Plan of Care End Date 07/25/19 Next Visit Focus/Plan Next Note Type Treatment Note Next Visit Plan Continue gastroc and quad strengthening
--- NOTE | 2019-09-16 11:04 | PT.OPDS ---
Current Diagnoses Squamous cell carcinoma of skin, unspecified (06/10/19) Other chronic pain (06/10/19) Pain in left knee (06/10/19) Stiffness of right shoulder, not elsewhere classified (06/10/19) Abnormal posture (06/10/19) Weakness (06/10/19) Visit Care Team Role Provider Type Satnam Kirk MD Primary Care Provider Physician Specialty: Internal Medicine Address: [address] [place] [address], [address], [facility] Email: [email or web address] Attending Provider Specialty: Address: Phone: Fax: Email: Visit Number Visit Number 01/01 Discharge Summary PT-OP-T Assessment and Plan Start: 09/08/18 08:13 Freq: Status: Active Protocol: Document 09/16/19 11:03 [facility] (Rec: 09/16/19 11:04 [facility] [id number]) Physical Therapy Plan Discharge Physical Therapy Discharge Reasons No Longer Attending PT Discharge Comments Pt had fall resulting in fracture during this clinics closure and had to resume PT at new clinic d/t this clinics closure. DC at this time. Prior to closure, pt was making progress with balance and strength
== END 2019-09-17 07:39 ==
LOC: PHYS 11:15
PROVIDERS: PCP Student in an Organized Health Care Education/Training Program
DX: C44.92 Squamous cell carcinoma of skin, unspecified (principal); M25.611 Stiffness of right shoulder, not elsewhere classified; R53.1 Weakness; R29.3 Abnormal posture; M25.562 Pain in left knee; G89.29 Other chronic pain
CPT/HCPCS: 97010; 97110; 97112; 97116; 97140; 97162; 97164; 97530

== ENCOUNTER 2019-06-21 00:48 | Inpatient (IN) | payer MEDICARE, OTHER, SELFPAY ==
[2019-06-21] VITALS (22 sets, daily range): BP systolic 111–183; BP diastolic 68–103; PULSE 59–99; RESP 10–20; TEMP 36.3–37.5; O2SAT 92–98; BMI 29.2
--- NOTE | 2019-06-21 | DI.RAD.S_ITS ---
PROCEDURE: XR HIP W PEL IF DONE LT 2V INDICATIONS: LEFT HIP DHS TECHNIQUE: Fluoroscopic images were obtained during an operative procedure and submitted for interpretation following the completion of the procedure. COMPARISON: [facility], CT, CT PEL WO CON, 06/21/2019, 1:14. [facility], CR, XR PELVIS 1-2V, 06/21/2019, 0:57. FINDINGS: These fluoroscopic images were performed for intraoperative localization. On these images, left proximal femur fixation hardware has been placed. Please correlate with intraoperative findings. IMPRESSION: Normal intraoperative examination. Dictated by: Nawaf Marinelli M.D. on 06/21/2019 at 12:01 Approved by: Nawaf Marinelli M.D. on 06/21/2019 at 12:02
--- NOTE | 2019-06-21 01:02 | DI.RAD.S_ITS ---
PROCEDURE: XR PELVIS 1-2V INDICATIONS: fall with left hip pain TECHNIQUE: 1 view(s) of the pelvis acquired. COMPARISON: [facility], CT, CT PEL WO CON, 06/21/2019, 1:14. FINDINGS: Bones: This patient has a left intertrochanteric fracture, which is much better demonstrated on the subsequently performed CT examination. Age-appropriate lower lumbar spine degenerative changes are noted. Milder degenerative changes are seen elsewhere. No suspicious lytic or blastic lesions are seen. Soft tissues: Visualized bowel gas pattern is normal. No suspicious soft tissue calcifications. Pelvic phleboliths are incidentally noted. IMPRESSION: Faint visualization of the left intertrochanteric fracture. Dictated by: Nawaf Marinelli M.D. on 06/21/2019 at 7:34 Approved by: Nawaf Marinelli M.D. on 06/21/2019 at 7:35
--- NOTE | 2019-06-21 01:18 | DI.CT.S_ITS ---
PROCEDURE: CT PEL WO CON INDICATIONS: fall, severe L hip pain TECHNIQUE: Noncontrast 3 mm axial sections acquired through the bony pelvis, with coronal and sagittal reformatting. COMPARISON: [facility], CR, XR PELVIS 1-2V, 06/21/2019, 0:57. FINDINGS: Image quality: Excellent. Bones: There is a mildly displaced intertrochanteric fracture seen involving the left femoral neck. No dislocation can be seen. The bones of the pelvis are unremarkable. No right proximal femur fracture is seen. Age-appropriate bony degenerative changes are seen. No suspicious lytic or blastic lesions are seen. Dextroconvex scoliosis and lumbar spine degenerative change is partially seen. Soft tissues: There is a soft tissue hematoma is seen within the gluteal musculature posterior to the fracture. A mild periumbilical hernia is seen, containing fat. No dilated loops of small bowel are seen. The visualized colon demonstrates no montez abnormality. No free air or significant free fluid can be seen. Bilateral fat-containing inguinal hernias are seen, right larger than left. No enlarged inguinal or groin lymph nodes are seen. The visualized musculature is unremarkable. IMPRESSION: Mildly displaced left femoral neck fracture, with associated soft tissue hematoma. Incidental note is made of: Fat-containing paraumbilical hernia Fat-containing inguinal hernias, right larger than left Note: No significant discrepancy from the preliminary report. Dictated by: Nawaf Marinelli M.D. on 06/21/2019 at 7:20 Approved by: Nawaf Marinelli M.D. on 06/21/2019 at 7:26
--- NOTE | 2019-06-21 01:21 | ED_ITS ---
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 Coreas at [facility]) presents by EMS for evaluation of severe left hip pain after an injury suffered just prior to his arrival. He had gone to bed in his normal state of health and awoke, tripped on a rug and fell on his hip. He denies any head neck or back pain. He denies any numbness, tingling weakness. He states he has an intense aching pain all the time which rises to a very sharp and unbearable pain with any motion. He is unable to ambulate. Patient denies travel or exposure to persons known to be positive for COVID-19. Denies a headache, change in smell, sore throat, fever, cough, shortness of breath or GI symptoms MD complaint: hip injury Onset (ago): minute(s) Injury: Left: hip Type of Injury: blunt Place: home Severity: severe Relieving factors: immobilization and rest Exacerbating factors: weight bearing, movement and palpation Context: fall Associated symptoms: unable to bear weight Other symptoms: none Related Data Home Medications Medication Instructions Recorded Confirmed acetaminophen 325 mg tablet 650 mg PO Q12H PRN tab 07/08/18 06/21/19 cemiplimab-rwlc 350 mg IV Q3W 06/21/19 06/21/19 Previous Rx's Medication Instructions Recorded sertraline 100 mg tablet 100 mg PO DAILY #90 tab 10/30/18 lorazepam 0.5 mg tablet 0.5 mg PO BID PRN #60 tab 01/20/19 Allergies Allergy/AdvReac Type Severity Reaction Status Date / Time No Known Allergies Allergy Uncoded 03/27/19 10:01 Review of Systems Constitutional Constitutional: Denies chills, Denies fatigue, Denies fever(s), Denies frequent falls, Denies lethargy and Denies weakness Eyes Eyes: Denies change in vision, Denies eye discharge, Denies irritation and Denies loss of vision ENT Ears, Nose, Mouth, and Throat: Denies change in voice, Denies dizziness, Denies neck pain, Denies sore throat and Denies throat swelling Cardiovascular Cardiovascular: Denies chest pain, Denies irregular heart rhythm, Denies lightheadedness, Denies palpitations, Denies dyspnea, Denies dyspnea on exertion and Denies orthopnea Respiratory Respiratory: Denies cough, Denies dyspnea, Denies dyspnea on exertion and Denies wheezing Gastrointestinal Gastrointestinal: Denies abdominal pain, Denies change in bowel habits, Denies diarrhea, Denies nausea and Denies vomiting Genitourinary Genitourinary: Denies hematuria, Denies flank pain, Denies urinary incontinence and Denies urinary urgency Musculoskeletal Musculoskeletal: Denies back pain, Reports limited range of motion, Denies muscle weakness, Denies neck pain, Denies numbness and Denies tingling Integumentary/Breasts Skin/Breast: Denies pruritus, Denies erythema, Denies rash and Denies wounds Neurologic Neurologic: Denies behavioral changes, Denies confusion, Denies dizziness, De nies frequent falls, Denies loss of vision, Denies numbness, Denies tingling and Denies weakness Psychiatric Psychiatric: Denies anxiety, Denies behavioral changes, Denies confusion, Denies depression, Denies homicidal ideation and Denies suicidal ideation Endocrine Endocrine: Denies fatigue, Denies flushing and Denies palpitations Hematologic/Lymphatic Hematologic/Lymphatic: Denies easy bruising Allergic/Immunologic Allergic/Immunologic: Denies urticaria, Denies throat swelling and Denies wheezing Patient History Medical History (Updated 06/21/19 @ 03:00 by ÓSCAR Jaeger) Anxiety (Chronic) Chicken pox (Resolved) Depression (Chronic ~2016) Fractures (Resolved) Hearing loss (Chronic) Knee pain (Chronic) Measles (Resolved) Mumps (Resolved) Osteoarthritis (Chronic ~2002) Seasonal allergies (Chronic ~2007) 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 (Inactive) Vision disorder (Chronic) Surgical History (Updated 06/21/19 @ 03:00 by ÓSCAR Jaeger) Status post knee surgery (~2002) Status post surgical removal of malignant neoplasm of skin (Acute) Family History (Updated 06/21/19 @ 03:13 by ÓCSAR Jaeger) Father Mental health problem Stroke Mother No significant past medical history Daughter Alcoholism Social History household members: spouse Smoking Status: Former smoker alcohol intake: former Smoking Status: Former smoker Exam Narrative Exam Narrative: GENERAL: [73] year old patient appears stated age. Well- nourished, well-developed patient, in mild distress. HEAD: Atraumatic. Normocephalic. EYES: Pupils equal round and reactive. Extraocular motions intact. No scleral icterus. No injection or drainage. ENT: Nose without bleeding, purulent drainage. Throat without erythema, tonsillar hypertrophy or exudate. Airway patent. NECK: Trachea midline. Non tender CARDIOVASCULAR: Regular rate and rhythm without murmurs, gallops, or rubs. RESPIRATORY: Clear to auscultation. Breath sounds equal bilaterally. No wheezes, rales, or rhonchi. GASTROINTESTINAL: Abdomen soft, non-tender, nondistended. EXTREMITIES: Severe tenderness to palpation left hip, no obvious shortening or internal rotation. Closed, isolated and neurovascularly intact BACK: Nontender without deformity or crepitance. No flank tenderness. NEURO: AOx3. SKIN: No rash or erythema of visible areas Initial Vital Signs Initial Vital Signs: Vital Signs Temperature 99.0 F 06/21/19 00:48 Pulse Rate 99 H 06/21/19 00:48 Respiratory Rate 18 06/21/19 00:48 Blood Pressure 183/103 H 06/21/19 00:48 Pulse Oximetry 98 06/21/19 00:48 Course Orders Ordered: ED Orders 06/21/19 01:02 XR pelvis 1-2V Stat 06/21/19 01:18 CT pelvis wo con Stat 06/21/19 01:40 Basic Metabolic Panel Stat Complete Blood Count AUTO DIFF Stat Prothrombin Time INR Stat Acetaminophen (Tylenol) 650 mg PO Q6HR PRN PRN Reason: Fever/Mild Pain (1-3) Al Hydrox/Mg Hydrox/Simethicone (Maalox Plus) 30 ml PO Q6HR PRN PRN Reason: Dyspepsia Bisacodyl (Dulcolax) 10 mg HI DAILY PRN PRN Reason: Constipation Calcium Carbonate (Tums) 1,000 mg PO Q4HR PRN PRN Reason: Dyspepsia Docusate Sodium (Colace) 100 mg PO BID PRN PRN Reason: Constipation Hydromorphone HCl (Dilaudid) 0.5 mg IV Q4HR PRN PRN Reason: Pain, Moderate (4-6) Hydromorphone HCl (Dilaudid) 1 mg IV Q4HR ROSEMARY Last Admin: 06/21/19 04:08 Dose: 1 mg Documented by: MEMO Lactated Ringer's (Lactated Ringers) 1,000 mls @ 100 mls/hr IV CONT ROSEMARY Last Admin: 06/21/19 03:38 Dose: 100 mls/hr Documented by: LMILLER Lorazepam (Ativan) 0.5 mg PO BID PRN PRN Reason: anxiety Magnesium Hydroxide (Milk Of Magnesia) 30 ml PO DAILY PRN PRN Reason: Constipation Naloxone HCl (Narcan) 0.2 mg IV Q2MIN PRN PRN Reason: Opiate Reversal Ondansetron HCl (Zofran) 4 mg IV Q8HR PRN PRN Reason: Nausea And Vomiting Sertraline HCl (Zoloft) 100 mg PO DAILY ROSEMARY Sodium Chloride (Normal Saline 0.9% Flush) 10 ml IV PRN PRN PRN Reason: Flush Sodium Chloride (Normal Saline 0.9% Flush) 10 ml IV BID [facility] Discontinued Medications Hydromorphone HCl (Dilaudid) 0.5 mg IV NOW ONE Stop: 06/21/19 01:19 Last Admin: 06/21/19 01:26 Dose: 0.5 mg Documented by: KALLIE Consultations Consultation #1: Dr. Yeh (Orthopedics) happy to care for patient, requests we call hospitalist for admission Consultation #2: hospitalist happy to accept Vital Signs Vital signs: Vital Signs - 8 hr 06/21/19 00:48 06/21/19 01:02 Temperature 99.0 F Pulse Rate 99 H 66 Respiratory Rate 18 20 Blood Pressure 183/103 H Blood Pressure [Left Arm] 113/68 Pulse Oximetry 98 96 MDM - Extremity Injury (Lower) Lab Data Result diagrams: 06/21/19 01:40 06/21/19 01:40 Labs: Lab Results 06/21/19 06/21/19 06/21/19 Range/Units 01:40 01:40 01:40 WBC 7.7 (4.5-11.0) X10^3/uL RBC 4.77 (4.5-5.9) X10^6/uL Hgb 14.3 (13.5-17.5) g/dL Hct 41.7 (41-53) % MCV 87.6 (80-100) fL MCH 30.0 (26-34) PG MCHC 34.2 (30-36) % RDW 14.3 (11.6-14.8) % Plt Count 166 (150-400) X10^3/uL Neut % (Auto) 82.6 H (50-75) % Lymph % (Auto) 11.9 L (25-40) % [place] % (Auto) 4.5 (3-14) % Eos % (Auto) 0.5 L (2-4) % Baso % (Auto) 0.5 (0-2) % Neut # (Auto) 6400 (4608-2981) /uL Lymph # (Auto) 900 L (6544-1112) /uL [place] # (Auto) 300 (0-900) /uL Eos # (Auto) 0 (0-450) /uL Baso # (Auto) 0 (0-100) /uL PT 10.8 (10.1-12.7) SECONDS INR 0.9 (0.9-1.3) Sodium 139 (137-145) mmol/L Potassium 4.0 (3.4-5.1) mmol/L Chloride 108 H (98-107) mmol/L Carbon Dioxide 25 (22-32) mmol/L BUN 11 (9-20) mg/dL Creatinine 0.84 (0.66-1.25) mg/dL Estimated GFR > 60.0 (>60) mL/min BUN/Creatinine Ratio 13.1 (6-22) Glucose 108 (80-110) mg/dL Calcium 10.2 (8.4-10.2) mg/dL Magnesium (1.6-2.3) mg/dL 06/21/19 Range/Units 01:40 WBC (4.5-11.0) X10^3/uL RBC (4.5-5.9) X10^6/uL Hgb (13.5-17.5) g/dL Hct (41-53) % MCV (80-100) fL MCH (26-34) PG MCHC (30-36) % RDW (11.6-14.8) % Plt Count (150-400) X10^3/uL Neut % (Auto) (50-75) % Lymph % (Auto) (25-40) % [place] % (Auto) (3-14) % Eos % (Auto) (2-4) % Baso % (Auto) (0-2) % Neut # (Auto) (6141-7427) /uL Lymph # (Auto) (5764-2547) /uL [place] # (Auto) (0-900) /uL Eos # (Auto) (0-450) /uL Baso # (Auto) (0-100) /uL PT (10.1-12.7) SECONDS INR (0.9-1.3) Sodium (137-145) mmol/L Potassium (3.4-5.1) mmol/L Chloride (98-107) mmol/L Carbon Dioxide (22-32) mmol/L BUN (9-20) mg/dL Creatinine (0.66-1.25) mg/dL Estimated GFR (>60) mL/min BUN/Creatinine Ratio (6-22) Glucose (80-110) mg/dL Calcium (8.4-10.2) mg/dL Magnesium 2.2 (1.6-2.3) mg/dL Imaging Data Extremity x-ray #1: Attestation: I personally reviewed and interpreted this imaging study as follows: My Impression: L femoral neck fx CT scan - abdomen/pelvis: Radiologist's Impression: nondisplaced L intertrochanteric fracture Discharge Plan Departure Patient Disposition: Admitted As Inpatient Clinical Impression: Closed fracture of left hip Qualifiers: Encounter type: initial encounter Qualified Code(s): S72.002A - Fracture of unspecified part of neck of left femur, initial encounter for closed fracture Discharge Date/Time: 06/21/19 02:50 Admit Date/Time: 06/21/19 01:54 Admit Provider: Daljit Glover
[2019-06-21] MEDS: HYDROMORPHONE 0.5 MG INJ IV (01:26)
--- NOTE | 2019-06-21 01:47 | PC.NURSE ---
patient gets transfusion every 3 weeks of [facility] for metastatic squamous cell carcinoma. his last transfusion was saturday06/16/2019. provider aware.
[2019-06-21 01:53] LABS: Add Manual Diff / Slide Review NO; Basophils Absolute Auto 0 /uL (0-100); Basophils Percent Auto 0.5 % (0-2); Eosinophils Absolute Auto 0 /uL (0-450); Eosinophils Percent Auto 0.5 % (2-4); Hematocrit 41.7 % (41-53); Hemoglobin 14.3 g/dL (13.5-17.5); Lymphocytes Absolute Auto 900 /uL (1100-4500); Lymphocytes Percent Auto 11.9 % (25-40); Mean Corpuscular HGB Conc 34.2 % (30-36); Mean Corpuscular Volume 87.6 fL (80-100); Monocytes Absolute Auto 300 /uL (0-900); Monocytes Percent Auto 4.5 % (3-14); Neutrophils Absolute Auto 6400 /uL (1500-7000); Neutrophils Percent Auto 82.6 % (50-75); Platelet Count 166 X10^3/uL (150-400); Red Blood Cell Count 4.77 X10^6/uL (4.5-5.9); Red Cell Distribution Width 14.3 % (11.6-14.8); White Blood Cell Count 7.7 X10^3/uL (4.5-11.0)
[2019-06-21 01:55] LABS: INR 0.9 (0.9-1.3); Prothrombin Time 10.8 SECONDS (10.1-12.7)
[2019-06-21 01:59] LABS: BUN Creatinine Ratio 13.1 (6-22); Blood Urea Nitrogen 11 mg/dL (9-20); Calcium 10.2 mg/dL (8.4-10.2); Carbon Dioxide 25 mmol/L (22-32); Chloride 108 mmol/L (98-107); Estimated Glomerular Filt Rate > 60.0 mL/min (>60); Glucose 108 mg/dL (80-110); HEMOLYSIS < 15 (0-50); Sodium 139 mmol/L (137-145)
--- NOTE | 2019-06-21 02:48 | PM.HP.1 ---
History of Present Illness History of Present Illness Date Patient Seen: 06/21/19 Time Patient Seen: 02:22 Chief complaint: Left hip pain, GLF Narrative: Mr. Pete Akins is a 73-year-old male with a history significant for osteoarthritis, surgical excision of squamous cell carcinoma skin grafting, major depression in remission and GERD who presents to the ER with left hip pain following a mechanical ground level fall. The patient was getting out of his recliner tonight and tripped on a rug falling on his left hip. The patient denies striking his head, had no loss of consciousness and denies neck or back pain and was not ambulatory post fall. Patient reports that he is otherwise good health he is undergoing immunotherapy for squamous cell carcinoma with right shoulder status post wide resection with skin grafting. He takes cemiplimab every 3 weeks with his last dose being last Saturday. The patient describes a general sense of fatigue as a side effect of the immunotherapy. He has had no other complaints of fevers or chills. He will frequently wake up in the mornings with headache once he is up moving resolves. He has nasal congestion at night but denies complaints of shortness of breath cough or wheezing. He has no chest pain or palpitations. He denies abdominal pain but does report symptoms of GERD. He does have a CT that was completed in 2017 which identifies hiatal hernia. He reports no problems with bowel movements and will have brief episodes of loose bowels following each immunotherapy treatment. He denies urinary complaints. Upon arrival to the ER the patient has temperature 99? has a heart rate of 99 with a blood pressure of 183/103, respiratory rate of 18 saturating 98% on room air. Patient given Dilaudid 0.5 mg the ED with improvement in blood pressure to 113/68. X-ray of the hip and CT of the pelvis finds a comminuted intertrochanteric fracture. On laboratory analysis the patient has a white count of 7.7, hemoglobin 14.3, hematocrit of 41.7, platelets of 166. He has a PT of 10.8 with an INR 0.9. His electrolytes are within normal range with a BUN of 11 and creatinine 0.84. His nonfasting glucose is 108. Dr. Yeh is contacted through the ER and has agreed to consult. The patient is admitted to the medicine service for left hip fracture. Patient History Medical History (Updated 03/29/20 @ 03:00 by ÓSCAR Jaeger) Anxiety (Chronic) Chicken pox (Resolved) Depression (Chronic ~2016) Fractures (Resolved) Hearing loss (Chronic) Knee pain (Chronic) Measles (Resolved) Mumps (Resolved) Osteoarthritis (Chronic ~2002) Seasonal allergies (Chronic ~2007) 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 (Inactive) Vision disorder (Chronic) Surgical History (Updated 06/21/19 @ 03:00 by ÓSCAR Jaeger) Status post knee surgery (~2002) Status post surgical removal of malignant neoplasm of skin (Acute) Family & Social History Family History (Updated 06/21/19 @ 03:13 by ÓSCAR Jaeger) Father Mental health problem Stroke Mother No significant past medical history Daughter Alcoholism Safety & Behavioral: Feels Safe in Current Yes Environment Been Physically Hurt or No Threatened By a Person Tobacco & Substance use: Smoking Status Former smoker Comment: The patient lives in a single family home that is 2 story with the master bedroom on the ground floor and no steps to the entry. He lives with his to whom he has been for 45 years and his daughter. Occupation: Retired Smoking: Former smoker having quit 40 years ago before which smoked approximately 1/2 pack per day. Alcohol: No alcohol currently last drink approximately 7 months ago. Substance use: The patient denies recreational pharmaceuticals, herbal or cannabis products. Advanced directives: In direct discussion with the patient he states his wish to be FULL CODE and designates his to be his surrogate decision maker. Meds Home Medications and Allergies Home Medications Medication Instructions Recorded Confirmed Type acetaminophen 325 mg tablet 650 mg PO Q12H PRN tab 07/08/18 03/27/19 History sertraline 100 mg tablet 100 mg PO DAILY #90 tab 10/30/18 06/21/19 Rx lorazepam 0.5 mg tablet 0.5 mg PO BID PRN #60 tab 01/20/19 06/21/19 Rx cemiplimab-rwlc 350 mg IV Q3W 06/21/19 06/21/19 History Allergies Allergy/AdvReac Type Severity Reaction Status Date / Time No Known Allergies Allergy Uncoded 03/27/19 10:01 Review of Systems Review of Systems ROS: Yes All systems reviewed with the patient and are negative except as otherwise documented Exam Vital Signs (past 8 hours): - 06/21/19 00:48 06/21/19 01:02 Temperature 99.0 F Pulse Rate 99 H 66 Respiratory Rate 18 20 Blood Pressure 183/103 H Blood Pressure [Left Arm] 113/68 Pulse Oximetry 98 96 Oxygen Delivery Method Room Air Narrative Exam Narrative: GENERAL APPEARANCE: well developed, well nourished, lying supine on stretcher in no acute distress. HEENT: Atraumatic, wears glasses, PERRLA, sclera is anicteric and conjunctiva clear, EOMs intact mild central nystagmus without diplopia, no sinus tenderness to percussion, no rhinorrhea, mucous membranes are moist and pink without lesions or exudate. NECK/THYROID: neck nontender, no step-offs, no JVD, no carotid bruit, no thyromegaly, trachea midline. LYMPH NODES: no cervical or supraclavicular or axillary lymphadenopathy. SKIN: [place], warm and dry, no visible lesions, large well-healed surgical scar posterior right shoulder. HEART: regular rate and rhythm, S1-S2, no murmur, no rubs or gallops, 2+ posterior tibial pulses no edema LUNGS: clear to auscultation bilaterally, no coarseness crackles or wheezing, no cough present CHEST: Symmetrical movement, no accessory muscle use, good tidal volume. ABDOMEN: Soft, tympanic to percussion, no abdominal tenderness, no guarding or peritoneal signs, no organomegaly, no flank or suprapubic tenderness, active bowel tones. BACK: Normal curvature, nontender to palpation. EXTREMITIES: Pain with movement of left hip, no shortening or external rotation, distal CMS intact. NEUROLOGIC: AAO x4, no focal neurologic deficits, cranial nerves II-XII grossly intact, sensation intact to light touch. PSYCH: Good judgment, good insight, linear thought, cooperative, appropriate with stable behavior, no suicidal ideation or thoughts of self-harm. Objective Labs Result Diagrams: 06/21/19 01:40 06/21/19 01:40 Labs: Laboratory Results - last 24 hr 06/21/19 06/21/19 06/21/19 01:40 01:40 01:40 WBC 7.7 RBC 4.77 Hgb 14.3 Hct 41.7 MCV 87.6 MCH 30.0 MCHC 34.2 RDW 14.3 Plt Count 166 Neut % (Auto) 82.6 H Lymph % (Auto) 11.9 L [place] % (Auto) 4.5 Eos % (Auto) 0.5 L Baso % (Auto) 0.5 Neut # (Auto) 6400 Lymph # (Auto) 900 L [place] # (Auto) 300 Eos # (Auto) 0 Baso # (Auto) 0 PT 10.8 INR 0.9 Sodium 139 Potassium 4.0 Chloride 108 H Carbon Dioxide 25 BUN 11 Creatinine 0.84 Estimated GFR > 60.0 BUN/Creatinine Ratio 13.1 Glucose 108 Calcium 10.2 Assessment & Plan Assessment & Plan narrative: This is a 73-year-old male patient who sustained a mechanical ground level fall landing on his left hip sustaining a closed comminuted intertrochanteric fracture of the left hip. He has sustained no other trauma and has no other pertinent complaints. 1. Acute pathological fracture of the left hip, present on admission, active The patient has sustained a ground level fall tripping on a rug landing on his left hip, he did not hit his head and sustained no no loss of consciousness, denies neck or back pain. Patient was nonambulatory post fall. Imaging identifies nondisplaced comminuted left hip fracture. Age related osteoporosis, evidenced by hip fracture with ground level fall Dr. Yeh is contacted through the emergency department has agreed to consult, we appreciate his evaluation and treatment. Patient is NPO pending surgery. Ordered Lactated Ringer's 100 cc/hour Ordered Dilaudid 0.5 to 1 mg every 4 hours as needed for pain. 2. Major depression in remission, chronic, present on admission, stable. -patient reports that he is coping well with the current [facility] orders related to COVID-19 pandemic. He denies thoughts of suicidal ideation or self-harm and is appropriately interactive with stable mood and affect. Continue home regimen of sertraline 100 mg daily and lorazepam 0.5 mg twice daily as needed for anxiety. 3. Squamous cell skin cancer, stable. Patient is under the care of [facility]. He is undergone wide resection of the right posterior shoulder requiring skin grafting and muscle flap that is well healed. Patient is receiving immunotherapy with cemiplimab every 3 weeks, last infusion was 06/16/2019. VTE: SCDs, no chemical prophylaxis pending surgery. IV fluid: Lactated Ringer's 100 cc/hour. Diet: NPO Code status: FULL CODE, his Jessi is surrogate decision maker. The patient is admitted to the hospital with a left hip fracture with plans for surgical intervention. The patient is admitted as an inpatient with expected length of stay to be greater than 2 midnights. Scores GCS [place] coma scale eye opening: Spontaneous [place] coma scale verbal response: Orientated [place] coma scale motor response: Obey commands [place] coma scale total score: 15
[2019-06-21 03:11] LABS: Magnesium 2.2 mg/dL (1.6-2.3)
[2019-06-21] MEDS: LACTATED RINGERS 1,000 ML 100 ML IV (03:38)
[2019-06-21] MEDS: HYDROMORPHONE 1 MG INJ IV ×2 (04:08→09:46)
[2019-06-21 07:07] LABS: Bacteria Urine None Seen; RBC Urine None Seen (0-5/HPF); WBC Urine None Seen (0-5/HPF)
[2019-06-21 07:20] LABS: Appearance Urine UA CLEAR; Bilirubin Urine UA NEGATIVE (NEGATIVE); Color Urine UA YELLOW; Glucose Urine UA NEGATIVE (Negative); Ketones Urine UA TRACE (NEGATIVE); Leukocyte Esterase Urine UA NEGATIVE (NEGATIVE); Nitrite Urine UA NEGATIVE (Negative); Occult Blood Urine UA NEGATIVE (Negative); Protein Urine UA NEGATIVE (Negative); Urobilinogen Urine UA 0.2 E.U./dL (0.2)
[2019-06-21 07:41] LABS: Calcium Oxalate Crystals Urine Occasional
[2019-06-21 07:42] LABS: Culture Indicated Urine Cult Not Indicated; Sperm Urine SEEN
[2019-06-21] MEDS: HYDROMORPHONE 1 MG INJ 0.5 MG IV (07:43)
[2019-06-21] MEDS: SODIUM CHLORIDE 0.9% FLUSH 10 ML IV (09:47)
--- NOTE | 2019-06-21 09:58 | PC.NURSE ---
Addendum entered by Anne De Souza R.N. 06/21/19 14:34: Post-op: Arrived back to room 204 approx 1410. Drowsy but awakens easily to voice/touch. Reports pain in L hip 5/10. Circulation/sensation WNL, feet pink and warm, cap refill <2 sec, strong pedal pulses. Bulky dressing to L hip C/D/I. Vitals stable, on 2L O2 w/ cont pulse ox in place. SCD's to BLE's. IVF initiated per post-op orders, site in R AC WNL. Encouraged to make needs known, states none at this time. Call light and belongings within reach, bed alarm on. Addendum entered by Anne De Souza R.N. 06/21/19 12:18: Spoke with patient's Jessi and updated re: POC/surgery. This administrative underwriter left message asking Yoselyn from to call her to discuss possible needs at discharge. This administrative underwriter let mechanic recovery Chelsi know that patient's would like a call/update from Dr Yeh post-op. Original Note: Off floor to surgery at this time.
--- NOTE | 2019-06-21 09:59 | PM.HP.1 ---
History of Present Illness History of Present Illness Date Patient Seen: 06/21/19 Time Patient Seen: 09:59 Date of Onset of Symptoms: 06/20/19 Chief complaint: Left hip pain, GLF Narrative: 73-year-old male history of ground level fall directly onto his left hip. Immediate onset of pain in the specially pain with weight-bearing. Brought to [facility] Emergency Room where he was noted to have a nondisplaced intertrochanteric left hip fracture and consultation requested. 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 Patient History Medical History (Updated 06/21/19 @ 03:00 by ÓSCAR Jaeger) Anxiety (Chronic) Chicken pox (Resolved) Depression (Chronic ~2016) Fractures (Resolved) Hearing loss (Chronic) Knee pain (Chronic) Measles (Resolved) Mumps (Resolved) Osteoarthritis (Chronic ~2002) Seasonal allergies (Chronic ~2007) 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 (Inactive) Vision disorder (Chronic) Surgical History (Updated 06/21/19 @ 03:00 by ÓSCAR Jaeger) Status post knee surgery (~2002) Status post surgical removal of malignant neoplasm of skin (Acute) Family & Social History Family History (Updated 06/21/19 @ 03:13 by ÓSCAR Jaeger) Father Mental health problem Stroke Mother No significant past medical history Daughter Alcoholism Social History: household members spouse Prior Living Arrangements House Safety & Behavioral: Feels Safe in Current Yes Environment Been Physically Hurt or No Threatened By a Person Suicidal Ideation Description None Suicide Plan Description No Plan Tobacco & Substance use: Smoking Status Former smoker alcohol intake former alcohol intake frequency holiday/special occasion Substance Use Type does not use Meds Home Medications and Allergies Home Medications Medication Instructions Recorded Confirmed Type acetaminophen 325 mg tablet 650 mg PO Q12H PRN tab 07/08/18 06/21/19 History sertraline 100 mg tablet 100 mg PO DAILY #90 tab 10/30/18 06/21/19 Rx lorazepam 0.5 mg tablet 0.5 mg PO BID PRN #60 tab 01/20/19 06/21/19 Rx cemiplimab-rwlc 350 mg IV Q3W 06/21/19 06/21/19 History Allergies Allergy/AdvReac Type Severity Reaction Status Date / Time No Known Drug Allergies Allergy Verified 06/21/19 09:27 Review of Systems Review of Systems Narrative: Healthy-appearing male in the hospital bed. Afebrile vital signs stable, awake alert oriented and conversant in no obvious distress HEENT normocephalic atraumatic Lungs clear to auscultation Heart regular rate rhythm Abdomen benign Extremities well-healed surgical incision and rotational flap right shoulder. Neurovascular examination of all 4 extremities is intact. Pain with movement of the left hip. Exam Vital Signs (past 8 hours): - 06/21/19 02:50 06/21/19 03:00 06/21/19 06:46 Temperature 99.5 F Pulse Rate 87 72 Respiratory Rate 16 16 Blood Pressure 168/94 H 181/102 H 128/79 Pulse Oximetry 95 06/21/19 07:33 Temperature 98.1 F Pulse Rate 68 Respiratory Rate 16 Blood Pressure 146/90 H Pulse Oximetry 96 Oxygen Delivery Method Room Air Oxygen Flow Rate 0 Objective Labs Result Diagrams: 06/21/19 01:40 06/21/19 01:40 Labs: Laboratory Results - last 24 hr 06/21/19 06/21/19 06/21/19 01:40 01:40 01:40 WBC 7.7 RBC 4.77 Hgb 14.3 Hct 41.7 MCV 87.6 MCH 30.0 MCHC 34.2 RDW 14.3 Plt Count 166 Neut % (Auto) 82.6 H Lymph % (Auto) 11.9 L [place] % (Auto) 4.5 Eos % (Auto) 0.5 L Baso % (Auto) 0.5 Neut # (Auto) 6400 Lymph # (Auto) 900 L [place] # (Auto) 300 Eos # (Auto) 0 Baso # (Auto) 0 PT 10.8 INR 0.9 Sodium 139 Potassium 4.0 Chloride 108 H Carbon Dioxide 25 BUN 11 Creatinine 0.84 Estimated GFR > 60.0 BUN/Creatinine Ratio 13.1 Glucose 108 Calcium 10.2 Magnesium Urine Color Urine Appearance Urine pH Ur Specific [place] Urine Protein Urine Glucose (UA) Urine Ketones Urine Occult Blood Urine Nitrate Urine Bilirubin Urine Urobilinogen Ur Leukocyte Esterase Urine RBC Urine WBC Calcium Oxalate Crystal Urine Bacteria Urine Sperm Ur Culture Indicated? 06/21/19 06/21/19 01:40 04:10 WBC RBC Hgb Hct MCV MCH MCHC RDW Plt Count Neut % (Auto) Lymph % (Auto) [place] % (Auto) Eos % (Auto) Baso % (Auto) Neut # (Auto) Lymph # (Auto) [place] # (Auto) Eos # (Auto) Baso # (Auto) PT INR Sodium Potassium Chloride Carbon Dioxide BUN Creatinine Estimated GFR BUN/Creatinine Ratio Glucose Calcium Magnesium 2.2 Urine Color Yellow Urine Appearance Clear Urine pH 6.0 Ur Specific [place] 1.020 Urine Protein Negative Urine Glucose (UA) Negative Urine Ketones Trace H Urine Occult Blood Negative Urine Nitrate Negative Urine Bilirubin Negative Urine Urobilinogen 0.2 Ur Leukocyte Esterase Negative Urine RBC None seen Urine WBC None seen Calcium Oxalate Crystal Occasional H Urine Bacteria None seen Urine Sperm Seen Ur Culture Indicated? Cult not indicated Assessment & Plan Assessment & Plan narrative: 73-year-old male status post ground level fall with nondisplaced intertrochanteric left hip fracture plan open reduction internal fixation with dynamic hip screw. Patient gives informed consent. Quality VTE Deep Vein Thrombosis/Pulmonary Embolism Present on Admission: No
--- NOTE | 2019-06-21 10:03 | PM.PREOP ---
Pre-operative Note Interval Note History & Physical reviewed/Exam performed by Physician: Yes Changes to H&P: No
--- NOTE | 2019-06-21 10:36 | CM.DANOTE ---
Addendum entered by DARIEN Samuels 06/21/19 13:25: ADD: As of 1330 pt still off floor for surgery but in recovery room. SW spoke to pt's spouse Jessi who confirms that they live at home in [place] and that pt is Independent with ADL's at baseline and has not been using DME for ambulation. Spouse aware that if pt tolerates surgery well and ambulates with PT there's a chance he could be stable for d/c by tomorrow. Spouse confirms that she is agreeable with pt discharge home when he is stable but she is feeling a little anxious about DME if needed. SW discussed that PT will eval and make recommendations and some DME like FWW could be set up here prior to d/c and that PT will help to make recommendations. Spouse aware that most [employer] places, like [facility], are currently closed with the COVID 19 precautions in the community. Spouse will be available for CG training with PT when pt closer to discharge. Plan: SW to follow after initial PT eval and recommendations and will keep spouse updated after to determine if pt safe for d/c home and if any DME needed. DARIEN Samuels Original Note: Patient is a 73 year old male who was admitted today on 06/21/19 for Left hip pain, GLF. Pt has [employer] [place] and [employer] for insurance and his PCP is Dr. Satnam Kirk. EMR was reviewed. Per MD, pt with immunotherapy squamous cell carcinoma at baseline and goes to [facility] once every 3 weeks and per Ortho MD Consult pt could benefit from surgical intervention on his L Hip Fx. Per RN, pt NPO and just left the floor for surgery at 1000 this morning. Plan: SW to follow after surgery this morning for bedside assessment and PT initial eval and recommendations towards determining if pt will be safe for return home at d/c. DARIEN Samuels Discharge Planning/Care Management CM Discharge Assessment Start: 06/21/19 10:34 Freq: Status: Active Protocol: Document 06/21/19 10:34 BF (Rec: 06/21/19 10:36 BF [id number]) Discharge Planning Assessment Assigned Operator [employer]yst Concentration DARIEN Topete DPOA/Assigned Designee Name Spouse Jessi Contact Information [phone] Advance Directives? No History Provided By Patient,Medical Record Has Patient been admitted in last 30 No days? Prior Living Arrangements House Household Members spouse Type of transporation used prior to Drives own vehicle admit Independent with ADL's Yes Is patient alert and oriented? Yes Caregiver for Another No Patient/Family Preference Home with Home Health Comment Pending pt's hip surg today and PT eval and recommendations Barriers to Discharge No Discharge Plan Home with Home Health Transportation Arrangement If stable for home spouse can likely provide transport Additional Comment Waiting for PT initial eval and recommendations Review Status In Process Please Provide Date Initial DC 06/21/19 Assessment Was Performed Next Review Type Continued Stay Review
[2019-06-21] MEDS: LACTATED RINGERS 1,000 ML 42 ML IV (11:00)
[2019-06-21] MEDS: CEFAZOLIN 2 GM/100 ML FROZ.PIGGY IV ×2 (11:42→19:31)
--- NOTE | 2019-06-21 12:15 | SUR.OPER ---
Supine on padded [place] table withleft leg secured in padded positioning boot and suspended in positioning spar, right leg in padded well leg olosn operative leg in traction per surgeon. Head on one pillow. Arm on non-operative side secured on padded armboard <90 degrees abduction. Arm on operative side padded and resting across chest then secured with tape over sheet. Padded perineal post in place per surgeon.
[2019-06-21] MEDS: fentaNYL 100 MCG/2 ML INJ IV ×2 (13:21→13:32)
--- NOTE | 2019-06-21 13:30 | PM.OP.1 ---
Operative Date/Time/Diagnoses Date of procedure: 06/21/19 Time of procedure: 13:30 Pre-op diagnosis: Left intertrochanteric hip fracture Post-op diagnosis: same Procedure & Clinicians Procedure: Open reduction and internal fixation of left intertrochanteric hip fracture with dynamic hip screw (CPT code 97874) Same procedure as scheduled: Yes Indications: 73-year-old male status post ground level fall onto left hip. Seen and evaluated in the emergency room and noted to have a minimally displaced intertrochanteric hip fracture. We discussed the nature of condition, differential diagnosis, prognosis, treatment options, risks, and benefits. Patient elected proceed with fixation of his fracture as recommended. Surgeon: Anthony Yeh Click Yes if Unassisted: Yes Anesthesia Type: General Operative Notes Closure Type: primary Specimen(s): none sent Estimated Blood Loss (mL): 100 Procedure in detail: After administration of IV antibiotics and satisfactory induction of anesthetic, the patient is placed supine on the fracture table with the left leg in the foot holding boot and well-padded, and the right leg in the 90 90 well leg olson. Left hip and lower extremity then prepped and draped in the usual sterile fashion using a vertical isolation drape. Fluoroscopic images taken in AP and lateral planes confirming satisfactory maintenance of fracture. Incision made over the lateral hip and carried sharply through the skin and subcutaneous tissues down to the fascia yuni which was then incised longitudinally and retracted. Vastus lateralis fascia was then incised longitudinally and the muscle stripped off the posterior intermuscular septum down to the lateral cortex of the femur. Muscle stripped off the lateral cortex of the femur and retracted anteriorly. 135 degree guide then positioned and a guide pin placed from lateral cortex of the femur up into the femoral neck and head in the desired location, measured for depth, and then reamed with a triple Reamer. After tapping a hip screw was inserted and satisfactory placement of screw confirmed with AP and lateral fluoroscopic images. 135 degree 4 hole standard barrel sideplate was then inserted and affixed to the hip screw and affixed to the femur with 3 bicortical screws. Fluoroscopic images taken of the plate and screw position as well as satisfactory maintenance of the fracture. Wound was copiously irrigated and the vastus lateralis fascia was closed with running 2 O Vicryl, the fascia yuni was closed with running 0 Vicryl, subcutaneous tissues closed in 2 layers 0 Vicryl in 2 O Vicryl, and the skin was closed with fiona. Sterile dressings applied, the anesthetic terminated, and patient taken to postanesthetic recovery in satisfactory condition. Complications: none Post-operative Condition: stable Disposition: PACU Plan for aftercare: Routine wound care and postoperative care. Ambulation, weight-bearing as tolerated. Routine postoperative physical therapy. Discharge from hospital on postop day 1 or 2, and follow up in office in 2 weeks for wound check, x-rays, and staple removal
[2019-06-21] MEDS: OXYCODONE/ACETAMINOPHEN 5/325 TABLET 1 TAB PO ×2 (13:37→14:02)
--- NOTE | 2019-06-21 14:16 | SUR.PHASEI ---
Patient taken up to room in good condition with all belongings. Left in good condition with receiving RN at bedside.
--- NOTE | 2019-06-21 14:38 | PC.NURSE ---
Addendum entered by Anne De Souza R.N. 06/21/19 15:29: This senior copywriter called patient's to let her know patient is back in his room post-op. She reported that Dr Yeh called her after surgery also. Original Note: Post-op: See addendum to earlier note for post-op status.
[2019-06-21] MEDS: LACTATED RINGERS 1,000 ML 125 ML IV (16:02)
--- NOTE | 2019-06-21 16:42 | P.PN_ITS ---
Subjective Subjective Date Patient Seen: 06/21/19 Time Patient Seen: 16:42 Interval history: I agree with the previously documented assessment and plan written by ÓSCAR Silverman and have seen and evaluated the patient today. Patient is a 73-year-old male with a history of depression who presented with a left-sided hip fracture. He successfully underwent operative interventions today. He is doing well after surgery. Current plan is for postoperative pain control, physical therapy evaluation. Given relative lack of medical comorbidities the hope is that the patient will be able to discharge home after surgery, however this will depend on physical therapy evaluation. Exam Vital Signs (past 8 hours): - 06/21/19 10:00 06/21/19 13:12 06/21/19 13:17 Temperature 99.4 F 97.8 F 97.7 F Pulse Rate 84 61 64 Respiratory Rate 16 15 16 Blood Pressure 140/87 125/76 111/76 Pulse Oximetry 97 92 95 06/21/19 13:23 06/21/19 13:28 06/21/19 13:42 Temperature 97.7 F 97.5 F L 97.4 F L Pulse Rate 79 77 88 Respiratory Rate 17 17 13 Blood Pressure 140/75 143/78 H 143/79 H Pulse Oximetry 95 92 94 06/21/19 13:57 06/21/19 14:10 06/21/19 14:28 Temperature 97.3 F L 97.9 F Pulse Rate 79 59 L Respiratory Rate 10 L 16 Blood Pressure 145/92 H 147/85 H Pulse Oximetry 92 95 93 06/21/19 15:00 Temperature 98.3 F Pulse Rate 82 Respiratory Rate 16 Blood Pressure 137/77 Pulse Oximetry 95 Oxygen Delivery Method Nasal Cannula Oxygen Flow Rate 2 Objective Labs Result Diagrams: 06/21/19 01:40 06/21/19 01:40 Labs: Laboratory Results - last 24 hr 06/21/19 06/21/19 06/21/19 01:40 01:40 01:40 WBC 7.7 RBC 4.77 Hgb 14.3 Hct 41.7 MCV 87.6 MCH 30.0 MCHC 34.2 RDW 14.3 Plt Count 166 Neut % (Auto) 82.6 H Lymph % (Auto) 11.9 L [place] % (Auto) 4.5 Eos % (Auto) 0.5 L Baso % (Auto) 0.5 Neut # (Auto) 6400 Lymph # (Auto) 900 L [place] # (Auto) 300 Eos # (Auto) 0 Baso # (Auto) 0 PT 10.8 INR 0.9 Sodium 139 Potassium 4.0 Chloride 108 H Carbon Dioxide 25 BUN 11 Creatinine 0.84 Estimated GFR > 60.0 BUN/Creatinine Ratio 13.1 Glucose 108 Calcium 10.2 Magnesium Urine Color Urine Appearance Urine pH Ur Specific [place] Urine Protein Urine Glucose (UA) Urine Ketones Urine Occult Blood Urine Nitrate Urine Bilirubin Urine Urobilinogen Ur Leukocyte Esterase Urine RBC Urine WBC Calcium Oxalate Crystal Urine Bacteria Urine Sperm Ur Culture Indicated? 06/21/19 06/21/19 01:40 04:10 WBC RBC Hgb Hct MCV MCH MCHC RDW Plt Count Neut % (Auto) Lymph % (Auto) [place] % (Auto) Eos % (Auto) Baso % (Auto) Neut # (Auto) Lymph # (Auto) [place] # (Auto) Eos # (Auto) Baso # (Auto) PT INR Sodium Potassium Chloride Carbon Dioxide BUN Creatinine Estimated GFR BUN/Creatinine Ratio Glucose Calcium Magnesium 2.2 Urine Color Yellow Urine Appearance Clear Urine pH 6.0 Ur Specific [place] 1.020 Urine Protein Negative Urine Glucose (UA) Negative Urine Ketones Trace H Urine Occult Blood Negative Urine Nitrate Negative Urine Bilirubin Negative Urine Urobilinogen 0.2 Ur Leukocyte Esterase Negative Urine RBC None seen Urine WBC None seen Calcium Oxalate Crystal Occasional H Urine Bacteria None seen Urine Sperm Seen Ur Culture Indicated? Cult not indicated Quality VTE Deep Vein Thrombosis/Pulmonary Embolism Present on Admission: No
[2019-06-21] MEDS: HYDROMORPHONE 2 MG TABLET PO ×2 (18:16→21:48)
[2019-06-21] MEDS: DOCUSATE 100 MG CAPSULE PO (20:20)
[2019-06-21] MEDS: ASPIRIN EC 81 MG TABLET PO (20:20)
[2019-06-21] MEDS: hydrOXYzine pamoate 25 MG CAPSULE PO (23:53)
--- NOTE | 2019-06-22 00:01 | PC.NURSE ---
Addendum entered by Caren Cooper R.N. 06/22/19 05:22: Patient reports pain is 3/10 at rest and 9/10 with movement; medicated with Dilaudid. Original Note: Patient is alert and oriented. Breath sounds diminished but CTA with oxygen at 1.5L/min with sat of 98% on NC; reportedly desats with sleep so will monitor with continuous oximetry and titrate oxygen as needed. HRR. BP 147/78. Denies nausea. BT hypoactive but states he is passing flatus. Voiding per urinal; denies dysuria, frequency or urgency. Reluctant to turn due to increased pain with movement; rates severity as 2/10 at rest but 9/10 with movement; too early for po Dilaudid so medicated with Vistaril and ice applied after repositioning. CMS intact except for chronic bilateral foot tingling. Able to move foot but unable to lift leg off bed. Wearing bilateral SCD's. Left hip dressing is CDI. Fall risk score is high and bed alarm is activated.
[2019-06-22] MEDS: HYDROMORPHONE 2 MG TABLET PO ×6 (01:26→20:07)
[2019-06-22] MEDS: LACTATED RINGERS 1,000 ML 125 ML IV (01:59)
[2019-06-22] MEDS: CEFAZOLIN 2 GM/100 ML FROZ.PIGGY IV (03:41)
[2019-06-22 05:50] VITALS: BP 150/83; PULSE 74; RESP 18; TEMP 37.1; O2SAT 93
[2019-06-22 06:57] LABS: Add Manual Diff / Slide Review NO; Basophils Absolute Auto 0 /uL (0-100); Basophils Percent Auto 0.2 % (0-2); Eosinophils Absolute Auto 0 /uL (0-450); Eosinophils Percent Auto 0.5 % (2-4); Hematocrit 34.4 % (41-53); Hemoglobin 11.8 g/dL (13.5-17.5); Lymphocytes Absolute Auto 700 /uL (1100-4500); Lymphocytes Percent Auto 8.6 % (25-40); Mean Corpuscular HGB Conc 34.4 % (30-36); Mean Corpuscular Hemoglobin 30.1 PG (26-34); Mean Corpuscular Volume 87.4 fL (80-100); Monocytes Absolute Auto 500 /uL (0-900); Monocytes Percent Auto 6.5 % (3-14); Neutrophils Absolute Auto 6500 /uL (1500-7000); Neutrophils Percent Auto 84.2 % (50-75); Platelet Count 124 X10^3/uL (150-400); Red Blood Cell Count 3.93 X10^6/uL (4.5-5.9); Red Cell Distribution Width 14.2 % (11.6-14.8); White Blood Cell Count 7.8 X10^3/uL (4.5-11.0)
[2019-06-22 07:05] LABS: BUN Creatinine Ratio 14.9 (6-22); Blood Urea Nitrogen 10 mg/dL (9-20); Calcium 9.6 mg/dL (8.4-10.2); Carbon Dioxide 27 mmol/L (22-32); Chloride 105 mmol/L (98-107); Estimated Glomerular Filt Rate > 60.0 mL/min (>60); Glucose 117 mg/dL (80-110); HEMOLYSIS < 15 (0-50); Potassium 3.9 mmol/L (3.4-5.1); Sodium 135 mmol/L (137-145)
[2019-06-22] MEDS: DOCUSATE 100 MG CAPSULE PO ×2 (07:25→20:07)
[2019-06-22] MEDS: SERTRALINE 50 MG TABLET 100 MG PO (07:25)
[2019-06-22] MEDS: hydrOXYzine pamoate 25 MG CAPSULE PO ×2 (07:25→15:41)
[2019-06-22 08:23] VITALS: BP 164/92; PULSE 73; RESP 18; TEMP 37.1; O2SAT 96
--- NOTE | 2019-06-22 08:51 | PM.PNPO.1 ---
Subjective Subjective Date Patient Seen: 06/22/19 Time Patient Seen: 08:51 Interval history: Postop day 1. ORIF left intertrochanteric hip fracture with dynamic hip screw. Had a moderate amount of pain last night states that his leg feels ?sore? this morning. Has not been up with physical therapy yet but has been sitting up at the side of the bed. No specific complaints today. Exam Vital Signs (past 8 hours): - 06/22/19 05:50 06/22/19 08:23 Temperature 98.8 F 98.7 F Pulse Rate 74 73 Respiratory Rate 18 18 Blood Pressure 150/83 H 164/92 H Pulse Oximetry 93 96 Oxygen Delivery Method Nasal Cannula Oxygen Flow Rate 1 Narrative Exam Narrative: Vital signs stable and afebrile. Awake alert oriented and conversant in no obvious distress. Dressing is dry and intact in distal neurovascular examination is intact. Objective Labs Result Diagrams: 06/22/19 06:35 06/22/19 06:35 Labs: Laboratory Results - last 24 hr 06/22/19 06/22/19 06:35 06:35 WBC 7.8 RBC 3.93 L Hgb 11.8 L Hct 34.4 L MCV 87.4 MCH 30.1 MCHC 34.4 RDW 14.2 Plt Count 124 L Neut % (Auto) 84.2 H Lymph % (Auto) 8.6 L [place] % (Auto) 6.5 Eos % (Auto) 0.5 L Baso % (Auto) 0.2 Neut # (Auto) 6500 Lymph # (Auto) 700 L [place] # (Auto) 500 Eos # (Auto) 0 Baso # (Auto) 0 Sodium 135 L Potassium 3.9 Chloride 105 Carbon Dioxide 27 BUN 10 Creatinine 0.67 Estimated GFR > 60.0 BUN/Creatinine Ratio 14.9 Glucose 117 H Calcium 9.6 Assessment & Plan Post-op Postoperative Procedures: Procedures Operation Date: 06/21/19 12:00 Actual Procedures Side Surgeon p ORIF Hip DHS Anthony Yeh MD Postoperative day: 1 Postoperative status: doing well Postoperative status narrative: Postop day 1. ORIF left intertrochanteric hip fracture. Doing as expected anticipate up with physical therapy today and if doing extremely well could go home this afternoon but more likely discharge tomorrow morning. Postoperative plan: routine post-op care Postoperative plan narrative: Routine postoperative care and physical therapy, weight-bearing as tolerated. Discharge when stable and cleared by PT possibly this afternoon but more likely tomorrow morning. Follow up in orthopedic office in 2 weeks for wound check, staple removal, and x-rays. Quality VTE Deep Vein Thrombosis/Pulmonary Embolism Present on Admission: No
--- NOTE | 2019-06-22 09:14 | P.PN_ITS ---
Subjective Subjective Date Patient Seen: 06/22/19 Interval history: Pete Akins is a 73-year-old male with a past medical history significant for osteoarthritis, squamous skin cell carcinoma status post surgical excision and skin grafting, on immunotherapy, depression and GERD who presented to the ED with left hip pain following a mechanical ground level fall. The patient is resting in bed comfortably. He endorses left lower extremity discomfort which he reports is more muscle soreness and rates it currently a +2/10 but severe at a +9/10 with any movement. Plan to premedicate with pain medication prior to mobilization. He has no other complaints and denies headache, shortness of breath, chest pain, abdominal pain, nausea, vomiting, fever, chills, dysuria, diarrhea or constipation. He is voiding without difficulty. He has not had a bowel movement in 2 days but reports flatus and a bowel regimen has been implemented to avoid narcotic induced constipation. Plan for PT today. Exam Vital Signs (past 8 hours): - 06/22/19 05:50 06/22/19 08:23 Temperature 98.8 F 98.7 F Pulse Rate 74 73 Respiratory Rate 18 18 Blood Pressure 150/83 H 164/92 H Pulse Oximetry 93 96 Oxygen Delivery Method Nasal Cannula Oxygen Flow Rate 1 Narrative Exam Narrative: General: Elderly male sitting in bed and in no acute distress, appears younger than stated age, well-developed, well-nourished, appropriately interactive. HEENT: Normocephalic, atraumatic. External ears without defect. Pupils equal, round, and reactive to light. Anicteric sclerae, moist conjunctivae, and no lid lag. Neck: Supple with full range of motion. No lymphadenopathy or thyromegaly. Cardiovascular: Regular rate and rhythm without murmurs, rubs, or gallops appreciated Pulmonary: Clear to auscultation bilaterally without crackles, wheezes, or rhonchi. Normal respiratory effort with no use of accessory muscles. Abdomen: Soft, protuberant abdomen, bowel sounds present, nontender, nondistended. No hepatosplenomegaly or masses appreciated. Extremities: No clubbing, cyanosis, or edema. Left hip with dressing in place with mild serosanguineous drainage and without surrounding erythema or edema. Skin: Normal temperature, turgor, and texture; no rash, ulcers, or subcutaneous nodules appreciated. Neurological: Cranial nerves grossly intact. Psychiatric: Normal mood and affect. Alert and oriented to person, place, and time. Objective Labs Result Diagrams: 06/22/19 06:35 06/22/19 06:35 Labs: Laboratory Results - last 24 hr 06/22/19 06/22/19 06:35 06:35 WBC 7.8 RBC 3.93 L Hgb 11.8 L Hct 34.4 L MCV 87.4 MCH 30.1 MCHC 34.4 RDW 14.2 Plt Count 124 L Neut % (Auto) 84.2 H Lymph % (Auto) 8.6 L [place] % (Auto) 6.5 Eos % (Auto) 0.5 L Baso % (Auto) 0.2 Neut # (Auto) 6500 Lymph # (Auto) 700 L [place] # (Auto) 500 Eos # (Auto) 0 Baso # (Auto) 0 Sodium 135 L Potassium 3.9 Chloride 105 Carbon Dioxide 27 BUN 10 Creatinine 0.67 Estimated GFR > 60.0 BUN/Creatinine Ratio 14.9 Glucose 117 H Calcium 9.6 Assessment & Plan Assessment & Plan narrative: Pete Akins is a 73-year-old male with a past medical history significant for osteoarthritis, squamous skin cell carcinoma status post surgical excision and skin grafting, on immunotherapy, depression and GERD who presented to the ED with left hip pain following a mechanical ground level fall. 1. Acute pathological left hip fracture, status post ORIF, present on admission. Active. -The patient has sustained a ground level fall tripping on a rug landing on his left hip. He denies LOC or injury to head. He was unable to bear weight or ambulate after fall. -Left hip x-ray demonstrated nondisplaced comminuted left hip fracture. -Consulted orthopedic surgery, Dr. Yeh, who performed ORIF. Continue post- operative, pain and DVT prophylaxis per ortho. -Continue calcium and vit D3 supplementation. Patient will need to be evaluated and treated for osteoporosis as an outpatient per PCP. 2. Depression, chronic, present on admission. Stable. -Patient reports that he is coping well with the current fdc in place orders related to COVID-19 pandemic. He denies thoughts of suicidal ideation or self- harm and is appropriately interactive with stable mood and affect. -Continue home sertraline 100 mg daily and lorazepam 0.5 mg twice daily as needed for anxiety. 3. Squamous skin cell carcinoma cancer, status post surgical excision and skin graft on immunotherapy, present on admission. Stable. -Patient is under the care of [facility]. -Status post wide resection of the right posterior shoulder requiring skin grafting and muscle flap that is well healed. -Patient is receiving immunotherapy with cemiplimab every 3 weeks, last infusion was 06/16/2019. Code status: FULL CODE, his Jessi is surrogate decision maker. VTE: ASA and SCDs Disposition: Patient likely to discharge home versus long-term for rehabilitation in the next 1-2 days once mobilizing well. Quality VTE Deep Vein Thrombosis/Pulmonary Embolism Present on Admission: No
[2019-06-22] MEDS: SODIUM CHLORIDE 0.9% FLUSH 10 ML IV ×2 (09:18→22:27)
[2019-06-22] MEDS: polyethylene glycoL 3350 17 GM POWD.PACK PO (09:21)
[2019-06-22 09:31] VITALS: O2SAT 95
--- NOTE | 2019-06-22 10:25 | PT.IIE ---
Current Diagnoses Pathological fracture, left femur, initial encounter for fracture (06/21/19) Surgery Performed Operation Date: 06/21/19 12:00 Actual Procedures p ORIF Hip DHS - Anthony Yeh MD Surgical History (Last Updated 06/21/19 @ 03:00 by ÓSCAR Jaeger) Status post knee surgery (~2002) Status post surgical removal of malignant neoplasm of skin (Acute) Medical History (Last Updated 06/21/19 @ 03:00 by ÓSCAR Jaeger) Anxiety (Chronic) Chicken pox (Resolved) Depression (Chronic ~2016) Fractures (Resolved) Hearing loss (Chronic) Knee pain (Chronic) Measles (Resolved) Mumps (Resolved) Osteoarthritis (Chronic ~2002) Seasonal allergies (Chronic ~2007) 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 (Inactive) Vision disorder (Chronic) Physical Therapy Inpatient Evaluation/Re-Eval M1 PT/OT-IP Prior Functional Status Start: 06/22/19 08:35 Freq: NEEDED Status: Active Protocol: Document 06/22/19 09:07 LRN (Rec: 06/22/19 10:24 LRN [id number]) Medical Review Prior Functional Status Medical History Reviewed Yes Mobility and Gait Independent ambulator without an assistive device. Pt was in outpt PT for L eric, gait and balance rehab. Activities of Daily Living and IADL's Independent with spouse available to assist in retreving objects. Prior Functional Level (Other details) Able to indeendently get on/ off toilet with regular seat height. Social History Household Members spouse Living Arrangements House Number of Floors (Floors) One Floor Number of Stairs To Enter/Railing? None in entry he will be accessing. Home Environment Standard Height Toilet Home Equipment Straight Cane,Milk Drier Employment Status Retired Additional Social History Comment Pt states he was receiving infusion treatments at [facility] for Squamous Cell Carcinoma in the R shoulder. M2 PT-IP Current Condition Start: 06/22/19 08:35 Freq: NEEDED Status: Active Protocol: Document 06/22/19 09:07 LRN (Rec: 06/22/19 10:24 LRN [id number]) Physical Therapy Current Condition Current Condition Evaluation Date 06/22/19 Treatment Diagnosis L hip pain, GLF Weight Bearing Status Weight Bearing Status Weight Bear as Tolerated M3 PT-IP Subjective Start: 06/22/19 08:35 Freq: NEEDED Status: Active Protocol: Document 06/22/19 09:07 LRN (Rec: 06/22/19 10:24 LRN [id number]) Subjective Physical Therapy Visit Type Type Initial Evaluation Visit Start Time 09:07 Visit Stop Time 09:55 Total Visit Minutes 48 Physical Therapy Visit Comments Patient Comments Refuses to stand, stating he's not ready. States he was in a extended care facility in [facility] and does not want to go back. Patient Goals Pt goal is to be able to go home with home health. Therapy Pain Assessment Pain When Pain Assessed At Rest Pain Present Pain Present Pain Reported Location Left Hip Intensity 9 Scale Used Numeric (1 - 10) Pain Behaviors Calling Out,Facial Grimacing, Guarding,Wincing Pain Management Techniques Apply Cold M4 PT-IP Mobility and Gait Start: 06/22/19 08:35 Freq: NEEDED Status: Active Protocol: Document 06/22/19 09:07 LRN (Rec: 06/22/19 10:24 LRN [id number]) PT-Bed Mobility Assessment Supine to Sit Supine to Sit Maximum Assistance,2 Person Assistance Sit to Supine Sit to Supine Maximum Assistance,2 Person Assistance PT-Transfer Assessment Comments Mobility Comments Pt has poor LE control bilaterally and was not appropriate to stand at this time. Function limited by pain and weakness. PT-Balance Assessment Sitting Balance and Reactions Static Sitting Balance Ability Good Dynamic Sitting Balance Ability Good M5 PT-IP Objective Assessments Start: 06/22/19 08:35 Freq: NEEDED Status: Active Protocol: Document 06/22/19 09:07 LRN (Rec: 06/22/19 10:24 LRN [id number]) Orientation Orientation/Cognition Level of Alertness Alert Orientation Name Language Function Ability No Deficits Noted Memory Description No Deficits Noted Gross Range of Motion Upper Extremity ROM Assessment Within Functional Limits Lower Extremity ROM Assessment Bilaterally Impaired Impairments Appears impaired due to L hip pain. Strength Upper Extremity Strength Assessment Within Functional Limits Lower Extremity Strength Assessment Bilaterally Impaired Hip 2+/5 R, 1/5 L Knee 3+/5 R, 2/5 L Ankle 5/5 R, 2/5 L Comments Strength Comments Strength limited by pain M6 PT-IP Treatment Start: 06/22/19 08:35 Freq: NEEDED Status: Active Protocol: Document 06/22/19 09:07 LRN (Rec: 06/22/19 10:24 LRN [id number]) Physical Therapy Treatment Exercises Exercises Ankle Pumps,Gluteal Sets,Quad Sets,Heel Slides,Straight Leg Raises,Supine Hip Abduction, Seated Knee Flexion/Extension Education Education Provided Weight Bearing Status Other Treatments Other Treatment Performed Sitting: Assisted marching and hip IR/ER I/S pt in supine leg roll for IR/ER Supine: Assisted SLR, HS. M7 PT-IP Assessment and Plan Start: 06/22/19 08:35 Freq: NEEDED Status: Active Protocol: Document 06/22/19 09:07 LRN (Rec: 06/22/19 10:24 LRN [id number]) PT Summary Assessment and Plan Potential Rehabilitation Potential Good Status of Condition at Evaluation Evolving Summary Impairments Pain,ROM,Strength,Bed Mobility ,Transfers,Gait,Activity Tolerance Progress Towards Goals Progressing Toward Goals Assessment Summary Pt is POD #1. He is quite limited in bed mobility and is not safe for standing at this time due to pain, weakness and lack of motivation. The pt was able to tolerate assisted mobility of his LLE much more after being sat at the EOB. It is expected that the pt will tolerate more this afternoon and is expected to attempt standing and possibly gait. The pt SpO2 was 94-95% before and during therapy. Goals Bed Mobility Goal Minimal Assistance Transfer Goal Contact Guard Assistance, Minimal Assistance Gait Goal Minimal Assistance,Front Wheel Walker Gait Distance 50-100' Days to Meet Goals 2 Frequency of Treatment Frequency Of Treatment Twice a Day Treatment Plan Physical Therapy Treatment Plan Bed Mobility Training,Transfer Training,Gait Training, Therapeutic Exercise,Discharge Planning,Hot or Cold Pack Recommendations To Nursing Amount of Assist Needed 2 Person Assist Discharge Recommendations PT Discharge Recommendations SNF Rehab Equipment Needed for Home Before Pt will need walker and raised Discharge toilet seat if going directly home. Transportation Needs at Discharge Wheelchair/Cabulance
--- NOTE | 2019-06-22 11:27 | PC.NURSE ---
Shift summary: Alert and oriented X3. Dressing to L hip dry/intact with dried serous drainage on gauze. Circulation/sensation WNL, PP+, feet warm and pink, cap refill <2 sec. Reports pain in L hip 12/02 when I move. Medicated with PRN Vistaril and PO Dilaudid. Patient was unable to stand with PT this morning, but appears to be resting comfortably in bed at this time. Plan to try and stay on schedule w/ pain meds. Ice pack to L hip. IV saline locked. Off O2, 95% RA. Able to make needs known and calls appropriately. Light and belongings within reach, bed alarm on.
[2019-06-22 12:00] VITALS: BP 140/80; PULSE 70; RESP 18; TEMP 36.8; O2SAT 96
--- NOTE | 2019-06-22 14:10 | PT.IPTN ---
Current Diagnoses Pathological fracture, left femur, initial encounter for fracture (06/21/19) Surgery Performed Operation Date: 06/21/19 12:00 Actual Procedures p ORIF Hip DHS - Anthony Yeh MD Physical Therapy Treatment Note M2 PT-IP Current Condition Start: 06/22/19 08:35 Freq: NEEDED Status: Active Protocol: Document 06/22/19 14:10 LRN (Rec: 06/22/19 16:42 LRN [id number]) Physical Therapy Current Condition Current Condition Evaluation Date 06/22/19 Treatment Diagnosis L hip pain, GLF Onset Date 06/20/19 Weight Bearing Status Weight Bearing Status Weight Bear as Tolerated M3 PT-IP Subjective Start: 06/22/19 08:35 Freq: NEEDED Status: Active Protocol: Document 06/22/19 14:10 LRN (Rec: 06/22/19 16:42 LRN [id number]) Subjective Physical Therapy Visit Type Type Treatment Note Visit Start Time 14:10 Visit Stop Time 15:00 Total Visit Minutes 50 Physical Therapy Visit Comments Patient Comments Pt states he can tolerate at the most 25% WBing in the LLE. Pt initially deferred getting out of bed, but states he will not refuse PT. Pt would like to know what he has to do to go home. Cooperative with therapy in order to get well enough to go home. Patient Goals Pt goal is to be able to go home at time of DC. Therapy Pain Assessment Pain When Pain Assessed At Rest Pain Present Pain Present Pain Reported Location Left Hip Intensity 9 Scale Used Numeric (1 - 10) Pain Behaviors Calling Out,Facial Grimacing, Holding Area,Wincing Pain Management Techniques Apply Cold M4 PT-IP Mobility and Gait Start: 06/22/19 08:35 Freq: NEEDED Status: Active Protocol: Document 06/22/19 14:10 LRN (Rec: 06/22/19 16:42 LRN [id number]) PT-Bed Mobility Assessment Supine to Sit Supine to Sit Maximum Assistance,1 Person Assistance Scooting Scooting to Edge of Bed Moderate Assistance PT-Transfer Assessment Sit to and From Stand Sit to and from Stand Moderate Assistance,1 Person Assistance Equipment Transfer Assistive Device Gait Belt,Front Wheeled Walker Transfer Ability Level of Assist Moderate Assistance,1 Person Assistance Comments Mobility Comments Pt mobilizes much better if he is able to do bed ex's first while practicing breathing with moving. His pain is most with eccentric movements. He has a lot of pain in standing when weight bearing on the LLE. Gait Assessment Factors Limiting Gait Function Factors Limiting Gait Function Decreased Activity Tolerance, Decreased Strength,Pain Comments Gait Comments Held gait due to pain with WBing into the LLE. PT-Balance Assessment Sitting Balance and Reactions Static Sitting Balance Ability Good Dynamic Sitting Balance Ability Good Standing Balance and Reactions Static Standing Balance Ability Poor M5 PT-IP Objective Assessments Start: 06/22/19 08:35 Freq: NEEDED Status: Active Protocol: Document 06/22/19 09:07 LRN (Rec: 06/22/19 10:24 LRN [id number]) Orientation Orientation/Cognition Level of Alertness Alert Orientation Name Language Function Ability No Deficits Noted Memory Description No Deficits Noted Gross Range of Motion Upper Extremity ROM Assessment Within Functional Limits Lower Extremity ROM Assessment Bilaterally Impaired Impairments Appears impaired due to L hip pain. Strength Upper Extremity Strength Assessment Within Functional Limits Lower Extremity Strength Assessment Bilaterally Impaired Hip 2+/5 R, 1/5 L Knee 3+/5 R, 2/5 L Ankle 5/5 R, 2/5 L Comments Strength Comments Strength limited by pain M6 PT-IP Treatment Start: 06/22/19 08:35 Freq: NEEDED Status: Active Protocol: Document 06/22/19 14:10 LRN (Rec: 06/22/19 16:42 LRN [id number]) Physical Therapy Treatment Exercises Exercises Ankle Pumps,Gluteal Sets,Quad Sets,Heel Slides,Straight Leg Raises,Supine Hip Abduction, Seated Knee Flexion/Extension Other Treatments Other Treatment Performed Assisted with pt's exercises. M7 PT-IP Assessment and Plan Start: 06/22/19 08:35 Freq: NEEDED Status: Active Protocol: Document 06/22/19 14:10 LRN (Rec: 06/22/19 16:42 LRN [id number]) PT Summary Assessment and Plan Potential Rehabilitation Potential Good Summary Impairments Pain,ROM,Strength,Bed Mobility ,Transfers,Gait,Activity Tolerance Progress Towards Goals Progressing Toward Goals Assessment Summary Pt is POD #1. The pt is quite motivated to participate in therapy in hopes of going home at ID. He is able to tolerate more ex's and has less pain complaints if performing deep breathing with exercise. He was able to get sitting to EOB with assist of one and was able to stand this afternoon, but was not able to ambulate due to pain on weightbearing. The pt notes he is putting ~25% weight through his LLE. Goals Bed Mobility Goal Minimal Assistance Transfer Goal Contact Guard Assistance, Minimal Assistance Gait Goal Minimal Assistance,Front Wheel Walker Gait Distance 50-100' Days to Meet Goals 3 Frequency of Treatment Frequency Of Treatment Twice a Day Treatment Plan Physical Therapy Treatment Plan Bed Mobility Training,Transfer Training,Gait Training, Therapeutic Exercise,Discharge Planning,Hot or Cold Pack Other Recommendations and Next Treatment Gait with FWW. Focus Talk to Care management regarding pt's DC plans and durable equipment. Recommendations To Nursing Amount of Assist Needed 2 Person Assist Discharge Recommendations PT Discharge Recommendations SNF Rehab Other Discharge Recommendations Possible home with spouse assist. Equipment Needed for Home Before Pt will need walker and raised Discharge toilet seat if going directly home. Transportation Needs at Discharge Wheelchair/Cabulance
[2019-06-22 15:30] VITALS: BP 148/89; PULSE 91; RESP 19; TEMP 37.3; O2SAT 93
--- NOTE | 2019-06-22 16:28 | PC.NURSE ---
Addendum entered by Jessi Lepe R.N. 06/22/19 21:40: Pt had relatively uneventful evening Dangled at bedside w/o incidence. Dsg remaisn unchanged. Call light w/in reach, bed alarm on for pt safety. Continue w/plan of care. Original Note: Pt watching TV, denies any discomfort at this time. Lungs clear/SpO2 96% RA HL RAC intact/patent. Dsg to left hip w/shadow drainage noted Call light w/in reach, bed alarm on for pt safety.
[2019-06-22 21:05] VITALS: BP 132/78; PULSE 97; RESP 18; TEMP 37; O2SAT 94
[2019-06-23] VITALS (7 sets, daily range): BP systolic 128–143; BP diastolic 66–87; PULSE 67–90; RESP 16–20; TEMP 36.6–37.7; O2SAT 92–95
[2019-06-23] MEDS: hydrOXYzine pamoate 25 MG CAPSULE PO ×2 (01:29→08:21)
--- NOTE | 2019-06-23 03:08 | PC.NURSE ---
Addendum entered by Caren Cooper R.N. 06/23/19 06:00: Patient states pain is 2-3/10 at incisional site this morning so medicated with Dilaudid. Has been self adjusting position and declines offer of assistance. Original Note: Patient seen and assessed at 0147. Is alert and oriented. Breath sounds CTA with RA sat of 93% earlier and 96% currently. HRR. Denies nausea. BT present and states he has been passing flatus. Voiding per urinal; denies dysuria, frequency or urgency. Is able to move self in bed but likes to have bed tilted to side to relieve pressure on left hip. Does complain of intermittent, brief spurts of spasms with pain severity only 2/10; requested/medicated with Vistaril and ice pack applied. Dressing to left femur is intact with serous drainage noted on dressing. Wearing bilateral calf SCD's. Chronic bilateral foot tingling. Still unable to lift leg off bed. Fall risk score is high and bed alarm is activated.
[2019-06-23] MEDS: HYDROMORPHONE 2 MG TABLET PO ×4 (05:56→20:48)
[2019-06-23 06:59] LABS: Add Manual Diff / Slide Review NO; Basophils Absolute Auto 0 /uL (0-100); Basophils Percent Auto 0.3 % (0-2); Eosinophils Absolute Auto 200 /uL (0-450); Eosinophils Percent Auto 1.8 % (2-4); Hemoglobin 11.7 g/dL (13.5-17.5); Lymphocytes Absolute Auto 1300 /uL (1100-4500); Mean Corpuscular HGB Conc 34.4 % (30-36); Mean Corpuscular Hemoglobin 30.2 PG (26-34); Mean Corpuscular Volume 87.8 fL (80-100); Monocytes Absolute Auto 700 /uL (0-900); Monocytes Percent Auto 8.4 % (3-14); Neutrophils Absolute Auto 6100 /uL (1500-7000); Neutrophils Percent Auto 73.5 % (50-75); Platelet Count 124 X10^3/uL (150-400); Red Blood Cell Count 3.87 X10^6/uL (4.5-5.9); Red Cell Distribution Width 14.1 % (11.6-14.8); White Blood Cell Count 8.4 X10^3/uL (4.5-11.0)
[2019-06-23 07:05] LABS: BUN Creatinine Ratio 12.8 (6-22); Blood Urea Nitrogen 10 mg/dL (9-20); Calcium 10.1 mg/dL (8.4-10.2); Carbon Dioxide 31 mmol/L (22-32); Chloride 103 mmol/L (98-107); Estimated Glomerular Filt Rate > 60.0 mL/min (>60); Glucose 112 mg/dL (80-110); HEMOLYSIS < 15 (0-50); Potassium 4.3 mmol/L (3.4-5.1); Sodium 136 mmol/L (137-145)
[2019-06-23] MEDS: CALCIUM CARB/VIT D3 500/200 TABLET 1 EACH PO ×2 (08:20→16:50)
[2019-06-23] MEDS: DOCUSATE 100 MG CAPSULE PO ×2 (08:21→20:43)
[2019-06-23] MEDS: SODIUM CHLORIDE 0.9% FLUSH 10 ML IV ×2 (08:21→20:43)
[2019-06-23] MEDS: SERTRALINE 50 MG TABLET 100 MG PO (08:21)
--- NOTE | 2019-06-23 08:37 | PM.PNPO.1 ---
Subjective Subjective Date Patient Seen: 06/23/19 Time Patient Seen: 08:37 Interval history: Postoperative day 2. Left hip ORIF with dynamic hip screw. Patient overall doing very well but having slow progress with physical therapy pain better controlled today than yesterday and had a better night last night. Exam Vital Signs (past 8 hours): - 06/23/19 05:18 06/23/19 08:10 Temperature 99.1 F 98.7 F Pulse Rate 79 80 Respiratory Rate 16 16 Blood Pressure 137/81 135/85 Pulse Oximetry 93 92 Oxygen Delivery Method Room Air Oxygen Flow Rate 0 Narrative Exam Narrative: Awake alert oriented conversant in no obvious distress Dressing dry and intact mild swelling of the thigh no distal edema. Neurovascular examination is intact. Objective Labs Result Diagrams: 06/23/19 06:45 06/23/19 06:45 Labs: Laboratory Results - last 24 hr 06/23/19 06/23/19 06:45 06:45 WBC 8.4 RBC 3.87 L Hgb 11.7 L Hct 34.0 L MCV 87.8 MCH 30.2 MCHC 34.4 RDW 14.1 Plt Count 124 L Neut % (Auto) 73.5 Lymph % (Auto) 16.0 L [place] % (Auto) 8.4 Eos % (Auto) 1.8 L Baso % (Auto) 0.3 Neut # (Auto) 6100 Lymph # (Auto) 1300 [place] # (Auto) 700 Eos # (Auto) 200 Baso # (Auto) 0 Sodium 136 L Potassium 4.3 Chloride 103 Carbon Dioxide 31 BUN 10 Creatinine 0.78 Estimated GFR > 60.0 BUN/Creatinine Ratio 12.8 Glucose 112 H Calcium 10.1 Assessment & Plan Post-op Postoperative Procedures: Procedures Operation Date: 06/21/19 12:00 Actual Procedures Side Surgeon p ORIF Hip DHS Anthony Yeh MD Postoperative day: 2 Postoperative status: doing well Postoperative status narrative: Postop day 2. Left hip intertrochanteric hip fracture ORIF with dynamic hip screw. Overall doing well, slow progress with physical therapy. Postoperative plan: routine post-op care Postoperative plan narrative: Further work with the physical therapy today and probable discharge home tomorrow. Quality VTE Deep Vein Thrombosis/Pulmonary Embolism Present on Admission: No
--- NOTE | 2019-06-23 11:16 | PT.IPTN ---
Current Diagnoses Pathological fracture, left femur, initial encounter for fracture (06/21/19) Surgery Performed Operation Date: 06/21/19 12:00 Actual Procedures p ORIF Hip DHS - Anthony Yeh MD Physical Therapy Treatment Note M2 PT-IP Current Condition Start: 06/22/19 08:35 Freq: NEEDED Status: Active Protocol: Document 06/22/19 14:10 LRN (Rec: 06/22/19 16:42 LRN [id number]) Physical Therapy Current Condition Current Condition Evaluation Date 06/22/19 Treatment Diagnosis L hip pain, GLF Onset Date 06/20/19 Weight Bearing Status Weight Bearing Status Weight Bear as Tolerated M3 PT-IP Subjective Start: 06/22/19 08:35 Freq: NEEDED Status: Active Protocol: Document 06/23/19 11:16 CLB (Rec: 06/23/19 15:10 CLB [id number]) Subjective Physical Therapy Visit Type Type Treatment Note Visit Start Time 11:15 Visit Stop Time 11:53 Total Visit Minutes 38 Number of COMPOSING ROOM SUPERVISOR Visits 1 Physical Therapy Visit Comments Patient Comments Pt willing to get up and attempt to ambulate. Patient Goals Pt goal is to be able to go home at time of DC. Therapy Pain Assessment Pain When Pain Assessed During Mobility Pain Present Pain Present Pain Reported Location Left Hip Intensity 2 Scale Used Numeric (1 - 10) Pain Behaviors Guarding,Holding Area Pain Management Techniques Apply Cold M4 PT-IP Mobility and Gait Start: 06/22/19 08:35 Freq: NEEDED Status: Active Protocol: Document 06/23/19 11:16 CLB (Rec: 06/23/19 15:10 CLB [id number]) PT-Bed Mobility Assessment Supine to Sit Supine to Sit Standby Assistance Sit to Supine Sit to Supine Moderate Assistance,2 Person Assistance Scooting Scooting to Edge of Bed Standby Assistance,Minimal Assistance PT-Transfer Assessment Sit to and From Stand Sit to and from Stand Moderate Assistance,1 Person Assistance Equipment Transfer Assistive Device Gait Belt,Front Wheeled Walker Transfer Ability Level of Assist Moderate Assistance,1 Person Assistance Comments Mobility Comments Pt was able to sit up and get to EOB with SBA with Min A of LLE. Pt was able to scoot to EOB SBA. Pt then stood with Mod A and cues for proper push off from bed for safety, pt stood then felt he was unable to stay standing and would not bear weight on LLE. Pt sat on EOB to rest then attempted to stand again. Pt stood with Mod A then stated he was a little lightheaded and felt clammy. Pt sat on EOB while wt shifting to right to decrease pain of left hip. Pt was able to side scoot to HOB for proper positioning CGA. BP in sitiing 127/68, supine 152/80 at end of treat. Pt left in bed with bilateral SCD's on LEs, alarm on and all needs within reach. Gait Assessment Comments Gait Comments Pt unable to ambulate due to pain. M5 PT-IP Objective Assessments Start: 06/22/19 08:35 Freq: NEEDED Status: Active Protocol: Document 06/22/19 09:07 LRN (Rec: 06/22/19 10:24 LRN [id number]) Orientation Orientation/Cognition Level of Alertness Alert Orientation Name Language Function Ability No Deficits Noted Memory Description No Deficits Noted Gross Range of Motion Upper Extremity ROM Assessment Within Functional Limits Lower Extremity ROM Assessment Bilaterally Impaired Impairments Appears impaired due to L hip pain. Strength Upper Extremity Strength Assessment Within Functional Limits Lower Extremity Strength Assessment Bilaterally Impaired Hip 2+/5 R, 1/5 L Knee 3+/5 R, 2/5 L Ankle 5/5 R, 2/5 L Comments Strength Comments Strength limited by pain M6 PT-IP Treatment Start: 06/22/19 08:35 Freq: NEEDED Status: Active Protocol: Document 06/23/19 11:16 CLB (Rec: 06/23/19 15:10 CLB [id number]) Physical Therapy Treatment Exercises Exercises Ankle Pumps,Quad Sets,Heel Slides,Supine Hip Abduction Other Treatments Other Treatment Performed Assisted with pt's exercises. M7 PT-IP Assessment and Plan Start: 06/22/19 08:35 Freq: NEEDED Status: Active Protocol: Document 06/23/19 11:16 CLB (Rec: 06/23/19 15:10 CLB [id number]) PT Summary Assessment and Plan Summary Impairments Pain,ROM,Strength,Bed Mobility ,Transfers,Gait,Activity Tolerance Progress Towards Goals Slow Progress due to Pain Assessment Summary Pt improved with bed mobility but continues to have high pain in standing and has been unable to ambulate. Pt requires increased time for all activity. Pt is motivated and will need to ambulate ~50 to safely d/c home. Goals Bed Mobility Goal Minimal Assistance Transfer Goal Contact Guard Assistance, Minimal Assistance Gait Goal Minimal Assistance,Front Wheel Walker Gait Distance 50-100' Days to Meet Goals 3 Frequency of Treatment Frequency Of Treatment Twice a Day Treatment Plan Physical Therapy Treatment Plan Bed Mobility Training,Transfer Training,Gait Training, Therapeutic Exercise,Discharge Planning,Hot or Cold Pack Other Recommendations and Next Treatment Gait with FWW. Focus Talk to Care management regarding pt's DC plans and durable equipment. Recommendations To Nursing Amount of Assist Needed 2 Person Assist Discharge Recommendations PT Discharge Recommendations SNF Rehab Other Discharge Recommendations Possible home with spouse assist. Daughter Brigette will come to stay to assist. Equipment Needed for Home Before Pt will need walker and raised Discharge toilet seat if going directly home. Pt may also need WC to use to tranfer into home. Transportation Needs at Discharge Wheelchair/Cabulance
--- NOTE | 2019-06-23 13:20 | OT.IP.EVAL ---
Current Diagnoses Pathological fracture, left femur, initial encounter for fracture (06/21/19) Surgery Performed Operation Date: 06/21/19 12:00 Actual Procedures p ORIF Hip DHS - Anthony Yeh MD Past Medical History (Last Updated 06/21/19 @ 03:00 by ÓSCAR Jaeger) Anxiety (Chronic) Chicken pox (Resolved) Depression (Chronic ~2017) Fractures (Resolved) Hearing loss (Chronic) Knee pain (Chronic) Measles (Resolved) Mumps (Resolved) Osteoarthritis (Chronic ~2002) Seasonal allergies (Chronic ~2007) 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 (Inactive) Vision disorder (Chronic) Surgical History (Last Updated 06/21/19 @ 03:00 by ÓSCAR Jaeger) Status post knee surgery (~2002) Status post surgical removal of malignant neoplasm of skin (Acute) Occupational Therapy Inpatient Evaluation/Re-Eval M1 PT/OT-IP Prior Functional Status Start: 06/22/19 08:35 Freq: NEEDED Status: Active Protocol: Document 06/23/19 13:20 PJApolonia (Rec: 06/23/19 13:41 PJM [id number]) Medical Review Prior Functional Status Medical History Reviewed Yes Diet/Fluid Consistency Regular Communication WNL Mobility and Gait Independent ambulator without an assistive device. Pt was going to outpt PT for L eric, gait and balance rehab, as well as R shoulder function. Activities of Daily Living and IADL's Pt was independent with all self care and drives. does all IADLS including cooking, shopping, laundry, cleaning, and drives also. 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 Pt currently receiving immunotherapy q 3 weeks. Social History Household Members spouse Living Arrangements House Number of Floors (Floors) Two Floors Number of Stairs To Enter/Railing? None in entry he will be accessing. Pt stays on main level of home. Home Environment Standard Height Toilet,Walk in Shower Home Equipment Straight Cane,Shower Seat with Backrest,Hand Held Shower, Treating Engineer,Grab Bars In Shower Employment Status Retired Additional Social History Comment Pt states his daughter can come from [place] to assist when he is discharged home. M2 OT-IP Current Condition Start: 06/23/19 11:07 Freq: Status: Active Protocol: Document 06/23/19 13:20 PJM (Rec: 06/23/19 13:41 [facility] [id number]) Occupational Therapy Current Condition Current Condition Evaluation Date 06/23/19 Treatment Diagnosis decreased self care, functional mobility s/p L hip fx s/p ORIF Diagnosis Onset Date 06/21/19 Post Operative Precautions Other Precautions fall risk Weight Bearing Status Weight Bearing Status Weight Bear as Tolerated Allowed Weight Bearing Amount (enter % LLE or #) (%) M3 OT- IP Subjective and Pain Start: 06/23/19 11:07 Freq: Status: Active Protocol: Document 06/23/19 13:20 PJM (Rec: 06/23/19 13:41 PJ [id number]) OT- Subjective Occupational Therapy Visit Type Type Initial Evaluation Visit Start Time 12:56 Visit Stop Time 13:20 Total Visit Minutes 34 Occupational Therapy Visit Comments Patient Comments I really want to avoid going to a [place] health care facility if I possibly can. Patient/Caregiver Goals to be able to walk as needed for home d/c OT Pain Assessment Pain When Pain Assessed At Rest Location Left Hip Intensity 2 Scale Used Numeric (1 - 10) Description Aching,Acute Pain Behaviors Guarding Management Techniques Apply Cold M4 OT- IP ADL's Start: 06/23/19 11:07 Freq: Status: Active Protocol: Document 06/23/19 13:20 PJM (Rec: 06/23/19 13:41 [facility] [id number]) OT RMH-Urvo-Fgkntbs General Evaluation Self-Feeding Ability Independent Comments OT Self-Feeding Comments after set up in bed OT ADL-Grooming General Evaluation Grooming Ability Standby Assistance Areas Needing Assistance Combing/Brushing Hair,Face Washing Comments OT Grooming Comments after set up in bed OT ADL-Oral Care General Eval Oral Care Ability Standby Assistance Areas of Assistance Brushing Teeth,Retrieving/Set- Up of Items Comments Oral Care Comments after set up in bed OT ADL-Dressing General Eval Upper Body Dressing Ability Standby Assistance Lower Body Dressing Ability Total Assistance OT ADL-Toileting General Evaluation Toileting Ability Standby Assistance Devices Toileting Assistive Devices Urinal Comments OT Toileting Comments pt has not yet been up to BSC OT ADL-Bathing Comments OT Bathing Comments to be assessed as mobility improves M5 OT- IP IADL's Start: 06/23/19 11:07 Freq: Status: Active Protocol: Document 06/23/19 13:20 PJM (Rec: 06/23/19 13:41 PJ [id number]) OT-Instrumental Activities of Daily Living Deficits IADL Deficits Identified Deficits Home Safety Awareness Awareness of Need for Assistance at Home Good Awareness Ability to Problem Solve Emergency Able to Problem Solve Situations Home Safety Comments does all IADLS at home except pt loaded/unloaded automatic buffing wheel former Medication Management Medication Management No Deficits Identified Money Management Money Management No Deficits Identified Meal Preparation Meal Preparation Caregiver Provides Assist Ice Resurfacing Machine Operators Ice Resurfacing Machine Operators Caregiver Provides Assist Driving Driving Caregiver Provides Assist Driving Comments until pt able M6 OT- IP Functional Cognition Start: 06/23/19 11:07 Freq: Status: Active Protocol: Document 06/23/19 13:20 PJM (Rec: 06/23/19 13:41 [facility] [id number]) Cognitive Factors Limiting Selfcare Function Cognitive Ability Level of Alertness Alert Patient Orientation Name,Age,Birthday,Month,Date, Year,Day of Week,Place, Situation Attention Span Ability Capable of Focused Attention, Capable of Sustained Attention Ability to Follow Commands Able to Follow Multi-Step Commands Memory Description No Deficits Noted Cognitive Comments Cognitive Assessment Comments Pt is good historian and cognition appears WFL. OT- Vision and Hearing OT- Hearing Assessment OT- Hearing Assessment WFL OT- Vision Assessment Visual Acuity WFL,Glasses All The Time M7 OT- IP Mobility and Balance Start: 06/23/19 11:07 Freq: Status: Active Protocol: Document 06/23/19 13:20 PJM (Rec: 06/23/19 13:41 [facility] [id number]) OT-Transfer Assessment Comments Mobility Comments Pt seen at bedside, see P.T. notes OT- Gait Assessment Comments Gait Ability Comments Pt has been unable to advance his LLE as needed for ambulation per P.T. OT- Balance Assessment Comments Other Balance Tests/Deviations/Treatment see P.T. notes : M8 OT- IP Objective Assessments Start: 06/23/19 11:07 Freq: Status: Active Protocol: Document 06/23/19 13:20 PJM (Rec: 06/23/19 13:41 [facility] [id number]) OT Gross Range of Motion Upper Extremity Range of Motion Assessment Within Functional Limits ROM Impairments R shoulder scaption ~ 100 degrees L shoulder scaption ~ 110 degrees OT Strength Upper Extremity Strength Assessment Within Functional Limits OT- Coordination Assessment Upper Extremity Finger to Nose Test Within Functional Limits OT-Muscle Tone Assessment Muscle Tone WNL Yes OT Sensation Assessment Comments Summary Comments Pt denies deficits in BUE's M9 OT- IP Assessment and Plan Start: 06/23/19 11:07 Freq: Status: Active Protocol: Document 06/23/19 13:20 PJM (Rec: 06/23/19 13:41 PJM [id number]) OT Summary Assessment and Plan Potential Rehabilitation Potential Good Analytic Complexity at Evaluation Low Summary OT Impairments Pain,Strength,Balance, Functional Mobility,Grooming, Dressing,Toileting,Bathing, Toilet Transfers,Shower Transfers,Activity Tolerance Assessment Summary Low complexity OT assessment completed on this 73 yr old man s/p trip and fall with L hip fx s/p ORIF on 06/21/19. PMHX includes immunotherapy for squamous cell CA of R shoulder with extensive resection with flap 05/2018. See H&P for further details. Pt presents with significant performance deficits in all functional mobility/transfers and has not yet ambulated or transferred to chair with P.T. He also has performance deficits in activity tolerance , standing grooming, lower body dressing, bathing and toileting. Pt very motivated to return home with HH services where he will have 24 hr assist from supportive and adult daughter can also stay to assist. Pt needs to be able to walk at least 20-30 feet with FWW to d/c home. Began education re: bathroom safety equipt and lower body dressing equipt options. Pt will benefit from OT services here to address the goals below. Goals Grooming Goal Standby Assistance Dressing Goal Standby Assistance,Dressing Stick,Long Handled Shoe Horn, Treating Engineer Toileting Goal Standby Assistance Bathing Goal Standby Assistance,Grab Bars, Hand Held Shower Sprayer,Long Handled Sponge or [place] Toilet Transfer Goal Standby Assistance,Raised Toilet Seat With Rails Shower Transfer Goal Contact Guard Assistance Patient/Caregiver Education Goal Demonstrate Energy Conservation and Pacing, Caregiver Independent Assisting Patient OT-Other Goals Grooming to be done standing at sink with FWW with good safety awareness. Days to Meet Goals 3 Frequency of Treatment Frequency Of Treatment Once a Day Treatment Plan OT Treatment Plan ADL Training,Functional Mobility,Patient/Family Education,Discharge Planning Discharge Recommendations OT Discharge Recommendations SNF Rehab Other Discharge Recommendations vs home with 15/10 assist and HH services pending progress with mobility Transportation Needs at Discharge Wheelchair/Cabulance vs private vehicle pending progress
--- NOTE | 2019-06-23 15:01 | CM.DPNOTE ---
DCP/continued: Reviewed chart. Spoke with therapy and reviewed notes. Current recommendation is SNF vs. HH vs. 24/7 care at home. Met with patient explained role. Patient alert and oriented at time of visit and reports that he would like to return home at time of d/c. Patient only wants SNF as last resort. If needed his first choice would be [facility]. Left vm with August requesting that they view. Patient again reiterates to this ORNAMENTAL IRON ERECTOR that his preference is home. Patient's daughter and spouse can assist and are wiling to do caregiver training. Patient open to HH and first choice is [facility] if needed. P: Patient hopes to improve within the next 24hrs and prefers to go home. Patient most likely will benefit from HH for therapies. CM team to follow closely. Will need order and F2F signed. DARIEN Klein
--- NOTE | 2019-06-23 15:16 | PT.IPTN ---
Current Diagnoses Pathological fracture, left femur, initial encounter for fracture (06/21/19) Surgery Performed Operation Date: 06/21/19 12:00 Actual Procedures p ORIF Hip DHS - Anthony Yeh MD Physical Therapy Treatment Note M2 PT-IP Current Condition Start: 06/22/19 08:35 Freq: NEEDED Status: Active Protocol: Document 06/22/19 14:10 LRN (Rec: 06/22/19 16:42 LRN [id number]) Physical Therapy Current Condition Current Condition Evaluation Date 06/22/19 Treatment Diagnosis L hip pain, GLF Onset Date 06/20/19 Weight Bearing Status Weight Bearing Status Weight Bear as Tolerated M3 PT-IP Subjective Start: 06/22/19 08:35 Freq: NEEDED Status: Active Protocol: Document 06/23/19 15:16 CLB (Rec: 06/23/19 16:28 CLB [id number]) Subjective Physical Therapy Visit Type Type Treatment Note Visit Start Time 15:16 Visit Stop Time 16:11 Total Visit Minutes 55 Number of BUYER GRAIN Visits 2 Physical Therapy Visit Comments Patient Comments Pt willing to get up and attempt to ambulate. Patient Goals Pt goal is to be able to go home at time of DC. Therapy Pain Assessment Pain When Pain Assessed During Mobility Pain Present Pain Present Pain Reported Location Left Hip Intensity 4 Scale Used 0/10 at rest 6/10 wt bearing Pain Behaviors Calling Out,Facial Grimacing, Guarding,Holding Area,[place] Pain Management Techniques Modification of Treatment,Re- positioning,Timing of Activity with Medications M4 PT-IP Mobility and Gait Start: 06/22/19 08:35 Freq: NEEDED Status: Active Protocol: Document 06/23/19 15:16 CLB (Rec: 06/23/19 16:28 CLB [id number]) PT-Bed Mobility Assessment Supine to Sit Supine to Sit Standby Assistance Sit to Supine Sit to Supine Moderate Assistance,2 Person Assistance Scooting Scooting to Edge of Bed Standby Assistance PT-Transfer Assessment Sit to and From Stand Sit to and from Stand Moderate Assistance,1 Person Assistance Equipment Transfer Assistive Device Gait Belt,Front Wheeled Walker Transfer Ability Level of Assist Moderate Assistance,1 Person Assistance Comments Mobility Comments Pt in bed upon arrival agreeable to attempt ambulation. Pt required increased time for all mobility and rest break after each activity. Pt attempted to stand x2 but was unable/ unwilling to bear wt on LLE and unable to ambulate. Pt then performed side scoot to left with assist with LLE positioning before each scoot. Pt required Mod A x2 to supine and Min A and verbal cues to use RLE and bridge hips to scoot right to center of bed with assist of LLE. Pt performed AAROM. Pt was left in bed with alarm on all needs within reach, refused SCD's. Gait Assessment Comments Gait Comments Pt unable to ambulate due to pain. M5 PT-IP Objective Assessments Start: 06/22/19 08:35 Freq: NEEDED Status: Active Protocol: Document 06/22/19 09:07 LRN (Rec: 06/22/19 10:24 LRN [id number]) Orientation Orientation/Cognition Level of Alertness Alert Orientation Name Language Function Ability No Deficits Noted Memory Description No Deficits Noted Gross Range of Motion Upper Extremity ROM Assessment Within Functional Limits Lower Extremity ROM Assessment Bilaterally Impaired Impairments Appears impaired due to L hip pain. Strength Upper Extremity Strength Assessment Within Functional Limits Lower Extremity Strength Assessment Bilaterally Impaired Hip 2+/5 R, 1/5 L Knee 3+/5 R, 2/5 L Ankle 5/5 R, 2/5 L Comments Strength Comments Strength limited by pain M6 PT-IP Treatment Start: 06/22/19 08:35 Freq: NEEDED Status: Active Protocol: Document 06/23/19 15:16 CLB (Rec: 06/23/19 16:28 CLB [id number]) Physical Therapy Treatment Exercises Exercises Ankle Pumps,Quad Sets,Heel Slides,Supine Hip Abduction M7 PT-IP Assessment and Plan Start: 06/22/19 08:35 Freq: NEEDED Status: Active Protocol: Document 06/23/19 15:16 CLB (Rec: 06/23/19 16:28 CLB [id number]) PT Summary Assessment and Plan Summary Impairments Pain,ROM,Strength,Bed Mobility ,Transfers,Gait,Activity Tolerance Progress Towards Goals Slow Progress due to Pain Assessment Summary Pt unable to bear wt on LLE and is unable to transfer or ambulate. Pt BP in sitting 137 /88, FL 111 Pt BP in standing 140/89, [place] 123. Pt will require SNF rehab to increase strength and activity tolerance for functional mobility Goals Bed Mobility Goal Minimal Assistance Transfer Goal Contact Guard Assistance, Minimal Assistance Gait Goal Minimal Assistance,Front Wheel Walker Gait Distance 50-100' Days to Meet Goals 3 Frequency of Treatment Frequency Of Treatment Twice a Day Treatment Plan Physical Therapy Treatment Plan Bed Mobility Training,Transfer Training,Gait Training, Therapeutic Exercise,Discharge Planning,Hot or Cold Pack Other Recommendations and Next Treatment Gait with FWW. Focus Talk to Care management regarding pt's DC plans and durable equipment. Recommendations To Nursing Amount of Assist Needed 2 Person Assist Discharge Recommendations PT Discharge Recommendations SNF Rehab Other Discharge Recommendations Possible home with spouse assist. Daughter Brigette will come to stay to assist. Equipment Needed for Home Before Pt will need walker and raised Discharge toilet seat if going directly home. Pt may also need WC to use to tranfer into home. Transportation Needs at Discharge Wheelchair/Cabulance
--- NOTE | 2019-06-23 17:36 | PC.NURSE ---
Addendum entered by Jessi Lepe R.N. 06/23/19 21:22: Pt had relatively uneventful evening. Dsg remains unchanged. Med @ 2100 for discomfort w/good relief. Stable post op course. Call light w/in reach, bed alarm on for pt safety. Continue w/plan of care. Original Note: Pt worked w/PT early in shift. Lungs CTA, SpO2 98% RA Dsg to surgical hip intact w/shadow drainage. ' No new drainage noted. HL RAC intact/patent. Call light w/in reach, bed alarm on for pt safety.
[2019-06-23] MEDS: ASPIRIN EC 81 MG TABLET PO (20:43)
[2019-06-24 05:37] VITALS: BP 114/68; PULSE 90; RESP 16; TEMP 37.5; O2SAT 95
[2019-06-24 05:41] LABS: Add Manual Diff / Slide Review NO; Basophils Absolute Auto 0 /uL (0-100); Basophils Percent Auto 0.5 % (0-2); Eosinophils Absolute Auto 200 /uL (0-450); Eosinophils Percent Auto 1.8 % (2-4); Hematocrit 33.7 % (41-53); Hemoglobin 11.6 g/dL (13.5-17.5); Lymphocytes Absolute Auto 1400 /uL (1100-4500); Lymphocytes Percent Auto 16.6 % (25-40); Mean Corpuscular HGB Conc 34.3 % (30-36); Mean Corpuscular Hemoglobin 30.2 PG (26-34); Mean Corpuscular Volume 87.9 fL (80-100); Monocytes Absolute Auto 700 /uL (0-900); Monocytes Percent Auto 8.4 % (3-14); Neutrophils Absolute Auto 6100 /uL (1500-7000); Neutrophils Percent Auto 72.7 % (50-75); Platelet Count 128 X10^3/uL (150-400); Red Blood Cell Count 3.84 X10^6/uL (4.5-5.9); Red Cell Distribution Width 14.5 % (11.6-14.8); White Blood Cell Count 8.4 X10^3/uL (4.5-11.0)
[2019-06-24 05:50] LABS: BUN Creatinine Ratio 16.4 (6-22); Blood Urea Nitrogen 12 mg/dL (9-20); Calcium 10.5 mg/dL (8.4-10.2); Carbon Dioxide 31 mmol/L (22-32); Chloride 104 mmol/L (98-107); Estimated Glomerular Filt Rate > 60.0 mL/min (>60); Glucose 107 mg/dL (80-110); HEMOLYSIS < 15 (0-50); Potassium 4.1 mmol/L (3.4-5.1); Sodium 137 mmol/L (137-145)
[2019-06-24] MEDS: HYDROMORPHONE 2 MG TABLET PO ×3 (06:11→14:18)
[2019-06-24] MEDS: hydrOXYzine pamoate 25 MG CAPSULE PO ×2 (06:11→14:18)
[2019-06-24 07:35] VITALS: BP 127/73; PULSE 84; RESP 17; TEMP 37.1; O2SAT 94
[2019-06-24] MEDS: ASPIRIN EC 81 MG TABLET PO (10:15)
[2019-06-24] MEDS: DOCUSATE 100 MG CAPSULE PO (10:15)
[2019-06-24] MEDS: SERTRALINE 50 MG TABLET 100 MG PO (10:15)
[2019-06-24] MEDS: polyethylene glycoL 3350 17 GM POWD.PACK PO (10:16)
[2019-06-24] MEDS: SODIUM CHLORIDE 0.9% FLUSH 10 ML IV (10:18)
--- NOTE | 2019-06-24 11:10 | PM.PNPO.1 ---
Subjective Subjective Date Patient Seen: 06/24/19 Time Patient Seen: 11:11 Interval history: Postop day 3 ORIF left intertrochanteric hip fracture. Patient doing well and making progress has been up with physical therapy. Still somewhat slow progress. Exam Vital Signs (past 8 hours): - 06/24/19 05:37 06/24/19 07:35 Temperature 99.5 F 98.8 F Pulse Rate 90 84 Respiratory Rate 16 17 Blood Pressure 114/68 127/73 Pulse Oximetry 95 94 Oxygen Delivery Method Room Air Oxygen Flow Rate 0 Narrative Exam Narrative: Awake alert oriented conversant no obvious distress. Distal neurovascular exam remains grossly intact. Dressing dry and intact. Objective Labs Result Diagrams: 06/24/19 05:30 06/24/19 05:30 Labs: Laboratory Results - last 24 hr 06/24/19 06/24/19 05:30 05:30 WBC 8.4 RBC 3.84 L Hgb 11.6 L Hct 33.7 L MCV 87.9 MCH 30.2 MCHC 34.3 RDW 14.5 Plt Count 128 L Neut % (Auto) 72.7 Lymph % (Auto) 16.6 L [place] % (Auto) 8.4 Eos % (Auto) 1.8 L Baso % (Auto) 0.5 Neut # (Auto) 6100 Lymph # (Auto) 1400 [place] # (Auto) 700 Eos # (Auto) 200 Baso # (Auto) 0 Sodium 137 Potassium 4.1 Chloride 104 Carbon Dioxide 31 BUN 12 Creatinine 0.73 Estimated GFR > 60.0 BUN/Creatinine Ratio 16.4 Glucose 107 Calcium 10.5 H Assessment & Plan Post-op Postoperative Procedures: Procedures Operation Date: 06/21/19 12:00 Actual Procedures Side Surgeon p ORIF Hip DHS Anthony Yeh MD Postoperative day: 3 Postoperative status: doing well Postoperative status narrative: slow progress postop intertrochanteric hip fracture ORIF but doing reasonably well. Final physical therapy today then discharged to home. Postoperative plan: routine post-op care Postoperative plan narrative: Discharge home with follow-up in orthopedic office in 10-14 days for wound check staple removal and repeat x-rays. Quality VTE Deep Vein Thrombosis/Pulmonary Embolism Present on Admission: No
--- NOTE | 2019-06-24 12:53 | PT.IPTN ---
Current Diagnoses Pathological fracture, left femur, initial encounter for fracture (06/21/19) Fracture of unspecified part of neck of left femur, initial encounter for closed fracture (06/21/19) Surgery Performed Operation Date: 06/21/19 12:00 Actual Procedures p ORIF Hip DHS - Anthony Yeh MD Physical Therapy Treatment Note M2 PT-IP Current Condition Start: 06/22/19 08:35 Freq: NEEDED Status: Active Protocol: Document 06/22/19 14:10 LRN (Rec: 06/22/19 16:42 LRN [id number]) Physical Therapy Current Condition Current Condition Evaluation Date 06/22/19 Treatment Diagnosis L hip pain, GLF Onset Date 06/20/19 Weight Bearing Status Weight Bearing Status Weight Bear as Tolerated M3 PT-IP Subjective Start: 06/22/19 08:35 Freq: NEEDED Status: Active Protocol: Document 06/24/19 12:32 [facility] (Rec: 06/24/19 12:53 [facility] [id number]) Subjective Physical Therapy Visit Type Type Treatment Note Visit Start Time 11:00 Visit Stop Time 12:00 Total Visit Minutes 60 Physical Therapy Visit Comments Patient Comments pt wants to get up to use the commode Patient Goals Pts goal is to be able to go home Therapy Pain Assessment Pain When Pain Assessed During Mobility Pain Present Pain Present Pain Reported Location Left Hip Intensity 3 Scale Used 1/10 at rest 6/10 with weight bearing Pain Behaviors Calling Out,Facial Grimacing, Guarding,Holding Area,Wincing Pain Management Techniques Apply Cold,Modification of Treatment,Re-positioning, Timing of Activity with Medications M4 PT-IP Mobility and Gait Start: 06/22/19 08:35 Freq: NEEDED Status: Active Protocol: Document 06/23/19 15:16 CLB (Rec: 06/23/19 16:28 CLB [id number]) PT-Bed Mobility Assessment Supine to Sit Supine to Sit Standby Assistance Sit to Supine Sit to Supine Moderate Assistance,2 Person Assistance Scooting Scooting to Edge of Bed Standby Assistance PT-Transfer Assessment Sit to and From Stand Sit to and from Stand Moderate Assistance,1 Person Assistance Equipment Transfer Assistive Device Gait Belt,Front Wheeled Walker Transfer Ability Level of Assist Moderate Assistance,1 Person Assistance Comments Mobility Comments Pt in bed upon arrival agreeable to attempt ambulation. Pt required increased time for all mobility and rest break after each activity. Pt attempted to stand x2 but was unable/ unwilling to bear wt on LLE and unable to ambulate. Pt then performed side scoot to left with assist with LLE positioning before each scoot. Pt required Mod A x2 to supine and Min A and verbal cues to use RLE and bridge hips to scoot right to center of bed with assist of LLE. Pt performed AAROM. Pt was left in bed with alarm on all needs within reach, refused SCD's. Gait Assessment Comments Gait Comments Pt unable to ambulate due to pain. M5 PT-IP Objective Assessments Start: 06/22/19 08:35 Freq: NEEDED Status: Active Protocol: Document 06/22/19 09:07 LRN (Rec: 06/22/19 10:24 LRN [id number]) Orientation Orientation/Cognition Level of Alertness Alert Orientation Name Language Function Ability No Deficits Noted Memory Description No Deficits Noted Gross Range of Motion Upper Extremity ROM Assessment Within Functional Limits Lower Extremity ROM Assessment Bilaterally Impaired Impairments Appears impaired due to L hip pain. Strength Upper Extremity Strength Assessment Within Functional Limits Lower Extremity Strength Assessment Bilaterally Impaired Hip 2+/5 R, 1/5 L Knee 3+/5 R, 2/5 L Ankle 5/5 R, 2/5 L Comments Strength Comments Strength limited by pain M6 PT-IP Treatment Start: 06/22/19 08:35 Freq: NEEDED Status: Active Protocol: Document 06/24/19 12:32 [facility] (Rec: 06/24/19 12:53 [facility] [id number]) Physical Therapy Treatment Exercises Exercises Ankle Pumps,Quad Sets,Heel Slides,Supine Hip Abduction Education Education Provided Weight Bearing Status Other Treatments Other Treatment Performed education on bed positioning, transfer training, assisted the patient with his exercises , worked today on transfer to the bed side commode. The patient was able to transfer with Mod A to bedside commode. He sat at the bed side commode for 15 minutes attempting to have a bowel movement. The plan was then to work on gait however the patient became fatigued and reported he was not able to ambulate. The transfer became difficult for him and it took Max A x 2 to transfer from standing at the commode to bed . He then required Max A x2 for bed mobility. M7 PT-IP Assessment and Plan Start: 06/22/19 08:35 Freq: NEEDED Status: Active Protocol: Document 06/24/19 12:32 [facility] (Rec: 06/24/19 12:53 [facility] [id number]) PT Summary Assessment and Plan Summary Impairments Pain,ROM,Strength,Bed Mobility ,Transfers,Gait,Activity Tolerance Progress Towards Goals Slow Progress due to Pain Assessment Summary Pt able to place weight through left LE initially to transfer to the bedside commode with Mod A x 1 This took 25 minutes for the transfer. Following sitting on the commode x 15 min the patient became much less tolerant of weightbearing on the left LE. He was Max Assist x 2 to transfer him back to bed. He was not able to ambulate or transfer. Once back in bed Mr Akins required Max A x 2 to position him in bed. The patient will require SNF for further strengthening, activity tolerance and improved tolerance for functional activity. Goals Bed Mobility Goal Minimal Assistance Transfer Goal Contact Guard Assistance, Minimal Assistance Gait Goal Minimal Assistance,Front Wheel Walker Gait Distance 50-100' Days to Meet Goals 0 Discharge Recommendations PT Discharge Recommendations SNF Rehab Other Discharge Recommendations Pt discharging this afternoon to [facility]. Equipment Needed for Home Before Pt will need walker and raised Discharge toilet seat once discharging from the [facility] Transportation Needs at Discharge Wheelchair/Cabulance
--- NOTE | 2019-06-24 12:59 | CM.DPC ---
DCP Discharge SNF: Per MD, pt medically stable to d/c either home with HH vs SNF pending further PT today. Per PT, pt made progress from yesterday and was able to transfer but still cannot complete bed mobility independently and was not able to ambulate again today and fatigued quite quickly and do not anticipate that pt will improve enough in the next day or two to safely d/c home. RN paged MD and updated on above and he is agreeable with d/c to SNF today and will return to sign med list and complete SNF discharge. SW met bedside with pt and was on speaker phone and SW explained role and updated on above and they had been very hopeful to d/c home with HH but understand that since pt cannot ambulate yet and fatigues quickly that he cannot safely return home and SNF needed. SW updated that [facility] confirms they can accept the pt today around 1430. Pt and spouse agreeable with discharge to [facility] since home is not currently an option and they are hopeful pt will only need about a week or so for rehab and then home with spouse and adult Dtr now arrived at their home to stay and assist further. Per [facility], request SW confirm that pt/spouse aware that pt's immunotherapy that is due in two weeks either needs to be postponed if pt remains at their facility or pt would need to d/c prior to his next dose as they cannot provide their rehab and have insurance also cover his oncology tx. SW called spouse and updated and she states she understands and that she does not anticipate pt will need longer than 13 days SNF rehab. Spouse also stating concerns regarding COVID at SNF and preference for pt to stay in the hospital and inquiring about Contesting discharge through Medicare. SW attempted to explain needing to meet medical criteria to remain at hospital level of care vs SNF rehab and then transferred spouse to CM Lease Analyst to further discuss her discharge concerns. JUAN faxed PASRR, med rec, and script to [facility] to review. JUAN updated RN, RAILCAR CARPENTER, and tile designer. Plan: Patient to d/c to [facility] today via facility van at 1430. DARIEN Samuels
[2019-06-24 13:11] VITALS: BP 130/71; PULSE 82; RESP 17; TEMP 37; O2SAT 97
--- NOTE | 2019-06-24 13:11 | OT.IP.TRT ---
Current Diagnoses Pathological fracture, left femur, initial encounter for fracture (06/21/19) Fracture of unspecified part of neck of left femur, initial encounter for closed fracture (06/21/19) Surgery Performed Operation Date: 06/21/19 12:00 Actual Procedures p ORIF Hip DHS - Anthony Yeh MD Occupational Therapy Treatment Note M3 OT- IP Subjective and Pain Start: 06/23/19 11:07 Freq: Status: Active Protocol: Document 06/24/19 13:11 PJM (Rec: 06/24/19 15:58 PJ [id number]) OT- Subjective Occupational Therapy Visit Type Type Treatment Note Visit Start Time 12:54 Visit Stop Time 13:11 Total Visit Minutes 17 Occupational Therapy Visit Comments Patient Comments I still can't walk, but I got up to the commode. Patient/Caregiver Goals to have less pain, be able to walk and go home. OT Pain Assessment Pain When Pain Assessed At Rest Pain Present Pain Present Pain Reported Location Left Hip Intensity 1 Scale Used Numeric (1 - 10) Description Aching,Acute M4 OT- IP ADL's Start: 06/23/19 11:07 Freq: Status: Active Protocol: Document 06/24/19 13:11 PJM (Rec: 06/24/19 15:58 [facility] [id number]) OT QBY-Toli-Eyazljj General Evaluation Self-Feeding Ability Independent Comments OT Self-Feeding Comments after set up in bed OT ADL-Grooming General Evaluation Grooming Ability Standby Assistance Areas Needing Assistance Retrieving/Set-up of Grooming Items,Combing/Brushing Hair, Face Washing Comments OT Grooming Comments after set up in bed OT ADL-Oral Care General Eval Oral Care Ability Standby Assistance Devices Oral Care Devices Toothbrush Comments Oral Care Comments after set up in bed OT ADL-Dressing General Eval Lower Body Dressing Ability Maximum Assistance,Total Assistance Assistive Devices Dressing Assistive Devices Long Handled Shoe Horn,Assistant Director Of Residence Life ,Sock Aid Comments OT Dressing Comments Began education and provided demonstration re: use of python consultant, sock aid, long shoe horn for lower body dressing. Pt asking appropriate questions and provided with dressing equipt. OT ADL-Toileting Comments OT Toileting Comments did not occur this session OT ADL-Bathing Bathing Type Bathing Type Bed Bath General Evaluation Bathing Ability Maximal Assistance M6 OT- IP Functional Cognition Start: 06/23/19 11:07 Freq: Status: Active Protocol: Document 06/24/19 13:11 PJM (Rec: 06/24/19 15:58 PJ [id number]) Cognitive Factors Limiting Selfcare Function Cognitive Ability Level of Alertness Alert Patient Orientation Name,Age,Birthday,Month,Date, Year,Day of Week,Place, Situation Attention Span Ability Capable of Focused Attention, Capable of Sustained Attention Ability to Follow Commands Able to Follow One Step Commands Problem Solving Ability Needs Assist to Identify Solutions M9 OT- IP Assessment and Plan Start: 06/23/19 11:07 Freq: Status: Active Protocol: Document 06/24/19 13:11 PJM (Rec: 06/24/19 15:58 [facility] [id number]) OT Summary Assessment and Plan Potential Rehabilitation Potential Good Summary OT Impairments Pain,Strength,Balance, Functional Mobility,Grooming, Dressing,Toileting,Bathing, Toilet Transfers,Shower Transfers,Activity Tolerance Progress Towards Goals Slow Progress due to Pain,Slow Progress due to Activity Tolerance Assessment Summary Pt has not been able to progress to ambulation with P. T. due to pain level and low activity tolerance, although he did get up to BSC with P.T. today. 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 Pt verbalizes understanding of lower body dressing equipment use but will need to practice with it as activity tolerance improves. Pt has good potential for return home after further rehab at SNF. Pt will transfer to SNF this PM per rn case manager. Discharge Recommendations OT Discharge Recommendations SNF Rehab Transportation Needs at Discharge Wheelchair/Cabulance
--- NOTE | 2019-06-24 14:31 | PC.NURSE ---
Discharge PIV removed prior to d/c. pt medicated with PO dilaudid and vistaril prior to d/c as well. Up with PT to w/c for cabulance transfer. Report called to Naty at [facility]. pt took all belongings home with him.
--- NOTE | 2019-06-24 16:23 | PT.IPTN ---
Current Diagnoses Pathological fracture, left femur, initial encounter for fracture (06/21/19) Fracture of unspecified part of neck of left femur, initial encounter for closed fracture (06/21/19) Surgery Performed Operation Date: 06/21/19 12:00 Actual Procedures p ORIF Hip DHS - Anthony Yeh MD Physical Therapy Treatment Note M2 PT-IP Current Condition Start: 06/22/19 08:35 Freq: NEEDED Status: Discharge Protocol: Document 06/22/19 14:10 LRN (Rec: 06/22/19 16:42 LRN [id number]) Physical Therapy Current Condition Current Condition Evaluation Date 06/22/19 Treatment Diagnosis L hip pain, GLF Onset Date 06/20/19 Weight Bearing Status Weight Bearing Status Weight Bear as Tolerated M3 PT-IP Subjective Start: 06/22/19 08:35 Freq: NEEDED Status: Discharge Protocol: Document 06/24/19 12:32 [facility] (Rec: 06/24/19 12:53 [facility] [id number]) Subjective Physical Therapy Visit Type Type Treatment Note Visit Start Time 11:00 Visit Stop Time 12:00 Total Visit Minutes 60 Physical Therapy Visit Comments Patient Comments pt wants to get up to use the commode Patient Goals Pts goal is to be able to go home Therapy Pain Assessment Pain When Pain Assessed During Mobility Pain Present Pain Present Pain Reported Location Left Hip Intensity 3 Scale Used 1/10 at rest 6/10 with weight bearing Pain Behaviors Calling Out,Facial Grimacing, Guarding,Holding Area,Wincing Pain Management Techniques Apply Cold,Modification of Treatment,Re-positioning, Timing of Activity with Medications M4 PT-IP Mobility and Gait Start: 06/22/19 08:35 Freq: NEEDED Status: Discharge Protocol: Document 06/23/19 15:16 CLB (Rec: 06/23/19 16:28 CLB [id number]) PT-Bed Mobility Assessment Supine to Sit Supine to Sit Standby Assistance Sit to Supine Sit to Supine Moderate Assistance,2 Person Assistance Scooting Scooting to Edge of Bed Standby Assistance PT-Transfer Assessment Sit to and From Stand Sit to and from Stand Moderate Assistance,1 Person Assistance Equipment Transfer Assistive Device Gait Belt,Front Wheeled Walker Transfer Ability Level of Assist Moderate Assistance,1 Person Assistance Comments Mobility Comments Pt in bed upon arrival agreeable to attempt ambulation. Pt required increased time for all mobility and rest break after each activity. Pt attempted to stand x2 but was unable/ unwilling to bear wt on LLE and unable to ambulate. Pt then performed side scoot to left with assist with LLE positioning before each scoot. Pt required Mod A x2 to supine and Min A and verbal cues to use RLE and bridge hips to scoot right to center of bed with assist of LLE. Pt performed AAROM. Pt was left in bed with alarm on all needs within reach, refused SCD's. Gait Assessment Comments Gait Comments Pt unable to ambulate due to pain. M5 PT-IP Objective Assessments Start: 06/22/19 08:35 Freq: NEEDED Status: Discharge Protocol: Document 06/22/19 09:07 LRN (Rec: 06/22/19 10:24 LRN [id number]) Orientation Orientation/Cognition Level of Alertness Alert Orientation Name Language Function Ability No Deficits Noted Memory Description No Deficits Noted Gross Range of Motion Upper Extremity ROM Assessment Within Functional Limits Lower Extremity ROM Assessment Bilaterally Impaired Impairments Appears impaired due to L hip pain. Strength Upper Extremity Strength Assessment Within Functional Limits Lower Extremity Strength Assessment Bilaterally Impaired Hip 2+/5 R, 1/5 L Knee 3+/5 R, 2/5 L Ankle 5/5 R, 2/5 L Comments Strength Comments Strength limited by pain M6 PT-IP Treatment Start: 06/22/19 08:35 Freq: NEEDED Status: Discharge Protocol: Document 06/24/19 16:21 [facility] (Rec: 06/24/19 16:23 [facility] [id number]) Physical Therapy Treatment Other Treatments Other Treatment Performed PT was called to help with transfer from bed to wheelchair for the patient to DC to SNF. Transfer from supine to sit at edge of bed with Max A x 2, sit-stand mod A, stand pivot transfer max A x 2 to wheelchair M7 PT-IP Assessment and Plan Start: 06/22/19 08:35 Freq: NEEDED Status: Discharge Protocol: Document 06/24/19 12:32 [facility] (Rec: 06/24/19 12:53 [facility] [id number]) PT Summary Assessment and Plan Summary Impairments Pain,ROM,Strength,Bed Mobility ,Transfers,Gait,Activity Tolerance Progress Towards Goals Slow Progress due to Pain Assessment Summary Pt able to place weight through left LE initially to transfer to the bedside commode with Mod A x 1 This took 25 minutes for the transfer. Following sitting on the commode x 15 min the patient became much less tolerant of weightbearing on the left LE. He was Max Assist x 2 to transfer him back to bed. He was not able to ambulate or transfer. Once back in bed Mr Akins required Max A x 2 to position him in bed. The patient will require SNF for further strengthening, activity tolerance and improved tolerance for functional activity. Goals Bed Mobility Goal Minimal Assistance Transfer Goal Contact Guard Assistance, Minimal Assistance Gait Goal Minimal Assistance,Front Wheel Walker Gait Distance 50-100' Days to Meet Goals 0 Discharge Recommendations PT Discharge Recommendations SNF Rehab Other Discharge Recommendations Pt discharging this afternoon to [facility]. Equipment Needed for Home Before Pt will need walker and raised Discharge toilet seat once discharging from the [facility] Transportation Needs at Discharge Wheelchair/Cabulance
== END 2019-06-24 14:45 | disposition home or self-care (01) | DRG 482 ==
LOC: ED 01:35 → AC 02:14
PROVIDERS: Internal Medicine; Admitting Provider Nurse Practitioner Adult Health; Emergency Provider Emergency Medicine; PCP Student in an Organized Health Care Education/Training Program; Referring Provider Emergency Medicine; Visit Provider Orthopaedic Surgery
PROC: 0QH704Z Insertion of Internal Fixation Device into Left Upper Femur, Open Approach (ICD-10-PCS; principal; 2019-06-21 12:00)
DX: M80.052A Age-related osteoporosis with current pathological fracture, left femur, initial encounter for fracture (principal); F32.9 Major depressive disorder, single episode, unspecified; K21.9 Gastro-esophageal reflux disease without esophagitis; C44.622 Squamous cell carcinoma of skin of right upper limb, including shoulder; Z87.891 Personal history of nicotine dependence; W01.0XXA Fall on same level from slipping, tripping and stumbling without subsequent striking against object, initial encounter
CPT/HCPCS: 36415; 72170; 72192; 73502; 76000; 80048; 81001; 83735; 85025; 85610; 96374; 97110; 97162; 97165; 97530; 97535; 99284; J0690; J1170; J2250; J2405; J2704; J3010

== ENCOUNTER 2021-06-22 23:31 | Emergency (ER) | payer MEDICARE, OTHER, SELFPAY ==
[2021-03-27 08:56] VITALS: BMI 29.2
[2021-06-22 23:35] VITALS: PULSE 115; O2SAT 93
[2021-06-22 23:40] VITALS: BP 208/103; PULSE 114; RESP 20; TEMP 36.6; O2SAT 93
--- NOTE | 2021-06-22 23:48 | DI.RAD.S_ITS ---
PROCEDURE: XR CHEST 2V INDICATIONS: hematemasis TECHNIQUE: 2 views of the chest were acquired. COMPARISON: [facility], , CHEST 1 VIEW, 08/11/2016, 19:07. FINDINGS: Surgical changes and devices: None. Lungs and pleura: There is mild bilateral perihilar bronchial wall thickening. There are a few indistinct nodular opacities within the lungs bilaterally. No pleural effusions or pneumothorax. Mediastinum: There is a large hiatal hernia redemonstrated. Heart size is normal. Bones and chest wall: No suspicious bony abnormalities. Soft tissues appear unremarkable. IMPRESSION: 1. Mild bilateral perihilar bronchial wall thickening suggestive of bronchiolitis. 2. Large hiatal hernia. 3. Scattered indistinct nodular opacities. The findings may represent confluence of vascular and bony structures versus pulmonary nodules. Dictated by: Jose Anne M.D. on 06/23/2021 at 0:35 Approved by: Jose Anne M.D. on 06/23/2021 at 0:39
[2021-06-23] VITALS: PULSE 73; O2SAT 95
[2021-06-23 00:01] VITALS: BP 158/108; PULSE 74; O2SAT 94
[2021-06-23 00:16] LABS: Add Manual Diff / Slide Review NO; Basophils Absolute Auto 0 /uL (0-100); Basophils Percent Auto 0.8 % (0-2); Eosinophils Absolute Auto 100 /uL (0-450); Eosinophils Percent Auto 1.8 % (2-4); Hematocrit 39.8 % (41-53); Hemoglobin 13.6 g/dL (13.5-17.5); Lymphocytes Absolute Auto 1500 /uL (1100-4500); Lymphocytes Percent Auto 22.2 % (25-40); Mean Corpuscular HGB Conc 34.1 % (30-36); Mean Corpuscular Hemoglobin 28.7 PG (26-34); Mean Corpuscular Volume 84.1 fL (80-100); Monocytes Absolute Auto 500 /uL (0-900); Neutrophils Absolute Auto 4500 /uL (1500-7000); Neutrophils Percent Auto 68.2 % (50-75); Platelet Count 199 X10^3/uL (150-400); Red Blood Cell Count 4.73 X10^6/uL (4.5-5.9); Red Cell Distribution Width 14.4 % (11.6-14.8); White Blood Cell Count 6.5 X10^3/uL (4.5-11.0)
[2021-06-23 00:27] LABS: Alanine Aminotransferase 17 IU/L (<50); Albumin 4.2 g/dL (3.5-5.0); Albumin Globulin Ratio 1.4 (1.0-2.8); Alkaline Phosphatase 110 U/L (38-126); Aspartate Aminotransferase 29 IU/L (17-59); BUN Creatinine Ratio 20.7 (6-22); Bilirubin Total 0.4 mg/dL (0.2-1.3); Blood Urea Nitrogen 17 mg/dL (9-20); Calcium 10.3 mg/dL (8.4-10.2); Carbon Dioxide 22 mmol/L (22-32); Chloride 110 mmol/L (98-107); Estimated Glomerular Filt Rate > 60.0 mL/min (>60); Glucose 120 mg/dL (80-110); HEMOLYSIS 21 (0-50); Potassium 4.1 mmol/L (3.4-5.1); Sodium 140 mmol/L (137-145); Total Protein 7.2 g/dL (6.3-8.2)
[2021-06-23 00:30] VITALS: PULSE 68; O2SAT 94
[2021-06-23 01:00] VITALS: PULSE 62; O2SAT 92
--- NOTE | 2021-06-23 01:10 | ED.GENADULT ---
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 He is scheduled for the CT scan and blood work next week. Notes that his went to visit their grandchildren 1 of whom had a significant cough. His presently developed the cough and then he developed a cough. Does not describe significant fevers but he notes that he has been more tired. He has had the cough for approximately a week and half and in the last 48 hours has noticed some blood flecks coming up at the end of a significant coughing episode. He has noticed more bleeding 1st thing in the morning as he is clearing out his lungs completely. Describes no chest pain or exertional dyspnea. He has not had any vomiting, abdominal pain, diarrhea or constipation. He complains of no headaches. Related Data Home Medications Medication Instructions Recorded Confirmed acetaminophen 325 mg tablet 650 mg PO Q12H PRN tab 07/08/18 03/13/21 (Tylenol) loratadine 10 mg tablet (Claritin) 10 mg PO DAILY 08/31/20 03/13/21 cholecalciferol (vitamin D3) 25 25 mcg PO DAILY 05/19/21 05/19/21 mcg (1,000 unit) capsule Previous Rx's Medication Instructions Recorded lisinopril 20 mg tablet 20 mg PO DAILY #90 tab 10/08/20 lorazepam 0.5 mg tablet 0.5 mg PO BID PRN #30 tab 02/14/21 sertraline 100 mg tablet 150 mg PO DAILY #135 tab 02/14/21 hydroxyzine pamoate 25 mg capsule 50 mg PO Q6HR PRN #30 cap 05/19/21 benzonatate 100 mg capsule 100 mg PO BID-TID PRN #14 cap 06/23/21 Allergies Allergy/AdvReac Type Severity Reaction Status Date / Time No Known Drug Allergies Allergy Verified 03/13/21 14:26 Review of Systems Review of Systems Narrative: Remainder of complete review of systems is otherwise unremarkable except for that included in the HPI. Patient History Medical History Anxiety Chicken pox Depression (~2016) Fractures Hearing loss Knee pain Measles Mumps Osteoarthritis (~2002) Seasonal allergies (~2007) 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 Vision disorder Surgical History Status post knee surgery (~2002) Status post surgical removal of malignant neoplasm of skin Family History Father Mental health problem Stroke Mother No significant past medical history Daughter Alcoholism Social History household members: spouse Smoking Status: Former smoker alcohol intake: former Smoking Status: Former smoker alcohol intake frequency: holidays/special occasions only Substance Use Type: does not use Exam Initial Vital Signs Initial Vital Signs: Vital Signs Temperature 97.9 F 06/22/21 23:40 Pulse Rate 114 H 06/22/21 23:40 Respiratory Rate 20 06/22/21 23:40 Blood Pressure 208/103 H 06/22/21 23:40 Pulse Oximetry 93 06/22/21 23:40 General: Healthy appearing, in no acute distress. Able to give a complete and coherent history. Well-nourished well-developed HEENT: Moist mucous membranes, normal sclera with reactive pupils, no significant pharyngeal edema, erythema or bleeding Neck: No JVD, supple, no cervical adenopathy Respiratory: Lungs scattered wheezes in the upper lung sanchez without rhonchi appreciated Full and symmetrical air movement Cardiac: Regular rate and rhythm no murmurs no bruits Skin: Warm and dry, no rashes Neurologic: Grossly neurologically intact with no obvious asymmetries or abnormalities Extremities: No trauma, well perfused Psych: Cooperative, appropriate insight and affect Course Orders Ordered: ED Orders 06/22/21 23:48 XR chest 2V Stat 06/22/21 23:49 Complete Blood Count AUTO DIFF Stat Comprehensive Metabolic Panel Stat Discontinued Medications Benzonatate (Benzonatate 100 Mg Capsule) 100 mg PO NOW ONE Stop: 06/23/21 01:26 Vital Signs Vital signs: Vital Signs - 8 hr 06/22/21 23:40 Temperature 97.9 F Pulse Rate 114 H Respiratory Rate 20 Blood Pressure 208/103 H Pulse Oximetry 93 Medical Decision Making Lab Data Result diagrams: 06/23/21 00:05 06/23/21 00:05 Labs: Lab Results 06/23/21 06/23/21 Range/Units 00:05 00:05 WBC 6.5 (4.5-11.0) X10^3/uL RBC 4.73 (4.5-5.9) X10^6/uL Hgb 13.6 (13.5-17.5) g/dL Hct 39.8 L (41-53) % MCV 84.1 (80-100) fL MCH 28.7 (26-34) PG MCHC 34.1 (30-36) % RDW 14.4 (11.6-14.8) % Plt Count 199 (150-400) X10^3/uL Neut % (Auto) 68.2 (50-75) % Lymph % (Auto) 22.2 L (25-40) % [place] % (Auto) 7.0 (3-14) % Eos % (Auto) 1.8 L (2-4) % Baso % (Auto) 0.8 (0-2) % Neut # (Auto) 4500 (5305-8442) /uL Lymph # (Auto) 1500 (4316-8983) /uL [place] # (Auto) 500 (0-900) /uL Eos # (Auto) 100 (0-450) /uL Baso # (Auto) 0 (0-100) /uL Sodium 140 (137-145) mmol/L Potassium 4.1 (3.4-5.1) mmol/L Chloride 110 H (98-107) mmol/L Carbon Dioxide 22 (22-32) mmol/L BUN 17 (9-20) mg/dL Creatinine 0.82 (0.66-1.25) mg/dL Estimated GFR > 60.0 (>60) mL/min BUN/Creatinine Ratio 20.7 (6-22) Glucose 120 H (80-110) mg/dL Calcium 10.3 H (8.4-10.2) mg/dL Total Bilirubin 0.4 (0.2-1.3) mg/dL AST 29 (17-59) IU/L ALT 17 (<50) IU/L Alkaline Phosphatase 110 (38-126) U/L Total Protein 7.2 (6.3-8.2) g/dL Albumin 4.2 (3.5-5.0) g/dL Globulin 3.0 (1.7-4.1) g/dL Albumin/Globulin Ratio 1.4 (1.0-2.8) Imaging Data Chest x-ray: Radiologist's Impression: FINDINGS:? ? Surgical changes and devices:? None.? ? Lungs and pleura:? There is mild bilateral perihilar bronchial wall thickening.? There are a few indistinct nodular opacities within the lungs bilaterally.? No pleural effusions or pneumothorax.? ? Mediastinum:? There is a large hiatal hernia redemonstrated.? Heart size is normal.? ? Bones and chest wall:? No suspicious bony abnormalities.? Soft tissues appear unremarkable.? ? IMPRESSION:? ? 1. Mild bilateral perihilar bronchial wall thickening suggestive of bronchiolitis. ? 2. Large hiatal hernia. ? 3. Scattered indistinct nodular opacities.? The findings may represent confluence of vascular and bony structures versus pulmonary nodules.? ? ? Dictated by: Jose Anne M.D. on 06/23/2021 at 0:35 ? ? MDM Narrative Medical decision making narrative: 75-year-old gentleman with bronchiolitis based on history, chest x-ray and exam. After a week and a half of coughing he has developed hematemesis over the last 36-48 hours. It is not with each cough but he does note small flecks of blood intermittently worse 1st thing this morning. He is not experiencing dyspnea or palpitations. He is not on an anticoagulant. He notes that he is actually improving from his upper respiratory infection. His chest x-ray is minimally remarkable today and does suggest bronchiolitis which is entirely consistent. He is scheduled for a CT chest abdomen pelvis for his squamous cell cancer surveillance next week and additional CT imaging was not ordered today. He is given a prescription for Tessalon Perles to help suppress the cough. At this point I do believe it simply irritation rather than bacterial lung infection or any type of lung cancer. He is safe for home discharge and I will encourage him to keep his appointment at [facility] next week. Discharge Plan Departure Patient Disposition: Home Clinical Impression: Bronchiolitis, Hematemesis Instructions: DI for Bronchiolitis Activity Restrictions/Additional Instructions: Thank you for coming in this evening Your chest x-ray in your blood work were very reassuring. Based on your chest x-ray and your history I suspect that you have bronchiolitis. I suspect that the cough that has been bothering you for the last week and half has cause some irritation in the upper part of your trachea and that is where the bleeding is coming from. At this point, I believe it is safe to simply some pressure cough and see if that helps decrease the amount of bleeding your having from the cough. I have electronically transmitted a prescription for benzonatate cough pill to [facility]. We gave you a pill in the emergency department tonight and if you feel that was helpful, please fern picker the prescription tomorrow If you have worsening bleeding, develop a fever, increasing shortness of breath or feel that your overall worsening, please make sure you return to the emergency department Prescriptions: New benzonatate 100 mg capsule 100 mg PO BID-TID PRN (Reason: cough) Qty: 14 0RF No Action lisinopril 20 mg tablet 20 mg PO DAILY Qty: 90 3RF lorazepam 0.5 mg tablet 0.5 mg PO BID PRN (Reason: anxiety) Qty: 30 0RF Hold Instructions: change to #10 sertraline 100 mg tablet 150 mg PO DAILY Qty: 135 1RF loratadine [Claritin] 10 mg tablet 10 mg PO DAILY 0RF hydroxyzine pamoate 25 mg capsule 50 mg PO Q6HR PRN (Reason: Spasms) Qty: 30 11RF cholecalciferol (vitamin D3) 25 mcg (1,000 unit) capsule 25 mcg PO DAILY 0RF acetaminophen [Tylenol] 325 mg tablet 650 mg PO Q12H PRN (Reason: Pain (Scale Score 1-3)) 0RF Referrals: Satnam Kirk MD [Primary Care Provider] -
[2021-06-23 01:30] VITALS: BP 136/65; PULSE 61; RESP 18; O2SAT 97
[2021-06-23] MEDS: BENZONATATE 100 MG CAPSULE PO (01:45)
== END 2021-06-23 01:45 | disposition home or self-care (01) ==
PROVIDERS: Emergency Provider Emergency Medicine; PCP Student in an Organized Health Care Education/Training Program
DX: J21.9 Acute bronchiolitis, unspecified (principal); K92.0 Hematemesis; Z87.891 Personal history of nicotine dependence
CPT/HCPCS: 71046; 80053; 85025; 99283

== ENCOUNTER → 2022-03-27 15:49 | Outpatient (CLI) | payer MEDICARE, OTHER, SELFPAY ==
[2021-03-27 08:56] VITALS: BMI 29.2
--- NOTE | 2022-03-27 | DI.CT.S_ITS ---
PROCEDURE: CT KIDNEY URETER BLADDER (KUB) INDICATIONS: Calculus of ureter TECHNIQUE: Axial sections were acquired from the lung bases to the pubic symphysis. Coronal and sagittal reformats were performed. For radiation dose reduction, the following was used: automated exposure control, adjustment of mA and/or kV according to patient size. COMPARISON: [facility], CR, XR CHEST 2V, 06/22/2021, 23:39. [facility], CT, CT PEL WO CON, 06/21/2019, 1:14. FINDINGS: Image quality: Excellent. Lung bases: Lung bases are clear. There is a moderate hiatal hernia. Heart: No significant findings. URINARY: Right Kidney: No hydronephrosis. Punctate calcifications in the lower pole may represent nonobstructing stones and measure 2-3 mm in diameter. Right Ureter: No hydroureter. There is a 3 mm calculus in the distal right ureter (series 2/image 84). Left Kidney: There is mild left hydronephrosis. A nonobstructing 5 mm calculus is present within the midpole of the kidney and 2 mm nonobstructing calculi are present at the lower pole. A double-J ureteral stent is present with the tip in the extrarenal pelvis. Left Ureter: There is mild hydroureter and moderate periureteral fat stranding. There is a 4 mm calculus within the mid to distal left ureter (series 2/image 57). No other ureteral calculi visualized. Bladder: The distal aspect of the double-J stent is appropriately placed within the bladder. No bladder calculi. No bladder wall thickening. ABDOMEN: Liver: Unremarkable. Gallbladder: A calcified stone is present within the gallbladder fundus.1 no gallbladder wall thickening or pericholecystic fluid. Biliary ducts: Unremarkable. Pancreas: Unremarkable. Spleen: Unremarkable. Adrenal Glands: Unremarkable. Stomach and Bowel: Stomach, small bowel loops, and colon are unremarkable. The appendix is thin walled and gas filled. Peritoneum: No abnormal intraperitoneal fluid. No free air. Ventral Wall: No hernia. Abdominal Nodes: No enlarged retroperitoneal or mesenteric lymph nodes. Vessels: Aorta and inferior vena cava are normal in size. There are scattered atheromatous calcifications throughout the aorta and iliac arteries bilaterally. PELVIS: Pelvic Organs: Unremarkable. Pelvic Nodes: Unremarkable. Miscellaneous: There are bilateral small fat containing inguinal hernias. Bones: Unremarkable. Anterior wedging at T11 is unchanged from the study dated June 22, 2021. IMPRESSION: 1. Non-obstructing bilateral renal calculi. 2. 3 mm calculus at the distal right ureter without hydronephrosis or hydroureter. 3. Left double-J ureteral stent and 4 mm calculus within the mid left ureter surrounded by periureteral fat stranding. 4. Mild left hydronephrosis. 5. No acute intra-abdominal findings. Normal appendix. Dictated by: Kristin Moody M.D. on 03/27/2022 at 16:37 Approved by: Kristin Moody M.D. on 03/27/2022 at 16:45
== END ==
PROVIDERS: PCP Student in an Organized Health Care Education/Training Program; Referring Provider Urology; Visit Provider Urology
DX: N13.2 Hydronephrosis with renal and ureteral calculous obstruction (principal); K44.9 Diaphragmatic hernia without obstruction or gangrene; K40.20 Bilateral inguinal hernia, without obstruction or gangrene, not specified as recurrent; Z96.0 Presence of urogenital implants
CPT/HCPCS: 74176

== ENCOUNTER → 2022-03-30 11:08 | Outpatient (CLI) | payer MEDICARE, OTHER, SELFPAY ==
[2021-03-27 08:56] VITALS: BMI 29.2
--- NOTE | 2022-03-30 11:10 | DI.CT.S_ITS ---
PROCEDURE: CT CHEST ABD PEL W CON INDICATIONS: LYMPH NODE CANCER TECHNIQUE: After the administration of oral and intravenous contrast, axial sections acquired from the supraclavicular neck to the pubic symphysis. Coronal and sagittal reformats were performed. For radiation dose reduction, the following was used: automated exposure control, adjustment of mA and/or kV according to patient size. COMPARISON: Outside Facility, , CT THORAX/ABDOMEN/PELVIS WITH CONTRAST, 02/24/2021, 9:43. [facility], CT, CT KIDNEY URETER BLADDER (KUB), 03/27/2022, 15:54. Outside Facility, RG, CT THORAX/ABDOMEN/PELVIS WITH CONTRAST, 10/31/2021, 15:14. FINDINGS: Image quality: Excellent. CHEST: Lower Neck: No enlarged lymph nodes. Thyroid: Within normal limits. Axillae: Multiple surgical clips in the right axilla. Right axillary thickening is similar. Chest Wall: Unremarkable. Lungs and Airways: A few small pulmonary nodules. For example: -Right upper lobe measuring 0.6 cm, (4/216), unchanged. -Left upper lobe measuring 0.4 cm, (4/108), unchanged. -Left upper lobe measuring 0.4 cm, (4/121), unchanged. Left lower lobe calcified granuloma. A few areas of streaky opacity. No consolidation. Airways are clear. Pleura: No pneumothorax or pleural effusions. Heart: Heart size is normal. No pericardial effusion. Thoracic Vessels: The aorta and pulmonary arteries demonstrate normal size. Mediastinum and Dora: No enlarged lymph nodes. Esophagus: No wall thickening. Moderate to large hiatal hernia. ABDOMEN: Liver: No focal lesion. Gallbladder: Not distended. Large gallstone measuring 2.2 cm. Biliary ducts: Unremarkable. Pancreas: Unremarkable. Spleen: Calcified granulomas. Mildly prominent measuring 13.1 cm. Adrenal Glands: Thickening of the left adrenal gland. Kidneys and Ureters: Mild left hydronephrosis. Left double-J ureteral stent. There is a stone adjacent to the mid left ureter stent measuring 0.6 cm, (2/96). Mild stranding near the left ureter. No right hydronephrosis appreciated. There is a stone at the right UVJ measuring at 0.4 cm, (2/122), unchanged. Small bilateral kidney stones. No solid renal mass. Stomach and Bowel: Stomach, small bowel loops, and colon are unremarkable. The appendix is not seen. Peritoneum: No abnormal intraperitoneal fluid. No free air. Ventral Wall: Small fat containing umbilical hernia. Abdominal Nodes: No retroperitoneal or mesenteric adenopathy by size criteria. Vessels: Aorta and inferior vena cava are normal in size. Moderate calcified plaque. PELVIS: Pelvic Organs: Prostatomegaly. Bladder: No bladder stone. Pelvic Nodes: No enlarged lymph nodes. Miscellaneous: No inguinal hernias are seen. Bones: Prior right lateral 9th rib fracture. Scoliosis. T11 compression fracture, unchanged. Multilevel DDD. Anterolisthesis of L4 on L5 measuring 0.4 cm. Left femoral neck screw fixation. IMPRESSION: 1. No enlarged lymph nodes identified. Similar right axillary thickening and postsurgical change. 2. Several small pulmonary nodules are unchanged. No new or enlarging nodules. 3. Small kidney stones in the left ureter and distal right ureter. Mild left hydronephrosis. Left double-J ureteral stent. 4. No metastatic disease identified in the abdomen or pelvis. 5. Large gallstone. Dictated by: Victoriano Awad M.D. on 04/03/2022 at 15:38 Approved by: Victoriano Awad M.D. on 04/03/2022 at 16:10
[2022-03-30 11:47] LABS: Estimated Glomerular Filt Rate > 60 mL/min (>60)
== END ==
PROVIDERS: Radiology Vascular & Interventional Radiology; PCP Student in an Organized Health Care Education/Training Program; Referring Provider Physician Assistant; Visit Provider Physician Assistant
DX: C77.9 Secondary and unspecified malignant neoplasm of lymph node, unspecified (principal); C80.1 Malignant (primary) neoplasm, unspecified; N20.1 Calculus of ureter; N13.30 Unspecified hydronephrosis; R91.8 Other nonspecific abnormal finding of lung field; K80.20 Calculus of gallbladder without cholecystitis without obstruction; E89.89 Other postprocedural endocrine and metabolic complications and disorders; I89.0 Lymphedema, not elsewhere classified; Z96.0 Presence of urogenital implants; Z98.890 Other specified postprocedural states
CPT/HCPCS: 36415; 71260; 74177; 82565; Q9967

== ENCOUNTER → 2023-10-21 13:46 | Outpatient (CLI) | payer MEDICARE, OTHER, SELFPAY ==
[2021-03-27 08:56] VITALS: BMI 29.2
--- NOTE | 2023-10-21 13:48 | DI.ECHO.S_ITS ---
[facility] : : [id number] : [place] : : [id number] : : Phone: [phone] Echocardiogram Report + + :Name: ABIMAEL TAYLOR JR Study Date: 10/21/2023 Height: 76 in : :Hospital ReadingLocation: Weight: 240 lb : : Gender: Male BSA: 2.4 m2 : :: 1945 Age: 78 yrs BP: 145/88 mmHg: :Reason For Study: SWELLING IN LOWER EXTREMITY, ELEVATED : :PULMONARY PRESSURE : :Ordering Physician: BRIGITTE, : :ANEUDY Performed By: Cris Solis : :Referring: ANEUDY BRIGGS : + + Interpretation Summary Normal left ventricle size with ejection fraction 55-60%. Mild biatrial enlargement. Mild aortic regurgitation. Mild to moderate mitral regurgitation. Mild tricuspid regurgitation. The right ventricular systolic pressure is estimated to be at least 36 mmHg based on an estimated right atrial pressure of 3 mm Hg. Procedure: A two-dimensional transthoracic echocardiogram with color flow and Doppler was performed. The study quality was technically adequate. There is no prior echocardiogram noted for this patient. The patient was in sinus rhythm with heart rates between 59-74 bpm during the exam. The patient had occasional PVCs during the exam. Left Ventricle: The left ventricle is normal in size and wall thickness. The ejection fraction is estimated to be 55-60%. There are no focal wall motion abnormalities. Diastolic function could not be accurately assessed due to confounding valvular disease. Right Ventricle: The right ventricle is normal in size and function. Atria: There is mild biatrial enlargement. There is no Doppler evidence for an interatrial shunt. Mitral Valve: The mitral valve is normal in structure and function. There is mild to moderate mitral regurgitation. Aortic Valve: The aortic valve is trileaflet. The aortic valve opens well. There is no aortic valve stenosis. There is mild aortic regurgitation. Tricuspid Valve: The tricuspid valve is normal in structure and function. There is mild tricuspid regurgitation. The right ventricular systolic pressure is estimated to be at least 36 mmHg based on an estimated right atrial pressure of 3 mm Hg. Pulmonic Valve: The pulmonic valve leaflets are thin and pliable; valve motion is normal. There is trace pulmonic regurgitation. Great Vessels: The aortic root is normal size. The dimensions of the ascending aorta are normal. The IVC is of normal diameter and collapses greater than 50% with a sniff. This suggests a low right atrial pressure of 3 mm Hg. Pericardium/ Pleura There is no pericardial effusion. There is no pleural effusion. MMode/2D Measurements & Calculations LVIDd: 5.1 cm LVOT diam: 2.1 cm LVIDs: 3.4 cm Ao root diam: 3.3 cm FS: 32.3 % asc Aorta Diam: 3.9 cm IVSd: 1.1 cm LVPWd: 0.75 cm LV duran. diameter/BSA (cm/m^2): 2.1 LV sys. diameter/BSA (cm/m^2): 1.4 LA A2 area: 26.0 cm2 RA long axis: 6.4 cm LA A4 area: 28.6 cm2 RA area: 25.8 cm2 LA length (vol): 7.2 cm RA vol: 87.6 ml LA vol: 87.1 ml RA : 36.6 ml/m2 LA vol index: 36.4 ml/m2 IVC diam: 1.5 cm RVD1 (basal): 4.3 cm TAPSE: 2.3 cm Doppler Measurements & Calculations Ao V2 max: 185.2 cm/sec LVOT Max Mendez: 83.8 cm/sec Ao V2 mean: 132.8 cm/sec LV V1 max P.8 mmHg Ao max P.7 mmHg LV V1 VTI: 17.1 cm Ao mean P.6 mmHg MOLLY(I,D): 1.5 cm2 Ao V2 VTI: 39.4 cm MOLLY(V,D): 1.6 cm2 sev ratio: 0.43 MOLLY indexed to BSA (cm^2/m^2): 0.63 MV E max mendez: 45.3 cm/sec TR max mendez: 285.4 cm/sec MV A max mendez: 63.3 cm/sec TR max P.6 mmHg MV E/A: 0.71 PA V2 max: 133.6 cm/sec Med Peak E' Mendez: 5.6 cm/sec PA V2 mean: 84.0 cm/sec E/E' med: 8.1 PA mean P.2 mmHg Lat Peak E' Mendez: 8.7 cm/sec PA pr(Accel): 41.3 mmHg E/E' lat: 5.2 E/e' average: 6.7 MV dec time: 0.41 sec SV(LVOT): 59.9 ml Electronically signed by: Fadi Naqvi on Reading Physician:10/21/2023 03:39 PM
== END ==
PROVIDERS: PCP Family Medicine; Referring Provider Family Medicine; Visit Provider Family Medicine
DX: I10 Essential (primary) hypertension (principal); I08.3 Combined rheumatic disorders of mitral, aortic and tricuspid valves; M79.89 Other specified soft tissue disorders; R91.1 Solitary pulmonary nodule; I27.21 Secondary pulmonary arterial hypertension; Z87.898 Personal history of other specified conditions
CPT/HCPCS: 93306

== ENCOUNTER → 2023-11-18 12:33 | Outpatient (CLI) | payer MEDICARE, OTHER, SELFPAY ==
[2021-03-27 08:56] VITALS: BMI 29.2
[2023-11-18 13:55] LABS: Alanine Aminotransferase 18 IU/L (<50); Albumin 4.1 g/dL (3.5-5.0); Albumin Globulin Ratio 1.6 (1.0-2.8); Alkaline Phosphatase 87 U/L (38-126); Aspartate Aminotransferase 28 IU/L (17-59); BUN Creatinine Ratio 13.9 (6-22); Bilirubin Total 0.6 mg/dL (0.2-1.3); Blood Urea Nitrogen 11 mg/dL (9-20); Carbon Dioxide 24 mmol/L (22-32); Chloride 106 mmol/L (98-107); Estimated Glomerular Filt Rate > 60 mL/min (>60); Globulin 2.5 g/dL (1.7-4.1); Glucose 88 mg/dL (80-110); HEMOLYSIS < 15 (0-50); Potassium 4.1 mmol/L (3.4-5.1); Sodium 136 mmol/L (137-145); Total Protein 6.6 g/dL (6.3-8.2)
[2023-11-18 14:25] LABS: Free T4, Direct Thyroxine 0.81 ng/dL (0.78-2.19)
[2023-11-18 14:39] LABS: Thyroid Stimulating Hormone 1.54 uIU/mL (0.47-4.68)
[2023-11-18 14:47] LABS: Cholesterol 228 mg/dL (140-199); HDL Cholesterol 51 mg/dL (40-60); LDL Cholesterol Calculated 153 mg/dL (<100); Triglycerides 118 mg/dL (35-150)
[2023-11-19 03:36] LABS: Apolipoprotein A1 133 mg/dL (101-178)
[2023-11-19 05:41] LABS: Apolipoprotein B 114 mg/dL (<90)
== END ==
LOC: LAB 12:36
PROVIDERS: PCP Family Medicine; Referring Provider Physician Assistant; Visit Provider Physician Assistant
DX: Z00.00 Encounter for general adult medical examination without abnormal findings (principal); I10 Essential (primary) hypertension; I70.90 Unspecified atherosclerosis; E78.2 Mixed hyperlipidemia; E21.3 Hyperparathyroidism, unspecified; C77.9 Secondary and unspecified malignant neoplasm of lymph node, unspecified; I27.21 Secondary pulmonary arterial hypertension; E78.89 Other lipoprotein metabolism disorders
CPT/HCPCS: 36415; 80053; 80061; 82172; 83735; 83970; 84439; 84443

== ENCOUNTER 2025-03-19 13:32 | Emergency (ER) | payer MEDICARE, OTHER, SELFPAY ==
[2021-03-27 08:56] VITALS: BMI 29.2
--- OUTSIDE RECORDS SUMMARY | 2025-03-19 13:34 | XMS_ITS ---
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 Past Treatment and Therapy Plans No past plan information found. Lifetime Dose Tracking * Chemical Lifetime Dose Automatic Entry Manual Entr y Radiation 2.894 mGy 2.894 mGy 0 mGy
--- NOTE | 2025-03-19 13:35 | DI.RAD.S_ITS ---
PROCEDURE: XR HIP W PEL IF DONE LT 2V INDICATIONS: Fall from standing, left hip pain previous repair TECHNIQUE: AP pelvis with lateral view(s) of the left hip(s). COMPARISON: [facility], , XR HIP W PEL IF DONE LT 2V, 06/21/2019, 12:35. FINDINGS: Bones: No fractures or dislocations. Expected appearance of orthopedic surgical hardware, status post remote ORIF of the left hip. Pelvic ring appears intact. No suspicious bony lesions. Soft tissues: The visualized bowel gas pattern is normal. No suspicious soft tissue calcifications. IMPRESSION: No acute bony abnormality. Dictated by: Bronson Kirkland M.D. on 03/19/2025 at 14:26 Approved by: Bronson Kirkland M.D. on 03/19/2025 at 14:26
--- NOTE | 2025-03-19 13:59 | ED.LOWEXIN ---
HPI - Extremity Injury (Lower) General Chief Complaint: Extremity Injury, Lower Stated Complaint: Fall. Left hip. Time Seen by Provider: 03/19/25 13:59 History of Present Illness HPI Narrative: 79-year-old gentleman history of hypertension seasonal allergies depression and right shoulder squamous cell carcinoma presents with fall 8 ft from the ladder February 01 presenting with left-side chest/abd pain and left middle back pain, difficulty walking due to pain. He denies any nausea, vomiting, headache, dizziness, shortness breath, dyspnea on exertion, bowel or bladder incontinence, neck pain, loss of consciousness. Other than what is stated 14 point review of system is negative. Related Data Home Medications ?Medication ?Instructions ?Recorded ?Confirmed acetaminophen 325 mg tablet 650 mg PO Q12H PRN Pain (Scale 07/08/18 11/03/24 (Tylenol) Score 1-3) loratadine 10 mg tablet (Claritin) 10 mg PO DAILY 08/31/20 11/03/24 cholecalciferol (vitamin D3) 25 25 mcg PO DAILY 05/19/21 11/03/24 mcg (1,000 unit) capsule hawthorn 500 mg capsule 565 mg PO 09/18/23 11/03/24 Previous Rx's ?Medication ?Instructions ?Recorded hydroxyzine pamoate 50 mg capsule 50 mg PO Q6HR PRN Spasms #360 caps 09/27/23 lorazepam 0.5 mg tablet 0.5 mg PO DAILY PRN anxiety #10 09/27/23 tabs sertraline 100 mg tablet 150 mg (1.5 x 100 mg) PO DAILY 04/01/24 #135 tabs lisinopril 40 mg tablet 40 mg PO DAILY #90 tabs 04/09/24 fluticasone propionate 50 2 spray intranasal DAILY #16 grams 09/14/24 mcg/actuation nasal spray,suspension (Flonase Allergy Relief) benzonatate 200 mg capsule 200 mg PO BID-TID PRN cough #30 11/03/24 caps Allergies Allergy/AdvReac Type Severity Reaction Status Date / Time erum Allergy Verified 11/03/24 16:41 pollen AdvReac Intermediate sneeze Uncoded 11/03/24 16:41 Review of Systems Review of Systems ROS Unobtainable: All systems reviewed & are unremarkable except as noted in HPI and below Patient History Medical History Vision disorder Knee pain Osteoarthritis (~2002) Seasonal allergies (~2007) Depression (~2016) Anxiety Fractures Mumps Measles Chicken pox Hearing loss 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 Surgical History Status post surgical removal of malignant neoplasm of skin Status post knee surgery (~2002) Family History Father Mental health problem Stroke Mother No significant past medical history Daughter Alcoholism Social History household members: spouse alcohol intake: former alcohol intake frequency: holidays/special occasions only Exam Narrative Exam Narrative: GENERAL: [79] year old patient appears stated age. Well-developed patient, in mild distress. HEAD: Atraumatic. Normocephalic. EYES: Pupils equal round and reactive. Extraocular motions intact. No scleral icterus. No injection or drainage. ENT: Nose without bleeding, purulent drainage. Throat without erythema, tonsillar hypertrophy or exudate. Airway patent. NECK: Trachea midline. Non tender CARDIOVASCULAR: Regular rate and rhythm without murmurs, gallops, or rubs. RESPIRATORY: Clear to auscultation. Breath sounds equal bilaterally. No wheezes, rales, or rhonchi. Left-sided internal posterolateral chest wall pain 6-10 GASTROINTESTINAL: Abdomen soft, non-tender, nondistended. EXTREMITIES: No edema or joint tenderness. BACK: Nontender without deformity or crepitance. No flank tenderness. NEURO: AOx3. SKIN: No rash or erythema of visible areas Course Orders Ordered: ED Orders 03/19/25 13:35 XR hip w pel LT 2V Stat Discharge Plan Departure Prescriptions: No Action benzonatate 200 mg capsule 200 mg PO BID-TID PRN (Reason: cough) Qty: 30 0RF lorazepam 0.5 mg tablet 0.5 mg PO DAILY PRN (Reason: anxiety) Qty: 10 5RF hydroxyzine pamoate 50 mg capsule 50 mg PO Q6HR PRN (Reason: Spasms) Qty: 360 3RF lisinopril 40 mg tablet 40 mg PO DAILY Qty: 90 3RF loratadine [Claritin] 10 mg tablet 10 mg PO DAILY cholecalciferol (vitamin D3) 25 mcg (1,000 unit) capsule 25 mcg PO DAILY sertraline 100 mg tablet 150 mg PO DAILY Qty: 135 3RF acetaminophen [Tylenol] 325 mg tablet 650 mg PO Q12H PRN (Reason: Pain (Scale Score 1-3)) hawthorn 500 mg capsule 565 mg PO fluticasone propionate [Flonase Allergy Relief] 50 mcg/actuation spray,suspension 2 spray intranasal DAILY Qty: 16 3RF Rx Instructions: administer into each nostril Referrals: Karlie Padron DO [Primary Care Provider, Family Practice]
[2025-03-19 14:47] VITALS: BP 129/77; PULSE 75; RESP 18; TEMP 36.6; O2SAT 94; BMI 29.2
--- NOTE | 2025-03-19 18:34 | DI.CT.S_ITS ---
PROCEDURE: CT PEL WO CON INDICATIONS: ? left hip fracture TECHNIQUE: Noncontrast 3 mm axial sections acquired through the bony pelvis, with coronal and sagittal reformatting. Dose reduction techniques were utilized. COMPARISON: [facility], CT, CT PEL WO CON, 06/21/2019, 1:14. FINDINGS: Severe degenerative changes in the lower lumbar spine. Mild degenerative changes of the bilateral sacroiliac joints. Mild degenerative changes of bilateral hips. Internal fixation of remote healed left femur fracture. New acute nondisplaced avulsion type fracture of the greater trochanter of the left femur. Severe atherosclerotic calcifications. No hematoma or free intraperitoneal fluid. IMPRESSION: Acute left femur fracture. Dictated by: Frank Durant M.D. on 03/19/2025 at 19:18 Approved by: Frank Durant M.D. on 03/19/2025 at 19:21
[2025-03-19] MEDS: IBUPROFEN 400 MG TABLET PO (18:43)
--- NOTE | 2025-03-19 18:44 | PC.NURSE ---
pt to RP 2, meds given
[2025-03-19 20:44] VITALS: BP 113/67; PULSE 68; O2SAT 96
[2025-03-19 20:49] VITALS: BP 113/67; PULSE 67; RESP 18; O2SAT 97
--- NOTE | 2025-03-19 21:27 | ED.LOWEXIN ---
HPI - Extremity Injury (Lower) General Chief Complaint: Extremity Injury, Lower Stated Complaint: Fall. Left hip. Time Seen by Provider: 03/19/25 13:59 Source: patient Mode of arrival: Wheelchair History of Present Illness HPI Narrative: 79-year-old gentleman with a history of blood pressure who slipped on a rug on a tile floor landing on your left hip which has already been fractured and repaired. He is unable to bear weight on the left side. No other injuries with the fall no other complaints. No recent fevers, cough, chills, chest pain, dyspnea. Related Data Home Medications ?Medication ?Instructions ?Recorded ?Confirmed acetaminophen 325 mg tablet 650 mg PO Q12H PRN Pain (Scale 07/08/18 11/03/24 (Tylenol) Score 1-3) loratadine 10 mg tablet (Claritin) 10 mg PO DAILY 08/31/20 11/03/24 cholecalciferol (vitamin D3) 25 25 mcg PO DAILY 05/19/21 11/03/24 mcg (1,000 unit) capsule hawthorn 500 mg capsule 565 mg PO 09/18/23 11/03/24 Previous Rx's ?Medication ?Instructions ?Recorded hydroxyzine pamoate 50 mg capsule 50 mg PO Q6HR PRN Spasms #360 caps 09/27/23 lorazepam 0.5 mg tablet 0.5 mg PO DAILY PRN anxiety #10 09/27/23 tabs sertraline 100 mg tablet 150 mg (1.5 x 100 mg) PO DAILY 04/01/24 #135 tabs lisinopril 40 mg tablet 40 mg PO DAILY #90 tabs 04/09/24 fluticasone propionate 50 2 spray intranasal DAILY #16 grams 09/14/24 mcg/actuation nasal spray,suspension (Flonase Allergy Relief) benzonatate 200 mg capsule 200 mg PO BID-TID PRN cough #30 11/03/24 caps Allergies Allergy/AdvReac Type Severity Reaction Status Date / Time erum Allergy Verified 03/19/25 14:47 pollen AdvReac Intermediate sneeze Uncoded 03/19/25 14:47 Review of Systems Review of Systems Narrative: Pertinent positive and negative findings as per HPI Patient History Medical History Vision disorder Knee pain Osteoarthritis (~2002) Seasonal allergies (~2007) Depression (~2016) Anxiety Fractures Mumps Measles Chicken pox Hearing loss 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 Surgical History Status post surgical removal of malignant neoplasm of skin Status post knee surgery (~2002) Family History Father Mental health problem Stroke Mother No significant past medical history Daughter Alcoholism Social History household members: spouse Smoking Status: Never smoker alcohol intake: former Smoking Status: Never smoker alcohol intake frequency: holidays/special occasions only Exam Initial Vital Signs Initial Vital Signs: Vital Signs Temperature 98 F 03/19/25 14:47 Pulse Rate 75 03/19/25 14:47 Respiratory Rate 18 03/19/25 14:47 Blood Pressure 129/77 03/19/25 14:47 Pulse Oximetry 94 03/19/25 14:47 Oxygen Delivery Method Room Air 03/19/25 14:47 General: Alert appropriate in no acute distress Respiratory: Able to speak in full sentences, no obvious respiratory distress Skin: No obvious rashes, warm and dry Neurologic: Grossly intact no obvious asymmetries or abnormalities Psych: appropriate insight and affect, cooperative Extremity: Tenderness when lifting up his left leg and with external rotation. No obvious bruising or contusion. He is neurovascularly intact distally Course Orders Ordered: ED Orders 03/19/25 13:35 XR hip w pel LT 2V Stat 03/19/25 18:34 CT pelvis wo con Stat Discontinued Medications Ibuprofen (Ibuprofen 400 Mg Tablet) 400 mg PO NOW ONE Stop: 03/19/25 18:35 Last Admin: 03/19/25 18:43 Dose: 400 mg Documented By: RADHA Oxycodone/Acetaminophen (Oxycodone/Acetaminophen 5/325 Tablet) 1 tab PO NOW ONE Stop: 03/19/25 18:35 Last Admin: 03/19/25 18:43 Dose: 1 tab Documented By: RADHA Vital Signs Vital signs: Vital Signs - 8 hr 03/19/25 14:47 03/19/25 20:44 03/19/25 20:49 Temperature 98 F Pulse Rate 75 68 67 Respiratory Rate 18 18 Blood Pressure 129/77 113/67 113/67 Pulse Oximetry 94 96 97 Oxygen Delivery Method Room Air Room Air Room Air MDM - Extremity Injury (Lower) MDM Narrative Medical decision making narrative: CC: Mechanical fall at home onto left hip Complicating co-morbidities: Prior repaired left hip fracture Data collected from: patient Differential considered: Periprosthetic fracture, acetabular fracture, contusion, mid femur fracture Exam documented above, pertinent findings include: Left hip does hurt, that is not foreshortened or internally rotated. He is neurovascularly intact Lab Test results independently reviewed as above. Pertinent findings: Independently reviewed EKG: Imaging studies independently reviewed: X-ray does not show a fracture Because he still can not bear weight, CT scan was ordered which does show PROCEDURE: CT PEL WO CON INDICATIONS: ? left hip fracture TECHNIQUE: Noncontrast 3 mm axial sections acquired through the bony pelvis, with coronal and sagittal reformatting. Dose reduction techniques were utilized. COMPARISON: [facility], CT, CT PEL WO CON, 06/21/2019, 1:14. FINDINGS: Severe degenerative changes in the lower lumbar spine. Mild degenerative changes of the bilateral sacroiliac joints. Mild degenerative changes of bilateral hips. Internal fixation of remote healed left femur fracture. New acute nondisplaced avulsion type fracture of the greater trochanter of the left femur. Severe atherosclerotic calcifications. No hematoma or free intraperitoneal fluid. IMPRESSION: Acute left femur fracture Dictated by: Frank Durant M.D. on 03/19/2025 at 19:18 Consultations: ortho, Dr Solo. CT scan is reviewed in real-time. The fracture itself is a nondisplaced a avulsion fracture off the greater trochanter, is not part of the weight-bearing bone and does not need any surgical intervention. Pain control and use of a walker we will be appropriate treatment Treatments: Ibuprofen, Percocet Re-evaluations: Pain medications were very effective in controlling his pain Discussion: Care is reviewed with orthopedic surgeon. This is a stable nondisplaced fracture and a nonweightbearing portion of the femur with previous hardware appropriately in place and providing support. Patient is quite comfortable using the walker. A single Percocet has been helpful in controlling pain. With shared decision-making we opted to have him discharge home rather than stay in the hospital this evening. Discussed anticipated course of healing including increasing pain over the 1st 2-3 days. Talked about appropriate use of narcotics for severe pain and need for stool softeners if he chooses to use the narcotics. Clearly reiterated he needs to follow up with the Orthopedic surgery for definitive treatment of his nondisplaced avulsion fracture of the greater trochanter. He is safe for discharge Discharge Plan Departure Patient Disposition: Home Clinical Impression: Femur fracture, left Qualifiers: Encounter type: initial encounter Femur location: lateral condyle Fracture type: closed Fracture alignment: nondisplaced Qualified Code(s): S72.425A - Nondisplaced fracture of lateral condyle of left femur, initial encounter for closed fracture Instructions: DI for Hip Fracture Activity Restrictions/Additional Instructions: Thank you for coming in today You did, in fact, break your hip. Fortunately it was more a crack off the outer top edge rather than fracture of any of the load bearing bone. Your previous hip surgery is holding up nicely and provided extra strength with your fall today. You do not need any surgery for the current small fracture. It is going to heal. It is okay to walk on it I do want you to use the walker for stability to make sure that you do not fall again. Using 400 mg of ibuprofen (2 [id number] pills) and 1 Tylenol every 6 hours can be very helpful in controlling pain. For severe pain you can add Percocet. Percocet is a narcotic and will cause constipation and needs to be taken with a a stool softener. You do need to follow up with our orthopedic clinic. Please call [phone] to schedule a ER follow up for a hip fracture. If you find that you are getting worse or develop any new symptoms, please feel free to return to the emergency department for further evaluation. Prescriptions: No Action benzonatate 200 mg capsule 200 mg PO BID-TID PRN (Reason: cough) Qty: 30 0RF lorazepam 0.5 mg tablet 0.5 mg PO DAILY PRN (Reason: anxiety) Qty: 10 5RF hydroxyzine pamoate 50 mg capsule 50 mg PO Q6HR PRN (Reason: Spasms) Qty: 360 3RF lisinopril 40 mg tablet 40 mg PO DAILY Qty: 90 3RF loratadine [Claritin] 10 mg tablet 10 mg PO DAILY cholecalciferol (vitamin D3) 25 mcg (1,000 unit) capsule 25 mcg PO DAILY sertraline 100 mg tablet 150 mg PO DAILY Qty: 135 3RF acetaminophen [Tylenol] 325 mg tablet 650 mg PO Q12H PRN (Reason: Pain (Scale Score 1-3)) hawthorn 500 mg capsule 565 mg PO fluticasone propionate [Flonase Allergy Relief] 50 mcg/actuation spray,suspension 2 spray intranasal DAILY Qty: 16 3RF Rx Instructions: administer into each nostril Referrals: Karlie Padron DO [Primary Care Provider, Family Practice] Stand Alone Forms: Patient Portal/API
--- NOTE | 2025-03-19 22:25 | PC.NURSE ---
Set FWW at 7 all for posts. Patient educated and ambulated well.
[2025-03-19 22:34] VITALS: BP 143/89; PULSE 97; RESP 16; O2SAT 97
== END 2025-03-19 23:27 | disposition home or self-care (01) ==
PROVIDERS: Emergency Provider Emergency Medicine; PCP Family Medicine
DX: S72.425A Nondisplaced fracture of lateral condyle of left femur, initial encounter for closed fracture (principal); W01.198A Fall on same level from slipping, tripping and stumbling with subsequent striking against other object, initial encounter
CPT/HCPCS: 72192; 73502; 99283